=== PATIENT | male | born 1945 | race Caucasian/White ===

== ENCOUNTER 2016-05-15 08:30 | Emergency (ER) | payer MEDICARE ==
[2016-05-15 09:33] VITALS: BP 98/54
--- NOTE | 2016-05-15 11:02 | UC ---
Ro Alvarado Alok, scribed for Toyin Pretty DO on 05/15/16 at 0935 . Minor Trauma HPI - HPI Summary HPI Summary: 71 y/o male presents to the with right ankle pain and edema with erythema as well as a low BP. Pt has hx of parkinson's and reportedly fell at least 4 times in the past week due to loss of balance while at rest and while walking which is unusual for him. Pt states feeling lightheaded before falling, but denies impact of the head or loss of consciousness. Pt confusion is the same as baseline. Erythema and swelling of the right ankle has been increasing for the past two days. Pt has been able to ambulate with the assistance of a walker, although he does not use one regularly. Ambulating aggravates his pain. Pt also notes a HILL last night at 0400 which felt like a typical HILL. Pt denies fever , chills, CP, SOB, cough, sore throat, ear ache, eye drainage, abd pain, N/V/D, rash, or urinary symptoms. Recent changes in pt medications include synthroid which has been reduced from 25 mg a day to half that since it has been bothering him. Pt also takes Zoloft and Gabapentin. Pt no longer take clonazapam. - History of Current Complaint Chief Complaint: UCLowerExtremity Stated Complaint: FELL,LEG INJURY Time Seen by Provider: 05/15/16 08:57 Hx Obtained From: Patient, Family/Hook Up Onset/Duration: Gradual Onset, Lasting Days, Still Present Onset Of Pain: Post Accident Severity Initially: Moderate Severity Currently: Moderate Pain Intensity: 2 Pain Scale Used: 0-10 Numeric Mechanism Of Injury: Fall From Height Of: - from seated, Fall From A Standing Position Aggravating Factor(s): Ambulation Alleviating Factor(s): Nothing Associated Signs And Symptoms: Positive: Swelling, Other: - erythema. 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, DVS Endocrine History Of: Denies: Diabetes, Thyroid Disease Cardiovascular History Of: Denies: Cardiac Disorders, Hypertension Respiratory History Of: Denies: COPD, Asthma GI/ History Of: Reports: Gastroesophageal Reflux Denies: Ulcer - Surgical History Surgical History: Yes Surgery Procedure, Year, and Place: TURP - Family History Known Family History: Positive: Cardiac Disease, Hypertension, Other - Blot clot , CVA, [place] - Social History Occupation: Retired Lives: With Family - Alcohol Use: None Alcohol Amount: 1/2 glass of wine at dinner Substance Use Type: None Smoking Status (MU): Never Smoked Tobacco - Immunization History Most Recent Tetanus Shot: within 5 years Review of Systems Constitutional: Negative Skin: Other - Erythema, edema, right ankle Eyes: Negative ENT: Negative Respiratory: Negative Cardiovascular: Negative Gastrointestinal: Negative Genitourinary: Negative Motor: Negative Neurovascular: Negative Musculoskeletal: Edema, Other: - Right Ankle pain Neurological: Headache Psychological: Negative All Other Systems Reviewed And Are Negative: Yes Physical Exam Triage Information Reviewed: Yes Appearance: Well-Appearing, No Pain Distress, Well-Nourished Vital Signs: Initial Vital Signs Temp 97.3 F 05/15/16 08:49 Pulse 68 05/15/16 08:49 Resp 16 05/15/16 08:49 BP 94/55 05/15/16 08:49 Pulse Ox 97 05/15/16 08:49 Vital Signs Reviewed: Yes Eyes: Positive: Conjunctiva Clear. Negative: Discharge ENT: Positive: Hearing grossly normal. Negative: Muffled/hoarse voice Neck exam: Normal Neck: Positive: Supple Respiratory: Positive: Lungs clear, Normal breath sounds, No respiratory distress, No accessory muscle use Cardiovascular: Positive: RRR, No Murmur Musculoskeletal: Positive: Other: - Right calf tenderness. Pos vieyra's. Erythematous right calf with edema. Tender lat/med maleolus, base of 5th metatarsal, pos calcaneal squeeze Neurological: Positive: Alert, Muscle Tone Normal Psychological Exam: Normal Psychological: Positive: Age Appropriate Behavior Skin Exam: Normal - large, tender, erythematous, indurated circumferential lesion on lower rt leg ant >post. ~16cm Skin: Positive: Other Minor Trauma Course/Dx - Differential Dx/Diagnosis Differential Diagnosis/HQI/PQRI: Contusion(s), Fracture, Sprain, Other - cellulitis, dvt, sepsis, frequent falls Provider Diagnoses: frequent falls/unsteady gait, hypotension, lower extremity edema(dvt vs. cellulitis) Discharge - Discharge Plan Condition: Stable Disposition: AGAINST MEDICAL ADVICE Referrals: Jose Johnson MD [Primary Care Provider] - The documentation as recorded by the Ro kendrick Alok accurately reflects the service I personally performed and the decisions made by , Toyin Pretty DO.
== END 2016-05-15 09:45 | disposition left against medical advice (07) ==
LOC: UCEAST 08:30
DX: M25.571 Pain in right ankle and joints of right foot (principal); R60.0 Localized edema; R26.81 Unsteadiness on feet; G20 Parkinson's disease; I10 Essential (primary) hypertension; Z91.048 Other nonmedicinal substance allergy status
CPT/HCPCS: 99212; G0463

== ENCOUNTER 2016-05-15 10:13 | Emergency (ER) | payer MEDICARE ==
[2016-05-15 11:17] VITALS: BP 118/63
--- NOTE | 2016-05-15 12:31 | RAD ---
INDICATION: Pain and swelling. COMPARISON: None TECHNIQUE: Duplex interrogation of the Lowerextremity was performed. FINDINGS: Deep veins: The common femoral, great saphenous, profunda femoris, proximal, mid, and distal deep femoral, popliteal, posterior tibial, and peroneal veins are patent. There is normal compressibility, augmentation, and phasic flow. Superficial veins: There are no findings of superficial thrombophlebitis. Popliteal fossa:There is no evidence of a popliteal cyst. Soft tissues: There is calf edema. IMPRESSION: No evidence of deep venous thrombosis
[2016-05-15] MEDS ORDERED: Cephalexin CAP* 500 MG PO ONE (12:55)
--- NOTE | 2016-05-16 22:35 | ED ---
Ministerio Alvarado Adam, scribed for Abdulaziz Cordova MD on 05/15/16 at 1246 . Lower Extremity - HPI Summary HPI Summary: Pt is a 71 year old male presenting with redness and pain in his right lower leg. He states that the redness developed 4 days ago and the pain has been worsening since then. Pt went to convenient care before being sent to the ED to rule out DVT. Pt denies any pain in his upper leg. He denies any Hx of circulation problems. PMHx of Parkinson's. - History of Current Complaint Chief Complaint: EDExtremityLower Stated Complaint: POSSIBLE INFERCTION IN RT LEG Time Seen by Provider: 05/15/16 12:29 Hx Obtained From: Patient Mechanism Of Injury: Unknown Onset of Pain: Days Onset/Duration: Still Present Severity Initially: Moderate Severity Currently: Moderate Timing: Constant Location: Is Discrete @ - Right lower leg Associated Signs And Symptoms: Positive: Redness Aggravating Factor(s): Other - Palpation Alleviating Factor(s): Nothing Able to Bear Weight: Yes - Allergies/Home Medications Allergies/Adverse Reactions: Allergies Allergy/AdvReac Type Severity Reaction Status Date / Time Adhesive Tape Allergy Rash Verified 05/15/16 08:58 PMH/Surg Hx/FS Hx/Imm Hx Endocrine/Hematology History: Denies: Hx Diabetes, Hx Thyroid Disease Cardiovascular History: Denies: Hx Hypertension Respiratory History: Denies: Hx Asthma, Hx Chronic Obstructive Pulmonary Disease (COPD) GI History: Denies: Hx Ulcer Musculoskeletal History: Denies: Hx Rheumatoid Arthritis, Hx Osteoporosis - Cancer History Cancer Type, Location and Year: Melanoma - Surgical History Surgery Procedure, Year, and Place: [facility] Infectious Disease History: Reports: Hx Shingles Denies: Hx Clostridium Difficile, Hx Hepatitis, Hx Human Immunodeficiency Virus (HIV), Hx Tuberculosis, Hx Known/Suspected VRE, Hx Known/Suspected VRSA, History Other Infectious Disease, Traveled Outside the [place] in Last 30 Days - Family History Known Family History: Positive: Cardiac Disease, Hypertension - Social History Occupation: Retired Lives: With Family - Alcohol Use: Weekly Alcohol Amount: 1/2 glass of wine at dinner Hx Substance Use: No Substance Use Type: Reports: None Hx Tobacco Use: No Smoking Status (MU): Never Smoked Tobacco Review of Systems Negative: Fever Positive: Myalgia - Right lower leg Positive: Other - Erythema of right lower leg All Other Systems Reviewed And Are Negative: Yes Physical Exam Triage Information Reviewed: Yes Vital Signs On Initial Exam: Initial Vitals Temp Pulse Resp BP Pulse Ox 97.9 F 59 16 118/67 100 05/15/16 10:17 05/15/16 10:17 05/15/16 10:17 05/15/16 10:17 05/15/16 10:17 Vital Signs Reviewed: Yes Appearance: Positive: Well-Appearing, No Pain Distress Skin: Positive: Warm, Skin Color Reflects Adequate Perfusion, Dry, Other - Erythema and tenderness in right lower leg Head/Face: Positive: Normal Head/Face Inspection Eyes: Positive: Normal ENT: Positive: Normal ENT inspection Neck: Positive: Supple, Nontender Respiratory/Lung Sounds: Positive: Clear to Auscultation, Breath Sounds Present Cardiovascular: Positive: RRR Abdomen Description: Positive: Nontender, Soft Bowel Sounds: Positive: Present Musculoskeletal: Positive: Normal Neurological: Positive: Normal Psychiatric: Positive: Affect/Mood Appropriate Diagnostics - Vital Signs Vital Signs Temp Pulse Resp BP Pulse Ox 05/15/16 11:16 97 F 62 16 118/63 100 05/15/16 10:17 97.9 F 59 16 118/67 100 - Laboratory Lab Statement: Any lab studies that have been ordered have been reviewed, and results considered in the medical decision making process. - Additional Comments Diagnostic Additional Comments: Venous Doppler Study: No evidence of deep vein thrombosis. Lower Extremity Course/Dx - Diagnoses Provider Diagnoses: Cellulitis Discharge - Discharge Plan Condition: Stable Disposition: HOME Prescriptions: Cephalexin CAP* [Keflex CAP*] 500 mg PO QID #40 cap Patient Education Materials: Cellulitis (ED) Referrals: Jose Johnson MD [Primary Care Provider] - Additional Instructions: Follow up with your Primary Care Physician. The documentation as recorded by the Ministerio kendrick Adam accurately reflects the service I personally performed and the decisions made by me, Abdulaziz Cordova MD.
== END 2016-05-15 13:28 | disposition home or self-care (01) ==
LOC: ED 10:13
DX: L03.90 Cellulitis, unspecified (principal); M79.604 Pain in right leg
CPT/HCPCS: 99282; A9270-GY

== ENCOUNTER 2016-05-29 08:06 | Emergency (ER) | payer MEDICARE ==
[2016-05-29 08:21] VITALS: BP 112/65
--- NOTE | 2016-05-29 09:25 | UC ---
Ro Alvarado Alok, scribed for Letha Bravo MD on 05/29/16 at 0914 . Upper Extremity HPI - HPI Summary HPI Summary: 71 y/o male with Parkinson's disease presents to the accompanied by his following a fall this morning at 0530 where he rolled out of bed. The patient reportedly landed on his left side and notes left shoulder pain, but was able to get up on his own. The patient states he hit his head as well but "not very hard" and denies LOC. No blood HEENT. The pt has been taking Tylenol and using ice for his left sided shoulder pain with moderate alleviation. The pt has been using an arm sling while at home. Pt is RHD. Pt states pain in anterior aspect of shoulder. No other injuries - no cp, sob, abd pain. No lower ext pain. No pain in neck or back The pt states he again fell in the parking [place] while getting out of the car causing a skin abrasion his right elbow. He was able to get up with the assistance of the nursing staff and was brought in to the with a wheel chair. No other injuries The patient states that he falls fairly often. Pt uses walker intermittently - has discussed [place] [facility] [place] [facility]. Pt denies CP, SOB, or abd pain. The pt is unsure of his last tetanus shot. Pt medication reviewed this visit. - History of Current Complaint Chief Complaint: UCUpperExtremity Stated Complaint: SHOULDER INJURY Time Seen by Provider: 05/29/16 08:21 Hx Obtained From: Patient, Family/Digital Account Manager ?: No Onset/Duration: Sudden Onset, Lasting Hours, Still Present Severity Initially: Moderate Severity Currently: Moderate Pain Intensity: 5 Pain Scale Used: 0-10 Numeric Location Of Pain: Is Discrete @ - Left shoulder Aggravating Factor(s): Movement Alleviating Factor(s): Ice, OTC Meds - tylenol Associated Signs And Symptoms: Positive: Negative - Allergies/Home Medications Allergies/Adverse Reactions: Allergies Allergy/AdvReac Type Severity Reaction Status Date / Time Adhesive Tape Allergy Rash Verified 05/29/16 08:22 PMH/Surg Hx/FS Hx/Imm Hx Previously Healthy: No Endocrine History Of: Denies: Diabetes, Thyroid Disease Cardiovascular History Of: Denies: Cardiac Disorders, Hypertension Respiratory History Of: Denies: COPD, Asthma GI/ History Of: Reports: Gastroesophageal Reflux Denies: Ulcer - Surgical History Surgical History: Yes Surgery Procedure, Year, and Place: TUR - Family History Known Family History: Positive: Cardiac Disease, Hypertension - Social History Lives: With Family Alcohol Use: Occasionally Alcohol Amount: 1/2 glass of wine at dinner Substance Use Type: Prescribed Smoking Status (MU): Never Smoked Tobacco - Immunization History Most Recent Tetanus Shot: within 5 years Hx Tetanus, Diphtheria Vaccination: Yes - Called PCP - 2013 Review of Systems Constitutional: Negative Skin: Other - Right elbow abrasion Eyes: Negative ENT: Negative Respiratory: Negative Cardiovascular: Negative Gastrointestinal: Negative Genitourinary: Negative Motor: Other - left shoudler pain Neurovascular: Negative Musculoskeletal: Other: - Left shoulder pain. Neurological: Negative Psychological: Negative All Other Systems Reviewed And Are Negative: Yes Physical Exam Triage Information Reviewed: Yes Appearance: Well-Appearing, No Pain Distress, Well-Nourished Vital Signs: Initial Vital Signs Temp 97.0 F 05/29/16 08:15 Pulse 74 05/29/16 08:15 Resp 18 05/29/16 08:15 BP 112/65 05/29/16 08:15 Pulse Ox 97 05/29/16 08:15 Vital Signs Reviewed: Yes Eye Exam: Normal ENT: Positive: Hearing grossly normal Neck exam: Normal Neck: Positive: Supple, Nontender, No Lymphadenopathy Respiratory Exam: Normal Respiratory: Positive: Chest non-tender, Lungs clear, Normal breath sounds Cardiovascular Exam: Normal Cardiovascular: Positive: RRR, No Murmur Abdominal Exam: Normal Abdomen Description: Positive: Nontender, No Organomegaly, Soft Bowel Sounds: Positive: Present Musculoskeletal Exam: Normal Musculoskeletal: Positive: Other: - Pt with tenderness anterior right shoulder with direct palpation Pt resists extension of shoulder second to pain + flex/ ext b/l elbows with referred pain to shoulder + flex/ext wrists + pronate/ supinate Neurological Exam: Normal, Other - + thumb up, a ok, finger spread, finger cross of right + gross sensation throughout ext Neurological: Positive: Alert, Muscle Tone Normal Skin: Positive: Other - pt with 2cm abrasion, non suturable just inferior to elbow Diagnostics - Radiology Clavical XRAY Xray Interpretation: Positive (See Comments) - IMPRESSION: AC JOINT SEPARATION. Radiology Interpretation Completed By: Radiologist Shoulder XRAY Xray Interpretation: Positive (See Comments) - IMPRESSION: LEFT AC JOINT SEPARATION. Radiology Interpretation Completed By: Radiologist Re-Evaluation - Re-Evaluation First Eval Re-Evaluation Time: 09:48 Comment: REviewed with pt and xray - AC separation, no fracture. d/w pt and regarding sling use. ice. motrin/apap. wound care to right elbow. Pt has cane and walker at home. d/w pt regarding balance and repeated needs stand by assist. 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 referral placed Upper Extremity Course/Dx - Course Course Of Treatment: PT with left shoulder pain s/p fall out of bed at 5am. diff includes fracture, dislocation, contusion, sprain. Pt with non-suturable abraisons right elbow. PCP confirmed Tdap 2013. wound care. incident form complete - Differential Dx/Diagnosis Provider Diagnoses: left AC separation Discharge - Discharge Plan Condition: Stable Disposition: HOME Referrals: Jose Johnson MD [Primary Care Provider] - Art Perla MD [Medical Doctor] - Additional Instructions: - Wear sling for comfort and support. Try to relax your arm and allow the sling to hold your shoulder weight - Okay to take tylenol every 6 hours for pain - apply ice (wrapped in a towel) 20 minutes at a time, 2-3 times a day - apply a thin layer of antibiotic ointment to your right elbow with a bandage 2 times a day - Call the orthopedic doctor to schedule a follow-up appointment. Call the orthopedic doctor or your doctor with questions or concerns - USe your cane and advertising assistant manager when walking for balance The documentation as recorded by the Ro kendrick Alok accurately reflects the service I personally performed and the decisions made by me, Letha Bravo MD.
[2016-05-29] MEDS ORDERED: Albuterol/Ipratropium NEB.SOL* Albuterol 2.5 MG/Ipratropium 0.5 MG 3 ML INH ONE ×2 (09:39→09:40)
[2016-05-29] MEDS ORDERED: predniSONE TAB* 20 MG PO ONE (09:39)
--- NOTE | 2016-05-29 09:39 | RAD ---
INDICATION: Left shoulder pain. Fall. COMPARISON: None TECHNIQUE: Routine frontal and Y views were obtained. FINDINGS: There is AC joint separation with cephalad migration of the distal clavicle at the AC joint consistent with a radiographic grade 3 separation. There is no acute fracture. There is no evidence of dislocation at the glenohumeral joint.. IMPRESSION: LEFT AC JOINT SEPARATION.
--- NOTE | 2016-05-29 09:44 | RAD ---
INDICATION: AC joint separation. Shoulder injury. COMPARISON: Left shoulder same date TECHNIQUE: AP views were obtained. FINDINGS: There is cephalad migration distal clavicle consistent with a AC joint separation. The findings suggest a type III separation. There is no underlying clavicular fracture. IMPRESSION: AC JOINT SEPARATION.
== END 2016-05-29 10:02 | disposition home or self-care (01) ==
LOC: UCEAST 08:06
DX: G20 Parkinson's disease (principal); S43.102A Unspecified dislocation of left acromioclavicular joint, initial encounter; K21.9 Gastro-esophageal reflux disease without esophagitis; S50.311A Abrasion of right elbow, initial encounter; W06.XXXA Fall from bed, initial encounter; Z91.048 Other nonmedicinal substance allergy status
CPT/HCPCS: 99212; A9270-GY; G0463; J7512

== ENCOUNTER 2016-07-14 08:17 | Emergency (ER) | payer MEDICARE ==
--- NOTE | 2016-07-14 09:36 | UC ---
Laceration HPI - HPI Summary HPI Summary: PT WITH H/O PARKINSONS AND UNSTEADY GAIT WHO CURRENTLY HAS A RIGHT ANKLE FX WAS WALKING TO THE BATHROOM AT 4:45AM THIS MORNING WHEN HE FELL AND STRUCK HIS HEAD ON THE NIGHTSTAND. THINKS HE PROBABLY TRIPPED. CAN NOT BE CERTAIN ABOUT ANY LOC. DENIES ANY HILL, DIZZINESS, NAUSEA OR VISUAL DISTURBANCE. - History Of Current Complaint Chief Complaint: UCLaceration Stated Complaint: FELL-HIT HEAD-LAC Time Seen by Provider: 07/14/16 08:21 Hx Obtained From: Patient, Family/Hospice Nurse Practitioner - Laceration Location: Head Mechanism Of Injury: Blunt Trauma Onset/Duration: Sudden Onset, Lasting Hours, Still Present Severity: Moderate Pain Intensity: 0 Pain Scale Used: 0-10 Numeric Aggravating Factors: Nothing - Allergies/Home Medications Allergies/Adverse Reactions: Allergies Allergy/AdvReac Type Severity Reaction Status Date / Time Adhesive Tape Allergy Severe Rash Verified 07/14/16 08:22 PMH/Surg Hx/FS Hx/Imm Hx Other Psychological History: PARKINSONS - Surgical History Surgical History: Yes Surgery Procedure, Year, and Place: TURP, melanoma, deep brain stimulation - Family History Known Family History: Positive: Cardiac Disease, Hypertension - Social History Alcohol Use: Occasionally Alcohol Amount: 1/2 glass of wine at dinner Substance Use Type: None Smoking Status (MU): Never Smoked Tobacco - Immunization History Most Recent Tetanus Shot: within 5 years Hx Tetanus, Diphtheria Vaccination: Yes - Called PCP - 2013 Review of Systems Constitutional: Negative Skin: Other - LACERATION Respiratory: Negative Cardiovascular: Negative Gastrointestinal: Negative Genitourinary: Negative Neurological: Negative All Other Systems Reviewed And Are Negative: Yes Physical Exam Triage Information Reviewed: Yes Appearance: Well-Appearing, No Pain Distress, Well-Nourished Vital Signs: Initial Vital Signs Temp 96.9 F 07/14/16 08:26 Pulse 62 07/14/16 08:26 Resp 16 07/14/16 08:26 BP 151/84 07/14/16 08:26 Pulse Ox 100 07/14/16 08:26 Vital Signs Reviewed: Yes Eyes: Positive: Conjunctiva Clear ENT: Positive: Hearing grossly normal, Pharynx normal, TMs normal Neck: Positive: Supple, Nontender, No Lymphadenopathy Respiratory: Positive: No respiratory distress, No accessory muscle use Cardiovascular: Positive: Pulses Normal Abdomen Description: Positive: Soft Musculoskeletal: Positive: No Edema Neurological: Positive: Alert, Other: Psychological: Positive: Normal Response To Family, Age Appropriate Behavior Skin: Positive: Other - 4 CM LINEAR LACERATION RIGHT SCALP Laceration Repair - Laceration Repair 1 Description: Linear Laceration Size After Repair: Length (cm) - 4CM, Width (mm) - 0MM, Depth (mm) - 4MM Modified For Repair: No Type Injection: Local Anesthesia Used: 2.0% Lido Irrigation With Pressure Irrigation Device: Yes Closure Material: Theodore - 4 Diagnostics - Radiology CT HEAD W/O Xray Interpretation: No Acute Changes Radiology Interpretation Completed By: Radiologist Laceration Course/Dx - Differential Dx - Laceration/Wound Provider Diagnoses: 1. LACERATION SCALP - STAPLE REPAIR. 2. HEAD INJURY Discharge - Discharge Plan Condition: Stable Disposition: HOME Patient Education Materials: Laceration (ED), Head Injury (ED) Referrals: Jose Johnson MD [Primary Care Provider] - If Needed Additional Instructions: CT SCAN TODAY NEGATIVE FOR BLEED OR SKULL FRACTURE. KEEP DRESSINGS IN PLACE AND DRY FOR THE FIRST 24 HRS. THEN YOU MAY REMOVE THE DRESSING AND GENTLY CLEANSE WITH SOAP AND WATER. PAT DRY AND RE-BANDAGE. APPLY THIN LAYER ANTIBIOTIC OINTMENT (POLYSPORIN OR BACITRACIN) UNDER BANDAGE FOR FIRST 3 DAYS ONLY. CHANGE BANDAGE DAILY AND NEEDED IF IT BECOMES SOILED OR WET. SEEK FOLLOW-UP IF YOU DEVELOP SPREADING REDNESS OF THE SKIN, PURULENT DRAINAGE, FEVER, INCREASED PAIN OR ANY OTHER CONCERNING SYMPTOMS. RETURN FOR STAPLE REMOVAL IN 10 DAYS
[2016-07-14] MEDS ORDERED: Lidocaine 2% PF * 5 ML VIAL INJ ONE (10:12)
[2016-07-14] MEDS ORDERED: Lidocaine 2% PF * 5 ML VIAL ONE (10:14)
--- NOTE | 2016-07-14 10:18 | RAD ---
INDICATION: Trauma to the right frontal and parietal area. Relevant surgical history includes placement of a "deep brain stimulator" COMPARISON: None. TECHNIQUE: Contiguous axial sections of the brain were obtained from the skull base to the vertex without contrast. FINDINGS: Postsurgical changes include subcutaneous devices overlying the bilateral frontal bones overlying small bilateral frontal bone craniotomy is. Through the craniotomies there are wires traversing the frontal lobes terminating at the bilateral basal ganglia. The ventricles, cisterns and sulci are within normal limits. The edmondson-white matter differentiation is adequately maintained and there is no sulcal effacement. No significant focal abnormality or mass effect is present. There is no evidence for intracranial hemorrhage. No significant focal osseous abnormality is present. The visualized portion of the paranasal sinuses and mastoid air cells appear clear. IMPRESSION: Postoperative findings described above without CT evidence of traumatic calvarial fracture or intracranial hemorrhage.
[2016-07-14 11:08] VITALS: BP 172/96
== END 2016-07-14 10:44 | disposition home or self-care (01) ==
LOC: UCEAST 08:17
DX: S01.01XA Laceration without foreign body of scalp, initial encounter (principal); S09.90XA Unspecified injury of head, initial encounter; W22.09XA Striking against other stationary object, initial encounter; Y93.89 Activity, other specified; Y92.003 Bedroom of unspecified non-institutional (private) residence as the place of occurrence of the external cause; G20 Parkinson's disease; Z91.048 Other nonmedicinal substance allergy status
CPT/HCPCS: 12002; 70450; 93005; 99212; G0463

== ENCOUNTER 2016-07-17 06:35 | Day surgery (SDC) | payer MEDICARE ==
[~2016-07-17 06:35] MED LIST: Acetaminophen TAB* 325 MG PO PRN; Buffered Lidocaine 0.9% SYRIN* 5 ML/SYR SYRINGE INTRADERM ONE
[2016-07-17] MEDS ORDERED: fentaNYL* 50 MCG/ML 2 ML VIAL (100 MCG VIAL) ONE (07:22)
[2016-07-17] MEDS ORDERED: Midazolam* 1 MG/ML 2 ML VIAL (2 MG) ONE (07:22)
[2016-07-17 08:34] VITALS: BP 122/84
--- NOTE | 2016-07-17 12:26 | OP ---
DATE OF OPERATION: 07/17/16 - [facility] DATE OF : 45 SURGEON: Fei Hernandez MD ANESTHESIOLOGIST: Ed Saab MD ANESTHESIA: Monitored anesthesia care. PRE-OP DIAGNOSIS: Cataract of the right eye. POST-OP DIAGNOSIS: Cataract of the right eye. OPERATIVE PROCEDURE: Cataract extraction of the right eye. IMPLANTS: SN60WF 19.0 diopter lens to the right eye. COMPLICATIONS: None. DESCRIPTION OF PROCEDURE: The patient was given phenylephrine 2.5% and cyclopentolate 1% eye drops to the operative eye in the preoperative area. The patient was brought to the operating room, where a time-out was taken to identify the correct patient, site, and side of surgery. The patient's right eye was prepped and draped in the usual sterile fashion with 5% Betadine. A second time-out was taken to verify the correct patient, site and side of surgery, and correct lens selection. A lid speculum was placed to the right eye. A 1-mm paracentesis blade was used to make a clear corneal incision in the superotemporal position. Preservative-free 1% lidocaine was injected into the anterior chamber. DisCoVisc was then injected into the anterior chamber. A 2.75 mm keratome blade was used to make a triplanar incision at the inferotemporal position. A cystotome initiated a capsulorrhexis, which was completed with Utrata forceps in a continuous and curvilinear manner. Hydrodissection of the lens was performed with BSS on a cannula. The lens could be spun in the capsular bag. The phacoemulsification handpiece was used with a [id number] technique to remove the nucleus in its entirety with 10.77 CDE. The I/A handpiece then removed the residual cortical lens material. DisCoVisc was injected to inflate the capsular bag. The planned SN60WF 19.0 diopter lens was injected into the capsular bag. The residual DisCoVisc was removed from the eye with the I/A handpiece. The corneal incisions were hydrated and no leaks occurred at physiologic pressure around 20 mmHg per palpation. The lid speculum was removed and drapes removed. Maxitrol ointment was placed on the surface of the operative eye. An adhesive patch and shield was placed to the surface of the operative eye. The patient was taken to the postoperative area in stable condition. [id number]/[facility] #: [id number] MTDRyley
[2016-07-17] MEDS ORDERED: Flurbiprofen 0.03% OPTH.SOL* 2.5 ML BTL ONE (16:26)
[2016-07-17] MEDS ORDERED: acetaZOLAMIDE TAB* 250 MG ONE (16:26)
[2016-07-17] MEDS ORDERED: Povidone Iodine 5% OPTH* 30 ML BTL ONE (16:26)
[2016-07-17] MEDS ORDERED: Tropicamide 1% OPTH.SOL* BTL ONE (16:26)
[2016-07-17] MEDS ORDERED: Neomycin/Polymy/Dex OPHTH.OIN* 3.5 GM ONE (16:26)
[2016-07-17] MEDS ORDERED: Tetracaine 0.5% OPTH.SOL 4 ML* 1 DROP BTL ONE (16:26)
[2016-07-17] MEDS ORDERED: Lidocaine 1% MPF* 2 ML VIAL ONE (16:26)
[2016-07-17] MEDS ORDERED: Buffered Lidocaine 0.9% SYRIN* 5 ML/SYR SYRINGE ONE (16:26)
[2016-07-17] MEDS ORDERED: Cyclopentolate 1% OPTH.SOL* 2 ML BTL ONE (16:26)
[2016-07-17] MEDS ORDERED: Phenylephrine 2.5% OPTH.SOL* 2 ML BTL ONE (16:26)
== END 2016-07-17 08:29 | disposition home or self-care (01) ==
LOC: OREAST 06:35
PROVIDERS: ATTEND Student in an Organized Health Care Education/Training Program
DX: H25.11 Age-related nuclear cataract, right eye (principal); H35.3131 Nonexudative age-related macular degeneration, bilateral, early dry stage; I10 Essential (primary) hypertension; E03.9 Hypothyroidism, unspecified; G20 Parkinson's disease
CPT/HCPCS: A9270-GY; J2250; J3010; V2632

== ENCOUNTER 2016-07-24 10:51 | Day surgery (SDC) | payer MEDICARE ==
[2016-07-24] MEDS ORDERED: fentaNYL* 50 MCG/ML 2 ML VIAL (100 MCG VIAL) ONE (12:13)
[2016-07-24] MEDS ORDERED: Midazolam* 1 MG/ML 2 ML VIAL (2 MG) ONE (12:13)
[2016-07-24 13:18] VITALS: BP 128/74
[2016-07-24] MEDS ORDERED: Povidone Iodine 5% OPTH* 30 ML BTL ONE (14:56)
[2016-07-24] MEDS ORDERED: acetaZOLAMIDE TAB* 250 MG ONE (14:56)
[2016-07-24] MEDS ORDERED: Cyclopentolate 1% OPTH.SOL* 2 ML BTL ONE (14:56)
[2016-07-24] MEDS ORDERED: Neomycin/Polymy/Dex OPHTH.OIN* 3.5 GM ONE (14:56)
[2016-07-24] MEDS ORDERED: Phenylephrine 2.5% OPTH.SOL* 2 ML BTL ONE (14:56)
[2016-07-24] MEDS ORDERED: Buffered Lidocaine 0.9% SYRIN* 5 ML/SYR SYRINGE ONE (14:56)
[2016-07-24] MEDS ORDERED: Flurbiprofen 0.03% OPTH.SOL* 2.5 ML BTL ONE (14:56)
[2016-07-24] MEDS ORDERED: Tetracaine 0.5% OPTH.SOL 4 ML* 1 DROP BTL ONE (14:56)
[2016-07-24] MEDS ORDERED: Tropicamide 1% OPTH.SOL* BTL ONE (14:56)
[2016-07-24] MEDS ORDERED: Lidocaine 1% MPF* 2 ML VIAL ONE (14:56)
--- NOTE | 2016-07-25 04:12 | OP ---
DATE OF OPERATION: 07/24/16 - [facility] DATE OF : 45 SURGEON: Fei Hernandez MD ANESTHESIOLOGIST: Gage Borja MD ANESTHESIA: Monitored anesthesia care. PRE-OP DIAGNOSIS: Cataract of the left eye. POST-OP DIAGNOSIS: Cataract of the left eye. OPERATIVE PROCEDURE: Cataract extraction of the left eye. IMPLANTS: SN60WF 17.0 diopter lens to the left eye. COMPLICATIONS: None. DESCRIPTION OF PROCEDURE: The patient was given phenylephrine 2.5% and cyclopentolate 1% eye drops to the operative eye in the preoperative area. The patient was brought to the operating room, where a time-out was taken to identify the correct patient, site, and side of surgery. The patient's left eye was prepped and draped in the usual sterile fashion with 5% Betadine. A second time-out was taken to verify the correct patient, site, and side of surgery, and correct lens selection. A lid speculum was placed to the left eye. A 1-mm paracentesis blade was used to make a clear corneal incision in the inferotemporal position. Preservative-free 1% lidocaine was injected into the anterior chamber. DisCoVisc was then injected into the anterior chamber. A 2.75-mm keratome blade was used to make a triplanar incision at the superotemporal position. A cystotome initiated a capsulorrhexis, which was completed with Utrata forceps in a continuous and curvilinear manner. Hydrodissection of the lens was performed with BSS on a cannula. The lens could be spun in the capsular bag. The phacoemulsification handpiece was used with a [id number]-[id number] technique to remove the nucleus in its entirety with 13.83 CDE. The I/A handpiece then removed the residual cortical lens material. DisCoVisc was injected to inflate the capsular bag. The planned SN60WF 17.0 diopter lens was injected into the capsular bag. The residual DisCoVisc was removed from the eye with the I/A handpiece. The corneal incisions were hydrated and no leaks occurred at physiologic pressure around 20 mmHg per palpation. The lid speculum was removed and drapes removed. Maxitrol ointment was placed on the surface of the operative eye. An adhesive patch and shield was placed on the operative eye. The patient was taken to the postoperative area in stable condition. [id number]/[facility] #: [id number] MTDRyley
== END 2016-07-24 13:30 | disposition home or self-care (01) ==
LOC: OREAST 10:51
PROVIDERS: ATTEND Student in an Organized Health Care Education/Training Program
DX: H25.12 Age-related nuclear cataract, left eye (principal)
CPT/HCPCS: A9270-GY; J2250; J3010; V2632

== ENCOUNTER 2016-08-11 14:55 | Emergency (ER) | payer MEDICARE ==
[2016-08-11 17:35] VITALS: BP 146/86
--- NOTE | 2016-08-11 18:30 | UC ---
Laceration HPI - HPI Summary HPI Summary: laceration to right forearm after falling an a piece of ceramic at 1330 today - History Of Current Complaint Chief Complaint: JESSkin Stated Complaint: ARM LACERATION Time Seen by Provider: 08/11/16 18:29 Hx Obtained From: Patient Laceration Location: Arm - right forarm Mechanism Of Injury: Sharp Trauma Onset/Duration: Sudden Onset, Lasting Hours, Still Present Severity: Moderate Pain Intensity: 3 Pain Scale Used: 0-10 Numeric Aggravating Factors: Nothing - Allergies/Home Medications Allergies/Adverse Reactions: Allergies Allergy/AdvReac Type Severity Reaction Status Date / Time Adhesive Tape Allergy Severe Rash Verified 07/24/16 11:43 PMH/Surg Hx/FS Hx/Imm Hx Previously Healthy: No - Parkinsons - Surgical History Surgical History: Yes Surgery Procedure, Year, and Place: TURP, melanoma, deep brain stimulation - Family History Known Family History: Positive: Cardiac Disease, Hypertension - Social History Occupation: Retired Lives: With Family Alcohol Use: Occasionally Alcohol Amount: 1/2 glass of wine at dinner Substance Use Type: None Smoking Status (MU): Never Smoked Tobacco - Immunization History Most Recent Tetanus Shot: within 5 years Hx Tetanus, Diphtheria Vaccination: Yes - Called PCP - 2013 Review of Systems Constitutional: Negative Skin: Other - 7cm linerar laceration anterior right forearm--minimal amount of oozing blood Eyes: Negative ENT: Negative Respiratory: Negative Cardiovascular: Negative Gastrointestinal: Negative Genitourinary: Negative Motor: Negative Neurovascular: Negative Musculoskeletal: Negative Neurological: Negative Psychological: Negative All Other Systems Reviewed And Are Negative: Yes Physical Exam Triage Information Reviewed: Yes Appearance: Well-Appearing, No Pain Distress, Well-Nourished Vital Signs: Initial Vital Signs Temp 98.0 F 08/11/16 15:41 Pulse 82 08/11/16 15:41 Resp 18 08/11/16 15:41 BP 132/72 08/11/16 15:41 Pulse Ox 99 08/11/16 15:41 Vital Signs Reviewed: Yes Eye Exam: Normal Eyes: Positive: Conjunctiva Clear ENT Exam: Normal ENT: Positive: Normal ENT inspection, Hearing grossly normal. Negative: Nasal congestion, Nasal drainage, Trismus, Muffled/hoarse voice Dental Exam: Normal Neck exam: Normal Neck: Positive: Supple, Nontender Respiratory Exam: Normal Respiratory: Positive: No respiratory distress, No accessory muscle use Cardiovascular Exam: Normal Cardiovascular: Positive: RRR, Pulses Normal, Brisk Capillary Refill Musculoskeletal Exam: Normal Musculoskeletal: Positive: Strength Intact, ROM Intact, No Edema Neurological Exam: Normal Neurological: Positive: Alert, Muscle Tone Normal Psychological Exam: Normal Skin Exam: Normal Skin: Positive: Other - 7 cm linear laceration anterior right forearm Laceration Repair - Laceration Repair 1 Description: Linear Laceration Size After Repair: Length (cm) - 7, Width (mm) - 3, Depth (mm) - 3 Modified For Repair: No Anesthesia Used: 2.0% Lido - 4cc Cleansing Completed Via Routine Prep: Yes Irrigation With Pressure Irrigation Device: Yes Closure Material: Sutures - 13 sutures number 5.0 nylon Re-Evaluation - Re-Evaluation First Eval Change: Improved - tolerated suture well n/m/c/ intact and equal before and after suture Laceration Course/Dx - Course/Dx Course Of Treatment: suture, mild soap and water wash bid, return in 10 days for suture removal, tylenol, ibuprofen for pain - Differential Dx - Laceration/Wound Differental Diagnoses: Bite Injury, Healing Wound, Hematoma, Laceration, Tendon Laceration Provider Diagnoses: 7cm laceration repair right forerm Discharge - Discharge Plan Condition: Stable Disposition: HOME Patient Education Materials: Care For Your Stitches (ED), Laceration (ED) Referrals: Jose Johnson MD [Primary Care Provider] - 08/21/16 Additional Instructions: You may return here or follow with for your suture removal. I would encourage you to use our call ahead service to help avoid waiting in the facility
[2016-08-11] MEDS ORDERED: Lidocaine 2% PF * 5 ML VIAL INJ ONE (18:31)
== END 2016-08-11 19:23 | disposition home or self-care (01) ==
LOC: UCEAST 14:55
DX: S51.811A Laceration without foreign body of right forearm, initial encounter (principal); W19.XXXA Unspecified fall, initial encounter; Y93.9 Activity, unspecified; Y92.9 Unspecified place or not applicable; Y99.9 Unspecified external cause status
CPT/HCPCS: 12002; 99212; G0463

== ENCOUNTER 2016-08-22 08:17 | Observation (INO) | payer MEDICARE ==
[2016-08-22] MEDS ORDERED: Aspirin Low Dose CHEW TAB* 81 MG PO ONE (08:28)
--- NOTE | 2016-08-22 09:00 | RAD ---
Indication: Chest pain Comparison: February 27, 2006 Technique: Upright AP 0850 hours Report: Monitoring device partially obscures the peripheral LEFT upper lung zone. No focal pulmonary lesion, compelling alveolar consolidation, pleural effusion, pneumothorax. The heart, pulmonary vasculature, and mediastinal contours are unremarkable. IMPRESSION: No evidence for acute intrathoracic disease.
[2016-08-22 09:02] LABS: Hematocrit 41 % (42-52); Hemoglobin 13.6 g/dl (14.0-18.0); Mean Corpuscular HGB Conc 33 g/dl (31-36); Mean Corpuscular Hemoglobin 31 pg (27-31); Mean Corpuscular Volume 94 fL (80-94); Mean Platelet Volume 8 um3 (7.4-10.4); Red Cell Distribution Width 14 % (10.5-15); White Blood Count 7.3 10^3/ul (3.5-10.8)
[2016-08-22 09:18] LABS: Albumin 4.4 g/dL (3.2-5.2); BUN/Creatinine Ratio 15.5 (8-20); EGFR African American 63.2 (>60); EGFR Non-African American 49.1 (>60); Globulin 2.6 g/dL (2-4); Magnesium 2.3 mg/dL (1.9-2.7); Potassium 3.9 mmol/L (3.5-5.0); Total Bilirubin 1.2 mg/dL (0.2-1.0)
[2016-08-22 09:21] LABS: Troponin I 0.01 ng/mL (<0.04)
[2016-08-22 09:48] LABS: TSH (Thyroid Stimulating Horm) 2.03 mcIU/mL (0.34-5.60)
--- NOTE | 2016-08-22 10:51 | RAD ---
INDICATION: Altered mental status. COMPARISON: Comparison is made with a prior CT of the brain from July 14, 2016. TECHNIQUE: Contiguous axial sections of the brain were obtained from the skull base to the vertex without contrast. FINDINGS: The ventricles, cisterns and sulci are enlarged consistent with diffuse atrophy. There are stimulator leads present on both sides. The leads terminate in the region of the basal ganglia and appear unchanged from the prior study. No significant focal abnormality or mass effect is seen. There is no evidence for hemorrhage. Postsurgical marcio holes are noted bilaterally within the frontal bones. No other focal osseous abnormalities are seen. The paranasal sinuses and mastoid air cells appear clear. IMPRESSION: 1. NO EVIDENCE FOR GROSS ACUTE INFARCT, MASS EFFECT OR HEMORRHAGE. 2. POSTSURGICAL CHANGES.
[2016-08-22 11:19] LABS: Urine Bilirubin Negative (Negative); Urine Glucose Negative (Negative); Urine Nitrite Negative (Negative)
[2016-08-22 12:35] LABS: Troponin I 0.01 ng/mL (<0.04)
[2016-08-22 12:56] LABS: C Reactive Protein < 1.00 mg/L (< 5.00)
[2016-08-22] MEDS ORDERED: NS 0.9% 1000 ML* 1,000 ML IV SCH (13:15)
[2016-08-22] MEDS: Carbidopa/Levodop 25/100 MG TAB(*) PO SCH ×2 (14:41→18:09)
[2016-08-22] MEDS: CMC:Midodrine (NF) 5 MG TAB PO SCH ×2 (14:42→22:42)
[2016-08-22] MEDS: Heparin VIAL(*) 5000 UNITS/ML VIAL (FIVE THOUSAND) SUBCUT SCH ×2 (14:43→20:50)
--- NOTE | 2016-08-22 16:04 | HP ---
CC: Dr. Jose Johnson* HISTORY AND PHYSICAL: DATE OF ADMISSION: 08/22/16 PRIMARY CARE PHYSICIAN: Dr. Jose Johnson. ATTENDING PHYSICIAN: Dr. Jillian Elias* (dictated by Wilfredo Dominguez NP). CHIEF COMPLAINT: Per the patient balance issues and muscle pain. Per , chest pain and shortness of breath. HISTORY OF PRESENT ILLNESS: Mr. Bueno is a 71-year-old male with past medical history significant for Parkinson's disease and orthostatic hypotension, who presents to the emergency room, per his after having chest pain at 4 a.m. that the patient describes as a tightness with associated shortness of breath. According to the patient's , he was more weak yesterday and had some diaphoresis and spend the day in the bed. The patient states that he spent most of the day sleeping. The patient denies any recent fevers, although he reports chills while in the emergency room. The patient denies nausea, vomiting , or urinary symptoms. He reports that his appetite has been okay and he feels he has been eating and drinking okay. He also reports having lightheadedness during the night when he had his chest discomfort. According to the patient's , he was recently started on Florinef and she noticed after being started on that, that he has had increased weakness. She reports that he was started on the Florinef due to falling from low blood pressures. He last fell approximately 10 days ago, at which time he got a laceration to his left forearm. The patient's states that his sutures were due to be removed today. Due to concern with the patient's chest pain and increased weakness, they presented to the emergency room for further evaluation of the symptoms. While in the emergency room, the patient had labs, significant for slightly elevated creatinine of 1.42. The patient's baseline appears to be 1.1 to 1.3 in the past. The patient had 2 troponins, both 0.01. He had a TSH of 2.03. The patient had a CBC within normal limits. The patient had urinalysis that was negative. He had chest x-ray showing no acute intrathoracic disease. He had a brain CT showing no evidence of gross acute infarct, mass effect, or hemorrhage, and postsurgical changes. The patient also had an EKG showing a sinus rhythm with a rate of 62. No acute signs of ischemia and this is similar to previous EKG from 07/14/16. Based off the patient's presentation and complaints of chest pain, the hospitalists were asked to evaluate the patient for admission. PAST MEDICAL HISTORY: 1. Macular degeneration. 2. Parkinson's disease. 3. Melanoma. 4. Orthostatic hypotension. PAST SURGICAL HISTORY: 1. Status post bilateral cataract extractions. 2. Status post transurethral prostate resection, 2007. 3. Status post placement of a deep brain stimulator, 2014. 4. Status post wide excision of a melanoma to the right anterior chest. HOME MEDICATIONS: Include: 1. Savision vitamin for eyes 1 tablet oral daily. 2. Fiber 1 teaspoon oral twice daily. 3. Vitamin D3 5000 units oral daily as needed for muscle spasms. 4. Calcium citrate 200 mg oral daily as needed for muscle spasm. 5. Selegiline 5 mg oral daily. 6. Potassium 99 mg oral daily as needed for muscle spasms. 7. Zoloft 50 mg oral daily at bedtime. 8. CoQ10 1200 mg oral daily. 9. Multivitamin 1 tablet oral daily. 10. Sinemet 25/100 2.5 tablets 5 times daily, the patient starts taking at 6 a.m. and takes every 4 hours for a total of 5 doses during his waking hours. 11. Florinef 0.2 mg oral every morning. 12. Clonazepam 0.5 to 1 mg oral daily at bedtime as needed for anxiety. 13. Magnesium 1 tablet oral daily as needed for muscle spasms. ALLERGIES: ADHESIVE TAPE. FAMILY HISTORY: The patient's father passed at age 70 from a myocardial infarction. The patient's mother had history of cerebrovascular accident. The patient denies any family history of diabetes mellitus or cancer. SOCIAL HISTORY: The patient denies tobacco or recreational drug use. The patient occasionally drinks wine. He is retired and lives with his . His , Chloe Bueno, will be his surrogate decision maker in the event he is unable to make decisions for himself. REVIEW OF SYSTEMS: I performed a 14-point review of systems. All the pertinent positives and negatives are mentioned in the history of present illness. The remaining review of systems is negative. PHYSICAL EXAMINATION GENERAL APPEARANCE: The patient is alert, pleasant, and appears to be in no acute distress. VITAL SIGNS: Temperature 97.4, heart rate 62, respiratory rate 16, O2 sat 99% on room air, blood pressure 155/91. HEENT: Normocephalic, atraumatic. Pupils are equal, round, and reactive to light. Extraocular movements are intact. RESPIRATORY: There is no accessory muscle use and the lungs are clear to auscultation bilateral. CARDIOVASCULAR: Regular rate and rhythm. S1 and S2 present. There are no murmurs, rubs, or gallops heard. ABDOMEN: Soft, nontender, and nondistended. Bowel sounds present x4. EXTREMITIES: There is no lower extremity edema. DP and PT pulses are 2+ and symmetric. MUSCULOSKELETAL: There is no clubbing or cyanosis noted. NEUROLOGIC: The patient is alert and oriented x4, although he stated the month was September instead of August. Cranial nerves II through XII are grossly intact. The patient's hand manager merchandising are equal. His dorsi and plantar flex are equal bilateral. PSYCHOLOGICAL: The patient is calm and cooperative. SKIN: There are no rashes or abnormalities seen. DIAGNOSTIC STUDIES/LAB DATA: Sodium 135, potassium 3.9, chloride 101, CO2 26, BUN 22, creatinine 1.42, and glucose 100. Troponin 0.01 x2. White blood cell count 7.3, hemoglobin 13.6, hematocrit 41, and platelet count 205. Urinalysis is negative. EKG shows sinus rhythm with a rate of 62. There are no acute signs of ischemia noted. This EKG is similar to previous EKG from 07/14/16. Chest x-ray from today. Radiologist impression: No evidence for acute intrathoracic disease. Brain CT from today. Radiologist impression: No evidence for gross acute infarct, mass effect, or hemorrhage, and postsurgical changes. IMPRESSION: Mr. Bueno is a 71-year-old male with past medical history of significant for Parkinson's disease and orthostatic hypotension, who presents to the emergency room with complaints of chest pain and shortness of breath overnight in addition to balance issues and generalized weakness. He will be admitted in observation for chest pain and generalized weakness. ASSESSMENT and PLAN: 1. Chest pain. So far the patient's troponins are negative at 0.01 x2. The patient's EKG shows no signs of acute ischemia. The patient will be monitored on telemetry. We will check one more troponin. We will do a nuclear chemical stress test in the morning. We will also check fasting lipids. The patient's LAY score is 1. 2. Generalized weakness. We will give the patient some gentle IV hydration. We will have Physical Therapy evaluate him. We will also switch his Florinef to midodrine and see if this helps with his weakness. 3. Orthostatic hypotension. The patient has been taking Florinef. We will stitch this to midodrine and see if this changes how the patient is feeling. 4. Parkinson's Disease. The patient will be continued on his home medications of Sinemet and selegiline. 5. Depression. The patient will be continued on his home Zoloft. 6. Fluids, electrolytes, and nutrition. The patient will be on heart-healthy diet. 7. Code status. Full code. 8. DVT prophylaxis. The patient is at high risk and will be placed on subcu heparin. 9. Disposition. Observation for chest pain, rule out acute coronary syndrome, and generalized weakness. TIME SPENT: Time for this admission was 45 minutes and greater than half of that was spent with the patient's discussing medications, past medical history, and the events leading up to their arrival today and performing physical examination. The case has been reviewed with the attending, Dr. Elias, who agrees with the plan of care. Reviewed by WILFREDO DOMINGUEZ, RENE-Mary 08/22/16 1459 ADDENDUM TO HISTORY AND PHYSICAL: Mr. Bueno is a 71-year-old male with a history of Parkinson's, who noted worsening of generalized weakness and then episode of chest pain yesterday. The patient is going to be placed on overnight observation and a stress test in the morning. For further details of the patient's presentation and plan, please see history and physical dictated by Wilfredo Dominguez NP, on , with which I agree. Jillian Elias MD [id number]/[facility] #: [id number]/[facility] #: [id number] [place]
--- NOTE | 2016-08-22 18:26 | HP ---
HISTORY AND PHYSICAL: ADDENDUM: Mr. Bueno is a 71-year-old male with a history of Parkinson's, who noted worsening of gene ralized weakness and then episode of chest pain yesterday. The patient is going to be placed on ove rnight observation and a stress test in the morning. For further details of the patient's presentat ion and plan, please see history and physical dictated by Fadumo Meng NP, on 08/22/16, with which I agree. [id number]/[facility] #: [id number]
--- NOTE | 2016-08-22 18:57 | PN ---
Hospitalist Progress Note Called by [facility] staff and notified that Pt would like to be a DNR/DNI. This was discussed with the Pt and his and a MOLST was competed.
[2016-08-22] MEDS ORDERED: Sertraline* 50 MG TAB PO SCH (21:00)
[2016-08-22] MEDS ORDERED: Carbidopa/Levodop 25/100 MG TAB(*) PO SCH (22:00)
[2016-08-23 04:43] LABS: BUN/Creatinine Ratio 16.8 (8-20); Calcium 9.1 mg/dL (8.6-10.3); EGFR African American 77.5 (>60); EGFR Non-African American 60.3 (>60); HDL Cholesterol 47.9 mg/dL; Potassium 3.8 mmol/L (3.5-5.0)
[2016-08-23] MEDS: Carbidopa/Levodop 25/100 MG TAB(*) PO SCH ×3 (05:39→15:01)
[2016-08-23] MEDS: Heparin VIAL(*) 5000 UNITS/ML VIAL (FIVE THOUSAND) SUBCUT SCH ×2 (05:41→14:57)
[2016-08-23] MEDS ORDERED: Regadenoson* 0.4 MG/5 ML SYRINGE ONE (08:03)
[2016-08-23] MEDS ORDERED: Selegiline TAB* 5 MG PO SCH (09:00)
[2016-08-23] MEDS ORDERED: Multivitamins/Minerals TAB PO SCH (09:00)
[2016-08-23] MEDS: CMC:Midodrine (NF) 5 MG TAB PO SCH ×2 (09:40→15:01)
--- NOTE | 2016-08-23 09:43 | RAD ---
Edited for charges. INDICATION: Chest pain, shortness of breath. Abnormal EKG. COMPARISON: No relevant prior exams available on the [facility] PACS for comparison. TECHNIQUE: 10.730 mCi of Tc-99m Myoview were administered IV. SPECT images of the heart were obtained. Later on the same day. Under the direction of Dr. Borjas, the patient was given an IV injection of a pharmacologic stress agent. Subsequently, the patient was given an IV injection of 25.710 mCi Tc-99m Myoview. SPECT images of the heart were obtained. No cardiac gating performed due to arrhythmia. No CT utilized for attenuation correction due to limitation in range of motion of the arms. FINDINGS: Based on review of the non corrected images the distribution of radiopharmaceutical within the myocardium on the stress and rest images is within normal limits. No compelling fixed or reversible regions of hypoperfusion evident. IMPRESSION: Limited non gated nuclear cardiac stress test without CT for attenuation correction without compelling evidence for presence of stress-induced ischemia or infarct. MTDD
[2016-08-23 11:21] VITALS: BP 142/83
--- NOTE | 2016-08-23 13:13 | PN ---
Subjective Date of Service: 08/23/16 Interval History: Mr. Bueno states that he is feeling well this afternoon. He had a one time couple of second sharp pain to his upper abdomen when ambulating but has otherwise been well. He denies chest pain, SOB, or nausea. His last BM was yesterday. He reports tolerating lunch well. Objective Active Medications: Carbidopa/Levodopa (Sinemet 25/100 Tab(*)) 2.5 tab PO 0600,1000,1400,1800 DIOGO Carbidopa/Levodopa (Sinemet 25/100 Tab(*)) 2.5 tab PO DAILY@2200 DIOGO Heparin Sodium (Porcine) (Heparin Vial(*)) 5,000 units SUBCUT Q8HR DIOGO Midodrine (Midodrine (Nf)) 5 mg PO TID DIOGO Multivitamins/Minerals (Theragran/Minerals Tab*) 1 tab PO DAILY DIOGO Selegiline HCl (Eldepryl Tab*) 5 mg PO DAILY DIOGO Sertraline HCl (Zoloft*) 50 mg PO BEDTIME DIOGO Vital Signs 08/22/16 08/22/16 08/22/16 13:10 15:45 19:25 Temperature 98.6 F 98.0 F 97.5 F Pulse Rate 66 59 59 Respiratory 18 18 20 Rate Blood Pressure 152/79 150/88 197/89 (mmHg) O2 Sat by Pulse 98 97 99 Oximetry 08/22/16 08/22/16 08/22/16 19:57 21:09 21:11 Temperature 98.2 F 98.2 F Pulse Rate 67 65 73 Respiratory 20 20 Rate Blood Pressure 160/90 153/84 161/91 (mmHg) O2 Sat by Pulse 99 99 Oximetry 08/22/16 08/22/16 08/23/16 21:13 23:59 00:39 Temperature 98.2 F 98.6 F Pulse Rate 78 58 Respiratory 20 20 Rate Blood Pressure 148/88 168/89 138/88 (mmHg) O2 Sat by Pulse 100 99 Oximetry 08/23/16 08/23/16 08/23/16 03:36 09:28 11:04 Temperature 97.6 F 98.6 F 98.4 F Pulse Rate 55 59 61 Respiratory 20 16 16 Rate Blood Pressure 144/77 146/81 142/83 (mmHg) O2 Sat by Pulse 100 100 100 Oximetry 08/23/16 08/23/16 08/23/16 11:24 11:25 11:26 Temperature Pulse Rate Respiratory 14 11 6 Rate Blood Pressure (mmHg) O2 Sat by Pulse Oximetry 08/23/16 08/23/16 08/23/16 11:27 11:28 11:29 Temperature Pulse Rate Respiratory 11 4 2 Rate Blood Pressure (mmHg) O2 Sat by Pulse Oximetry 08/23/16 08/23/16 08/23/16 11:30 11:31 11:32 Temperature Pulse Rate Respiratory 0 14 9 Rate Blood Pressure (mmHg) O2 Sat by Pulse Oximetry 08/23/16 08/23/16 08/23/16 11:33 11:34 11:35 Temperature Pulse Rate Respiratory 17 21 15 Rate Blood Pressure (mmHg) O2 Sat by Pulse Oximetry 08/23/16 08/23/16 08/23/16 11:36 11:37 11:38 Temperature Pulse Rate Respiratory 12 8 13 Rate Blood Pressure (mmHg) O2 Sat by Pulse Oximetry 08/23/16 08/23/16 08/23/16 11:39 11:40 11:41 Temperature Pulse Rate Respiratory 8 9 11 Rate Blood Pressure (mmHg) O2 Sat by Pulse Oximetry 08/23/16 08/23/16 08/23/16 11:42 11:43 11:44 Temperature Pulse Rate Respiratory 7 16 17 Rate Blood Pressure (mmHg) O2 Sat by Pulse Oximetry 08/23/16 08/23/16 08/23/16 11:45 11:46 11:47 Temperature Pulse Rate Respiratory 15 4 18 Rate Blood Pressure (mmHg) O2 Sat by Pulse Oximetry 08/23/16 08/23/16 08/23/16 11:48 11:49 11:50 Temperature Pulse Rate Respiratory 20 18 8 Rate Blood Pressure (mmHg) O2 Sat by Pulse Oximetry 08/23/16 08/23/16 08/23/16 11:51 11:52 11:53 Temperature Pulse Rate Respiratory 11 14 14 Rate Blood Pressure (mmHg) O2 Sat by Pulse Oximetry 08/23/16 08/23/16 08/23/16 11:54 11:55 11:56 Temperature Pulse Rate Respiratory 12 19 13 Rate Blood Pressure (mmHg) O2 Sat by Pulse Oximetry 08/23/16 08/23/16 08/23/16 11:57 11:58 11:59 Temperature Pulse Rate Respiratory 3 2 11 Rate Blood Pressure (mmHg) O2 Sat by Pulse Oximetry 08/23/16 08/23/16 08/23/16 12:00 12:01 12:02 Temperature Pulse Rate Respiratory 11 18 18 Rate Blood Pressure (mmHg) O2 Sat by Pulse Oximetry 08/23/16 08/23/16 08/23/16 12:03 12:04 12:05 Temperature Pulse Rate Respiratory 17 28 15 Rate Blood Pressure (mmHg) O2 Sat by Pulse Oximetry 08/23/16 08/23/16 08/23/16 12:06 12:07 12:08 Temperature Pulse Rate Respiratory 18 17 14 Rate Blood Pressure (mmHg) O2 Sat by Pulse Oximetry 08/23/16 08/23/16 08/23/16 12:09 12:10 12:11 Temperature Pulse Rate Respiratory 16 12 14 Rate Blood Pressure (mmHg) O2 Sat by Pulse Oximetry 08/23/16 08/23/16 12:12 12:13 Temperature Pulse Rate Respiratory 14 9 Rate Blood Pressure (mmHg) O2 Sat by Pulse Oximetry Oxygen Devices in Use Now: None Appearance: Male lying in bed in NAD Eyes: No Scleral Icterus Ears/Nose/Mouth/Throat: Mucous Membranes Moist Neck: Trachea Midline Respiratory: Symmetrical Chest Expansion and Respiratory Effort, Clear to Auscultation Cardiovascular: NL Sounds; No Murmurs; No JVD, No Edema Abdominal: NL Sounds; No Tenderness; No Distention Lymphatic: No Cervical Adenopathy Extremities: No Edema Skin: No Rash or Ulcers Neurological: Alert and Oriented x 3, NL Muscle Strength and Tone Nutrition: Taking PO's Result Diagrams: 08/22/16 08:52 08/23/16 04:08 Assess/Plan/Problems-Billing Assessment: Mr. Bueno is a 71 yo male with a PMH of Parkinson's disease who was admitted on with concern for chest pain. - Patient Problems (1) Chest pain Comment: - Trops negative, EKG without evidence of ischemia. - Stress test without evidence of reversible stress induced ischemia. - Patient's described symptoms were vague, ? if related to orthostatic hypotension. (2) Parkinsons disease Comment: - PT assessed patient to be at baseline with mobility. - Continue sinemet and selegiline. (3) Orthostatic hypotension Comment: - Resolved with switch from florinef to midodrine. (4) DVT prophylaxis Comment: - Heparin SQ. (5) DNR (do not resuscitate) Status and Disposition: OBV. Discharge to home.
--- NOTE | 2016-08-23 15:08 | PN ---
Hospitalist Progress Note 13 sutures removed from the right inner forearm. Laceration well approximated with minimal erythema.
--- NOTE | 2016-08-23 15:40 | ED ---
Lili Alvarado Auryana, scribed for Robby Najera MD on 08/22/16 at 0849 . Altered Mental Status - HPI Summary HPI Summary: 71 year old male presents to the ED with increased weakness and confusion starting yesterday. Per patient also reports SOB, and dizziness. reports that he had chest pain and abdominal pain near the umbilical this morning at 04:00 AM but patient denies any now. ASA ELECTROCARDIOGRAPHIC TECHNICIAN. denies any nausea , vomiting, diarrhea, or any constipation. PMHx is significant for Parkinson's ( medication and DBS treatment), pacemaker, and melanoma. - History Of Current Complaint Chief Complaint: EDChestPainROMI Stated Complaint: CHEST PAIN, Time Seen by Provider: 08/22/16 08:28 Hx Obtained From: Patient, Family/Refrigeration Person - Onset/Duration: Still Present Timing: Constant, Lasting Hours - this morning - CP and abdominal pain now resolved, Lasting Days - 1 day - increased weakness, confusion, dizziness, and SOB Severity Initially: Mild Severity Currently: Mild Character: Confusion Associated Signs And Symptoms: Positive: Dizziness, Weakness. Negative: Nausea - Allergies/Home Medications Allergies/Adverse Reactions: Allergies Allergy/AdvReac Type Severity Reaction Status Date / Time Adhesive Tape Allergy Severe Rash Verified 07/24/16 11:43 Home Medications: Home Medications Calcium Citrate TAB* [Citracal TAB*] 200 mg PO DAILY 08/22/16 [History Confirmed 08/22/16] Carbidopa/Levodop 25/100 MG(*) [Sinemet 25/100 TAB(*)] 2.5 tab PO .FIVE TIMES A DAY 08/22/16 [History Confirmed 08/22/16] Cholecalciferol CAP/TAB(NF) [Vitamin D3 CAP/TAB (NF)] 5,000 unit PO DAILY [History Confirmed 08/22/16] Coenzyme Q10 (Ubidecarenone) [Co Q10 Maximum Strength] 1,200 mg PO DAILY [History Confirmed 08/22/16] Fiber [Fiber Formula] 1 cap PO BID 08/22/16 [History Confirmed 08/22/16] Multivitamins/Minerals TAB* [Theragran/minerals TAB*] 1 tab PO DAILY 08/22/16 [ History Confirmed 08/22/16] Potassium 99 mg PO DAILY 08/22/16 [History Confirmed 08/22/16] Selegiline TAB* [Eldepryl TAB*] 5 mg PO DAILY 08/22/16 [History Confirmed ] clonazePAM TAB(*) [Klonopin TAB(*)] 0.5 - 1 mg PO BEDTIME PRN 08/22/16 [History Confirmed 08/22/16] PMH/Surg Hx/FS Hx/Imm Hx Endocrine/Hematology History: Denies: Hx Diabetes, Hx Thyroid Disease Cardiovascular History: Denies: Hx Hypertension Respiratory History: Denies: Hx Asthma, Hx Chronic Obstructive Pulmonary Disease (COPD) GI History: Denies: Hx Ulcer Musculoskeletal History: Reports: Other Musculoskeletal History - sprained ankle right- wears a boot Denies: Hx Rheumatoid Arthritis, Hx Osteoporosis Sensory History: Reports: Hx Cataracts - bilat, Hx Contacts or Glasses - glasses Denies: Hx Hearing Aid Opthamlomology History: Reports: Hx Cataracts - bilat, Hx Contacts or Glasses - glasses Psychiatric History: Reports: Hx Depression - Cancer History Cancer Type, Location and Year: melanoma Hx Chemotherapy: No - Surgical History Surgery Procedure, Year, and Place: TURP, melanoma, deep brain stimulation Hx Anesthesia Reactions: No Infectious Disease History: Reports: Hx Shingles Denies: Hx Clostridium Difficile, Hx Hepatitis, Hx Human Immunodeficiency Virus (HIV), Hx Tuberculosis, Hx Known/Suspected VRE, Hx Known/Suspected VRSA, History Other Infectious Disease, Traveled Outside the [place] in Last 30 Days - Family History Known Family History: Positive: Cardiac Disease, Hypertension - Social History Occupation: Retired Lives: With Family Alcohol Use: None Alcohol Amount: 1/2 glass of wine at dinner Hx Substance Use: No Substance Use Type: Reports: None Hx Tobacco Use: No Smoking Status (MU): Never Smoked Tobacco Review of Systems Constitutional: Other - dizziness Negative: Fever Eyes: Negative ENT: Negative Positive: Chest Pain - resolved Positive: Shortness Of Breath Positive: Abdominal Pain - resolved. Negative: Vomiting, Diarrhea, Nausea Genitourinary: Negative Musculoskeletal: Negative Skin: Negative Neurological: Other - confusion Positive: Weakness Psychological: Normal All Other Systems Reviewed And Are Negative: Yes Physical Exam - Summary Physical Exam Summary: VITAL SIGNS: Reviewed. GENERAL: ~Patient is a elderly nourished male who is lying comfortable in the stretcher. Patient is not in any acute respiratory distress. HEAD AND FACE: No signs of trauma. ~No ecchymosis, hematomas or skull depressions. No sinus tenderness. EYES: PERRLA, EOMI x 2, No injected conjunctiva, no nystagmus. No photophobia. EARS: Hearing grossly intact. Ear canals and tympanic membranes are within normal limits. MOUTH: Oropharynx within normal limits. NECK: Supple, trachea is midline, no adenopathy, no JVD, no carotid bruit, no c- spine tenderness, neck with full ROM. No meningeal signs, no Kernig's or brudzinskis signs. CHEST: Symmetric, no tenderness at palpation. Stimulator, Left side of chest. LUNGS: Clear to auscultation bilaterally. No wheezing or crackles. CVS: Regular rate and rhythm, S1 and S2 present, no murmurs or gallops appreciated. ABDOMEN: Soft, non-tender. No signs of distention. No rebound no guarding, and no masses palpated. Bowel sounds are normal. EXTREMITIES: FROM in all major joints, no edema, no cyanosis or clubbing. NEURO: Alert but not oriented.He is confused. No acute neurological deficits. Speech is normal and follows commands. SKIN: Dry and warm. Triage Information Reviewed: Yes Vital Signs On Initial Exam: Initial Vitals Temp Pulse Resp BP Pulse Ox 97.4 F 62 20 136/78 97 08/22/16 08:21 08/22/16 08:21 08/22/16 08:21 08/22/16 08:21 08/22/16 08:21 Vital Signs Reviewed: Yes - [place] Coma Scale Coma Scale Total: 15 Diagnostics - Vital Signs Vital Signs Temp Pulse Resp BP Pulse Ox 08/22/16 08:36 97.7 F 63 19 137/84 98 08/22/16 08:35 98 08/22/16 08:21 97.4 F 62 20 136/78 97 - Laboratory Lab Results: Lab Results 08/22/16 08/22/16 08/22/16 Range/Units 08:52 08:52 08:52 WBC 7.3 (3.5-10.8) 10^3/ul RBC 4.40 (4.0-5.4) 10^6/ul Hgb 13.6 L (14.0-18.0) g/dl Hct 41 L (42-52) % MCV 94 (80-94) fL MCH 31 (27-31) pg MCHC 33 (31-36) g/dl RDW 14 (10.5-15) % Plt Count 205 (150-450) 10^3/ul MPV 8 (7.4-10.4) um3 Neut % (Auto) 55.5 (38-83) % Lymph % (Auto) 25.9 (25-47) % [place] % (Auto) 8.6 (1-9) % Eos % (Auto) 9.5 H (0-6) % Baso % (Auto) 0.5 (0-2) % Absolute Neuts (auto) 4.0 (1.5-7.7) 10^3/ul Absolute Lymphs (auto) 1.9 (1.0-4.8) 10^3/ul Absolute Monos (auto) 0.6 (0-0.8) 10^3/ul Absolute Eos (auto) 0.7 H (0-0.6) 10^3/ul Absolute Basos (auto) 0 (0-0.2) 10^3/ul Absolute Nucleated RBC 0 10^3/ul Nucleated RBC % 0 Sodium 135 (133-145) mmol/L Potassium 3.9 (3.5-5.0) mmol/L Chloride 101 (101-111) mmol/L Carbon Dioxide 26 (22-32) mmol/L Anion Gap 8 (2-11) mmol/L BUN 22 (6-24) mg/dL Creatinine 1.42 H (0.67-1.17) mg/dL Est GFR ( Amer) 63.2 (>60) Est GFR (Non-Af Amer) 49.1 (>60) BUN/Creatinine Ratio 15.5 (8-20) Glucose 100 (70-100) mg/dL Lactic Acid 0.8 (0.5-2.0) mmol/L Calcium 10.0 (8.6-10.3) mg/dL Magnesium 2.3 (1.9-2.7) mg/dL Total Bilirubin 1.20 H (0.2-1.0) mg/dL AST 27 (13-39) U/L ALT 4 L (7-52) U/L Alkaline Phosphatase 57 (34-104) U/L Total Creatine Kinase 145 (10-223) U/L CK-MB (CK-2) 5.1 (0.6-6.3) ng/mL Troponin I 0.01 (<0.04) ng/mL C-Reactive Protein (< 5.00) mg/L B-Natriuretic Peptide ( - 100) pg/mL Total Protein 7.0 (6.4-8.9) g/dL Albumin 4.4 (3.2-5.2) g/dL Globulin 2.6 (2-4) g/dL Albumin/Globulin Ratio 1.7 (1-3) TSH 2.03 (0.34-5.60) mcIU/mL Urine Color Urine Appearance Urine pH (5-9) Ur Specific [place] (1.010-1.030) Urine Protein (Negative) Urine Ketones (Negative) Urine Blood (Negative) Urine Nitrate (Negative) Urine Bilirubin (Negative) Urine Urobilinogen (Negative) Ur Leukocyte Esterase (Negative) Urine Glucose (Negative) 08/22/16 08/22/16 08/22/16 Range/Units 08:52 10:45 12:04 WBC (3.5-10.8) 10^3/ul RBC (4.0-5.4) 10^6/ul Hgb (14.0-18.0) g/dl Hct (42-52) % MCV (80-94) fL MCH (27-31) pg MCHC (31-36) g/dl RDW (10.5-15) % Plt Count (150-450) 10^3/ul MPV (7.4-10.4) um3 Neut % (Auto) (38-83) % Lymph % (Auto) (25-47) % [place] % (Auto) (1-9) % Eos % (Auto) (0-6) % Baso % (Auto) (0-2) % Absolute Neuts (auto) (1.5-7.7) 10^3/ul Absolute Lymphs (auto) (1.0-4.8) 10^3/ul Absolute Monos (auto) (0-0.8) 10^3/ul Absolute Eos (auto) (0-0.6) 10^3/ul Absolute Basos (auto) (0-0.2) 10^3/ul Absolute Nucleated RBC 10^3/ul Nucleated RBC % Sodium (133-145) mmol/L Potassium (3.5-5.0) mmol/L Chloride (101-111) mmol/L Carbon Dioxide (22-32) mmol/L Anion Gap (2-11) mmol/L BUN (6-24) mg/dL Creatinine (0.67-1.17) mg/dL Est GFR ( Amer) (>60) Est GFR (Non-Af Amer) (>60) BUN/Creatinine Ratio (8-20) Glucose (70-100) mg/dL Lactic Acid (0.5-2.0) mmol/L Calcium (8.6-10.3) mg/dL Magnesium (1.9-2.7) mg/dL Total Bilirubin (0.2-1.0) mg/dL AST (13-39) U/L ALT (7-52) U/L Alkaline Phosphatase (34-104) U/L Total Creatine Kinase (10-223) U/L CK-MB (CK-2) (0.6-6.3) ng/mL Troponin I 0.01 (<0.04) ng/mL C-Reactive Protein < 1.00 (< 5.00) mg/L B-Natriuretic Peptide 37 ( - 100) pg/mL Total Protein (6.4-8.9) g/dL Albumin (3.2-5.2) g/dL Globulin (2-4) g/dL Albumin/Globulin Ratio (1-3) TSH (0.34-5.60) mcIU/mL Urine Color Yellow Urine Appearance Clear Urine pH 6.0 (5-9) Ur Specific [place] 1.013 (1.010-1.030) Urine Protein Negative (Negative) Urine Ketones Trace H (Negative) Urine Blood Negative (Negative) Urine Nitrate Negative (Negative) Urine Bilirubin Negative (Negative) Urine Urobilinogen Negative (Negative) Ur Leukocyte Esterase Negative (Negative) Urine Glucose Negative (Negative) Result Diagrams: 08/22/16 08:52 08/23/16 04:08 Lab Statement: Any lab studies that have been ordered have been reviewed, and results considered in the medical decision making process. - Radiology CXR Xray Interpretation: No Acute Changes Radiology Interpretation Completed By: Radiologist - CT BRAIN CT Interpretation: Positive (See Comments) - IMPRESSION: 1. NO EVIDENCE FOR GROSS ACUTE INFARCT, MASS EFFECT OR HEMORRHAGE. 2. POSTSURGICAL CHANGES. CT Interpretation Completed By: Radiologist - EKG 08:32 EKG Interpretation: sinus rhythm @ 62 bpm, no ST elevation EKG Comparison: No Significant Change - 07/14/16 Re-Evaluation - Re-Evaluation First Eval Re-Evaluation Time: 12:23 - patient denies any pain but is unable to move from bed position Altered Mental Statu Course/Dx - Course Assessment/Plan: 71 year old male presents to the ED with increased weakness and confusion starting yesterday. Per patient also reports SOB, and dizziness. reports that he had chest pain and abdominal pain near the umbilical this morning at 04:00 AM but patient denies any now. ASA ELECTROCARDIOGRAPHIC TECHNICIAN. denies any nausea, vomiting, diarrhea, or any constipation. PMHx is significant for Parkinson's (medication and DBS treatment), pacemaker, and melanoma. Test results without any significant abnormality. UA shows no U.T.I. Head CT NAD. CXR- NAD. In ED course, patient remains stable. Patient was hydrated; however the patient was unable to ambulate. We tried to ambulate the patient with help but the patient was not successful. I discussed case with Dr. Elias who accepted the patient for admission. - Diagnoses Discharge Diagnoses: Weakness, Unable to ambulate - Provider Notifications Discussed Care Of Patient With: Jillian Elias Time Discussed With Above Provider: 12:25 - agrees to admit Discharge - Discharge Plan Condition: Stable Disposition: ADMITTED TO [facility] documentation as recorded by the Lili kendrick Auryana accurately reflects the service I personally performed and the decisions made by me, Robby Najera MD.
--- NOTE | 2016-08-24 11:44 | DS ---
CC: Dr. Johnson * DISCHARGE SUMMARY: DATE OF ADMISSION: 08/22/16 DATE OF DISCHARGE: 08/23/16 PRIMARY CARE PHYSICIAN: Dr. Johnson. ATTENDING PHYSICIAN: Dr. Kathy De Leon * (dictation provided by Bianca Martin NP ). PRIMARY DIAGNOSES: 1. Chest pain, atypical. 2. Orthostatic hypotension. SECONDARY DIAGNOSES: 1. Macular degeneration. 2. Parkinson's disease. 3. History of melanoma. PAST SURGICAL HISTORY: 1. Status post bilateral cataract extractions. 2. Status post transurethral prostate resection in 2007. 3. Status post placement of brain stimulator in 2014. 4. Status post wide excision of a melanoma to the right anterior chest. MEDICATIONS AT THE TIME OF DISCHARGE: 1. Midodrine 5 mg p.o. t.i.d. Discontinue Florinef. 2. SAVision vitamin for eyes one tab oral daily. 3. Fiber one teaspoon oral twice daily. 4. Vitamin D3 5000 units oral daily as needed for muscle spasms. 5. Calcium citrate 200 mg oral daily as needed for muscle spasms. 6. Selegiline 5 mg oral daily. 7. Potassium 99 mg oral daily as needed for muscle spasms. 8. Zoloft 50 mg oral daily at bedtime. 9. Coenzyme Q10 1200 mg oral daily. 10. Multivitamin one tablet oral daily. 11. Sinemet 25/100, 2.5 tablets 5 times a day. 12. Clonazepam 0.5 to 1 mg oral daily at bedtime as needed for anxiety. 13. Magnesium one tab oral daily as needed for muscle spasms. HOSPITAL COURSE: Mr. Bueno is a 71-year-old male with a past medical history of Parkinson's disease and orthostatic hypotension, who presented to the hospital on 08/22/16 with concern for balance issues, muscle pain, chest pain, shortness of breath. Please see the dictated H and P from Fadumo Meng for complete details. In brief, the patient's symptoms appeared to be vague and multiple. His noted that he was more weak yesterday and had some diaphoresis. He spent more time in the bed than usual. He did also complain of some chest discomfort and therefore presented to the emergency room. Mr. Bueno was admitted to the hospital. His initial troponin was 0.01 and remained 0.01 over the remaining two additional checks. He had an EKG, which showed sinus rhythm and no evidence of ischemia. He went on for a stress test today, which is a chemical nuclear medicine stress test, which is read as follows: "Limited non- Gated nuclear cardiac stress test without CT for attenuation correction without compelling evidence for presence of stress- induced ischemia or infarct. Mr. Bueno had recently been started on Florinef at home. He was noted to be orthostatic in the emergency department. He was switched over to midodrine and his orthostatic vital signs were repeated this morning. It showed no evidence of any further orthostasis. He was seen in consultation by Physical Therapy, who notes that he was at baseline with mobility. Mr. Bueno was medically stable for discharge to home. I question whether his compliment of symptoms were related to orthostatic hypotension at this time with negative stress testing and troponins with no evidence that there was any cardiac event. DISPOSITION: Home. DIET: Regular. ACTIVITY: As tolerated. FOLLOWUP PLANS: Please follow up with Dr. Johnson in the next 1 to 2 weeks regarding this acute observation stay in the hospital. TIME SPENT: Approximately 60 minutes was spent on discharge of this patient; more than half that time spent with the patient at the bedside, reviewing the events leading up to this hospitalization, performing the physical examination, and reviewing my plan of care. BIANCA MARTIN NP [id number]/[facility] #: [id number] [place]
== END 2016-08-23 15:10 | disposition home or self-care (01) ==
LOC: ED 08:17 → MEDTELE 12:29
PROVIDERS: ADMIT Internal Medicine; ATTEND Internal Medicine
DX: R07.9 Chest pain, unspecified (principal); I95.1 Orthostatic hypotension; R41.82 Altered mental status, unspecified; R53.1 Weakness; R06.02 Shortness of breath; R42 Dizziness and giddiness; R10.9 Unspecified abdominal pain; R61 Generalized hyperhidrosis; G20 Parkinson's disease; Z95.0 Presence of cardiac pacemaker; Z85.820 Personal history of malignant melanoma of skin
CPT/HCPCS: 36415; 70450; 71010; 78452; 80048; 80053; 80061; 81003; 82550; 82553; 83605; 83735; 83880; 84443; 84484; 85025; 86140; 93005; 93017; 96372; 99284; A9270-GY; A9502; G0378; G8978-GP-CI; G8979-GP-CI; G8980-GP-CI; J1644; J2785

== ENCOUNTER 2016-09-27 09:20 | Inpatient (IN) | payer MEDICARE ==
[2016-09-27] MEDS ORDERED: Ondansetron INJ* 2 MG/ML VIAL IV PRN (11:19)
[2016-09-27] MEDS: Carbidopa/Levodop 25/100 MG TAB(*) PO SCH ×4 (11:29→21:21)
[2016-09-27] MEDS ORDERED: NS 0.9% 1000 ML* 1,000 ML IV SCH (11:30)
--- NOTE | 2016-09-27 12:07 | RAD ---
INDICATION: Lethargy in a patient with Parkinson's disease. Relevant surgical history includes a neurostimulator. COMPARISON: Most recent CT of the brain is dated August 22, 2016 TECHNIQUE: Contiguous axial sections of the brain were obtained from the skull base to the vertex without contrast. FINDINGS: Stable postsurgical findings include bifrontal craniotomies with neural stimulators terminating in the bilateral basal ganglia. The ventricles, cisterns and sulci are within normal limits. The edmondson-white matter differentiation is adequately maintained and there is no sulcal effacement. No significant focal abnormality or mass effect is present. There is no evidence for intracranial hemorrhage. No significant focal osseous abnormality is present. The visualized portion of the paranasal sinuses and mastoid air cells appear clear. IMPRESSION: Stable postoperative findings without acute intracranial abnormality.
--- NOTE | 2016-09-27 13:24 | RAD ---
Indication: Lethargy. Assess for pneumonia. Comparison: August 22, 2016 and February 27, 2006 Technique: Sitting AP and lateral chest views. Report: Posterior to the heart on the lateral view there is suggestion of a potential region of airspace consolidation or focal lesion which is not well visualized on the AP view. The costophrenic angles are incompletely included in the [id number]. The visualized pleural spaces are clear. Negative for cardiomegaly. Unremarkable central pulmonary vasculature. Mildly tortuous thoracic aorta. IMPRESSION: While relative low suspicion and possibly representing normal bronchovascular structures there is a density posterior to the heart on the lateral view which is new compared with the 2006 lateral chest radiograph. Consider chest CT for further assessment.
[2016-09-27] MEDS: Heparin VIAL(*) 5000 UNITS/ML VIAL (FIVE THOUSAND) SUBCUT SCH ×2 (14:07→21:21)
[2016-09-27 14:42] LABS: Hematocrit 36 % (42-52); Hemoglobin 12.3 g/dl (14.0-18.0); Mean Corpuscular HGB Conc 34 g/dl (31-36); Mean Corpuscular Hemoglobin 31 pg (27-31); Mean Corpuscular Volume 92 fL (80-94); Mean Platelet Volume 8 um3 (7.4-10.4); Red Blood Count 3.96 10^6/ul (4.0-5.4); Red Cell Distribution Width 14 % (10.5-15); White Blood Count 5.3 10^3/ul (3.5-10.8)
[2016-09-27 15:00] LABS: ALT 3 U/L (7-52); AST 24 U/L (13-39); Alkaline Phosphatase 46 U/L (34-104); Anion Gap 6 mmol/L (2-11); BUN/Creatinine Ratio 20.7 (8-20); Blood Urea Nitrogen 28 mg/dL (6-24); C Reactive Protein < 1.00 mg/L (< 5.00); CO2 Carbon Dioxide 27 mmol/L (22-32); Calcium 9.5 mg/dL (8.6-10.3); Chloride 103 mmol/L (101-111); EGFR Non-African American 52.1 (>60); Globulin 2.6 g/dL (2-4); Glucose 132 mg/dL (70-100); Potassium 3.7 mmol/L (3.5-5.0); Sodium 136 mmol/L (133-145); Total Protein 6.6 g/dL (6.4-8.9)
[2016-09-27 15:15] LABS: TSH (Thyroid Stimulating Horm) 0.71 mcIU/mL (0.34-5.60)
[2016-09-27 17:14] LABS: Urine Bilirubin Negative (Negative); Urine Glucose Negative (Negative); Urine Nitrite Negative (Negative)
--- NOTE | 2016-09-27 20:18 | HP ---
CC: Dr. Johnson; Dr. Esquivel; Dr. Remy. * HISTORY AND PHYSICAL: DATE OF ADMISSION: 09/27/16 PRIMARY CARE PROVIDER: Dr. Johnson. PRIMARY NEUROLOGIST: Dr. Esquivel. CONSULTING NEUROLOGIST: Dr. Remy. ATTENDING PHYSICIAN WHILE IN THE HOSPITAL: Kathy De Leon MD * (report dictated by Joel Tobin NP). CHIEF COMPLAINT: Altered mental status. HISTORY OF PRESENT ILLNESS: Mr. Bueno is a 71-year-old male patient who the noted over the last 2 to 3 days he has had progressive worsening change in his mental status. He has been more lethargic, more drowsy, confused at times, hallucinating at times. At around 2:30-3 o'clock in the morning, he has episodes where he is having jerking motion according to the . He does carry a significant history of advanced Parkinson's. He did have a deep brain stimulator placed which unfortunately was not successful in treating his condition. He also has a history of macular degeneration and melanoma and a history of longstanding orthostasis. He recently was here in August of this year for chest pain. Actually his Florinef was stopped for his orthostasis and he was started on midodrine and his really feels that since then he has had a worsening decline. The midodrine has been backed off to twice a day from t.i.d. but despite this, he still is not back at his baseline. She was concerned, she sought care with Dr. Esquivel who evaluated the patient in his office today and he felt that he would require inpatient services to further help work up the patient's altered mental status. There has been no reports of fever, no vomiting, or diarrhea. No chest pain, no cough. No shortness of breath. The patient has been very sleepy at times and at times hallucinating. Because of this, the hospitalist service was asked to evaluate for admission. PAST MEDICAL HISTORY: Significant for: 1. Macular degeneration. 2. Parkinson's. 3. Melanoma. 4. Orthostasis. PAST SURGICAL HISTORY: 1. Patient has had a history of cataract extractions. 2. TURP. 3. Deep brain stimulator placement. 4. Wide excision of the melanoma to his chest wall. HOME MEDICATIONS: I am trying to get a more accurate list, but the states they have not changed with the exception of the midodrine from when he was discharged in August which includes: 1. Klonopin 0.5 mg to 1 mg at bedtime as needed. 2. Zoloft 50 mg p.o. daily at bedtime. 3. Selegiline 5 mg p.o. daily. 4. Vitamin for eye 1 tablet p.o. daily. 5. Potassium 99 mg p.o. daily. 6. Multivitamin 1 tablet daily. 7. Midodrine 5 mg p.o. b.i.d. 8. Fiber 1 capsule daily. 9. Coenzyme Q10 1200 mg p.o. daily. 10. Vitamin D3 5000 units p.o. daily. 11. Carbidopa/levodopa 2.5 tabs 5 times a day. He takes that 6 in the morning , 10 in the morning, 2 in the afternoon, 6 in the evening and 10 at night. 12. He also is on calcium citrate 200 mg p.o. daily. ALLERGIES TO MEDICATIONS: Include TAPE. FAMILY HISTORY: His mother had a history of CVA. Father had an DC. SOCIAL HISTORY: He does not smoke. He rarely drinks alcohol. Surrogate decision maker is his . REVIEW OF SYSTEMS: There is no documented fever. He denied any significant weight change. There was no double vision. There is no ear discharge. Denied having any rhinorrhea. No sore throat. No thyroid enlargement. There was no chest pain. There is no orthopnea. There was no nocturnal dyspnea. There was no abdominal pain. There was no nausea. There was no vomiting. No dysuria, no frequency. There was no seizure. No loss of consciousness. No pruritus and no skin ulcerations. Review of 14 systems completed, all others negative. PHYSICAL EXAMINATION GENERAL: At this time, Mr. Bueno is a 71-year-old male patient. He is sitting in the hospital bed. He does not appear to be in any acute distress. VITAL SIGNS: Blood pressure 120/74, pulse 60, respirations 18, O2 sat 100%, temperature 97.7. HEENT: Head is atraumatic, normocephalic. Eyes: EOMs are intact. Sclerae anicteric. NECK: Supple. Throat: Oral mucosa appears to be dry. No oropharyngeal erythema. LUNGS: Clear to auscultation. No wheezes, rales or rhonchi. HEART: Sounds S1 and S2. Regular rate and rhythm. No murmurs, rubs or gallops. ABDOMEN: Soft, flat. Nontender. Bowel sounds present. EXTREMITIES: Pulses were 2+ throughout. He is weak in the lower extremities, probably he has about 4/5 strength bilaterally in the lower extremities. Upper extremities 4/5 as well. He had no peripheral edema. NEUROLOGIC: He is drowsy, but he awakens. He is appropriate. He knows his name, he knows where he is. He knows that it is September. He knows he is in the hospital. His speech is clear. His tongue is midline. There is no facial drooping. He is moving all 4 extremities. He had no gross obvious focal neuro deficits. His skin is intact. LABORATORY DATA/DIAGNOSTIC STUDIES: Labs are pending for today, but yesterday he had a WBC of 5.9, RBC of 4.26, hemoglobin of 13.1, hematocrit of 39, platelet count 224,000. His sodium is 137, potassium 4.3, chloride of 102, bicarb of 30, BUN 28, creatinine 1.46 which is slightly off from his baseline of 1.2. His glucose was 99, calcium 10, AST 28, ALT 6. He had a urine obtained yesterday too which had trace ketones and positive urine ascorbic acid. He had a chest x-ray obtained today when I reviewed it, I did not appreciate any acute infiltrates or effusions. He had a normal cardiac silhouette and there is a battery for the deep brain stimulator as well. No obvious signs of infiltrates noted. Old medical records were reviewed. ASSESSMENT AND PLAN: Mr. Bueno is a 71-year-old male patient coming into the hospital today with complaints of altered mental status, lethargy, drowsy and confusion at times. He will be admitted under observation status for: 1. Altered mental status. His etiology of this is unclear. It could be progression of his Parkinson's. Certainly, the midodrine could be playing into this, although that is rare, there has been case reports of it causing confusion but since the change of the medication and him not responding and becoming altered since that med had started. I am going to stop it. Per Neurology's recommendation, we will stop his selegiline as well and we will get CBC, CMP, repeat the urine, get a CT of the brain, check ammonia and we will continue to follow. Interestingly, Dr. Remy had picked up on this patient at 2: 30-3 in the morning, has been having some myoclonic type jerking and has been up since then, wakes him up out of sleep and is questioning if perhaps he needs a dose of Sinemet at that time to help him sleep throughout the night and if this will help his mentation in the morning because he seems to be back to his baseline now, so we will give him an extra dose of Sinemet. Dr. Remy will be following and we will continue to monitor him closely and monitor him for any signs of infection. 2. Parkinson's. Neurology is following. We will continue the Sinemet and continue his recommendations as prescribed. 3. History of orthostasis. We are going to stop the midodrine for now. We will repeat his orthostatics tomorrow. If he is profoundly orthostatic, we may need to consider adding on another agent to help with this. The reason he was taken off the Florinef was that it caused him to become hypertensive which we do not want as well, so we will monitor this tomorrow. 4. Melanoma. Follow with primary. 5. DVT prophylaxis. He is high risk, he will be placed on heparin subcu. 6. Code status. He is a DNR. 7. Fluids, electrolytes, nutrition. He can have a regular diet. TIME SPENT: Time spent on the admission was 60 minutes, greater than half the time was spent face to face with the patient obtaining my history and physical, the other half of the time was spent on going over the plan of care with the patient and implementing the place of care. I did discuss the plan of care with my attending Dr. De Leon, she is in agreement. JOEL TOBIN, PATY [id number]/[facility] #: [id number] [place]
[2016-09-27] MEDS: Sertraline* 50 MG TAB PO SCH (21:21)
--- NOTE | 2016-09-27 21:33 | CONS ---
CONSULTATION REPORT: DATE OF CONSULT: 09/27/16 CURRENT LOCATION: 420, Bed 2. REASON FOR CONSULTATION: Somnolence, history of Parkinson's disease, and myoclonus. HISTORY OF PRESENT ILLNESS: Mr. Bueno is a 71-year-old gentleman who has a history of Parkinson's disease diagnosed over 10 years ago. He was initially seen by Dr. Jose Juan Esquivel back in 2002 and has been followed since. In February 2014, he had a DBS placed and after that had some decline in function and he feels that his walking worsened after he had his DBS placed. I did speak with Dr. Esquivel, his treating physician, who feels that his gait definitely worsened after the DBS, but did stabilize over time. He has been treated with increasing medications including Sinemet, selegiline and most recently Florinef and then midodrine. Currently he takes Sinemet 25/100 mg 2.5 pills 5 times a day at 6 a.m., 10 a.m., 2 p.m., 6 p.m. and 10 p.m. He also takes selegiline 5 mg once a day. He was recently started on Florinef for orthostatic hypotension , but subsequently developed hypertensive episodes and was switched to midodrine recently. Since that time, his blood pressures have been better, but he has become much more somnolent. His states that he has had sleeping difficulty for years, but over the last few weeks he has become progressively more somnolent and sleeping more in the day. He has been falling some, most recently fell and required sutures on his arm, also has fractured his ankle recently. He has also recently had cataract surgery and tolerated that well. I spoke with his several days ago over the phone. She stated that he was having difficulty sleeping and then at night at around 3 a.m., he was becoming more agitated, having myoclonic-like jerks. At that time, I recommended that we try to decrease the Sinemet to 2 pills 5 times a day as he was having some altered mental status and somnolence during the day. She tried 1 dose, but it had no real benefit. She was seen by Dr. Esquivel this morning in clinic and he noted the above problems and felt that because of his condition, he should not be going home. He was admitted to the hospital for further workup. He did have some lab work done this morning. Lab work included a CBC that was significant for a mildly decreased hemoglobin and hematocrit 13.1 and 39. Complete metabolic profile with a creatinine of 1.46, total bilirubin of 1.40, BUN of 28. Urine showed trace ketones. TSH was normal. His denies any recent fevers, chills, nausea, vomiting, diarrhea, or constipation. He has had no recent travel out of the country. He has had no recent insect or tick bites that she is aware of. He has had no focal weakness, numbness, or tingling that she is aware of above his baseline. She states that he typically does not sleep well after 2 to 3 in the morning. PAST MEDICAL HISTORY: As noted above. PAST SURGICAL HISTORY: Cataract surgery and DBS surgery in February 2014. MEDICATIONS: At home include; 1. Zoloft 50 mg daily. 2. Selegiline 5 mg once a day. 3. Sinemet 25/100 mg 2.5 pills 5 times a day at 6 in the morning, 10 in the morning, 2 in the afternoon, 6 in the evening and 10 in the evening. 4. He is also on CoQ10. 5. Calcium citrate. 6. Vitamin D3. 7. Magnesium. 8. Takes Unisom at night for sleep. 9. Most recently fludrocortisone 0.1 mg 2 by mouth each day. ALLERGIES: To TAPE, he gets a rash. FAMILY HISTORY: Significant for hypertension in his mom, heart disease with his father, stroke with his mom. SOCIAL HISTORY: Denies any smoking and occasionally he drinks wine. He is a retired business director of primary care. REVIEW OF SYSTEMS: Review of systems in 14-organ systems as noted above, otherwise negative. PHYSICAL EXAM: Vital Signs: Temp of 97.7, pulse is 60, respiratory rate of 18 , pulse ox 100%, blood pressure 120/74. General: He is a well-nourished, well - developed gentleman lying in his hospital bed. He is awake. His is at the bedside. He is well dressed, well groomed. HEENT: Normocephalic, atraumatic. Sclerae are anicteric. He has had recent cataract surgery bilaterally. Mucous membranes are moist. Oropharynx is clear. Neck: Somewhat stiff. No pain. No meningismus. No thyromegaly noted. Chest: Clear to auscultation bilaterally. Cardiovascular: Regular rate and rhythm without murmurs. Abdomen: Nontender, nondistended. Soft. Extremities: There is no clubbing, cyanosis, or edema. 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 Neurologic Examination: He is awake. He is alert. He is oriented to person, place, and time. His speech is fluent, although hypophonic and slow. He also has decreased facial expression and decreased blink. His pupils are equal, round and reactive. His visual simpson are full. Extraocular muscles are intact. His facial sensation is intact. His face is symmetric. His hearing is intact bilaterally. His palate raises symmetrically. His tongue is midline. Shoulder shrug and sternocleidomastoids are both 5/5. Sensation is intact to light touch and pinprick throughout. DTR's are trace in the upper extremities, 1+ in the upper extremities at the biceps, brachioradialis, and triceps; 2+ at the patella bilaterally, absent at the ankles, equivocal Babinski. Motor Exam: He has increased tone in the arms and the legs, left greater than right. He has cogwheeling with distraction on the left, subtle cogwheeling with distraction on the right. He has no resting tremor noted. His xbgzok-fh-bydo is very slow , but no evidence of dysmetria or dysdiadochokinesia. He cannot perform heel-to -benavides. Gait: He is able to stand up and transfer to his chair, but he is very unsteady at this time. He had several myoclonic-like jerks of his upper extremities while I was examining him. DIAGNOSTIC STUDIES/LAB DATA: Lab work as noted above. CT of the head is pending. ASSESSMENT/PLAN: Mr. Bueno is a 71-year-old gentleman with advanced Parkinson's disease, follows Dr. Jose Juan Esquivel as an outpatient, has had a DBS placed in February 2014 with some decline and little response afterwards. I spoke with Dr. Esquivel. His gait did stabilize after the DBS, but over the last few months he is continuing to decline. His notes that he is much more somnolent during the day and is not sleeping well at night after about 3 p.m. She states that he takes his last dose of Sinemet at 10 p.m. and feels that it is wearing off around the time when he develops the jerking at night and the restlessness at 2 to 3 in the morning. She feels that his hypersomnolence may be related to the fact that he is not sleeping well and he has not been sleeping well for the last few months. In addition, he was recently started on midodrine and his symptoms seem to have worsened at that time. There is no strong evidence for an underlying infectious process. He has been afebrile. His white count is normal. There is no strong evidence for an underlying metabolic process. His bilirubin is slightly elevated. His creatinine is slightly elevated, which may be playing a role. At this point, the etiology of his somnolence is unclear. The plan is as follows: 1. We will obtain a CT scan of the head to rule out any possible subacute or chronic subdural that may have developed after his falls to look for any evidence of ischemia or other causes of his symptoms. 2. We will check additional lab work including ammonia, ESR, CRP, B12, folate. TSH yesterday was normal. 3. We are going to stop his midodrine for now, also his selegiline and monitor for improvement off these medications. We will monitor closely for orthostatic hypotension and I am considering droxidopa should he develop significant hypertension. I would like to simplify his regimen at this point to see if any of the medications may be causing his symptoms. 4. My plan is to give him an extra dose of Sinemet 25/100 mg 2.5 pills at 3 in the morning to see if he rests better afterwards. I suspect that he is wearing off in the middle of the night and this may be causing some of his symptoms. 5. He does take Unisom reportedly at home, which is unlikely contributing to his symptoms. 6. Myoclonus is nonspecific. I do not suspect any seizure activity at this time. Can consider an EEG in the future, but I suspect that this is related to underlying brain dysfunction and not indicative of a seizure activity. I will continue to follow him closely and make further recommendations as necessary. Thank you for the opportunity to participate in his care. [id number]/[facility] #: [id number] [place]
[2016-09-28] MEDS ORDERED: Carbidopa/Levodop 25/100 MG TAB(*) PO ONE (03:00)
[2016-09-28 05:47] LABS: Hematocrit 37 % (42-52); Hemoglobin 12.3 g/dl (14.0-18.0); Mean Corpuscular HGB Conc 34 g/dl (31-36); Mean Corpuscular Hemoglobin 31 pg (27-31); Mean Corpuscular Volume 92 fL (80-94); Mean Platelet Volume 8 um3 (7.4-10.4); Red Cell Distribution Width 14 % (10.5-15); White Blood Count 5.3 10^3/ul (3.5-10.8)
[2016-09-28] MEDS: Carbidopa/Levodop 25/100 MG TAB(*) PO SCH ×5 (05:56→21:57)
[2016-09-28] MEDS: Heparin VIAL(*) 5000 UNITS/ML VIAL (FIVE THOUSAND) SUBCUT SCH ×3 (05:58→21:58)
[2016-09-28] MEDS: Acetaminophen TAB* 325 MG PO PRN (06:06)
[2016-09-28 06:08] LABS: BUN/Creatinine Ratio 18.5 (8-20); Calcium 9.7 mg/dL (8.6-10.3); EGFR Non-African American 54.4 (>60); Potassium 4.1 mmol/L (3.5-5.0)
[2016-09-28 09:40] LABS: Folate 16.66 ng/mL (>3.99)
[2016-09-28] MEDS ORDERED: Iodixanol* (CONTRAST) 320 MG/ML 100 ML SDV IV ONE (09:54)
--- NOTE | 2016-09-28 09:54 | PN ---
Subjective Date of Service: 09/28/16 Interval History: HOSPITALIST PROGRESS NOTE Patient seen and examined at bedside. He feels better today. Had difficulty going to sleep, but after he slept did not wake multiple times like before. Family History: Unchanged from Admission Social History: Unchanged from Admission Past Medical History: Unchanged from Admission Objective Active Medications: Acetaminophen (Tylenol Tab*) 650 mg PO Q4H PRN PRN Reason: FEVER/PAIN Last Admin: 09/28/16 06:06 Dose: 650 mg Calcium Citrate (Citracal Tab*) 200 mg PO DAILY FOR[facility] Carbidopa/Levodopa (Sinemet 25/100 Tab(*)) 2.5 tab PO FIVE TIMES DAILY [facility] Last Admin: 09/28/16 05:56 Dose: 2.5 tab Clonazepam (Klonopin Tab(*)) 0.5 mg PO BEDTIME PRN PRN Reason: ANXIETY Heparin Sodium (Porcine) (Heparin Vial(*)) 5,000 units SUBCUT Q8HR FOR[facility], [facility]1983 Last Admin: 09/28/16 05:58 Dose: 5,000 units Multivitamins/Minerals (Theragran/Minerals Tab*) 1 tab PO DAILY [facility]1983 Ondansetron HCl (Zofran Inj*) 4 mg IV Q6H PRN PRN Reason: NAUSEA Selegiline HCl (Eldepryl Tab*) 5 mg PO DAILY [facility] Sertraline HCl (Zoloft*) 50 mg PO BEDTIME [facility] Last Admin: 09/27/16 21:21 Dose: 50 mg Vital Signs 09/28/16 09/28/16 09/28/16 02:54 08:11 08:12 Temperature 97.4 F 97.5 F Pulse Rate 56 62 Respiratory 16 20 Rate Blood Pressure 151/89 144/90 (mmHg) O2 Sat by Pulse 100 100 100 Oximetry Oxygen Devices in Use Now: None Appearance: Pleasant elderly male sitting up in bed in NAD, eating breakfast. Eyes: No Scleral Icterus Ears/Nose/Mouth/Throat: Mucous Membranes Moist Neck: Trachea Midline Respiratory: Symmetrical Chest Expansion and Respiratory Effort, Clear to Auscultation Cardiovascular: RRR - Normal S1 and S2 Neurological: Alert and Oriented x 3, NL Muscle Strength and Tone Lines/Tubes/Other Access: Clean, Dry and Intact Peripheral IV Nutrition: Taking PO's Result Diagrams: 09/28/16 04:55 09/28/16 04:56 Assess/Plan/Problems-Billing Assessment: Mr. Bueno is a 71yo M with PMH of macular degeneration, Parkinson's disease, melanoma, orthostatic hypotension, referred from Neurology office due to lethargy. - Patient Problems (1) Parkinsons disease Comment: - Suspect his somnolence is because his Sinemet is wearing off around 3AM and he's unable to sleep after that. - Neuro input appreciated - CT brain with no acute abnormalities, no evidence of acute infection, labs are normal, including TSH, ESR, CRP, B12, and folate. - Will continue Sinemet 5 times a day, plus one extra dose at 3AM. - Resume Selegiline. (2) Orthostatic hypotension Comment: - Reportedly normal earlier today, but repeat was positive. - No midodrine or Florinef, may consider Droxidopa depending on Neuro opinion. (3) Abnormal chest xray Comment: - CxR suggested a retrocardiac density, better evaluated with CT. - CT revealed it to be vertebral spurs. (4) DVT prophylaxis Comment: - SQ heparin. (5) DNR (do not resuscitate) Status and Disposition: Change to inpatient as medication titration will require >48h.
[2016-09-28] MEDS: Calcium Citrate TAB* 200 MG PO SCH (09:59)
[2016-09-28] MEDS: Multivitamins/Minerals TAB PO SCH (10:00)
[2016-09-28] MEDS ORDERED: Selegiline TAB* 5 MG PO SCH (11:00)
[2016-09-28 11:08] LABS: Erythrocyte Sed Rate 8 mm/Hr (0-40)
--- NOTE | 2016-09-28 12:09 | RAD ---
INDICATION: Possible lung mass. COMPARISON: Comparison is made with prior chest x-ray studies from February 27, 2006 and September 27, 2016. TECHNIQUE: A CT scan of the chest was performed with intravenous contrast following intravenous injection of 80 ml of Visipaque 320 nonionic contrast. Contiguous axial sections were obtained from the lung apices through the lung bases. Images were reconstructed in the coronal and sagittal planes. FINDINGS: There is mild dependent bilateral lower lobe subsegmental atelectasis. The lungs are otherwise clear. No pleural effusion is seen. No significant enlarged mediastinal or hilar lymph nodes are seen. The heart is within normal limits in size. There are coronary artery calcifications present. No pericardial effusion is present. The thoracic aorta is normal in caliber. Images of the upper abdomen demonstrate a moderately distended stomach with food debris. There are prominent anterior endplate vertebral body spurs present in the lower dorsal spine which likely account for the previously noted x-ray abnormality. IMPRESSION: THERE ARE PROMINENT ANTERIOR ENDPLATE VERTEBRAL BODY SPURS PRESENT IN THE LOWER DORSAL SPINE WHICH APPEAR TO ACCOUNT FOR THE PREVIOUSLY NOTED X-RAY ABNORMALITY.
[2016-09-28] MEDS: clonazePAM TAB(*) 0.5 MG PO PRN (16:29)
[2016-09-28] MEDS: Sertraline* 50 MG TAB PO SCH (21:57)
--- NOTE | 2016-09-28 23:15 | PN ---
PROGRESS NOTE: DATE OF SERVICE: 09/28/16 LOCATION: He is currently in 420, bed 2. SUBJECTIVE: Ms. Bueno overnight had some confusion at about 1:30 a.m. He woke up and called his but went back to bed. He did receive his dose of Sinemet at 3 a.m. This morning, he is awake. He is sitting up in his bed. He is eating breakfast. He looks much more alert. His states that he does sometimes get confused at night. At times, he tries to get dressed and that this is not necessarily an abnormal occurrence for him. He states to me that he feels that he gets more tired when his medications wears off, although that is unclear at this point; otherwise, there have been no new issues overnight. OBJECTIVE: Vital Signs: Afebrile, pulse rate of 56 to 62 to 71, respiratory rate 16 to 20, pulse ox 100%, blood pressure ranged from 120 to 151/69 to 90. In general, he is a well-nourished, well-developed gentleman. He is sitting up in bed. He is well dressed, well groomed. HEENT: Normocephalic, atraumatic. Sclerae are anicteric. Mucous membranes are moist. Oropharynx is clear. Neck is supple. Chest: Clear to auscultation bilaterally. Cardiovascular: Regular rate and rhythm. Abdomen is nontender. Extremities: No clubbing, cyanosis, or edema. Neurologic: He is awake, alert. He is oriented to person. Speech is fluent, although there is some hypophonia and is slow. He has decreased facial expression. He is spontaneously moving all extremities. Antigravity good. Resistance 5/5. There is mild cog wheeling in the left greater than the right upper extremity. No tremors are present. Finger-to- nose and rapid alternating movements are slow but intact. Gait was not tested. DTRs are trace, upper and lower extremities symmetric. DIAGNOSTIC STUDIES/LAB DATA: His CBC this morning is stable. Hemoglobin of 12.3, hematocrit of 37. His chem profile is normal except for a creatinine of 1.30, which is slightly decreased. He had a brain CT yesterday, which showed stable postoperative findings. Chest x-ray: There is density posterior to the heart on the lateral view, which is new compared to the 2007 lateral chest radiograph. Consider chest CT for further assessment, relatively low suspicion and possibly representing normal bronchial vascular structure. ASSESSMENT AND PLAN: Mr. Bueno is a 71-year-old gentleman with a long history of Parkinson's disease advancing, status post DBS, who over the last several months has become more somnolent, less interactive, and this seems to have progressed rapidly in the last few days. He was admitted to the hospital for evaluation and workup. At this point, he appears much more awake and alert. He did have some confusion last night, which is not atypical and maybe some sundowning. A suspicion for any underlying medical or infectious processes could be related to his medication. It is unclear to me whether the dose of Sinemet at 3 a.m. has helped but he is more awake today. My plan is to continue that. I am going to add back the selegiline. I am also going to have his stay and keep a chart of his activity and somnolence during the day related to his medications. We will check orthostatics today. He is now off midodrine. Hypotension could also cause him to feel very tired and week, although in bed, lying down, his blood pressures are normal to slightly high. Again, at this point, I do not have a good etiology of why he is so somnolent other than that it may be part of the Parkinson's disease progression, that it may be medication related, and it may be the fact that he is not getting enough sleep at night. Consider a sleep study as well. I will continue to follow him and make further recommendations. [id number]/[facility] #: [id number] [facility]
[2016-09-29] MEDS: Carbidopa/Levodop 25/100 MG TAB(*) PO SCH ×6 (02:51→22:38)
[2016-09-29] MEDS: Acetaminophen TAB* 325 MG PO PRN (02:52)
[2016-09-29] MEDS: Heparin VIAL(*) 5000 UNITS/ML VIAL (FIVE THOUSAND) SUBCUT SCH ×3 (06:00→22:31)
[2016-09-29] MEDS ORDERED: NS 0.9% 1000 ML* 1,000 ML IV SCH (08:00)
[2016-09-29] MEDS: Calcium Citrate TAB* 200 MG PO SCH (09:36)
[2016-09-29] MEDS: Multivitamins/Minerals TAB PO SCH (09:36)
[2016-09-29] MEDS ORDERED: Selegiline TAB* 5 MG PO SCH (11:00)
--- NOTE | 2016-09-29 14:42 | PN ---
PROGRESS NOTE: DATE OF SERVICE: 09/29/16 LOCATION: He is currently in room 404, bed 1. OBJECTIVE: He remains agitated at times. He states that he was up at 5 this morning. When I arriv ed, the nurse was at the bedside and he was wanting to speak to his . I heard him on the phone with his and he was angry with her. Initially when I entered the room, he was frustrated. He s tates that he is tired of not knowing what is going on. He is somewhat confused. He did receive hi s medication at 3 a.m. last night and this morning looks better. When I initially saw him, he was v sharif somnolent and very tight, and currently he is more awake, he is sitting in a chair at the bedsid e. He is frustrated, but his movements are more animated. His facial expressions were more animate d and he is awake. Per the nurse's note, he woke up several times through the night, was confused e ach time. He was having some hallucinations, apparently seeing people in the hallway. Per the nurse 's note, he was reorienting easily in general. He was standing with max two assist. OBJECTIVE: Vital Signs: Afebrile and current temp 98.0, pulse rate is being in the 60s to 70s; at one point yesterday, when he was agitated, it was 138. Respiratory rate of 15 to 20. Pulse ox is 1 00%. Current blood pressure 167/61, 164/84, 170/90. Yesterday at 11:27, he had a low blood pressur e of 107/27. In general, he is a well-nourished, well-developed gentleman, he is in no acute distre ss, although he is agitated. He is sitting on the side of the bed. He is well dressed, well groome d. HEENT: He is normocephalic, atraumatic. Sclerae are anicteric. Mucous membranes are moist. O ropharynx is clear. Neck is slightly stiff. Chest: Clear to auscultation bilaterally. Cardiovasc ular is regular rate and rhythm. Abdomen is nontender. Extremities: No edema. Neurologic Exam: He is awake, he is alert, he is oriented to person, confused. He is slightly agitated, although he calms down after I talk to him. Speech is fluent. There is no dysarthria, mild hypophonia. His fa cial expression is diminished. Decreased blink. Cranial Nerves: Visual simpson are full. Extraocu lar muscles are intact. Face is symmetric. Tongue is midline. Pupils are equally round and reactiv e to light. Motor Exam: He is spontaneous and moving all extremities. He has good resistance thro ughout, 5/5. Tone is increased, although much improved since my initial exam. He has no cogwheelin g currently. There is no tremor noted. Finger- to-nose is intact without tremor. Sensation is int act to light touch throughout. Gait is unsteady, requires 2 assist. LABORATORY DATA: No new lab work overnight. He had a CT scan of the chest done yesterday because o f a slightly abnormal chest x-ray. There are prominent anterior endplate vertebral body spurs prese nt in the lower dorsal spine, which appear to account for the previously noted x-ray abnormality. PLAN: Mr. Bueno is a 71-year-old with advanced Parkinson's disease, on selegiline and Sinemet. He h as been followed by Dr. Esquivel for years, has a deep brain stimulator as well, and follows in [facility] for that. He presented to the hospital several days ago with worsening somnolence, appeared t o be more stiff, more confused, more hallucinations at home. Workup to date has been negative for a ny underlying metabolic or infectious cause and I suspect that much of his symptoms are related to t he progression of his Parkinson's disease as well as his medications. We initially tried to stop hi s selegiline, but he became more agitated and we restarted it yesterday. I suspect that he is havin g significant owning at night. He tends to worsen throughout the night in the rod hanger. We started him on Sinemet 25/100 two and a half pills at 3 a.m. as well, and both he and his feel that that seems to have helped in the morning. She also notes that he is waxing and waning and had significant on and off. When the medication is wearing off, he tends to get more somnolent. Today, my plan is to continue him on his medications. This will be the first full day that he is ba ck on selegiline. I had a long talk with him regarding our plan and what we are trying to do. I th ink that overall, he will do better at home and I told him that he may be able to go home tomorrow. I also explained that Dr. Esquivel will be coming on service this evening and will speak with him to rosi. I am concerned that any other major increases in his medication might cause worsening hallu cinations or agitation, and I think this is something that needs to be done slowly over the next sun or so. I will check on him today and we will continue to follow him. [id number]/[facility] #: [id number]
[2016-09-29] MEDS ORDERED: QUEtiapine TAB* 25 MG PO PRN (15:24)
--- NOTE | 2016-09-29 15:25 | PN ---
Subjective Date of Service: 09/29/16 Interval History: HOSPITALIST PROGRESS NOTE Patient seen and examined at bedside. He's in good spirits this AM. Was agitated last night, but able to be redirected. Thinks he's sleeping better. Family History: Unchanged from Admission Social History: Unchanged from Admission Past Medical History: Unchanged from Admission Objective Active Medications: Acetaminophen (Tylenol Tab*) 650 mg PO Q4H PRN PRN Reason: FEVER/PAIN Last Admin: 09/29/16 02:52 Dose: 650 mg Calcium Citrate (Citracal Tab*) 200 mg PO DAILY [facility] Last Admin: 09/29/16 09:36 Dose: 200 mg Carbidopa/Levodopa (Sinemet 25/100 Tab(*)) 2.5 tab PO FIVE TIMES DAILY [facility] Last Admin: 09/29/16 14:35 Dose: 2.5 tab Carbidopa/Levodopa (Sinemet 25/100 Tab(*)) 2.5 tab PO 0300 [facility] Last Admin: 09/29/16 02:51 Dose: 2.5 tab Clonazepam (Klonopin Tab(*)) 0.5 mg PO BEDTIME PRN PRN Reason: ANXIETY Heparin Sodium (Porcine) (Heparin Vial(*)) 5,000 units SUBCUT Q8HR [facility] Last Admin: 09/29/16 14:32 Dose: 5,000 units Sodium Chloride (Ns 0.9% 1000 Ml*) 1,000 mls @ 100 mls/hr IV PER RATE [facility] Stop: 09/29/16 17:59 Last Admin: 09/29/16 09:48 Dose: 100 mls/hr Lorazepam (Ativan Inj*) 0.5 mg IV PUSH Q4H PRN PRN Reason: AGITATION Multivitamins/Minerals (Theragran/Minerals Tab*) 1 tab PO DAILY [facility] Last Admin: 09/29/16 09:36 Dose: 1 tab Ondansetron HCl (Zofran Inj*) 4 mg IV Q6H PRN PRN Reason: NAUSEA Sertraline HCl (Zoloft*) 50 mg PO DAILY [facility] Vital Signs 09/29/16 09/29/16 09/29/16 03:45 08:05 13:16 Temperature 97.7 F 98.3 F Pulse Rate 64 60 63 Respiratory 15 16 20 Rate Blood Pressure 167/61 137/79 151/85 (mmHg) O2 Sat by Pulse 100 100 100 Oximetry Oxygen Devices in Use Now: None Appearance: Pleasant elderly male lying in bed in NAD. Eyes: No Scleral Icterus Ears/Nose/Mouth/Throat: Mucous Membranes Moist Neck: Trachea Midline Respiratory: Symmetrical Chest Expansion and Respiratory Effort, Clear to Auscultation Cardiovascular: RRR - Normal S1 and S2 Neurological: - - AAOx2 (self and place), GROSSMAN Lines/Tubes/Other Access: Clean, Dry and Intact Peripheral IV Nutrition: Taking PO's Result Diagrams: 09/28/16 04:55 09/28/16 04:56 Assess/Plan/Problems-Billing Assessment: Mr. Bueno is a 71yo M with PMH of macular degeneration, Parkinson's disease, melanoma, orthostatic hypotension, referred from Neurology office due to lethargy. - Patient Problems (1) Parkinsons disease Comment: - Suspect his somnolence is because his Sinemet is wearing off around 3AM and he's unable to sleep after that. - Neuro input appreciated - CT brain with no acute abnormalities, no evidence of acute infection, labs are normal, including TSH, ESR, CRP, B12, and folate. - Will continue Sinemet 5 times a day, plus one extra dose at 3AM. - Family d/w Dr. Remy - decided to hold Selegiline. - Dr. Esquivel recommended changing his Sertraline to AM. (2) Orthostatic hypotension Comment: - Reportedly normal earlier today, but repeat was positive. - No midodrine or Florinef, may consider Droxidopa depending on Neuro opinion. (3) Abnormal chest xray Comment: - CxR suggested a retrocardiac density, better evaluated with CT. - CT revealed it to be vertebral spurs. (4) Comment: - Add low dose Seroquel PRN agitation. (5) DVT prophylaxis Comment: - SQ heparin. (6) DNR (do not resuscitate) Status and Disposition: Change to inpatient as medication titration will require >48h. Anticipate d/c in AM.
--- NOTE | 2016-09-29 17:38 | CONSULT ---
Identification - Patient Identification Reason for Psychiatric Consultation: Suicidal Ideation -: Patient is a 71 year old, M admitted on 09/28/16. - MHU Identification Employment Status: Disabled Hx Psychiatric Hospitalization: No History - Objective HPI: Psychiatry is asked by Dr. Esquivel to see this 71 y.o. , white, disabled man with a history of Parkinson's disease, currently admitted on 4N due to altered mental status, due to a suicidal statement that he made to his yesterday in the setting of probable delirium from multiple medical changes and advancing neuromuscular disease. The patient is calm and cooperative with the assessment and reports that he is no longer feeling suicidal, indicating that he felt extremely confused and distressed by his situation yesterday. His Chloe is present at bedside and provides collateral history. He admits to feeling increasingly depressed recently related to his decreasing physical and cognitive functioning. He has started having periodic auditory and visual hallucinations and is less social and less active than he used to be. There are also financial stressors involving his lack of an income and marital discord which both partners are fairly open about. "We haven't had sex in over 2 years" he states. His describes various stressors on her related to steadily increasing caregiver burdens. The patient indicates that he had a brief episode of suicidal ideation without plan or attempt roughly 20 years ago when he was new to this area, and saw a psychologist around that time, however, he has had no mental health follow up since, other than receiving a prescription for sertraline from his neurologist, a Dr. Laird, in [place], [place] two years ago. Both the patient and his endorse his safety to be discharged and they don't feel admission to the [facility] would be beneficial. They are open to referral to outpatient counseling, here in the [place] area. Lab Results: Laboratory Tests 09/27/16 09/27/16 09/27/16 14:20 14:20 14:20 WBC 5.3 RBC 3.96 L Hgb 12.3 L Hct 36 L MCV 92 MCH 31 MCHC 34 RDW 14 Plt Count 202 MPV 8 Neut % (Auto) 51.5 Lymph % (Auto) 35.6 [place] % (Auto) 6.7 Eos % (Auto) 5.5 Baso % (Auto) 0.7 Absolute Neuts (auto) 2.7 Absolute Lymphs (auto) 1.9 Absolute Monos (auto) 0.4 Absolute Eos (auto) 0.3 Absolute Basos (auto) 0 Absolute Nucleated RBC 0 Nucleated RBC % 0 ESR INR (Anticoag Therapy) APTT Sodium 136 Potassium 3.7 Chloride 103 Carbon Dioxide 27 Anion Gap 6 BUN 28 H Creatinine 1.35 H Est GFR ( Amer) 67.0 Est GFR (Non-Af Amer) 52.1 BUN/Creatinine Ratio 20.7 H Glucose 132 H Calcium 9.5 Total Bilirubin 0.90 AST 24 ALT 3 L Alkaline Phosphatase 46 Ammonia 33 C-Reactive Protein < 1.00 Total Protein 6.6 Albumin 4.0 Globulin 2.6 Albumin/Globulin Ratio 1.5 Vitamin B12 Folate TSH 0.71 Urine Color Urine Appearance Urine pH Ur Specific [place] Urine Protein Urine Ketones Urine Blood Urine Nitrate Urine Bilirubin Urine Urobilinogen Ur Leukocyte Esterase Urine Glucose 09/27/16 09/27/16 09/28/16 14:20 16:10 04:55 WBC 5.3 RBC 4.00 Hgb 12.3 L Hct 37 L MCV 92 MCH 31 MCHC 34 RDW 14 Plt Count 198 MPV 8 Neut % (Auto) 40.3 Lymph % (Auto) 43.8 [place] % (Auto) 7.3 Eos % (Auto) 7.8 H Baso % (Auto) 0.8 Absolute Neuts (auto) 2.1 Absolute Lymphs (auto) 2.3 Absolute Monos (auto) 0.4 Absolute Eos (auto) 0.4 Absolute Basos (auto) 0 Absolute Nucleated RBC 0 Nucleated RBC % 0.1 ESR 8 INR (Anticoag Therapy) 0.97 APTT 29.5 Sodium Potassium Chloride Carbon Dioxide Anion Gap BUN Creatinine Est GFR ( Amer) Est GFR (Non-Af Amer) BUN/Creatinine Ratio Glucose Calcium Total Bilirubin AST ALT Alkaline Phosphatase Ammonia C-Reactive Protein Total Protein Albumin Globulin Albumin/Globulin Ratio Vitamin B12 Folate TSH Urine Color Straw Urine Appearance Clear Urine pH 7.0 Ur Specific [place] 1.005 L Urine Protein Negative Urine Ketones Negative Urine Blood Negative Urine Nitrate Negative Urine Bilirubin Negative Urine Urobilinogen Negative Ur Leukocyte Esterase Negative Urine Glucose Negative 09/28/16 04:56 WBC RBC Hgb Hct MCV MCH MCHC RDW Plt Count MPV Neut % (Auto) Lymph % (Auto) [place] % (Auto) Eos % (Auto) Baso % (Auto) Absolute Neuts (auto) Absolute Lymphs (auto) Absolute Monos (auto) Absolute Eos (auto) Absolute Basos (auto) Absolute Nucleated RBC Nucleated RBC % ESR INR (Anticoag Therapy) APTT Sodium 139 Potassium 4.1 Chloride 106 Carbon Dioxide 28 Anion Gap 5 BUN 24 Creatinine 1.30 H Est GFR ( Amer) 70.0 Est GFR (Non-Af Amer) 54.4 BUN/Creatinine Ratio 18.5 Glucose 93 Calcium 9.7 Total Bilirubin AST ALT Alkaline Phosphatase Ammonia C-Reactive Protein Total Protein Albumin Globulin Albumin/Globulin Ratio Vitamin B12 1145 H Folate 16.66 TSH Urine Color Urine Appearance Urine pH Ur Specific Melbourne Urine Protein Urine Ketones Urine Blood Urine Nitrate Urine Bilirubin Urine Urobilinogen Ur Leukocyte Esterase Urine Glucose Exam Appearance: Well Developed/Nourished Hygiene: Normal Grooming: Fairly Well Kept Psychomotor Activities: Abnormal-Increased Exhibits Abnormal Movement: Yes Attitude and Relatedness: Cooperative Eye Contact: Fair - Speech Quality: Unpressured Latencies: Normal Quantity: Appropriate Patient's Decription of Mood: "Sad" Observed Affect: Constricted Affect Consistent with: Dysphoria Patient's Thought Process: Coherent Thought Content: No Passive Wish, No Suicidal Planning, No Homicidal Ideation, No Paranoid Ideation Experiencing Hallucinations: Yes Type of Hallucinations: Visual: Yes, Auditory: Yes, Command: No Level of Consciousness: Alert Orientation: Yes Intact, Yes Orientated to Time, Yes Orientated to Place, Yes Orientated to Person Impulse Control: Intact Insight and Judgement: Good Impression - Impression Clinical Impression: 71 y.o. , white, disabled man with a history of Parkinson's disease, currently admitted on 4N due to altered mental status, who made a suicidal statement to his yesterday in the setting of probable delirium from multiple medical changes and advancing neuromuscular disease. They feel safe for discharge home from a psychiatric perspective, however, they are seeking referral to outpatient mental health follow up in the community. 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 He would benefit from mental health follow up in the community, however. I recommend primary team consult Social Work service to schedule intake at [facility]. If the clinic is closed the patient can be provided with their contact information to schedule the evaluation themselves on the next business day. Psychiatry is signing off. Continued Medication Management: Continue Outpt Medication Medications: Current Medications Acetaminophen (Tylenol Tab*) 650 mg PO Q4H PRN PRN Reason: FEVER/PAIN Last Admin: 09/29/16 02:52 Dose: 650 mg Calcium Citrate (Citracal Tab*) 200 mg PO DAILY [facility] Last Admin: 09/29/16 09:36 Dose: 200 mg Carbidopa/Levodopa (Sinemet 25/100 Tab(*)) 2.5 tab PO FIVE TIMES DAILY [facility] Last Admin: 09/29/16 14:35 Dose: 2.5 tab Carbidopa/Levodopa (Sinemet 25/100 Tab(*)) 2.5 tab PO 0300 [facility] Last Admin: 09/29/16 02:51 Dose: 2.5 tab Clonazepam (Klonopin Tab(*)) 0.5 mg PO BEDTIME PRN PRN Reason: ANXIETY Heparin Sodium (Porcine) (Heparin Vial(*)) 5,000 units SUBCUT Q8HR [facility] Last Admin: 09/29/16 14:32 Dose: 5,000 units Lorazepam (Ativan Inj*) 0.5 mg IV PUSH Q4H PRN PRN Reason: AGITATION Multivitamins/Minerals (Theragran/Minerals Tab*) 1 tab PO DAILY [facility] Last Admin: 09/29/16 09:36 Dose: 1 tab Quetiapine Fumarate (Seroquel Tab*) 12.5 mg PO TID PRN PRN Reason: Severe agitation Sertraline HCl (Zoloft*) 50 mg PO DAILY [facility] - Discharge Plan Discharge Plan: Outpatient Follow Up [facility]: [facility]
[2016-09-29] MEDS: LORazepam INJ* 2 MG/ML 1 ML VIAL IV PUSH PRN (20:28)
[2016-09-29] MEDS ORDERED: Ziprasidone IM INJ* 20 MG/ML VIAL IM ONE (21:01)
[2016-09-30] MEDS: LORazepam INJ* 2 MG/ML 1 ML VIAL IV PUSH PRN ×2 (00:50→07:27)
[2016-09-30] MEDS: Carbidopa/Levodop 25/100 MG TAB(*) PO SCH ×5 (04:18→18:10)
[2016-09-30] MEDS ORDERED: hydrALAZINE IV* 20 MG/ML VIAL IV PRN (04:54)
[2016-09-30] MEDS: Heparin VIAL(*) 5000 UNITS/ML VIAL (FIVE THOUSAND) SUBCUT SCH ×3 (06:09→22:05)
[2016-09-30] MEDS: Multivitamins/Minerals TAB PO SCH (08:49)
[2016-09-30] MEDS: Acetaminophen TAB* 325 MG PO PRN (08:49)
[2016-09-30] MEDS: Calcium Citrate TAB* 200 MG PO SCH (08:50)
[2016-09-30] MEDS: Sertraline* 50 MG TAB PO SCH (08:51)
--- NOTE | 2016-09-30 13:49 | PN ---
Subjective Date of Service: 09/30/16 Interval History: HOSPITALIST PROGRESS NOTE Patient seen and examined at bedside. He's more lethargic today, grabbing for things there are not that there, moving his mouth. Family History: Unchanged from Admission Social History: Unchanged from Admission Past Medical History: Unchanged from Admission Objective Active Medications: Acetaminophen (Tylenol Tab*) 650 mg PO Q4H PRN PRN Reason: FEVER/PAIN Last Admin: 09/30/16 08:49 Dose: 650 mg Calcium Citrate (Citracal Tab*) 200 mg PO DAILY [facility] Last Admin: 09/30/16 08:50 Dose: 200 mg Carbidopa/Levodopa (Sinemet 25/100 Tab(*)) 2.5 tab PO FIVE TIMES DAILY [facility] Last Admin: 09/30/16 10:45 Dose: 2.5 tab Carbidopa/Levodopa (Sinemet 25/100 Tab(*)) 2.5 tab PO 0300 [facility] Last Admin: 09/30/16 04:18 Dose: Not Given Clonazepam (Klonopin Tab(*)) 0.5 mg PO BEDTIME PRN PRN Reason: ANXIETY Heparin Sodium (Porcine) (Heparin Vial(*)) 5,000 units SUBCUT Q8HR [facility] Last Admin: 09/30/16 06:09 Dose: Not Given Hydralazine HCl (Apresoline Iv*) 10 mg IV Q4H PRN PRN Reason: Systolic >170 Last Admin: 09/30/16 05:14 Dose: 10 mg Multivitamins/Minerals (Theragran/Minerals Tab*) 1 tab PO DAILY [facility] Last Admin: 09/30/16 08:49 Dose: 1 tab Quetiapine Fumarate (Seroquel Tab*) 12.5 mg PO TID PRN PRN Reason: Severe agitation Sertraline HCl (Zoloft*) 50 mg PO DAILY [facility] Last Admin: 09/30/16 08:51 Dose: 50 mg Vital Signs 09/30/16 09/30/16 09/30/16 08:00 08:27 13:29 Temperature 97.1 F Pulse Rate 77 Respiratory 20 18 16 Rate Blood Pressure 92/52 (mmHg) O2 Sat by Pulse 93 99 Oximetry Oxygen Devices in Use Now: None Appearance: Elderly male lying in bed in NAD. Eyes: No Scleral Icterus Ears/Nose/Mouth/Throat: Mucous Membranes Moist Neck: Trachea Midline Respiratory: Symmetrical Chest Expansion and Respiratory Effort, Clear to Auscultation Cardiovascular: RRR - Normal S1 and S2 Neurological: - - Lethargic Lines/Tubes/Other Access: Clean, Dry and Intact Peripheral IV Nutrition: Taking PO's Result Diagrams: 09/28/16 04:55 09/28/16 04:56 Assess/Plan/Problems-Billing Assessment: Mr. Bueno is a 71yo M with PMH of macular degeneration, Parkinson's disease, melanoma, orthostatic hypotension, referred from Neurology office due to lethargy. - Patient Problems (1) Parkinsons disease Comment: - Suspect his somnolence is because his Sinemet is wearing off around 3AM and he's unable to sleep after that. - Neuro input appreciated - CT brain with no acute abnormalities, no evidence of acute infection, labs are normal, including TSH, ESR, CRP, B12, and folate. - Will continue Sinemet 5 times a day, plus one extra dose at 3AM. - Family d/w Dr. Remy - decided to hold Selegiline. - Dr. Esquivel recommended changing his Sertraline to AM. (2) Orthostatic hypotension Comment: - Reportedly normal earlier today, but repeat was positive. - No midodrine or Florinef, may consider Droxidopa depending on Neuro opinion. (3) Abnormal chest xray Comment: - CxR suggested a retrocardiac density, better evaluated with CT. - CT revealed it to be vertebral spurs. (4) Comment: - Was very agitated last night and received Ativan x 2, now sedated. - Continue low dose Seroquel PRN agitation. (5) DVT prophylaxis Comment: - SQ heparin. (6) DNR (do not resuscitate) Status and Disposition: Change to inpatient as medication titration will require >48h.
--- NOTE | 2016-09-30 16:01 | PN ---
CC: Dr. Johnson NEUROLOGY FOLLOWUP NOTE: HOSPITALIST: Kathy Joseph MD DATE OF FOLLOWUP: 09/30/16 LOCATION: Inpatient Room 404. CHIEF COMPLAINT: Parkinson's disease, delirium. INTERVAL HISTORY: Since yesterday, Torres had another bad night. He was agitated and delirious requiring lorazepam. He was in pretty good shape around 7 p.m. when Chloe left, by her report. After that he became agitated and refused oral meds and ended up getting lorazepam intravenously 0.5 mg at 10:30 last night, again at about 1 in the morning, and then a third dose at about 7: 30 this morning. He has been sleeping until just a little while ago when I evaluated him at around 1330 to 1345 today. MEDICATIONS: Medications were reviewed and he is on carbidopa/levodopa 25/100 mg 2.5 tablets 5 times per day and an additional dose at 3 in the morning, which was just started. He has hydralazine 10 mg IV q. 4 hours as needed and did get a dose apparently at 5 this morning. His blood pressure was 190/90 at 4 :40 this morning. He has clonazepam 0.5 mg ordered as needed at bedtime for anxiety, but has not received any, I believe, because he refused it when offered. He has an order for quetiapine 12.5 mg p.o. t.i.d. p.r.n. for agitation, but again has not received any. He is on heparin subcutaneous 5000 units q. 8 hours. PHYSICAL EXAMINATION: Vital Signs: His most recent blood pressure is down to 92/52, pulse is running in the 70s and regular, temperature 97.1 axillary. Oxygen saturation is 99% on room air and respiratory rate 16 to 18. General: He is somnolent, awake, and carries on conversation briefly. He believes it is Sunday rather than Sunday, but he is oriented to place. He is not actively delirious, but he becomes drowsy and then starts performing what appears to be dream-enactment behavior, reaching out and smiling and making other faces. When he is awake, there is no rigidity in arms or legs nor tremor. He is able to open and close hands pretty readily, bilaterally. Speech is soft, but quite intelligible. LABORATORY DATA: There is no new laboratory test review. IMPRESSION: Delirium, sundowning, and Parkinson's disease with dementia. He has drug-induced hallucinations as well. He has orthostatic hypotension as well as periods of hypertension. This is very difficult and precarious balancing act in terms of trying to maintain adequate blood pressure without severe hypertension, controlling agitation without overmedicating, and trying to keep him mobile and functional enough to get him home. I agree with adding a dose of carbidopa/levodopa at 3 in the morning and I also recommend adding a controlled release dose at 10 p.m. to replace his regular release dose. I would like add Seroquel in the evening before he starts to sundown at 12.5 mg. I discussed with Dr. Joseph and agree to give it at about 6 as that is before the nursing shift and likely will be more reliable. I have discussed this all with Chloe and also the difficulty she faces at home caring for him. We all agree that he will be best served to get him home as quick as possible in familiar environment, but clearly he needs to alert enough and aware enough of his surroundings to be safely discharge. [id number]/[facility] #: [id number] MTDD
[2016-09-30] MEDS ORDERED: QUEtiapine TAB* 25 MG PO SCH (18:00)
[2016-09-30] MEDS ORDERED: Carbidopa/Levodop CR 50/200(*) TAB.CR PO SCH (22:00)
[2016-09-30] MEDS: clonazePAM TAB(*) 0.5 MG PO PRN (23:14)
[2016-10-01] MEDS: Carbidopa/Levodop 25/100 MG TAB(*) PO SCH ×4 (03:50→13:43)
[2016-10-01] MEDS: Heparin VIAL(*) 5000 UNITS/ML VIAL (FIVE THOUSAND) SUBCUT SCH (05:57)
[2016-10-01] MEDS: Calcium Citrate TAB* 200 MG PO SCH (07:56)
[2016-10-01] MEDS: Multivitamins/Minerals TAB PO SCH (07:56)
[2016-10-01] MEDS: Sertraline* 50 MG TAB PO SCH (07:56)
[2016-10-01 09:09] LABS: Hematocrit 39 % (42-52); Hemoglobin 13.3 g/dl (14.0-18.0); Mean Corpuscular HGB Conc 34 g/dl (31-36); Mean Corpuscular Hemoglobin 31 pg (27-31); Mean Corpuscular Volume 93 fL (80-94); Mean Platelet Volume 8 um3 (7.4-10.4); Red Blood Count 4.24 10^6/ul (4.0-5.4); Red Cell Distribution Width 14 % (10.5-15); White Blood Count 6.7 10^3/ul (3.5-10.8)
[2016-10-01 09:32] LABS: BUN/Creatinine Ratio 18.8 (8-20); Calcium 9.9 mg/dL (8.6-10.3); EGFR Non-African American 61.5 (>60)
[2016-10-01 11:49] VITALS: BP 109/59
--- NOTE | 2016-10-01 23:54 | CONS ---
NEUROLOGY FOLLOWUP NOTE: DATE OF FOLLOWUP: 10/01/16 HOSPITALIST: Dr. De Leon. PRIMARY CARE PROVIDER: Dr. Johnson. LOCATION: He is an inpatient in room 404. CHIEF COMPLAINT: Parkinson's disease. INTERVAL HISTORY: Since last night, Torres has done well. We started Seroquel 12.5 mg last evening and added Sinemet CR 50/200 at around 10:00 p.m. He slept pretty well last night, sleeping 3 hours at a time and there was no significant agitation or delirium and he did not require any benzodiazepines or neuroleptics. He is quite alert and cognizant this morning. He was able to walk around the nurses' station twice with a safety belt. He did get a lightheaded and his blood pressure is dropping a bit when he stands. He has not had any faints or falls. He and Chloe are ready for him to go home. MEDICATIONS: Reviewed and he is takin. Carbidopa/levodopa 25/100, 2.5 tablets 4 times per day at 6, 10, 2, and 6. 2. Sinemet CR 50/200 one at 2200 hours. 3. Quetiapine 12.5 mg p.o. at 1800 hours. 4. Sertraline 50 mg p.o. q.a.m. 5. Heparin subcutaneous 5000 units q.8 hours. PHYSICAL EXAM: Most recent vital signs within the hour, blood pressure seated 109/59, standing 94/58. Heart rate 60 and regular. He is very alert. He is able to provide a good history including of last night. He is able to express good understanding of his medications and the problems he has had. There is no tremor. There are no disk herniations. He has moderate hypomimia and bradykinesia. I did not attempt to walk him. LABORATORY DATA: From this morning notable for normal chemistry profile other than a nonfasting glucose of 108. Normal CBC other than a hemoglobin at 13.3, which is stable. IMPRESSION: Torres's sleep disorder, delirium, and hallucinations seem much better. I think, we are ready to get him home. We will continue the addition of Sinemet CR 50/200 at around 10 or 11 in the evening depending upon how his day goes, and not use regularly Sinemet at 10 in the evening or at 3 a.m. We will continue Seroquel 12.5 mg one dose in the evening about 6 or 7, depending upon when he goes to bed. Emphasized to him that we want to start before he starts acting confused or has hallucinations. I will start droxidopa 100 mg twice per day with the last dose at about noon with plans to increase in a week to 200 mg twice per day. He did not tolerate midodrine well at all and he had supine hypertension on Florinef, so I think we need to move to droxidopa. We discussed that this agent also can cause supine hypertension and we will need to be watching out for it. We also talked about the etiology of orthostatic hypotension, hallucinations, and Parkinson's disease. He had seen Dr. Sae Hernandez in psychiatric consultation on 09/29/16. He was felt not be suicidal, but would be benefit from outpatient mental health followup including therapy. It was recommended that he be referred to the outpatient program at [facility]. I will make that referral from my office this coming week. I discussed all this with Doreen and also with Dr. De Leon as far as the discharge plans go. [id number]/[facility] #: [id number] MTDD
--- NOTE | 2016-10-02 06:28 | DS ---
CC: Dr. Johnson; Dr. Esquivel * DISCHARGE SUMMARY: DATE OF ADMISSION: 09/27/16 DATE OF DISCHARGE: 10/01/16 PRIMARY CARE PROVIDER: Dr. Johnson. NEUROLOGIST: Dr. Esquivel. DISCHARGE DIAGNOSES: 1. Parkinson's disease. 2. Delirium. SECONDARY DIAGNOSES: 1. Macular degeneration. 2. Chest wall melanoma, status post wide excision. 3. Orthostatic hypotension secondary to autonomic dysfunction. 4. Status post transurethral resection of prostate. 5. Status post deep brain stimulator placement. MEDICATION LIST: 1. Citracal 200 mg p.o. daily. 2. Max Fiber 1 capsule p.o. b.i.d. 3. Co-Q10 1200 mg p.o. daily. 4. SAVision vitamin for eye 1 tablet p.o. daily. 5. Clonazepam 0.5 to 1 mg p.o. at bedtime as needed for anxiety. 6. Multivitamin 1 tablet p.o. daily. 7. Potassium 1 tablet p.o. daily. 8. Sertraline was changed to 50 mg p.o. daily. 9. Sinemet 25/100 was changed to 2.5 tablets p.o. 6 a.m., 10 a.m., 2 p.m., and 6 p.m. 10. Sinemet CR 50/200 one tablet p.o. at 2200. 11. Seroquel 12.5 mg p.o. 1800. HOSPITAL COURSE: Mr. Bueno is a 71-year-old male with a past medical history as stated above, who was sent from Dr. Esquivel's office due to progressive worsening changes in his mental status. He was found to be more lethargic, drowsy, confused, and hallucinating at times. For more details about his presentation, I refer you to his history and physical. He was sent to investigate if there are other causes for his lethargy, and if not, to adjust his Parkinson's medication. The patient had a CT of the brain that showed stable postoperative findings without acute intracranial abnormality. Chest x-ray that showed density posterior to the heart in the lateral view that could represent just normal bronchovascular structure. A CT of the chest was recommended for further assessment and it showed that those lesions were actually only vertebral body spurs in the lower dorsal spine. The patient had negative urinalysis and no other specific signs of infection. He was seen in consultation by Neurology (Dr. Remy), and his recommendation was to discontinue midodrine and selegiline and to add Sinemet 25/100, 2.5 pills in the morning to see if the patient is able to rest better afterwards. The patient did develop delirium while in the hospital and Seroquel was added with good symptomatic control. The patient was seen in consultation by Psychiatry (Dr. Hernandez) and his impression was the patient is not suicidal and does not warrant inpatient psychiatric care. He would benefit from mental health followup in the community , however. He recommended followup at [facility] in [facility]. Neurology continued to follow the patient and Dr. Esquivel's final recommendation was for the above-mentioned Sinemet dosages with addition of Seroquel at bedtime. The patient is medically stable to be discharged home today to follow up with Dr. Johnson and Dr. Esquivel as outpatient. PHYSICAL EXAMINATION: Vital Signs: Temperature 97.4, heart rate is 59, respiratory rate is 16, oxygen saturation is 100% on room air, blood pressure is 109/59. General: Patient is an elderly male, sitting up in bed, in no acute distress. CVS: Normal S1, S2. Regular rate and rhythm. Chest: Breath sounds present bilaterally. No added sounds. Neuro: He is alert, awake, and oriented x3. Able to move all 4 extremities. No edema. The patient has only 3 fingers on his left hand. DIET: Regular diet. ACTIVITIES: As tolerated. DISPOSITION: To home. STATUS WHILE IN THE HOSPITAL: Inpatient. Please keep in mind, this is a summarized version of this patient's hospital stay. If you need more information, please feel free to call me at [phone] or please obtain the full medical records. TIME SEEN: Approximately 45 minutes was spent to complete the discharge. [id number]/[facility] #: [id number] MTDD
== END 2016-10-01 14:30 | disposition home or self-care (01) | DRG 57 ==
LOC: INTOOBSV 09:58 → MED 09:58 → OBSVTOIN 09-28 13:45 → MED 09-28 15:50
PROVIDERS: ADMIT Psychiatry & Neurology Neurology; ATTEND Internal Medicine
DX: G20 Parkinson's disease (principal); F02.81 Dementia in other diseases classified elsewhere, unspecified severity, with behavioral disturbance; C43.9 Malignant melanoma of skin, unspecified; R45.851 Suicidal ideations; R44.2 Other hallucinations; F41.9 Anxiety disorder, unspecified; I95.1 Orthostatic hypotension; R41.0 Disorientation, unspecified; H35.30 Unspecified macular degeneration; Z79.899 Other long term (current) drug therapy; Z91.048 Other nonmedicinal substance allergy status; Z82.49 Family history of ischemic heart disease and other diseases of the circulatory system; Z82.3 Family history of stroke; Z66 Do not resuscitate
CPT/HCPCS: 36415; 70450; 71020; 71260; 80048; 80053; 81003; 82140; 82607; 82746; 84443; 85025; 85610; 85652; 85730; 86140; 94760; A9270-GY; G0378; G8978-GP-CL; G8979-GP-CI; J0360; J1644; J2060; J3486; Q9967

== ENCOUNTER 2016-10-07 19:02 | Emergency (ER) | payer MEDICARE ==
[2016-10-07 19:18] VITALS: BP 153/84
[2016-10-07] MEDS: Lidocaine 1% MPF* 2 ML VIAL INJ ONE (19:21)
--- NOTE | 2016-10-07 19:56 | UC ---
Michele Alvarado Alfonso, scribed for Jadon Long MD on 10/07/16 at 1940 . Laceration HPI - HPI Summary HPI Summary: This patient is a 71 year old M presenting to [facility] accompanied by with a chief complaint of a left forehead laceration which occurred at 1845 today. Patient states I tripped, fell, and hit my head going to the dining room. The patient rates the pain 2/10 in severity. Symptoms aggravated by nothing. Symptoms alleviated by nothing. Patient denies LOC, vision changes, and vomiting. He denies taking blood thinning medication. PMHx of Parkinsons. Medications reviewed. Allergies reviewed. - History Of Current Complaint Stated Complaint: HEAD INJURY Time Seen by Provider: 10/07/16 19:06 Hx Obtained From: Patient Laceration Location: Face - Forehead Mechanism Of Injury: Blunt Trauma Onset/Duration: Sudden Onset, Lasting Minutes - 1845, Still Present Severity: Mild Pain Intensity: 2 Pain Scale Used: 0-10 Numeric Aggravating Factors: Nothing - Allergies/Home Medications Allergies/Adverse Reactions: Allergies Allergy/AdvReac Type Severity Reaction Status Date / Time Adhesive Tape Allergy Severe Rash Verified 10/07/16 19:18 NO MRI (DBS) Allergy Unknown Uncoded 09/28/16 08:54 Reaction Details Home Medications: Home Medications Sertraline* [Zoloft*] 50 mg PO DAILY 10/07/16 [History Confirmed 10/07/16] PMH/Surg Hx/FS Hx/Imm Hx Neurological History: Other - Parkinsons Other Neurological History: . - Surgical History Surgical History: Yes Surgery Procedure, Year, and Place: TURP, melanoma, deep brain stimulation, BILAT CATARACT SURGERY 07/2016 - Family History Known Family History: Positive: Cardiac Disease, Hypertension - Social History Alcohol Use: None Alcohol Amount: 1/2 glass of wine at dinner Substance Use Type: None Smoking Status (MU): Never Smoked Tobacco - Immunization History Most Recent Influenza Vaccination: unknown Most Recent Tetanus Shot: <5 YEARS ( OF 10/07/16) Most Recent Pneumonia Vaccination: unknown Hx Tetanus, Diphtheria Vaccination: Yes - Called PCP - 2012 Review of Systems Skin: Other - left forehead laceration Eyes: Other - Negative vision changes Gastrointestinal: Other - Negative vomiting Neurological: Other - Negative LOC. All Other Systems Reviewed And Are Negative: Yes Physical Exam Triage Information Reviewed: Yes Appearance: Well-Appearing, No Pain Distress Vital Signs: Initial Vital Signs Temp 97.7 F 10/07/16 19:13 Pulse 65 10/07/16 19:13 Resp 16 10/07/16 19:13 BP 153/84 10/07/16 19:13 Pulse Ox 100 10/07/16 19:13 Vital Signs Reviewed: Yes Eyes: Positive: Other: - EOMI CARSON ENT: Positive: Normal ENT inspection Neck: Positive: Supple, Nontender Respiratory: Positive: Lungs clear, Normal breath sounds Cardiovascular: Positive: RRR Abdomen Description: Positive: Nontender, Soft Bowel Sounds: Positive: Present Musculoskeletal: Positive: Strength Intact, ROM Intact Neurological: Positive: Alert Psychological: Positive: Age Appropriate Behavior Skin: Positive: Other - warm, color reflects adequate perfusion, dry. 3 cm laceration at left forehead. Clean. Cleaned with hibiclens. No debridement. Laceration Repair - Laceration Repair 1 Description: Linear - at left forehead Laceration Size After Repair: Length (cm) - 3 Type Injection: Local Anesthesia Used: 1.0% Lido Cleansing Completed Via Routine Prep: Yes Closure Material: Sutures - 8 Closure Method: Single Layer Suture Of: Skin Suture Type: Nylon - Monosof 5-0 Laceration Course/Dx - Course/Dx Course Of Treatment: UTD WITH TETANUS. NO LOC. NOT ON BLOOD THINNERS. NO NEUROLOGIC DEFICIT. DISCUSSED GOING TO ED FOR HEAD CT IF ANY AMS/NEURO DEFICIT OR CONCERNS. - Differential Dx - Laceration/Wound Provider Diagnoses: HEAD INJURY WITH FOREHEAD LACERATION Discharge - Discharge Plan Condition: Stable Disposition: HOME Patient Education Materials: Facial Laceration (ED), Head Injury (ED) Referrals: Jose Johnson MD [Primary Care Provider] - 1 Week Additional Instructions: FOLLOW UP WITH YOUR PRIMARY CARE PROVIDER WITHIN THE WEEK FOR HIGH BLOOD PRESSURE NOTED TODAY AT 153/84. FOLLOW UP WITH YOUR DOCTOR. SUTURES OUT IN 7 DAYS. GO TO THE EMERGENCY DEPARTMENT FOR ANY WORSENING OF YOUR CONDITION; HEADACHE, WEAKNESS, NUMBNESS, CHANGES IN VISION OR SPEECH, YOU FEEL ILL, SIGNS OF INFECTION OR QUESTIONS OR CONCERNS. The documentation as recorded by the Michele kendrick Alfonso accurately reflects the service I personally performed and the decisions made by me, Jadon Long MD.
== END 2016-10-07 20:08 | disposition home or self-care (01) ==
LOC: UCEAST 19:02
DX: S01.81XA Laceration without foreign body of other part of head, initial encounter (principal); W01.10XA Fall on same level from slipping, tripping and stumbling with subsequent striking against unspecified object, initial encounter
CPT/HCPCS: 12002; 12013; 99212; G0463

== ENCOUNTER 2016-10-15 15:41 | Emergency (ER) | payer MEDICARE ==
[2016-10-15 17:32] VITALS: BP 132/81
--- NOTE | 2016-10-15 18:24 | UC ---
Skin Complaint HPI - HPI Summary HPI Summary: 10/06/16 SUTURES PLACED IN LEFT FOREHEAD BY DR JUARES. NO DRAINAGE, REDNESS OR COMPLICATIONS WITH HEALING WOUND EXCEPT FOR REACTION TO ADHESIVE TAPE INITIALLY. NO PROBLEMS SINCE ADHESIVE TAPE WAS REMOVED ON 10/06/16. - History of Current Complaint Chief Complaint: UCSkin Time Seen by Provider: 10/15/16 17:31 Stated Complaint: STITCHES REMOVED Hx Obtained From: Patient Onset/Duration: Sudden Onset, Resolved Skin Exposure Onset/Duration: Days Ago Onset Severity: Moderate Current Severity: None Pain Intensity: 0 Pain Scale Used: 0-10 Numeric Location: Discrete Aggravating: Nothing Alleviating: Nothing Associated Signs & Symptoms: Negative: Fever, Chills, Rash, Drainage, Tenderness Related History: Trauma - Allergy/Home Medications Allergies/Adverse Reactions: Allergies Allergy/AdvReac Type Severity Reaction Status Date / Time Adhesive Tape Allergy Severe Rash Verified 10/07/16 19:18 NO MRI (DBS) Allergy Unknown Uncoded 09/28/16 08:54 Reaction Details Home Medications: Home Medications Carbidopa/Levodop CR 50/200(*) [Sinemet CR 50/200(*)] 2 tab.cr PO 2200 10/15/16 [History Confirmed 10/15/16] Review of Systems Constitutional: Negative Skin: Other - 8 SUTURES IN LEFT FOREHEAD Eyes: Negative ENT: Negative Respiratory: Negative Cardiovascular: Negative Gastrointestinal: Negative Genitourinary: Negative Motor: Negative Neurovascular: Negative Musculoskeletal: Negative Neurological: Negative Psychological: Negative All Other Systems Reviewed And Are Negative: Yes PMH/Surg Hx/FS Hx/Imm Hx Previously Healthy: Yes - Surgical History Surgical History: Yes Surgery Procedure, Year, and Place: TURP, melanoma, deep brain stimulation, BILAT CATARACT SURGERY 07/2016 - Family History Known Family History: Positive: Cardiac Disease, Hypertension - Social History Occupation: Disabled Lives: With Family Alcohol Use: None Alcohol Amount: 1/2 glass of wine at dinner Substance Use Type: None Smoking Status (MU): Never Smoked Tobacco - Immunization History Most Recent Influenza Vaccination: unknown Most Recent Tetanus Shot: <5 YEARS ( OF 10/07/16) Most Recent Pneumonia Vaccination: unknown Hx Tetanus, Diphtheria Vaccination: Yes - Called PCP - 2012 Physical Exam Triage Information Reviewed: Yes Appearance: Well-Appearing, No Pain Distress, Well-Nourished Vital Signs: Initial Vital Signs Temp 97.9 F 10/15/16 17:30 Pulse 75 10/15/16 17:30 Resp 18 10/15/16 17:30 BP 132/81 10/15/16 17:30 Pulse Ox 99 10/15/16 17:30 Vital Signs Reviewed: Yes Eye Exam: Normal ENT Exam: Normal ENT: Positive: Normal ENT inspection, Hearing grossly normal, TMs normal Dental Exam: Normal Neck exam: Normal Neck: Positive: Supple, Nontender Respiratory Exam: Normal Respiratory: Positive: Chest non-tender, Lungs clear, Normal breath sounds, No respiratory distress, No accessory muscle use Cardiovascular Exam: Normal Cardiovascular: Positive: RRR, No Murmur, Pulses Normal Abdominal Exam: Normal Musculoskeletal Exam: Normal Musculoskeletal: Positive: Strength Intact, ROM Intact Neurological Exam: Normal Psychological Exam: Normal Skin: Positive: Other - 8 X 4-0 NYLON SUTURES IN LEFT SCALP; - Additional Comments 8 X 4-0 NYLON SUTURES IN LEFT SCALP; SUCCESSFULLY REMOVED WITH FORCEPS AND SCISSORS. PATIENT TOLERATED PROCEDURE WELL. Course/Dx - Differential Diagnoses - Skin Complaint Differential Diagnoses: Abscess, Cellulitis - Diagnoses Provider Diagnoses: SUTURE REMOVAL OF 8 X 4-0 NYLON SUTURES FROM LEFT SCALP Discharge - Discharge Plan Condition: Stable Disposition: HOME Patient Education Materials: Stitches Removal (ED) Referrals: Jose Johnson MD [Primary Care Provider] -
== END 2016-10-15 18:00 | disposition home or self-care (01) ==
LOC: UCEAST 15:41
DX: Z48.02 Encounter for removal of sutures (principal)

== ENCOUNTER 2016-10-27 08:43 | Emergency (ER) | payer MEDICARE ==
[2016-10-27 08:52] VITALS: BP 134/76
[2016-10-27] MEDS ORDERED: Lidocain 1% EPI 1:100,000 * 30 ML MDV INJ ONE ×2 (09:11→09:30)
[2016-10-27] MEDS ORDERED: Lidocaine 1% MPF wEPI 200,000* 30 ML SDV ONE (09:13)
--- NOTE | 2016-10-27 09:13 | UC ---
Norm Alvarado Rebecca, scribed for Letha Bravo MD on 10/27/16 at 0904 . Head Injury HPI - HPI Summary HPI Summary: Pt is a 71 y/o M who presents to [facility] accompanied by his with a laceration s/p fall. At approximately 0830 this morning the pt rolled over the side of his bed, hitting the L side of his forehead on a composite maria luz. Pt was able to get up without assistance after the fall. Negative LOC though he does not remember the fall. Pt has Parkinson's disease and closely involved in patient's care. Pt did not experience blood loss from the eyes, ears, nose or mouth. was present moments after the fall and he was awake and alert. He already had breakfast this morning prior to fall and tolerated it well. Pt c/o laceration on the L forehead with associated moderate HILL ranked 4/ 10 at the location of the laceration, described as an ache. Has not taken anything for the pain. Pt denies neck or back pain. No anticoagulation. Pain at site of laceration. No other injuries or pain. Sx aggravated and alleviated by nothing. Denies any other symptoms including visual changes, nausea, CP, SOB, tingling/numbness, neck pain and back pain. Prior similar instances of fall in the past. Is not on any blood thinners. Last Tetanus vaccine within the last 5 years. NKDA. - History Of Current Complaint Chief Complaint: UCHeadInjury Stated Complaint: HEAD INJURY WITH A LACERATION Time Seen by Provider: 10/27/16 08:53 Hx Obtained From: Patient Onset/Duration: Sudden Onset, Still Present Severity Currently: Moderate Pain Intensity: 4 Pain Scale Used: 0-10 Numeric Character: Other - Ache Aggravating Factor(s): Nothing Alleviating Factor(s): Nothing Associated Signs And Symptoms: Positive: Other - Laceration (L frontal). Negative: LOC (Time In Secs./Mins/Hrs), Neck Pain, Nausea Related History: Similar Episode/Dx as - Similar prior instances of falls - Allergies/Home Medications Allergies/Adverse Reactions: Allergies Allergy/AdvReac Type Severity Reaction Status Date / Time Adhesive Tape Allergy Severe Rash Verified 10/27/16 08:52 No EKG/CT Scan (DBS) Allergy Unknown Uncoded 10/27/16 08:52 Reaction Details NO MRI (DBS) Allergy Unknown Uncoded 10/27/16 08:52 Reaction Details PMH/Surg Hx/FS Hx/Imm Hx - Additional Past Medical History Additional PMH: PMHx: Parkinson's with a deep brain stimulator Negative PMHx: COPD, asthma, HIV Previously Healthy: No Neurological History: Other - Parkinsons Other Neurological History: Parkinson's - Surgical History Surgical History: Yes Surgery Procedure, Year, and Place: TURP, melanoma, deep brain stimulation, BILAT CATARACT SURGERY 07/2016 - Family History Known Family History: Positive: Cardiac Disease, Hypertension - Social History Occupation: Retired Lives: With Family Alcohol Use: None Alcohol Amount: 1/2 glass of wine at dinner Substance Use Type: None Smoking Status (MU): Never Smoked Tobacco - Immunization History Most Recent Influenza Vaccination: Not UTD Most Recent Tetanus Shot: <5 YEARS ( OF 10/27/16) Most Recent Pneumonia Vaccination: unknown Hx Tetanus, Diphtheria Vaccination: Yes - Called PCP - 2012 Review of Systems Constitutional: Negative Skin: Other - Laceration (left frontal) Eyes: Negative ENT: Negative Respiratory: Negative Cardiovascular: Negative Gastrointestinal: Negative Genitourinary: Negative Motor: Negative Neurovascular: Negative Musculoskeletal: Negative Neurological: Headache - At the site of the laceration Psychological: Negative All Other Systems Reviewed And Are Negative: Yes - Comments Additional Review of Systems Comments: NEGATIVE: LOC, visual changes, nausea, CP, SOB, tingling/numbness, neck pain and back pain Physical Exam Triage Information Reviewed: Yes Appearance: Well-Appearing, No Pain Distress, Well-Nourished Vital Signs: Initial Vital Signs Temp 97.9 F 10/27/16 08:46 Pulse 66 10/27/16 08:46 Resp 16 10/27/16 08:46 BP 134/76 10/27/16 08:46 Pulse Ox 100 10/27/16 08:46 Vital Signs Reviewed: Yes Eye Exam: Normal Eyes: Positive: Conjunctiva Clear, Other: - no pain with palpation of orbits - no crepitus ENT Exam: Normal ENT: Positive: Normal ENT inspection, Hearing grossly normal, Pharynx normal, TMs normal Dental Exam: Normal Neck exam: Normal Neck: Positive: Supple, Nontender, No Lymphadenopathy Respiratory Exam: Normal Respiratory: Positive: Chest non-tender, Lungs clear, Normal breath sounds, No respiratory distress, No accessory muscle use Cardiovascular Exam: Normal Cardiovascular: Positive: RRR, No Murmur, Pulses Normal Abdominal Exam: Normal Abdomen Description: Positive: Nontender, No Organomegaly, Soft Bowel Sounds: Positive: Present Musculoskeletal Exam: Normal Musculoskeletal: Positive: Other: - no pain c/t/l/s + ROM without pain Neurological Exam: Normal Neurological: Positive: Alert, Other: - PT with tremor - baseline per pt Psychological Exam: Normal Skin: Positive: Other - Pt with 1cm laceration horizontal over left eye brow. PT with surrouding abrasion 2.5 circumferential no active bleeding Procedures - Procedure Summary Procedure Summary: Time out complete wound infiltrated with lidocaine with epi 1.5cm Under standard sterile conditions - wound irrigated placed 2 sutures with good approximation Pt tolerated well Pt with cicumferential abrasion - non suturable wound covered with abs oint and bandage s/s infection reviewed - Laceration/Wound Repair 1 Location: face Anesthesia: 1.0%, Lido - 1.5 mL Length, Depth and Shape: 1 cm length Irrigated w/ Saline (ccs): 100 Laceration/Wound Explored: clean Closure: Single Layer - 2 Suture Type: Prolene - 6.0 Number of Sutures: 2 - Good approximation and tolerated well Head Injury Course/Dx - Course Course Of Treatment: Patient medications reviewed this visit. Pt with laceration to left eyebrow s/p rolling out of bed. No other injuries. wound closed with sutures. Pt tolerated well. reviewed s/s infection and wound care with . No other apparent injuries. reviewed return precautions with pt. Pt comfortable and in agreement with plan - Differential Dx/Diagnosis Provider Diagnoses: facial laceration. facial abrasion Discharge - Discharge Plan Condition: Stable Disposition: HOME Patient Education Materials: Facial Laceration (ED), Abrasion (ED) Referrals: Jose Johnson MD [Primary Care Provider] - Additional Instructions: - your stitches should come out in 4-5 days - you can return here, go to your Doctor or any urgent care center - okay to alternate ibuprofin (advil, motrin) and tylenol every 3hours as needed for pain -Keep your wound clean and dry - no soaking for 24 hours. Then, okay for wound to get wet - pat dry, don't rub -apply a thin layer of antibiotic ointment (neosporin, polysporin) 2-3 times a day - when you have a cut, you will have a scar. To minimize scar formation - keep your wound clean - monitor for signs of infection - reddness, red streaking, odor, green drainage -Once sutures out - keep your wound out of direct sun (wear a hat or sun screen ) - it may take up to 8 months for your scar to reach its final state - Contact your doctor or return here with questions or concerns The documentation as recorded by the Norm kendrick Rebecca accurately reflects the service I personally performed and the decisions made by me, Letha Bravo MD.
== END 2016-10-27 09:40 | disposition home or self-care (01) ==
LOC: UCEAST 08:43
DX: S01.112A Laceration without foreign body of left eyelid and periocular area, initial encounter (principal); W06.XXXA Fall from bed, initial encounter; Y93.89 Activity, other specified; Y92.003 Bedroom of unspecified non-institutional (private) residence as the place of occurrence of the external cause; G20 Parkinson's disease; Z98.42 Cataract extraction status, left eye; Z98.41 Cataract extraction status, right eye; Z85.820 Personal history of malignant melanoma of skin
CPT/HCPCS: 12011; 99212; G0463; J2001

== ENCOUNTER 2016-11-02 15:42 | Emergency (ER) | payer MEDICARE ==
[2016-11-02 15:49] VITALS: BP 144/88
--- NOTE | 2016-11-02 15:55 | UC ---
HPI Wound/Suture Re-check - HPI Summary HPI Summary: 71 YEAR OLD MALE PRESENTS FOR REMOVAL OF SUTURES FROM THE LEFT FOREHEAD. - History Of Current Complaint Chief Complaint: UCGeneralIllness Stated Complaint: SUTURE REMOVAL Time Seen by Provider: 11/02/16 15:50 Hx Obtained From: Patient Onset/Duration: Sudden Onset Severity: Mild Pain Scale Used: 0-10 Numeric - 0 - Allergies/Home Medications Allergies/Adverse Reactions: Allergies Allergy/AdvReac Type Severity Reaction Status Date / Time Adhesive Tape Allergy Severe Rash Verified 11/02/16 15:46 No EKG/CT Scan (DBS) Allergy Unknown Uncoded 11/02/16 15:46 Reaction Details NO MRI (DBS) Allergy Unknown Uncoded 11/02/16 15:46 Reaction Details PMH/Surg Hx/FS Hx/Imm Hx - Surgical History Surgical History: Yes Surgery Procedure, Year, and Place: TURP, melanoma, deep brain stimulation, BILAT CATARACT SURGERY 07/2016 - Family History Known Family History: Positive: Cardiac Disease, Hypertension - Social History Alcohol Use: None Alcohol Amount: 1/2 glass of wine at dinner Substance Use Type: None Smoking Status (MU): Never Smoked Tobacco - Immunization History Most Recent Influenza Vaccination: Not UTD Most Recent Tetanus Shot: <5 YEARS ( OF 10/27/16) Most Recent Pneumonia Vaccination: unknown Hx Tetanus, Diphtheria Vaccination: Yes - Called PCP - 2012 Review of Systems Constitutional: Negative Skin: Other - SUTURE REMOVAL LEFT FOREHEAD Eyes: Negative ENT: Negative Respiratory: Negative Cardiovascular: Negative Gastrointestinal: Negative Genitourinary: Negative Motor: Negative Neurovascular: Negative Musculoskeletal: Negative Neurological: Negative Psychological: Negative All Other Systems Reviewed And Are Negative: Yes Physical Exam Triage Information Reviewed: Yes Vital Signs: Initial Vital Signs Temp 36.1 C 11/02/16 15:47 Pulse 64 11/02/16 15:47 Resp 16 11/02/16 15:47 BP 144/88 11/02/16 15:47 Pulse Ox 100 11/02/16 15:47 Course/Dx - Differential Dx - Laceration/Wound Provider Diagnoses: SUTURE REMOVAL OF LACERATION < 2.5 CM ON LEFT FOREHEAD. Discharge - Discharge Plan Condition: Stable Disposition: HOME Patient Education Materials: Stitches Removal (ED) Referrals: Jose Johnson MD [Primary Care Provider] -
== END 2016-11-02 16:14 | disposition home or self-care (01) ==
LOC: UCEAST 15:42
DX: Z48.02 Encounter for removal of sutures (principal)
CPT/HCPCS: 99211; G0463

== ENCOUNTER 2017-04-15 08:13 | Emergency (ER) | payer MEDICARE ==
[2017-04-15 08:36] VITALS: BP 141/74
--- NOTE | 2017-04-15 08:38 | UC ---
Abdominal Pain Male HPI - HPI Summary HPI Summary: This 72-year-old man comes in to the urgent care today with his he complains of several days of constipation had a fleets enema on 4 days ago now has continued oozing brown stool No blood in his been noted no vomiting - History of Current Complaint Chief Complaint: UCAbdominalPain Stated Complaint: ABDOMINAL COMPLAINT Time Seen by Provider: 04/15/17 08:22 Hx Obtained From: Patient Onset/Duration: Gradual Onset, Lasting Days - 4, Still Present Timing: Constant Severity Initially: Moderate Severity Currently: Moderate Location: Other - rectal lower abddomen pain Radiates: Yes Character: Cramping Aggravating Factor(s): Nothing Alleviating Factor(s): Nothing Associated Signs And Symptoms: Positive: Constipation, Diarrhea - Allergies/Home Medications Allergies/Adverse Reactions: Allergies Allergy/AdvReac Type Severity Reaction Status Date / Time Adhesive Tape Allergy Severe Rash Verified 04/15/17 08:32 No EKG/CT Scan (DBS) Allergy Unknown Uncoded 11/02/16 15:46 Reaction Details NO MRI (DBS) Allergy Unknown Uncoded 11/02/16 15:46 Reaction Details PMH/Surg Hx/FS Hx/Imm Hx Previously Healthy: No - [place] not tired Neurological History: Other Other Neurological History: Parkinsons Psychological History: Anxiety - Surgical History Surgical History: Yes Surgery Procedure, Year, and Place: TURP, melanoma, deep brain stimulation, BILAT CATARACT SURGERY 07/2016 - Family History Known Family History: Positive: Cardiac Disease, Hypertension - Social History Occupation: Retired Lives: With Family Alcohol Use: None Alcohol Amount: 1/2 glass of wine at dinner Substance Use Type: None Smoking Status (MU): Never Smoked Tobacco - Immunization History Most Recent Influenza Vaccination: Not UTD Most Recent Tetanus Shot: <5 YEARS ( OF 10/27/16) Most Recent Pneumonia Vaccination: unknown Hx Tetanus, Diphtheria Vaccination: Yes - Called PCP - 2012 Review of Systems Constitutional: Negative - Polyps digital exam comes back and out" patient has not been 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 otherwise positive as Skin: Negative Eyes: Negative ENT: Negative Respiratory: Negative Cardiovascular: Negative Gastrointestinal: Abdominal Pain, Diarrhea Genitourinary: Negative Motor: Negative Neurovascular: Negative Musculoskeletal: Negative Neurological: Negative Psychological: Negative Is Patient Immunocompromised?: No All Other Systems Reviewed And Are Negative: Yes Physical Exam Triage Information Reviewed: Yes Appearance: Well-Appearing, Well-Nourished, Pain Distress Vital Signs Reviewed: Yes Eye Exam: Normal Eyes: Positive: Conjunctiva Clear ENT Exam: Normal ENT: Positive: Normal ENT inspection, Hearing grossly normal, Pharynx normal. Negative: Trismus, Muffled voice, Hoarse voice, Dental tenderness Dental Exam: Normal Neck exam: Normal Neck: Positive: Supple, Nontender, No Lymphadenopathy Respiratory Exam: Normal Respiratory: Positive: Chest non-tender, Lungs clear, Normal breath sounds, No respiratory distress, No accessory muscle use Cardiovascular Exam: Normal Cardiovascular: Positive: RRR, No Murmur, Pulses Normal, Brisk Capillary Refill Abdominal Exam: Normal Abdomen Description: Positive: Nontender, No Organomegaly, Soft. Negative: CVA Tenderness (R), CVA Tenderness (L) Bowel Sounds: Positive: Present Musculoskeletal Exam: Normal Musculoskeletal: Positive: Strength Intact, ROM Intact, No Edema Neurological Exam: Normal Neurological: Positive: Alert, Muscle Tone Normal Psychological Exam: Normal - Normal the patient's baseline Skin Exam: Normal Diagnostics - Laboratory Diagnostic Studies Completed/Ordered: Guaiac positive stool - Radiology No standard instances Xray Interpretation: Positive (See Comments) - Large amount of stool nonspecific gas bowel pattern Radiology Interpretation Completed By: ED Physician, Radiologist Abd Pain Male Course/Dx - Course Course Of Treatment: Transfer patient to be emergency department will drive - Differential Dx/Clinical Impression Provider Diagnoses: Constipation, lower GI bleed, abdominal pain, elevated blood pressure without diagnosis of hypertension Discharge - Discharge Plan Condition: Stable Disposition: HOME Patient Education Materials: Gastrointestinal Bleeding (ED), Rectal Bleeding ( ED) Referrals: Jose Johnson MD [Primary Care Provider] - Additional Instructions: You are being discharged to go directly to the emergency department for further evaluation
--- NOTE | 2017-04-15 09:18 | RAD ---
HISTORY: Constipation COMPARISONS: None VIEWS: Frontal supine and upright views of the abdomen. FINDINGS: BOWEL: There is a nonspecific bowel gas pattern, with nondilated small bowel gas noted. There is a large amount of stool within the colon. CALCULI: There are no abnormal calculi. BONES AND SOFT TISSUES: Mild degenerative changes are noted. OTHER FINDINGS: The lung bases are clear. There is no subphrenic gas. IMPRESSION: NONSPECIFIC BOWEL GAS PATTERN. LARGE AMOUNT OF STOOL THROUGHOUT THE COLON.
[2017-04-15] MEDS ORDERED: Sodium Phosphate ADULT ENEMA* 118 ml bottle ONE (09:25)
[2017-04-15] MEDS: Sodium Phosphate ADULT ENEMA* 118 ml bottle PR ONE ×2 (09:30→10:12)
== END 2017-04-15 10:10 | disposition home or self-care (01) ==
LOC: UCEAST 08:13
DX: K59.00 Constipation, unspecified (principal); K92.2 Gastrointestinal hemorrhage, unspecified; R10.30 Lower abdominal pain, unspecified; R03.0 Elevated blood-pressure reading, without diagnosis of hypertension; G20 Parkinson's disease; F41.9 Anxiety disorder, unspecified
CPT/HCPCS: 74019; 82272; 99212; 99213; A9270-GY; G0463

== ENCOUNTER 2017-04-15 10:16 | Emergency (ER) | payer MEDICARE ==
[2017-04-15] MEDS ORDERED: NS 0.9% 1000 ML* 1,000 ML IV ONE (11:18)
[2017-04-15 11:33] LABS: Urine Appearance Clear; Urine Blood Negative (Negative); Urine Color Yellow; Urine Ketones Trace (Negative); Urine Protein Negative (Negative); Urine Specific Gravity 1.009 (1.010-1.030); Urine Urobilinogen Negative (Negative)
[2017-04-15 11:56] LABS: ABS Basophils 0 10^3/ul (0-0.2); ABS Eosinophils 0 10^3/ul (0-0.6); ABS Lymphocytes 1.6 10^3/ul (1.0-4.8); ABS Monocytes 0.8 10^3/ul (0-0.8); ABS Neutrophils 5.5 10^3/ul (1.5-7.7); ABS Nucleated RBC 0 10^3/ul; Eosinophil % 0.4 % (0-6); Hematocrit 37 % (42-52); Hemoglobin 12.4 g/dl (14.0-18.0); Lymphocyte % 20.1 % (25-47); Mean Corpuscular HGB Conc 34 g/dl (31-36); Mean Corpuscular Hemoglobin 31 pg (27-31); Mean Corpuscular Volume 90 fL (80-94); Mean Platelet Volume 8 um3 (7.4-10.4); Nucleated Red Blood Cells % 0.1; Platelet Count 192 10^3/ul (150-450); Red Blood Count 4.06 10^6/ul (4.0-5.4); Red Cell Distribution Width 14 % (10.5-15); White Blood Count 7.9 10^3/ul (3.5-10.8)
[2017-04-15 12:22] LABS: EGFR Non-African American 60.1 (>60)
[2017-04-15] MEDS ORDERED: Magnesium CITRATE* 300 ML BTL PO ONE (14:17)
[2017-04-15] MEDS ORDERED: Polyethylene Glycol 3350* 17 GM PACKET PO PRN (14:17)
[2017-04-15] MEDS ORDERED: Polyethylene Glycol 3350* 17 GM PACKET ONE (14:28)
[2017-04-15 14:52] VITALS: BP 142/78
--- NOTE | 2017-04-15 16:49 | ED ---
Pat Alvarado Gabriel, scribed for Robby Najera MD on 04/15/17 at 1111 . Abdominal Pain/Male - HPI Summary HPI Summary: This patient is a 72 year old M presenting to [facility] accompanied by his with a chief complaint of constipation on 04-12-17. The next day he strained to have a BM and then he developed some rectal pain which has persisted until today. He is also experience spasmatic ABD pain ever 5-15 minutes. The patient rates the pain 2/10 in severity. Pt was seen at [facility] today, got an Xray which showed a blockage. They also found blood in his stool. Pt was sent from [facility]. - History of Current Complaint Chief Complaint: EDGIBleed Stated Complaint: ABD PAIN-SENT FROM Time Seen by Provider: 04/15/17 10:33 Hx Obtained From: Patient Onset/Duration: Still Present Timing: Intermittent Severity Initially: Mild Severity Currently: Mild Pain Intensity: 2 Pain Scale Used: 0-10 Numeric Location: Diffuse Associated Signs And Symptoms: Positive: Constipation, Blood in Stool, Other - rectal pain - Allergies/Home Medications Allergies/Adverse Reactions: Allergies Allergy/AdvReac Type Severity Reaction Status Date / Time Adhesive Tape Allergy Severe Rash Verified 04/15/17 08:32 No EKG/CT Scan (DBS) Allergy Unknown Uncoded 11/02/16 15:46 Reaction Details NO MRI (DBS) Allergy Unknown Uncoded 11/02/16 15:46 Reaction Details PMH/Surg Hx/FS Hx/Imm Hx Endocrine/Hematology History: Denies: Hx Diabetes, Hx Thyroid Disease Cardiovascular History: Reports: Hx Angina Denies: Hx Coronary Artery Disease, Hx Hypercholesterolemia, Hx Hypertension , Hx Myocardial Infarction, Hx Valvular Heart Disease Respiratory History: Denies: Hx Asthma, Hx Chronic Obstructive Pulmonary Disease (COPD) GI History: Reports: Hx Gastroesophageal Reflux Disease Denies: Hx Ulcer Musculoskeletal History: Reports: Other Musculoskeletal History - sprained ankle right- wears a boot Denies: Hx Rheumatoid Arthritis, Hx Osteoporosis Sensory History: Reports: Hx Cataracts, Hx Contacts or Glasses Denies: Hx Eye Injury, Hx Hearing Aid Opthamlomology History: Reports: Hx Cataracts, Hx Contacts or Glasses Denies: Hx Eye Injury Neurological History: Reports: Other Neuro Impairments/Disorders - parkinsons / DBS in place cannot have a MRI Psychiatric History: Reports: Hx Depression - Cancer History Cancer Type, Location and Year: melanoma Hx Chemotherapy: No - Surgical History Surgery Procedure, Year, and Place: TURP, melanoma, deep brain stimulation, BILAT CATARACT SURGERY 07/2016 Hx Anesthesia Reactions: No Infectious Disease History: No Infectious Disease History: Denies: Hx Clostridium Difficile, Hx Hepatitis, Hx Human Immunodeficiency Virus (HIV), Hx Shingles, Hx Tuberculosis, Hx Known/Suspected VRE, Hx Known/ Suspected VRSA, History Other Infectious Disease, Traveled Outside the [place] in Last 30 Days - Family History Known Family History: Positive: Cardiac Disease, Hypertension - Social History Alcohol Use: None Alcohol Amount: 1/2 glass of wine at dinner Hx Substance Use: No Substance Use Type: Reports: None Hx Tobacco Use: No Smoking Status (MU): Never Smoked Tobacco Review of Systems Negative: Fever Gastrointestinal: Other - rectal pain Positive: Abdominal Pain, Other - constipation All Other Systems Reviewed And Are Negative: Yes Physical Exam - Summary Physical Exam Summary: VITAL SIGNS: Reviewed. GENERAL: Patient is a well-developed and nourished male who is lying comfortable in the stretcher. Patient is not in any acute respiratory distress. HEAD AND FACE: Normocephalic and atraumatic. EYES: PERRLA, EOMI x 2, No injected conjunctiva. EARS: Hearing grossly intact. Ear canals and tympanic membranes are WNL. MOUTH: Oropharynx within normal limits. NECK: Supple, trachea is midline, no adenopathy, no JVD. CHEST: Symmetric, no tenderness at palpation LUNGS: Clear to auscultation bilaterally. No wheezing or crackles. CVS: RRR, S1 and S2 present, no murmurs or gallops appreciated. ABDOMEN: Soft, mildly TTP in lower ABD. No signs of distention. Positive bowel sounds. No rebound no guarding, and no masses palpated. No abdominal bruit or pulsations Rectal: external hemorrhoid, lots of stool, normal sphincter tone, no gross blood or melena EXTREMITIES: FROM in all major joints, no edema, no cyanosis or clubbing. NEURO: Alert and oriented x 3. No acute neurological deficits. Speech is normal. SKIN: Dry and warm Triage Information Reviewed: Yes Vital Signs On Initial Exam: Initial Vitals Temp Pulse Resp BP Pulse Ox 97.4 F 61 14 136/84 99 04/15/17 10:28 04/15/17 10:28 04/15/17 10:28 04/15/17 10:28 04/15/17 10:28 Vital Signs Reviewed: Yes Diagnostics - Vital Signs Vital Signs Temp Pulse Resp BP Pulse Ox 04/15/17 10:28 97.4 F 61 14 136/84 99 - Laboratory Lab Results: Lab Results 04/15/17 04/15/17 04/15/17 Range/Units 11:18 11:45 11:45 WBC 7.9 (3.5-10.8) 10^3/ul RBC 4.06 (4.0-5.4) 10^6/ul Hgb 12.4 L (14.0-18.0) g/dl Hct 37 L (42-52) % MCV 90 (80-94) fL MCH 31 (27-31) pg MCHC 34 (31-36) g/dl RDW 14 (10.5-15) % Plt Count 192 (150-450) 10^3/ul MPV 8 (7.4-10.4) um3 Neut % (Auto) 69.1 (38-83) % Lymph % (Auto) 20.1 L (25-47) % [place] % (Auto) 10.1 H (0-7) % Eos % (Auto) 0.4 (0-6) % Baso % (Auto) 0.3 (0-2) % Absolute Neuts (auto) 5.5 (1.5-7.7) 10^3/ul Absolute Lymphs (auto) 1.6 (1.0-4.8) 10^3/ul Absolute Monos (auto) 0.8 (0-0.8) 10^3/ul Absolute Eos (auto) 0 (0-0.6) 10^3/ul Absolute Basos (auto) 0 (0-0.2) 10^3/ul Absolute Nucleated RBC 0 10^3/ul Nucleated RBC % 0.1 Sodium 136 (133-145) mmol/L Potassium 3.9 (3.5-5.0) mmol/L Chloride 104 (101-111) mmol/L Carbon Dioxide 26 (22-32) mmol/L Anion Gap 6 (2-11) mmol/L BUN 23 (6-24) mg/dL Creatinine 1.19 H (0.67-1.17) mg/dL Est GFR ( Amer) 77.3 (>60) Est GFR (Non-Af Amer) 60.1 (>60) BUN/Creatinine Ratio 19.3 (8-20) Glucose 107 H (70-100) mg/dL Lactic Acid (0.5-2.0) mmol/L Calcium 9.6 (8.6-10.3) mg/dL Magnesium 2.1 (1.9-2.7) mg/dL Total Bilirubin 1.10 H (0.2-1.0) mg/dL AST 31 (13-39) U/L ALT 3 L (7-52) U/L Alkaline Phosphatase 47 (34-104) U/L Ammonia (16-53) mol/L Total Creatine Kinase 447 H (10-223) U/L C-Reactive Protein 43.86 H (< 5.00) mg/L B-Natriuretic Peptide ( - 100) pg/mL Total Protein 6.7 (6.4-8.9) g/dL Albumin 4.0 (3.2-5.2) g/dL Globulin 2.7 (2-4) g/dL Albumin/Globulin Ratio 1.5 (1-3) Lipase 234 H (11.0-82.0) U/L Urine Color Yellow Urine Appearance Clear Urine pH 6.0 (5-9) Ur Specific [place] 1.009 L (1.010-1.030) Urine Protein Negative (Negative) Urine Ketones Trace A (Negative) Urine Blood Negative (Negative) Urine Nitrate Negative (Negative) Urine Bilirubin Negative (Negative) Urine Urobilinogen Negative (Negative) Ur Leukocyte Esterase Negative (Negative) Urine Glucose Negative (Negative) 04/15/17 04/15/17 Range/Units 11:45 11:45 WBC (3.5-10.8) 10^3/ul RBC (4.0-5.4) 10^6/ul Hgb (14.0-18.0) g/dl Hct (42-52) % MCV (80-94) fL MCH (27-31) pg MCHC (31-36) g/dl RDW (10.5-15) % Plt Count (150-450) 10^3/ul MPV (7.4-10.4) um3 Neut % (Auto) (38-83) % Lymph % (Auto) (25-47) % [place] % (Auto) (0-7) % Eos % (Auto) (0-6) % Baso % (Auto) (0-2) % Absolute Neuts (auto) (1.5-7.7) 10^3/ul Absolute Lymphs (auto) (1.0-4.8) 10^3/ul Absolute Monos (auto) (0-0.8) 10^3/ul Absolute Eos (auto) (0-0.6) 10^3/ul Absolute Basos (auto) (0-0.2) 10^3/ul Absolute Nucleated RBC 10^3/ul Nucleated RBC % Sodium (133-145) mmol/L Potassium (3.5-5.0) mmol/L Chloride (101-111) mmol/L Carbon Dioxide (22-32) mmol/L Anion Gap (2-11) mmol/L BUN (6-24) mg/dL Creatinine (0.67-1.17) mg/dL Est GFR ( Amer) (>60) Est GFR (Non-Af Amer) (>60) BUN/Creatinine Ratio (8-20) Glucose (70-100) mg/dL Lactic Acid 0.6 (0.5-2.0) mmol/L Calcium (8.6-10.3) mg/dL Magnesium (1.9-2.7) mg/dL Total Bilirubin (0.2-1.0) mg/dL AST (13-39) U/L ALT (7-52) U/L Alkaline Phosphatase (34-104) U/L Ammonia 35 (16-53) mol/L Total Creatine Kinase (10-223) U/L C-Reactive Protein (< 5.00) mg/L B-Natriuretic Peptide 68 ( - 100) pg/mL Total Protein (6.4-8.9) g/dL Albumin (3.2-5.2) g/dL Globulin (2-4) g/dL Albumin/Globulin Ratio (1-3) Lipase (11.0-82.0) U/L Urine Color Urine Appearance Urine pH (5-9) Ur Specific [place] (1.010-1.030) Urine Protein (Negative) Urine Ketones (Negative) Urine Blood (Negative) Urine Nitrate (Negative) Urine Bilirubin (Negative) Urine Urobilinogen (Negative) Ur Leukocyte Esterase (Negative) Urine Glucose (Negative) Result Diagrams: 04/15/17 11:45 04/15/17 11:45 Lab Statement: Any lab studies that have been ordered have been reviewed, and results considered in the medical decision making process. - EKG 11:18 Cardiac Rate: NL EKG Rhythm: Sinus Rhythm - at 60 BPM EKG Interpretation: no ST elevations Abdominal Pain Fem Course/Dx - Course Assessment/Plan: An EKG reveals no ST elevations. Test results with no significant abnormalities. UA in negative for UTI. In the ED course the patient was given IV fluids, miralax, magnesium citrate and lactulose. Patient H/H its at his base line. positive for occult blood. I offer patient transfer to [facility] GI evaluation but patient and his declined. Ther reported they have a appoitment with Dr. Salgado tomorrow at 4 pm and they preffer to see him tomorrow. The patient will be diagnosed with constipation and rectal bleed I discussed all the findings and test results with the patient. Patient was instructed to return to the emergency room immediately if any of the symptoms return or worsens. Plan of care was discussed with the patient and understands and agrees. All questions were answered at patient satisfaction. There were no further complaints or concerns. The patient is hemodynamically stable and alert and orinetedx3. Patient will be discharged with prescription for miralax and follow up from Dr. Johnson. The patient is agreeable with this plan. - Diagnoses Provider Diagnoses: Constipation, GI bleed Discharge - Discharge Plan Condition: Stable Disposition: HOME Prescriptions: Polyethylene Glycol 3350* [Miralax*] 17 gm PO DAILY #12 packet Patient Education Materials: Constipation (ED), Rectal Bleeding (ED) Referrals: Jose Johnson MD [Primary Care Provider] - Additional Instructions: RETURN TO EMERGENCY DEPARTMENT FOR ANY NEW OR WORSENING SYMPTOMS The documentation as recorded by the Pat kendrick Gabriel accurately reflects the service I personally performed and the decisions made by , Robby Najera MD.
== END 2017-04-15 14:50 | disposition home or self-care (01) ==
LOC: ED 10:16
DX: K59.00 Constipation, unspecified (principal); K92.2 Gastrointestinal hemorrhage, unspecified; R10.9 Unspecified abdominal pain
CPT/HCPCS: 36415; 80053; 81003; 82140; 82272; 82550; 83605; 83690; 83735; 83880; 85025; 86140; 93005; 99284; A9270-GY

== ENCOUNTER 2017-09-05 08:48 | Emergency (ER) | payer MEDICARE ==
--- OUTSIDE RECORDS SUMMARY | 2017-09-05 08:58 | XMS REPORT ---
:1945 External Reference #:[id number] Author Organization [facility] Address [address] [place] [address] Phone [phone] Care Team Providers Name Role Phone Jose Johnson Care Team Information Business Development Professional Unavailable Jose Johnson Primary Care Physician Unavailable Payers Type Date Identification Numbers Payment Provider Subscriber Medicare Primary Effective: Policy Number: [employer] [place] Alethea Bueno 2007 [id number] PayID: [id number] [address] [place] [address] Medigap Part B Effective: Policy Number: [facility] Alethea Bueno 2006 [id number] Options PayID: [id number] [place] [address] Problems Date Description Provider Status Onset: 06/29/2005 Parkinson's disease Jose Johnson M.D. Active Onset: 06/29/2005 Hyperlipidemia Jose Johnson M.D. Active Onset: 06/29/2005 Malaise and fatigue Jose Jonhson M.D. Active Onset: 06/29/2005 Family history of ischemic heart Jose Johnson M.D. Active disease Onset: 06/29/2005 Benign prostatic hypertrophy without Jose Johnson M.D. Active outflow obstruction Onset: 10/04/2006 Insomnia Jose Johnson M.D. Active Onset: 10/04/2006 History of malignant melanoma of the Jose Johnson M.D. Active skin Onset: 09/17/2012 Adult health examination Jose Johnson M.D. Active Onset: 04/17/2013 Solitary sacroiliitis Jose Johnson M.D. Active Onset: 07/09/2014 Edema Jose Johnson M.D. Active Onset: 07/09/2014 Swelling of limb Jose Johnson M.D. 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 Active Onset: 12/20/2015 Pain in left arm Jose Johnson M.D. Active Onset: 03/30/2016 Dizziness and giddiness Jose Johnson M.D. Active Onset: 03/30/2016 Elevated blood-pressure reading without Jose Johnson M.D. Active diagnosis of hypertension Onset: 05/18/2016 Cellulitis of right lower limb Jose Johnson M.D. Active Onset: 06/22/2016 Restless legs Jose Johnson M.D. Active Onset: 07/20/2016 Hypermature cataract Jose Johnson M.D. Active Onset: 07/20/2016 Orthostatic hypotension Jose Johnson M.D. Active Onset: 07/20/2016 Open wound of scalp without Jose Johnson M.D. Active complication Onset: 08/31/2016 Chest pain Jose Johnson M.D. Active Onset: 11/30/2016 Psychophysiologic insomnia Jose Johnson M.D. Active Onset: 05/03/2017 Slow transit constipation Jose Johnson M.D. Active Family History Date Family Member(s) Problem(s) Comments Father due to NC () Mother due to Stroke () Social History Type Date Description Comments Marital Status Patient is Living Situation Lives with spouse Diet Diet is healthy and well balanced Occupation Retired Cigarette Use Nonsmoker ETOH Use Rare Smoking Patient has never smoked Exercise Type/Frequency Current Exercises regularly Allergies, Adverse Reactions, Alerts Date Description Reaction Status Severity Comments 12/20/2010 NKDA active 07/23/2014 Adhesives active Medications Medication Date Status Form Strength Qnty SIG Indications Ordering Provider Vitamin B1 08/30 Active Tablets 1 by mouth every day Vitamin B6 08/30 Active Tablets 1 po qd Vitamin B5 08/30 Active Tablets 1 po every ER day Vitamin B12 08/30 Active Tablets 1 by mouth every day Multivitamin 03/24 Active 100un 1 qd Jose Pereira /2004 its Bren [employer] Q-10 Maximum Active Capsules 600mg 2 caps qd Unknown Zoloft Active Tablets 50mg 1 by mouth Unknown every day Potassium Active Tablets 99mg 1 po qd Unknown Calcium Citrate Active Tablets 200mg 1 po qd Unknown Vitamin D3 Active Capsules 5000Unit 1 po qd Unknown Fiber Active Tablets 1 po bid Unknown Mannitol Active Powder 1 tsp qd Unknown Magnesium Active Tablets 1 by mouth Unknown prn Levothyroxine Active Tablets 25mcg 1/2 by Unknown Sodium mouth every day for thyroid Sinemet CR Active Tablets 25-250mg 1 po at Unknown / ER 10pm Sinemet Active Tablets 25-100mg 2 PO @6Am, Unknown /0000 2 PO@12PM, 2.5 PO@3PM, And 2 PO@7PM Prednisone 12/16 Hx Tablets 20mg 10tab 1 by mouth M77.02 Anjali /2017 s twice a day Ric, - for 5 days 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 s three times Midjah, - a day M.D. 11/29 Fludrocortisone 06/22 Hx Tablets 0.1mg 2 PO qd For [facility] Clonazepam 06/15 Hx Tablets 0.5mg 60tab 1-2 at Jose T. /2016 s bedtime as Elizabeth, - needed M.D. 05/02 Sulfamethoxazole 05/18 Hx Tablets 800-160mg 20tab 1 by mouth L03.115 Jose T. /Trimethoprim s twice a day Elizabeth, - M.D. 06/22 Keflex 05/15 Hx Capsules 500mg 1 by mouth four times - a day 06/22 Amantadine HCL 06/28 Hx Tablets 100mg 1 PO Q Am Anjali /2016 and 1 PO AT [facility], - [place] ASSOCIATE FINANCIAL ANALYST 08/18 Clonazepam 01/22 Hx Tablets 0.5mg 60tab 1-2 at Jose T. /2014 Dispers s bedtime as Midura, - needed M.D. 01/22 Clonazepam 01/22 Hx Tablets 0.5mg 60tab 1-2 at Jose T. /2014 s bedtime as Midura, - needed M.D. 06/07 Bumetanide 07/23 Hx Tablets 1mg 30tab 1 by mouth 782.3 Jose T. /2014 s every day Midura, - as needed M.D. 09/03 for fluid /2014 retention Triamterene/Hydr 07/09 Hx Tablets 37.5-25mg 30tab 1 by mouth Jose T. ochlorothiazide /2014 s every day Midura, - as needed M.D. 07/23 for leg swelling Medrol Dosepak 04/21 Hx Tablets 4mg 1tabs as directed Luis . Carlos, - M.D. 07/17 Celebrex 04/21 Hx Capsules 200mg 30cap 1 po qd-bid Luis F. s prn Carlos, - M.D. 12/19 Oxycodone HCL 04/21 Hx Tablets 5mg 30tab 1-2 po q 4 Luis F. s hrs prn Carlos, - pain M.D. 07/17 Physical Therapy 04/21 Hx treatment Luis F. and Carlos, - evaluation M.D. 07/17 low back pain Flexeril 12/24 Hx Tablets 5mg 60tab 1-2 hs Jose T. s muscle Midura, - spasm M.D. 04/20 Trazodone HCL 09/17 Hx Tablets 100mg 60tab 1-2 qhs for [facility] Physical Therapy 03/10 Hx treatment Evan A. /2010 and Bren Vick - evaluation 04/20 low back pain Flexeril 03/10 Hx Tablets 5mg 60tab 1-2 hs Jose T. /2010 s muscle Radha Johnson M.D. 09/17 Clonazepam 09/16 Hx Tablets 0.5mg 60tab 1-2 by Karen /2009 s mouth every Brown, CLINICAL RESEARCH SPEC - night at 06/ bedtime needed Zocor 10/10 Hx Tablets 20mg 90tab 1 po qhs Jose T. /2006 s Radha Johnson M.D. 11/20 Requip 10/04 Hx Tablets 1mg 1.5 tab po tid [facility] Requip 10/04 Hx Tablets 3mg 1 po q hs [facility] [place] -3- Fatty 10/04 Hx 1000mg [facility] Flax Seed Oil 10/04 Hx [facility] Zocor 10/04 Hx Tablets 40mg 45tab 1/2 po qhs Jose Pereira Radha La M.D. 10/10 Restoril 10/04 Hx Capsules 15mg 60cap 1-2 hs prn Jose TLu /2006 s For Sleep Radha Johnson M.D. 09/16 Levodopa & 03/22 Hx Tablets 25mg;100 1 by mouth Carbidopa mg four times [facility] Vitamin E 06/29 Hx Capsules 1,000Unit s [facility] Amantadine 06/29 Hx Tablets 100mg bid [facility] Requip 10/20 Hx Tablets 0.5mg 1 po tid [facility] Coenzyme Q10 10/20 Hx 1200 MG qd [facility] Nadh 10/20 Hx 10 MG PO Q Am [facility] Pravachol 08/12 Hx Tablets 40mg 45tab 1/2 po hs Jose TLu Radha La M.D. 10/04 Requip 03/24 Hx 2mg 1 po tid [facility] Pravachol 03/24 Hx 20mg 90uni 1 po qhs Jose TLu /2004 Radha Bauer M.D. 08/12 Vit B Complex 03/24 Hx 0unit 1 qd Jose T. s Radha Johnson M.D. 10/20 Vitamin C 03/24 Hx 1000 MG Jose Pereira /2004 Radha Johnson M.D. 08/18 Restoril 03/24 Hx 30mg 30uni 1 PO QHS Jose Pereira ts prRadha Rushing M.D. 10/20 Gabapentin Hx Capsules 300mg 1 by mouth Unknown / every night - at bedtime 06/22 Carbidopa-Levodo 00 Hx Tablets 25-250mg 1 po qid Unknown pa /0000 - 08/18 Carbidopa-Levodo 00 Hx Tablets 25-100mg 2 tabs q3h Unknown pa /0000 Dispers from wake - up until 10/24 Melatonin 00 Hx Capsules 10mg 1 po hs Unknown /0000 - 10/24 Selegiline HCL Hx Capsules 5mg 1 po qd Unknown / - 11/29 Colace Hx Capsules 100mg take one Unknown / capsule by - mouth twice 10/24 /2015 Savision 00 Hx Tablets 2 po qd Unknown /0000 - 10/24 Calcium Citrate Hx Tablets 200mg 1 qd Unknown /0000 - 10/24 Magnesium Hx Capsules 400mg 1 by mouth Unknown /0000 every day - 10/24 Potassium 00/ Hx Tablets 99mg 1 po qd Unknown /0000 - 10/24 Zinc 00/00 Hx Tablets 50mg 1 qd Unknown /0000 - 10/24 Clonazepam 00/00 Hx Tablets 0.5mg 1/2 by Unknown /0000 mouth qhs - 03/30 Sinemet 00/00 Hx Tablets 25-250mg 4 times a Unknown /0000 day - 08/07 Melatonin /00 Hx Capsules 10mg 1 po qhs Unknown /0000 - 03/30 Colace 00/00 Hx Capsules 100mg 1 by mouth Unknown /0000 twice daily - 03/30 Seroquel 00/00 Hx Tablets take at Unknown /0000 bedtime - 12/19 Seroquel 0000 Hx Tablets 25mg take 1/2 Unknown /0000 tablet by - mouth at 03/30 Unisom 00 Hx Tablets 25mg 1/2 - 1 po Unknown /0000 at bedtime - 08/30 Calcium,Magnesiu 00 Hx 1 po prn Unknown m, /0000 muscle Potassium,Zinc & - spasms D3 03/30 Zinc 0000 Hx Tablets 1 po prn Unknown /0000 - 11/29 Immunizations CPT Code Status Date Vaccine Lot # [id number] Given 09/17/2012 Tdap Tetanus, W Pertussis [id number] Vital Signs Date Vital Result Comment 08/07/2017 BP Systolic 130 mmHg BP Diastolic 98 mmHg Heart Rate 60 /min Body Temperature 98.2 F Respiratory Rate 16 /min Height 72 inches 6'0" Weight 187.00 lb BMI (Body Mass Index) 25.4 kg/m2 05/03/2017 BP Systolic 106 mmHg BP Diastolic 60 mmHg Heart Rate 66 /min Body Temperature 97.3 F Respiratory Rate 16 /min Height 72 inches 6'0" Weight 193.50 lb BMI (Body Mass Index) 26.2 kg/m2 12/16/2016 BP Systolic 120 mmHg BP Diastolic 70 mmHg Heart Rate 78 /min Body Temperature 97.9 F Respiratory Rate 16 /min Height 72 inches 6'0" 11/30/2016 BP Systolic 100 mmHg BP Diastolic 60 mmHg Heart Rate 72 /min Body Temperature 97.7 F Respiratory Rate 16 /min Height 72 inches 6'0" Weight 193.50 lb BMI (Body Mass Index) 26.2 kg/m2 08/31/2016 BP Systolic 126 mmHg BP Diastolic 80 mmHg Heart Rate 66 /min Body Temperature 98.1 F Respiratory Rate 16 /min Height 72 inches 6'0" Weight 187.50 lb BMI (Body Mass Index) 25.4 kg/m2 07/20/2016 BP Systolic 84 mmHg BP Diastolic 48 mmHg Heart Rate 66 /min Body Temperature 97.9 F Respiratory Rate 16 /min Height 72 inches 6'0" Weight 191.25 lb BMI (Body Mass Index) 25.9 kg/m2 06/22/2016 BP Systolic 126 mmHg BP Diastolic 60 mmHg Heart Rate 72 /min Body Temperature 98.4 F Respiratory Rate 16 /min Height 72 inches 6'0" Weight 201.50 lb BMI (Body Mass Index) 27.3 kg/m2 05/18/2016 BP Systolic 124 mmHg BP Diastolic 70 mmHg Heart Rate 60 /min Body Temperature 97.3 F Respiratory Rate 16 /min Height 72 inches 6'0" Weight 199.12 lb BMI (Body Mass Index) 27.0 kg/m2 03/30/2016 BP Systolic 124 mmHg BP Diastolic 70 mmHg Heart Rate 66 /min Body Temperature 97.7 F Respiratory Rate 16 /min Height 72 inches 6'0" Weight 198.38 lb BMI (Body Mass Index) 26.9 kg/m2 12/20/2015 BP Systolic 124 mmHg BP Diastolic 82 mmHg Heart Rate 72 /min Body Temperature 97.4 F Respiratory Rate 16 /min Height 72 inches 6'0" Weight 198.12 lb BMI (Body Mass Index) 26.9 kg/m2 10/26/2015 BP Systolic 120 mmHg BP Diastolic 72 mmHg Heart Rate 84 /min Body Temperature 97.9 F Height 72 inches 6'0" Weight 190.12 lb BMI (Body Mass Index) 25.8 kg/m2 07/26/2015 BP Systolic 112 mmHg BP Diastolic 64 mmHg Heart Rate 74 /min Body Temperature 97.7 F Respiratory Rate 16 /min Height 72 inches 6'0" Weight 186.00 lb BMI (Body Mass Index) 25.2 kg/m2 06/29/2015 BP Systolic 150 mmHg BP Diastolic 80 mmHg Heart Rate 96 /min Body Temperature 97.7 F Respiratory Rate 18 /min Height 72 inches 6'0" Weight 188.00 lb BMI (Body Mass Index) 25.5 kg/m2 09/03/2014 BP Systolic 118 mmHg BP Diastolic 74 mmHg Heart Rate 68 /min Body Temperature 97.5 F Respiratory Rate 16 /min Height 72 inches 6'0" Weight 192.50 lb BMI (Body Mass Index) 26.1 kg/m2 08/04/2014 BP Systolic 120 mmHg BP Diastolic 76 mmHg Heart Rate 64 /min Body Temperature 96.5 F Respiratory Rate 12 /min Height 72 inches 6'0" Weight 195.00 lb BMI (Body Mass Index) 26.4 kg/m2 07/23/2014 BP Systolic 126 mmHg BP Diastolic 80 mmHg Heart Rate 60 /min Body Temperature 96.9 F Respiratory Rate 16 /min Height 72 inches 6'0" Weight 197.12 lb BMI (Body Mass Index) 26.7 kg/m2 07/09/2014 BP Systolic 132 mmHg BP Diastolic 66 mmHg Heart Rate 60 /min Body Temperature 96.8 F Respiratory Rate 16 /min Height 72 inches 6'0" Weight 197.25 lb BMI (Body Mass Index) 26.7 kg/m2 06/24/2014 BP Systolic 108 mmHg BP Diastolic 70 mmHg Heart Rate 60 /min Body Temperature 96.2 F Respiratory Rate 16 /min Height 72 inches Weight 200.50 lb BMI (Body Mass Index) 27.2 kg/m2 05/04/2014 BP Systolic 102 mmHg BP Diastolic 80 mmHg Heart Rate 74 /min Body Temperature 97.5 F Respiratory Rate 16 /min Height 71 inches 5'11" Weight 194.00 lb BMI (Body Mass Index) 27.1 kg/m2 12/19/2013 BP Systolic 110 mmHg BP Diastolic 70 mmHg Heart Rate 78 /min Body Temperature 97.6 F Respiratory Rate 16 /min Height 71 inches 5'11" Weight 194.00 lb BMI (Body Mass Index) 27.1 kg/m2 07/17/2013 BP Systolic 128 mmHg BP Diastolic 82 mmHg Heart Rate 64 /min Body Temperature 96.9 F Respiratory Rate 16 /min Height 70 inches 5'10" Weight 192.00 lb BMI (Body Mass Index) 27.5 kg/m2 04/21/2013 BP Systolic 118 mmHg BP Diastolic 84 mmHg Heart Rate 72 /min Body Temperature 95.4 F Height 70 inches 5'10" Weight 197.25 lb BMI (Body Mass Index) 28.3 kg/m2 04/17/2013 BP Systolic 140 mmHg BP Diastolic 86 mmHg Heart Rate 72 /min Body Temperature 96.0 F Respiratory Rate 15 /min Height 70 inches 5'10" Weight 197.00 lb BMI (Body Mass Index) 28.3 kg/m2 09/17/2012 BP Systolic 140 mmHg BP Diastolic 80 mmHg Heart Rate 76 /min Body Temperature 97.7 F Respiratory Rate 16 /min Height 70 inches 5'10" Weight 199.00 lb BMI (Body Mass Index) 28.6 kg/m2 08/17/2011 BP Systolic 118 mmHg BP Diastolic 64 mmHg Heart Rate 62 /min Body Temperature 97.5 F Respiratory Rate 20 /min Weight 200.00 lb 05/29/2011 BP Systolic 100 mmHg BP Diastolic 60 mmHg Heart Rate 80 /min Body Temperature 97.5 F Height 70 inches 5'10" Weight 204.00 lb BMI (Body Mass Index) 29.3 kg/m2 03/10/2010 BP Systolic 118 mmHg BP Diastolic 60 mmHg Heart Rate 66 /min Body Temperature 96.7 F Height 70 inches 5'10" Weight 200.00 lb BMI (Body Mass Index) 28.7 kg/m2 09/16/2009 BP Systolic 120 mmHg BP Diastolic 72 mmHg Heart Rate 60 /min Body Temperature 97.1 F Height 70 inches 5'10" Weight 199.00 lb BMI (Body Mass Index) 28.6 kg/m2 11/20/2008 BP Systolic 116 mmHg BP Diastolic 76 mmHg Heart Rate 56 /min Body Temperature 97.0 F Height 70 inches 5'10" Weight 203.00 lb BMI (Body Mass Index) 29.1 kg/m2 10/17/2007 BP Systolic 114 mmHg BP Diastolic 70 mmHg Heart Rate 76 /min Height 70 inches 5'10" Weight 208.00 lb BMI (Body Mass Index) 29.8 kg/m2 10/04/2006 BP Systolic 116 mmHg BP Diastolic 64 mmHg Heart Rate 72 /min Height 70 inches 5'10" Weight 196.00 lb BMI (Body Mass Index) 28.1 kg/m2 03/22/2006 BP Systolic 132 mmHg BP Diastolic 80 mmHg Heart Rate 88 /min Body Temperature 97.8 F Height 70 inches 5'10" 06/29/2005 BP Systolic 120 mmHg BP Diastolic 58 mmHg Heart Rate 56 /min Height 70 inches 5'10" Weight 201.00 lb BMI (Body Mass Index) 28.8 kg/m2 10/20/2004 BP Systolic 124 mmHg BP Diastolic 70 mmHg Heart Rate 60 /min Height 70 inches 5'10" Weight 205.00 lb BMI (Body Mass Index) 29.4 kg/m2 03/24/2004 BP Systolic 120 mmHg BP Diastolic 80 mmHg Heart Rate 68 /min Body Temperature 98.2 F Height 70 inches 5'10" Weight 198.00 lb BMI (Body Mass Index) 28.4 kg/m2 11/05/1996 BP Systolic 130 mmHg Small Cuff BP Diastolic 80 mmHg Small Cuff Weight 148.00 lb Results Test Date Test Result H/L Range Note Laboratory test finding 05/03/2017 Lipase 84 U/L High 13-78 1 C-Reactive Protein, Quant 1.0 mg/L 0.0-4.9 1 Laboratory test finding 05/03/2017 Free T4 0.94 ng/dL 0.75-1.54 TSH 2.08 mIU/L 0.50-6.00 Free T3 2.57 pg/mL 2.00-4.90 CBC Electronic Fma 05/03/2017 WBC 5.4 x10^3/UL 4.0-10.0 RBC 4.18 x10^6/UL 3.93-6.00 HGB 12.8 g/dL 12.0-17.0 HCT 38 % 35-50 MCV 90.4 fL 80.0-95.0 MCH 30.6 pg 25.6-32.2 MCHC 33.9 g/dL 32.2-36.0 RDW-CV 13.1 % 11.6-14.4 PLT 222 x10^3/UL 163-400 MPV 9.8 fL 9.4-12.4 Leslie# 3.16 x10^3/UL 1.56-6.13 Lymph# 1.64 x10^3/UL 1.18-3.74 Burke# 0.50 x10^3/UL 0.24-0.82 Eos # 0.1 x10^3/UL 0.0-0.5 Baso # 0.03 x10^3/UL 0.01-0.08 Leslie% 58.6 % 34.0-70.0 Lymph % 30.4 % 20.0-52.0 Burke% 9.3 % 5.0-12.0 Eos% 1.1 % 0.7-7.0 Baso% 0.6 % 0.1-1.2 Laboratory test finding 05/03/2017 Vitamin B-12 1151 pg/mL High 230-1050 2 Ferritin 124 ng/mL 22-415 CBC Auto Diff 04/15/2017 White Blood Count 7.9 10^3/uL 3.5-10.8 Red Blood Count 4.06 10^6/uL 4.0-5.4 Hemoglobin 12.4 g/dL Low 14.0-18.0 Hematocrit 37 % Low 42-52 Mean Corpuscular Volume 90 fL 80-94 Mean Corpuscular Hemoglobin 31 pg 27-31 Mean Corpuscular HGB Conc 34 g/dL 31-36 Red Cell Distribution Width 14 % 10.5-15 Platelet Count 192 10^3/uL 150-450 Mean Platelet Volume 8 um3 7.4-10.4 Abs Neutrophils 5.5 10^3/uL 1.5-7.7 Abs Lymphocytes 1.6 10^3/uL 1.0-4.8 Abs Monocytes 0.8 10^3/uL 0-0.8 Abs Eosinophils 0 10^3/uL 0-0.6 Abs Basophils 0 10^3/uL 0-0.2 Abs Nucleated RBC 0 10^3/uL Granulocyte % 69.1 % 38-83 Lymphocyte % 20.1 % Low 25-47 Monocyte % 10.1 % High 0-7 Eosinophil % 0.4 % 0-6 Basophil % 0.3 % 0-2 Nucleated Red Blood Cells % 0.1 Comp Metabolic Panel 04/15/2017 Sodium 136 mmol/L 133-145 Potassium 3.9 mmol/L 3.5-5.0 Chloride 104 mmol/L 101-111 Co2 Carbon Dioxide 26 mmol/L 22-32 Anion Gap 6 mmol/L 2-11 Glucose 107 mg/dL High 70-100 Blood Urea Nitrogen 23 mg/dL 6-24 Creatinine 1.19 mg/dL High 0.67-1.17 BUN/Creatinine Ratio 19.3 8-20 Calcium 9.6 mg/dL 8.6-10.3 Total Protein 6.7 g/dL 6.4-8.9 Albumin 4.0 g/dL 3.2-5.2 Globulin 2.7 g/dL 2-4 Albumin/Globulin Ratio 1.5 1-3 Total Bilirubin 1.10 mg/dL High 0.2-1.0 Alkaline Phosphatase 47 U/L 34-104 Alt 3 U/L Low 7-52 Ast 31 U/L 13-39 Egfr Non- 60.1 >60 Egfr 77.3 >60 3 Laboratory test finding 04/15/2017 Magnesium 2.1 mg/dL 1.9-2.7 Lipase 234 U/L High 11.0-82.0 Creatine Kinase(CK) 447 U/L High 10-223 C Reactive Protein 43.86 mg/L High < 5.00 4 Lactic Acid 0.6 mmol/L 0.5-2.0 5 B-Type Natriuretic Peptide BNP 68 pg/mL 6 Ammonia 35 ?mol/L 16-53 Urinalysis Profile 04/15/2017 Urine Color Yellow Urine Appearance Clear Urine Specific [place] 1.009 Low 1.010-1.030 Urine pH 6.0 5-9 Urine Urobilinogen Negative Negative Urine Ketones Trace Negative Urine Protein Negative Negative Urine Leukocytes Negative Negative Urine Blood Negative Negative Urine Nitrite Negative Negative Urine Bilirubin Negative Negative Urine Glucose Negative Negative Laboratory test finding 04/15/2017 Stool Occult Blood SEE RESULT BELOW 7 Laboratory test finding 02/09/2017 TSH 1.63 mIU/L 0.50-6.00 Comprehensive Metabolic 02/09/2017 Sodium 137 mEq/L 134-149 Prof Potassium 4.0 mEq/L 3.6-5.5 Chloride 104 mEq/L 94-112 Carbon Dioxide 29 mEq/L 21-32 Glucose 106 mg/dL High 70-105 8 BUN 22 mg/dL 6-26 Creatinine 1.0 mg/dL 0.6-1.4 BUN/Creat Ratio 22.0 CALC 8.0-36.0 Calcium 9.9 mg/dL 8.6-10.2 Total Protein 6.6 g/dL 6.4-8.3 Albumin 4.6 g/dL 3.8-5.5 Globulin 2.0 g/dL 2.0-4.8 A/G Ratio 2.3 CALC 0.6-2.3 Alk. Phosphatase 46 U/L 22-95 Alt (SGPT) 7 U/L 7-35 Ast (Sgot) 28 U/L 5-34 Total Bilirubin 1.1 mg/dL 0.2-1.3 GFR Non- >60 ml/min/1.73m^ >=60 GFR >60 ml/min/1.73m^ >=60 CBC Auto Diff 09/26/2016 White Blood Count 5.9 10^3/uL 3.5-10.8 Red Blood Count 4.26 10^6/uL 4.0-5.4 Hemoglobin 13.1 g/dL Low 14.0-18.0 Hematocrit 39 % Low 42-52 Mean Corpuscular Volume 92 fL 80-94 Mean Corpuscular Hemoglobin 31 pg 27-31 Mean Corpuscular HGB Conc 34 g/dL 31-36 Red Cell Distribution Width 14 % 10.5-15 Platelet Count 224 10^3/uL 150-450 Mean Platelet Volume 8 um3 7.4-10.4 Abs Neutrophils 3.5 10^3/uL 1.5-7.7 Abs Lymphocytes 1.5 10^3/uL 1.0-4.8 Abs Monocytes 0.5 10^3/uL 0-0.8 Abs Eosinophils 0.3 10^3/uL 0-0.6 Abs Basophils 0 10^3/uL 0-0.2 Abs Nucleated RBC 0 10^3/uL Granulocyte % 58.9 % 38-83 Lymphocyte % 26.3 % 25-47 Monocyte % 8.3 % 1-9 Eosinophil % 6.0 % 0-6 Basophil % 0.5 % 0-2 Nucleated Red Blood Cells % 0.1 Comp Metabolic Panel 09/26/2016 Sodium 137 mmol/L 133-145 Potassium 4.3 mmol/L 3.5-5.0 Chloride 102 mmol/L 101-111 Co2 Carbon Dioxide 30 mmol/L 22-32 Anion Gap 5 mmol/L 2-11 Glucose 99 mg/dL 70-100 Blood Urea Nitrogen 28 mg/dL High 6-24 Creatinine 1.46 mg/dL High 0.67-1.17 BUN/Creatinine Ratio 19.2 8-20 Calcium 10.0 mg/dL 8.6-10.3 Total Protein 6.9 g/dL 6.4-8.9 Albumin 4.5 g/dL 3.2-5.2 Globulin 2.4 g/dL 2-4 Albumin/Globulin Ratio 1.9 1-3 Total Bilirubin 1.40 mg/dL High 0.2-1.0 Alkaline Phosphatase 54 U/L 34-104 Alt 6 U/L Low 7-52 Ast 28 U/L 13-39 Egfr Non- 47.6 >60 Egfr 61.2 >60 9 Laboratory test finding 09/26/2016 TSH (Thyroid Stim Horm) 0.77 mcIU/mL 0.34-5.60 Urinalysis Profile 09/26/2016 Urine Color Yellow Urine Appearance Cloudy Urine Specific [place] 1.016 1.010-1.030 Urine pH 6.0 5-9 Urine Urobilinogen Negative Negative Urine Ketones Trace Negative Urine Protein Negative Negative Urine Leukocytes Negative Negative Urine Blood Negative Negative * * Negative 10 Urine Nitrite Negative Negative Urine Bilirubin Negative Negative Urine Glucose Negative Negative Laboratory test finding 08/22/2016 TSH (Thyroid Stim Horm) 2.03 mcIU/mL 0.34-5.60 CKMB 08/22/2016 CKMB ng/mL 5.1 ng/mL 0.6-6.3 Laboratory test finding 08/22/2016 Magnesium 2.3 mg/dL 1.9-2.7 Creatine Kinase(CK) 145 U/L 10-223 Troponin I 0.01 ng/mL <0.04 Comp Metabolic Panel 08/22/2016 Sodium 135 mmol/L 133-145 Potassium 3.9 mmol/L 3.5-5.0 Chloride 101 mmol/L 101-111 Co2 Carbon Dioxide 26 mmol/L 22-32 Anion Gap 8 mmol/L 2-11 Glucose 100 mg/dL 70-100 Blood Urea Nitrogen 22 mg/dL 6-24 Creatinine 1.42 mg/dL High 0.67-1.17 BUN/Creatinine Ratio 15.5 8-20 Calcium 10.0 mg/dL 8.6-10.3 Total Protein 7.0 g/dL 6.4-8.9 Albumin 4.4 g/dL 3.2-5.2 Globulin 2.6 g/dL 2-4 Albumin/Globulin Ratio 1.7 1-3 Total Bilirubin 1.20 mg/dL High 0.2-1.0 Alkaline Phosphatase 57 U/L 34-104 Alt 4 U/L Low 7-52 Ast 27 U/L 13-39 Egfr Non- 49.1 >60 Egfr 63.2 >60 11 Laboratory test finding 08/22/2016 B-Type Natriuretic 37 pg/mL 12 Peptide BNP CBC Auto Diff 08/22/2016 White Blood Count 7.3 10^3/uL 3.5-10.8 Red Blood Count 4.40 10^6/uL 4.0-5.4 Hemoglobin 13.6 g/dL Low 14.0-18.0 Hematocrit 41 % Low 42-52 Mean Corpuscular Volume 94 fL 80-94 Mean Corpuscular Hemoglobin 31 pg 27-31 Mean Corpuscular HGB Conc 33 g/dL 31-36 Red Cell Distribution Width 14 % 10.5-15 Platelet Count 205 10^3/uL 150-450 Mean Platelet Volume 8 um3 7.4-10.4 Abs Neutrophils 4.0 10^3/uL 1.5-7.7 Abs Lymphocytes 1.9 10^3/uL 1.0-4.8 Abs Monocytes 0.6 10^3/uL 0-0.8 Abs Eosinophils 0.7 10^3/uL High 0-0.6 Abs Basophils 0 10^3/uL 0-0.2 Abs Nucleated RBC 0 10^3/uL Granulocyte % 55.5 % 38-83 Lymphocyte % 25.9 % 25-47 Monocyte % 8.6 % 1-9 Eosinophil % 9.5 % High 0-6 Basophil % 0.5 % 0-2 Nucleated Red Blood Cells % 0 Laboratory test finding 08/22/2016 Lactic Acid 0.8 mmol/L 0.5-2.0 13 Urinalysis Profile 08/22/2016 Urine Color Yellow Urine Appearance Clear Urine Specific [place] 1.013 1.010-1.030 Urine pH 6.0 5-9 Urine Urobilinogen Negative Negative Urine Ketones Trace Negative Urine Protein Negative Negative Urine Leukocytes Negative Negative Urine Blood Negative Negative Urine Nitrite Negative Negative Urine Bilirubin Negative Negative Urine Glucose Negative Negative Laboratory test finding 08/22/2016 Troponin I 0.01 ng/mL <0.04 C Reactive Protein < 1.00 mg/L < 5.00 14 Comprehensive Metabolic Prof 06/22/2016 Sodium 142 mEq/L 134-149 Potassium 4.6 mEq/L 3.6-5.5 Chloride 101 mEq/L 94-112 Carbon Dioxide 26 mEq/L 21-32 Glucose 96 mg/dL 70-105 BUN 24 mg/dL 6-26 Creatinine 1.0 mg/dL 0.6-1.4 BUN/Creat Ratio 24.0 CALC 8.0-36.0 Calcium 9.8 mg/dL 8.6-10.2 Total Protein 7.0 g/dL 6.4-8.3 Albumin 4.5 g/dL 3.8-5.5 Globulin 2.5 g/dL 2.0-4.8 A/G Ratio 1.8 CALC 0.6-2.3 Alk. Phosphatase 77 U/L 22-95 Alt (SGPT) 12 U/L 7-35 Ast (Sgot) 36 U/L High 5-34 15 Total Bilirubin 0.8 mg/dL 0.2-1.3 GFR Non- >60 ml/min/1.73m^ >=60 GFR >60 ml/min/1.73m^ >=60 Laboratory test finding 06/22/2016 Free T4 0.72 ng/dL Low 0.75-1.54 16 TSH 1.85 mIU/L 0.50-6.00 Laboratory test finding 03/30/2016 Free T4 0.71 ng/dL Low 0.75-1.54 17 TSH 2.54 mIU/L 0.50-6.00 Comprehensive Metabolic Prof 03/30/2016 Sodium 140 mEq/L 134-149 Potassium 4.5 mEq/L 3.6-5.5 Chloride 103 mEq/L 94-112 Carbon Dioxide 27 mEq/L 21-32 Glucose 90 mg/dL 70-105 BUN 25 mg/dL 6-26 Creatinine 1.0 mg/dL 0.6-1.4 BUN/Creat Ratio 25.0 CALC 8.0-36.0 Calcium 9.4 mg/dL 8.6-10.2 Total Protein 6.7 g/dL 6.4-8.3 Albumin 4.4 g/dL 3.8-5.5 Globulin 2.3 g/dL 2.0-4.8 A/G Ratio 1.9 CALC 0.6-2.3 Alk. Phosphatase 60 U/L 22-95 Alt (SGPT) 13 U/L 7-35 Ast (Sgot) 32 U/L 5-34 Total Bilirubin 0.8 mg/dL 0.2-1.3 GFR Non- >60 ml/min/1.73m^ >=60 GFR >60 ml/min/1.73m^ >=60 Complete Blood Count 03/30/2016 WBC 7.6 x10^3/UL 3.6-9.6 RBC 4.30 x10^6/UL 3.90-5.70 HGB 13.2 g/dL 12.1-17.2 HCT 39 % 36-50 MCV 92.0 fL 82.2-97.4 MCH 30.7 pg 27.6-33.3 MCHC 33.5 g/dL 33.0-35.5 RDW 13.6 % 11.6-13.7 PLT 200 x10^3/UL 150-400 MPV 6.7 fL Low 7.4-10.4 Gran # 5.5 x10^3/UL 1.5-7.2 Lymph# 1.7 x10^3/UL 0.7-4.9 Burke# 0.4 x10^3/UL 0.1-0.9 Gran % 71.1 % 42.2-75.2 Lymph % 23.0 % 20.5-51.1 Burke% 5.9 % 1.7-9.3 Ua - Micro (Fma) 03/30/2016 Appearance yellow Color clear Glucose, Urine (Fma/CMC/CTX) neg Bilirubin neg Ketones trace SP Grav 1.020 Blood neg PH 6.5 Protein neg Urobil 1.0 Nitrite neg Leukocytes (Fma/CMC/[facility]rex) neg Hyaline - /Lpf Granular - /Lpf WBC (Fma,[facility]rex) 0-2 RBC 0-1 Mucus (Fma/CBC/Centrex) - /Lpf Epith - /Lpf Bacteria - /Hpf Amorphous (Fma/CMC/[facility]rex) - /Lpf Crystals, Fluid (Fma/CMC/CTX) - Z#Comments - Laboratory test finding 04/30/2015 PSA Screening 0.629 ng/mL 0-4.0 Basic Metabolic Profile 07/23/2014 Sodium 137 mEq/L 134-149 Potassium 4.5 mEq/L 3.6-5.5 Chloride 97 mEq/L 94-112 Carbon Dioxide 29 mEq/L 21-32 Glucose 107 mg/dL High 70-105 18 BUN 21 mg/dL 6-26 Creatinine 1.1 mg/dL 0.6-1.4 BUN/Creat Ratio 19.1 CALC 8.0-36.0 Calcium 9.6 mg/dL 8.6-10.2 Laboratory test finding 07/23/2014 TSH 2.09 mIU/L 0.50-6.00 Laboratory test finding 07/23/2014 Brain Natural Peptide 34.8 pg/mL <100 CBC Electronic (Fma) 07/23/2014 WBC 5.9 3.6-9.6 RBC 4.27 3.90-5.70 Hemoglobin (Fma/CMC/CTX) 13.7 g/dL 12.1 - 17.2 Hematocrit (Fma/CMC/CTX) 39.4 % 36.1 - 50.3 Platelets 212 10^3/ul 150-400 Lymph% 30.0 % 17.0-48.0 Mixed% 4.9 Neutrophils % 65.1 Mean Corpuscular Vol 92 82.2-97.4 Mean Corpuscular Hemoglobin 32.0 27.6-33.3 Mean Corpuscular Hemo Concen 34.7 32.0-36.0 RDW 12.7 11.6-13.7 Mean Platelet Volume 6.6 5.5-11.0 Ua - Non Micro (Fma) 05/04/2014 Appearance CLEAR Color YELLOW Glucose, Urine (a/[facility]/CTX) - Bilirubin - Ketones TRACE SP Grav 1.025 Blood - PH 7.5 Protein - Urobil 0.2 Nitrite - Leukocytes ([facility]rex) - Complete Blood Count 05/04/2014 WBC 5.3 x10^3/UL 3.6-9.6 RBC 4.49 x10^6/UL 3.90-5.70 HGB 14.3 g/dL 12.1-17.2 HCT 42 % 36-50 MCV 94.0 fL 82.2-97.4 MCH 32.0 pg 27.6-33.3 MCHC 33.9 g/dL 33.0-35.5 RDW 11.2 % Low 11.6-13.7 PLT 218 x10^3/UL 150-400 MPV 6.7 fL Low 7.4-10.4 Gran # 3.6 x10^3/UL 1.5-7.2 Lymph# 1.5 x10^3/UL 0.7-4.9 Burke# 0.2 x10^3/UL 0.1-0.9 Gran % 65.6 % 42.2-75.2 Lymph % 29.8 % 20.5-51.1 Burke% 4.6 % 1.7-9.3 Comprehensive Metabolic Prof 05/04/2014 Sodium 138 mEq/L 134-149 Potassium 4.6 mEq/L 3.6-5.5 Chloride 98 mEq/L 94-112 Carbon Dioxide 27 mEq/L 21-32 Glucose 92 mg/dL 70-105 BUN 22 mg/dL 6-26 Creatinine 1.1 mg/dL 0.6-1.4 BUN/Creat Ratio 20.0 CALC 8.0-36.0 Calcium 9.8 mg/dL 8.6-10.2 Total Protein 6.7 g/dL 6.4-8.3 Albumin 4.3 g/dL 3.8-5.5 Globulin 2.4 g/dL 2.0-4.8 A/G Ratio 1.8 CALC 0.6-2.3 Alk. Phosphatase 53 U/L 22-95 Alt (SGPT) 11 U/L 7-35 Ast (Sgot) 34 U/L 5-34 Total Bilirubin 1.3 mg/dL 0.2-1.3 Laboratory test finding 05/04/2014 TSH 2.46 mIU/L 0.50-6.00 Comprehensive Metabolic Prof 12/19/2013 Sodium 137 mEq/L 134-149 Potassium 4.4 mEq/L 3.6-5.5 Chloride 100 mEq/L 94-112 Carbon Dioxide 28 mEq/L 21-32 Glucose 104 mg/dL 70-105 BUN 20 mg/dL 6-26 Creatinine 1.1 mg/dL 0.6-1.4 BUN/Creat Ratio 18.2 CALC 8.0-36.0 Calcium 9.5 mg/dL 8.6-10.2 Total Protein 6.4 g/dL 6.4-8.3 Albumin 4.4 g/dL 3.8-5.5 Globulin 2.0 g/dL 2.0-4.8 A/G Ratio 2.2 CALC 0.6-2.3 Alk. Phosphatase 46 U/L 22-95 Alt (SGPT) 28 U/L 7-35 Ast (Sgot) 36 U/L High 5-34 19 Total Bilirubin 0.9 mg/dL 0.2-1.3 CBC Electronic (a) 12/19/2013 WBC 5.6 3.6-9.6 RBC 4.74 3.90-5.70 Hemoglobin (Fma/CMC/CTX) 14.1 g/dL 12.1 - 17.2 Hematocrit (Fma/CMC/CTX) 45.6 % 36.1 - 50.3 Platelets 224 10^3/ul 150-400 Lymph% 34.2 % 17.0-48.0 Mixed% 4.8 Neutrophils % 61.0 Mean Corpuscular Vol 96 82.2-97.4 Mean Corpuscular Hemoglobin 29.7 27.6-33.3 Mean Corpuscular Hemo Concen 30.9 Low 32.0-36.0 RDW 13.1 11.6-13.7 Mean Platelet Volume 6.2 5.5-11.0 Laboratory test finding 11/26/2013 PSA Screening 0.630 ng/mL 0-4.0 Laboratory test finding 09/08/2013 Vitamin B12 1078 pg/mL High 180-914 20 Folate > 20.00 ng/mL >3.99 Laboratory test finding 07/17/2013 Free T4 0.98 ng/dL 0.75-1.54 TSH 2.15 mIU/L 0.50-6.00 CBC Auto Diff 04/04/2013 White Blood Count 6.8 10^3/uL 4.8-10.8 Red Blood Count 4.73 10^6/uL 4.0-5.4 Hemoglobin 14.9 g/dL 14.0-18.0 Hematocrit 44 % 42-52 Mean Corpuscular Volume 93 fL 80-94 Mean Corpuscular Hemoglobin 32 pg High 27-31 Mean Corpuscular HGB Conc 34 g/dL 31-36 Red Cell Distribution Width 13 % 10.5-15 Platelet Count 205 10^3/uL 150-450 Mean Platelet Volume 8 um3 7.4-10.4 Abs Neutrophils 4.2 10^3/uL 1.5-7.7 Abs Lymphocytes 1.6 10^3/uL 1.0-4.8 Abs Monocytes 0.4 10^3/uL 0-0.8 Abs Eosinophils 0.5 10^3/uL 0-0.6 Abs Basophils 0 10^3/uL 0-0.2 Abs Nucleated RBC 0 10^3/uL Granulocyte % 61.7 % 38-83 Lymphocyte % 23.5 % Low 25-47 Monocyte % 6.6 % 1-9 Eosinophil % 8.0 % High 0-6 Basophil % 0.2 % 0-2 Nucleated Red Blood Cells % 0 Comp Metabolic Panel 04/04/2013 Sodium 137 mmol/L 133-145 Potassium 4.7 mmol/L 3.7-5.6 Chloride 101 mmol/L 101-111 Co2 Carbon Dioxide 30 mmol/L 22-32 Anion Gap 6 mmol/L 2-11 Glucose 89 mg/dL 70-100 Blood Urea Nitrogen 19 mg/dL 6-24 Creatinine 1.17 mg/dL 0.67-1.17 BUN/Creatinine Ratio 16.2 8-20 Calcium 9.8 mg/dL 8.6-10.3 Total Protein 6.7 g/dL 6.4-8.9 Albumin 4.6 g/dL 3.2-5.2 Globulin 2.1 g/dL 2-4 Albumin/Globulin Ratio 2.2 1-3 Total Bilirubin 1.50 mg/dL High 0.2-1.0 Alkaline Phosphatase 47 U/L 34-104 Alt 9 U/L 7-52 Ast 32 U/L 13-39 Egfr Non- 62.0 >60 Egfr 79.7 >60 21 Laboratory test finding 04/04/2013 TSH (Thyroid 1.85 IU/mL 0.34-5.60 Stimulating Horm) Comprehensive Metabolic 10/04/2012 Albumin 4.4 g/dL 3.8-5.5 Prof Alk. Phos. 56 U/L 22-95 Alt (SGPT) 15 U/L 10-40 Ast (Sgot) 47 U/L High 5-34 22 BUN 18 mg/dL 6-26 Calcium 9.4 mg/dL 8.6-10.2 Chloride 104 mEq/L 94-112 Creatinine 1.4 mg/dL 0.6-1.4 Carbon Dioxide 26 mEq/L 21-32 Glucose 103 mg/dL 70-105 Sodium 138 mEq/L 134-149 Total Bilirubin 0.9 mg/dL 0.2-1.3 Total Protein 6.7 g/dL 6.3-8.1 Potassium 4.1 mEq/L 3.6-5.5 Globulin 2.3 g/dL 2.0-4.8 A/G Ratio 1.9 Calc 0.6-2.3 BUN/Creat Ratio 12.9 Calc 8.0-36.0 Laboratory test finding 10/04/2012 PSA 0.70 ng/mL 0.00-4.00 Lipid Profile 10/04/2012 Cholesterol 184 mg/dL 120-200 HDL 53 mg/dL 30-70 Triglycerides 67 mg/dL 30-200 HDL Risk Factor 3.5 CALC 0.0-4.4 LDL (Calculated) 118 CALC 0-129 VLDL (Calculated) 13 mg/dL 0-50 Ua - Non Micro (Fma) 09/17/2012 Appearance CLEAR Color YELLOW Glucose, Urine (Fma/CMC/CTX) NEG Bilirubin NEG Ketones TRACE SP Grav 1.020 Blood NEG PH 6.5 Protein NEG Urobil 0.2 Nitrite NEG Leukocytes (Fma/CMC/[facility]rex) NEG Lipid Profile 09/13/2011 Cholesterol 205 mg/dL High 120-200 HDL 51 mg/dL 30-70 Triglycerides 71 mg/dL 30-200 HDL Risk Factor 4.0 CALC 0.0-4.0 LDL (Calculated) 140 CALC High 0-129 VLDL (Calculated) 14 mg/dL 0-50 Comprehensive Metabolic Prof 09/13/2011 Albumin 4.6 g/dL 3.8-5.5 Alk. Phos. 56 U/L 22-95 Alt (SGPT) 11 U/L 10-40 Ast (Sgot) 42 U/L High 5-34 23 BUN 23 mg/dL 6-26 Calcium 9.1 mg/dL 8.6-10.2 Chloride 101 mEq/L 94-112 Creatinine 1.4 mg/dL 0.6-1.4 Carbon Dioxide 23 mEq/L 21-32 Glucose 110 mg/dL High 70-105 24 Sodium 137 mEq/L 134-149 Total Bilirubin 1.0 mg/dL 0.2-1.3 Total Protein 6.7 g/dL 6.3-8.1 Potassium 4.3 mEq/L 3.6-5.5 Globulin 2.1 g/dL 2.0-4.8 A/G Ratio 2.2 Calc 0.6-2.2 BUN/Creat Ratio 16.7 Calc 8.0-36.0 Laboratory test finding 09/13/2011 PSA 0.80 ng/mL 0.00-4.00 Ua - Non Micro (Fma) 08/17/2011 Appearance clear Color yellow Glucose neg Bilirubin neg Ketones neg SP Grav 1.020 Blood neg PH 6.0 Protein neg Urobil 0.2 Nitrite neg Leukocytes (Fma/[facility]) neg Comprehensive Metabolic Prof 05/29/2011 Albumin 4.2 g/dL 3.8-5.5 Alk. Phos. 53 U/L 22-95 Alt (SGPT) 10 U/L 10-40 Ast (Sgot) 44 U/L High 5-34 25 BUN 21 mg/dL 6-26 Calcium 9.2 mg/dL 8.6-10.2 Chloride 97 mEq/L 94-112 Creatinine 1.0 mg/dL 0.6-1.4 Carbon Dioxide 29 mEq/L 21-32 Glucose 96 mg/dL 70-105 Sodium 135 mEq/L 134-149 Total Bilirubin 0.9 mg/dL 0.2-1.3 Total Protein 6.3 g/dL 6.3-8.1 Potassium 4.0 mEq/L 3.6-5.5 Globulin 2.1 g/dL 2.0-4.8 A/G Ratio 2.0 Calc 0.6-2.2 BUN/Creat Ratio 20.0 Calc 8.0-36.0 Laboratory test finding 05/29/2011 TSH 1.92 mIU/L 0.50-6.00 CBC Electronic (a) 05/29/2011 WBC 7.9 3.6-9.6 RBC 4.34 3.90-5.70 Hemoglobin (Fma/CMC/CTX) 13.7 g/dL 12.1 - 17.2 Hematocrit (Fma/CMC/CTX) 40.6 % 36.1 - 50.3 Platelets 191 10^3/ul 150-400 Lymph% 23.2 20.5-51.1 Mixed% 6.9 Neutrophils % 69.9 Mean Corpuscular Vol 93.5 82.2-97.4 Mean Corpuscular Hemoglobin 31.6 27.6-33.3 Mean Corpuscular Hemo Concen 33.7 32.0-36.0 RDW 13.3 11.6-13.7 Mean Platelet Volume 9.6 6.5-11.0 Ssa/SSB 09/14/2010 Ssa NEGATIVE Negative SSB NEGATIVE Negative Laboratory test finding 09/14/2010 Vitamin B12 546 pg/mL 180-914 Folic Acid 16.8 NG/ML High 2-16 TSH 1.58 MIU/ML 0.34-5.60 C Reactive Protein 0.7 mg/dL High Less Than 0.5 Comprehensive Metabolic Prof 09/16/2009 Albumin 4.4 g/dL 3.8-5.5 Alk. Phos. 47 U/L 22-95 Alt (SGPT) 14 U/L 10-40 Ast (Sgot) 33 U/L 5-34 BUN 19 mg/dL 6-26 Calcium 9.5 mg/dL 8.6-10.2 Chloride 99 mEq/L 94-112 Creatinine 1.2 mg/dL 0.6-1.4 Carbon Dioxide 27 mEq/L 21-32 Glucose 103 mg/dL 70-105 Sodium 137 mEq/L 134-149 Total Bilirubin 1.1 mg/dL 0.2-1.3 Total Protein 6.5 g/dL 6.3-8.1 Potassium 4.1 mEq/L 3.6-5.5 Globulin 2.1 g/dL 2.0-4.8 A/G Ratio 2.1 Calc 0.6-2.2 BUN/Creat Ratio 15.7 Calc 8.0-36.0 Lipid Profile 09/16/2009 Cholesterol 188 mg/dL 120-200 HDL 48 mg/dL 30-70 Triglycerides 115 mg/dL 30-200 HDL Risk Factor 3.9 CALC Low 4.2-7.0 LDL (Calculated) 117 CALC 0-129 VLDL (Calculated) 23 mg/dL 0-50 Comprehensive Metabolic Prof 11/20/2008 Albumin 4.5 g/dL 3.8-5.5 26 Alk. Phos. 53 U/L 22-95 26 Alt (SGPT) 15 U/L 10-40 26 Ast (Sgot) 39 U/L High 5-34 26, 27 BUN 23 mg/dL 6-26 26 Calcium 9.3 mg/dL 8.6-10.2 26 Chloride 100 mEq/L 94-112 26 Creatinine 1.3 mg/dL 0.6-1.4 26 Carbon Dioxide 28 mEq/L 21-32 26 Glucose 91 mg/dL 70-105 26 Sodium 138 mEq/L 134-149 26 Total Bilirubin 1.5 mg/dL High 0.2-1.3 26, 28 Total Protein 6.9 g/dL 6.3-8.1 26 Potassium 4.6 mEq/L 3.6-5.5 26 Globulin 2.4 g/dL 2.0-4.8 26 A/G Ratio 1.9 Calc 0.6-2.2 26 BUN/Creat Ratio 17.8 Calc 8.0-36.0 26 Lipid Profile 11/20/2008 Cholesterol 209 mg/dL High 120-200 26 HDL 52 mg/dL 30-70 26 Triglycerides 84 mg/dL 30-200 26 HDL Risk Factor 4.0 CALC Low 4.2-7.0 26 LDL (Calculated) 141 CALC High 0-129 26 VLDL (Calculated) 17 mg/dL 0-50 26 Laboratory test finding 11/20/2008 PSA 0.50 ng/mL 0.00-4.00 26 Lipid Profile 10/17/2007 Cholesterol 134 mg/dL 120-200 HDL 53 mg/dL 30-70 Triglycerides 108 mg/dL 30-200 HDL Risk Factor 2.5 CALC Low 4.2-7.0 LDL (Calculated) 59 CALC 0-129 VLDL (Calculated) 22 mg/dL 0-50 Laboratory test finding 10/17/2007 PSA 0.60 ng/mL 0.00-4.00 Comprehensive Metabolic Prof 10/17/2007 Albumin 4.4 g/dL 3.8-5.5 Alk. Phos. 37 U/L 22-95 Alt (SGPT) 27 U/L 10-40 Ast (Sgot) 39 U/L High 5-34 29 BUN 17 mg/dL 6-26 Calcium 9.6 mg/dL 8.6-10.2 Chloride 98 mEq/L 94-112 Creatinine 1.3 mg/dL 0.6-1.4 Carbon Dioxide 25 mEq/L 21-32 Glucose 82 mg/dL 70-105 Sodium 139 mEq/L 134-149 Total Bilirubin 1.3 mg/dL 0.2-1.3 Total Protein 7.1 g/dL 6.3-8.1 Potassium 4.0 mEq/L 3.6-5.5 Globulin 2.6 g/dL 2.0-4.8 A/G Ratio 1.7 Calc 0.6-2.2 BUN/Creat Ratio 12.9 Calc 8.0-36.0 Laboratory test finding 10/04/2006 LDH 184 U/L 20-190 30 Comprehensive Metabolic Prof 10/04/2006 Albumin 4.2 g/dL 3.8-5.5 Alk. Phos. 42 U/L 22-95 Alt (SGPT) 24 U/L 10-40 Ast (Sgot) 37 U/L High 5-34 31 BUN 25 mg/dL 6-26 Calcium 9.5 mg/dL 8.6-10.2 Chloride 99 mEq/L 94-112 Creatinine 1.4 mg/dL 0.6-1.4 Carbon Dioxide 29 mEq/L 21-32 Glucose 118 mg/dL High 70-105 Sodium 141 mEq/L 134-149 Total Bilirubin 1.2 mg/dL 0.2-1.3 Total Protein 6.8 g/dL 6.3-8.1 Potassium 5.2 mEq/L 3.6-5.5 Globulin 2.6 g/dL 2.0-4.8 A/G Ratio 1.6 Calc 0.6-2.2 BUN/Creat Ratio 17.9 Calc 8.0-36.0 Lipid Profile 10/04/2006 Cholesterol 148 mg/dL 120-200 HDL 46 mg/dL 30-70 Triglycerides 64 mg/dL 30-200 HDL Risk Factor 3.2 CALC Low 4.2-7.0 LDL (Calculated) 89 CALC 0-129 VLDL (Calculated) 13 mg/dL 0-50 Complete Blood Count 10/04/2006 WBC 4.9 x10\\S\\3/uL 3.6-9.6 Gran# 3.4 x10\\S\\3/uL 1.5-7.2 Gran% 70.2 % 42.2-75.2 HCT 41 % 36-50 HGB 14.3 g/dL 12.1-17.2 Lymph# 1.3 x10\\S\\3/uL 0.7-4.9 Lymph% 26.4 % 20.5-51.1 MCH 31.9 pg 27.6-33.3 MCV 92.1 fL 82.2-97.4 MCHC 34.6 g/dL 33.0-35.5 Mo# 0.2 x10\\S\\3/uL 0.1-0.9 Mo% 3.4 % 1.7-9.3 MPV 7.4 fL 7.4-10.4 PLT 209 x10\\S\\3/uL 150-400 RBC 4.49 x10\\S\\6/uL 3.90-5.70 RDW 12.8 % 11.6-13.7 Laboratory test finding 10/04/2006 PSA 0.60 ng/mL 0.00-4.00 Laboratory test finding 11/18/2005 [facility] Labs PSA See Image Report Comp+ Fma 06/29/2005 Glucose, Serum 89 mg/dL 70-105 (Fma/CMC/CTX) BUN (a/CMC/Centrex) 18 mg/dL 6-26 Creatinine (a/CMC/CTX) 1.3 mg/dL 0.6-1.4 BUN/Creatinin Ratio 13.9 8.0-36 Sodium 138 134-149 Potassium 4.6 3.6-5.5 Chloride 105 mEq/L 94-112 Co2 32 21-32 Calcium (a/CMC/Centrex) 9.5 mg/dL 8.6-10.2 Total Protein 6.8 g/dL 6.3-8.1 Albumin (a/CMCC/Centrex) 4.3 3.8-5.5 Globulin 2.5 2.0-4.8 A/G Ratio (a/CMC/Centrex) 1.7 0.6-2.2 Alkaline Phosphatase (F/C/CTX) 53 U/L 30-110 Alt (SGPT) ([facility]) 35 10-40 Ast (Sgot) ([facility]) 36 U/mL High 5-34 32 Bilirubin, Total 1.2 mg/dL 0.2-1.3 Bilirubin, Direct 0.3 mg/dL 0-0.6 Bilirubin, Indirect 0.89 ml/dl 0.10-1.0 Lipid Profile([facility]) Male 06/29/2005 Cholesterol 142 mg/dL 120-200 ([facility]) Triglyceride 61 mg/dL 30-200 HDL Cholesterol (a) Male 44 mg/dL 30-70 LDL, Calculated ([facility]) 85 CALC 0-129 LDL Direct (/[facility]) - mg/dL 0-130 VLDL 12 0-50 HDL Risk Factor ([facility]) 3.2 CALC Low 4.2-7.0 Laboratory test finding 06/29/2005 Magnesium 1.7 1.2-2.1 TSH ([facility]) 3.91 uIU/ml 0.5-6.0 Free T4 ([facility]) 1.33 ng/dL 0.75-1.54 PSA ([facility]) 0.56 0.0-4.0 Sed Rate ([facility]) 6 MM CBC Electronic ([facility]) 06/29/2005 WBC 5.9 3.6-9.6 Lymphocytes 22.9 % 20.5 - 51.1 Monocytes 5.8 % 1.7-9.3 Granulocytes 71.3 % 42.2 - 75.2 Lymphocytes 1.4 10^3/uL 0.7 - 4.9 Monocytes 0.3 10^3/uL 0.1 - 0.9 Granulocytes 4.2 10^3/uL 1.5 - 7.2 RBC 4.73 3.90-5.70 Hemoglobin (a/[facility]/CTX) 14.7 g/dL 12.1 - 17.2 Hematocrit ([facility]/CTX) 43.6 % 36.1 - 50.3 Mean Corpuscular Vol 92.1 82.2-97.4 Mean Corpuscular Hemaglobin 31.1 27.6-33.3 Mean Corpuscular Hemo Concen 33.8 33.0-36.0 RDW 13.8 High 11.6-13.7 Platelets 207. 10^3/ul 150-400 Mean Platelet Volume 7.0 Low 7.4-10.4 Laboratory test 03/24/2005 [facility] [place] See Image finding Report Comp Metabolic 10/20/2004 Glucose, Serum 106 mg/dL High 70-105 (Fma) Male (a/CMC/CTX) BUN (a/[facility]) 20 mg/dL 6-26 Creatinine (a/[facility]/CTX) 1.4 mg/dL 0.6-1.4 BUN/Creatinin Ratio 15.1 8.0-36 Sodium 142 134-149 Potassium 4.5 3.6-5.5 Chloride 104 mEq/L 94-112 Co2 28 21-32 Calcium ([facility]) 9.6 mg/dL 8.6-10.2 Total Protein 6.8 g/dL 6.3-8.1 Albumin ([facility]) 4.2 3.8-5.5 Globulin 2.6 2.0-4.8 A/G Ratio (a/[facility]) 1.6 0.6-2.2 Alk Phos (a) Male 43 U/L 22-95 Alt (SGPT) ([facility]) 42 High 10-40 Ast (Sgot) ([facility]) 35 U/mL High 5-34 Total Bilirubin 1.1 0.2-1.3 Laboratory test finding 10/20/2004 Bilirubin, Direct 0.4 mg/dL 0-0.6 Bilirubin, Indirect 0.72 ml/dl 0.10-1.0 Lipid Profile(a) Male 10/20/2004 Cholesterol 144 mg/dL 120-200 Triglyceride 66 mg/dL 30-200 HDL Cholesterol (a) Male 50 mg/dL 30-70 LDL, Calculated ([facility]) 80 CALC 0-129 LDL Direct (/[facility]) - mg/dL 0-130 VLDL 13 0-50 HDL Risk Factor ([facility]) 2.9 CALC Low 4.2-7.0 Liver Function ([facility]) 03/25/2004 Total Protein 7.4 g/dL 6.3-8.1 Albumin (Fma/[facility]CC/Centrex) 4.6 3.8-5.5 A/G Ratio (Fma/CMC/[facility]rex) 1.7 0.6-2.2 Globulin 2.8 2.0-4.8 Alkaline Phosphatase (F/C/CTX) 46 U/L 22-95 Alt (SGPT) 27 10-40 Ast (Sgot) (Fma/CMC/Centrex) 27 U/mL 5-34 Bilirubin, Total 1.7 mg/dL High 0.2-1.3 33 Bilirubin, Direct 0.5 mg/dL 0-0.6 Bilirubin, Indirect 0.27 ml/dl 0.10-1.0 Lipid Profile(Fma) Male 03/25/2004 Cholesterol 135 mg/dL 120-200 Triglyceride 64 mg/dL 30-200 HDL Cholesterol (Fma) Male 58 mg/dL 30-70 LDL, Calculated (Fma/CMC) 64 CALC 0-129 LDL, Direct - mg/dL 0-130 VLDL 13 0-50 HDL Risk Factor (a) 2.3 CALC Low 4.2-7.0 1 1 sst 2 consistent w/ previous results 3 Because ethnic data is not always readily available, this report includes an eGFR for both -Americans and non- Americans. The National Kidney Disease Education Program (NKDEP) does not endorse the use of the MDRD equation for patients that are not between the ages of 18 and 70, are , have extremes of body size, muscle mass, or nutritional status, or are non- or non-. According to the National Kidney Foundation, irrespective of diagnosis, the stage of the disease is based on the level of kidney function: Stage Description GFR(mL/min/1.73 m(2)) 1 Kidney damage with normal or decreased GFR 90 2 Kidney damage with mild decrease in GFR 60-89 3 Moderate decrease in GFR 30-59 4 Severe decrease in GFR 15-29 5 Kidney failure <15 (or dialysis) 4 Acute inflammation: >10.00 5 VTS Severe Sepsis and Septic Shock Management Bundle Measure requires all lactic acids initially measuring >2.0 mmol/L be repeated. 6 >100 to <200 pg/mL: likely compensated congestive heart failure (CHF) 200 to 400 pg/mL: likely moderate CHF >400 pg/mL: likely moderate to severe CHF 7 SEE RESULT BELOW Name: ALETHEA BUENO : [address]: Robby Najera MD Acct: [id number] Unit: [id number] AGE: 72 Location: ED Re04/15/17 SEX: M Status: REG ER SPEC: [id number] REGAN: 04/15/17-[address] [facility] [address]: Robby Najera MD REQ: [id number] RECD: 04/15/17 STATUS: GLORIA DUONG DR: Jose Johnson MD _ SOURCE: STOOL SPDESC: ORDERED: Occult Bl, Diag Procedure Result Reported Site Stool Occult Blood (1) Final 04/15/17- 1127 ML Stool Occult Blood Positive * ML - Main Lab . END OF REPORT DEPARTMENT OF PATHOLOGY, [address] [place] [address] Link Irby M.D. Director [facility] # [id number] 8 NON-FASTING 9 Because ethnic data is not always readily available, this report includes an eGFR for both -Americans and non- Americans. The National Kidney Disease Education Program (NKDEP) does not endorse the use of the MDRD equation for patients that are not between the ages of 18 and 70, are , have extremes of body size, muscle mass, or nutritional status, or are non- or non-. According to the National Kidney Foundation, irrespective of diagnosis, the stage of the disease is based on the level of kidney function: Stage Description GFR(mL/min/1.73 m(2)) 1 Kidney damage with normal or decreased GFR 90 2 Kidney damage with mild decrease in GFR 60-89 3 Moderate decrease in GFR 30-59 4 Severe decrease in GFR 15-29 5 Kidney failure <15 (or dialysis) 10 *Ascorbic acid is present which may interfere with detection of blood. 11 Because ethnic data is not always readily available, this report includes an eGFR for both -Americans and non- Americans. The National Kidney Disease Education Program (NKDEP) does not endorse the use of the MDRD equation for patients that are not between the ages of 18 and 70, are , have extremes of body size, muscle mass, or nutritional status, or are non- or non-. According to the National Kidney Foundation, irrespective of diagnosis, the stage of the disease is based on the level of kidney function: Stage Description GFR(mL/min/1.73 m(2)) 1 Kidney damage with normal or decreased GFR 90 2 Kidney damage with mild decrease in GFR 60-89 3 Moderate decrease in GFR 30-59 4 Severe decrease in GFR 15-29 5 Kidney failure <15 (or dialysis) 12 >100 to <200 pg/mL: likely compensated congestive heart failure (CHF) 200 to 400 pg/mL: likely moderate CHF >400 pg/mL: likely moderate to severe CHF 13 [facility] Severe Sepsis and Septic Shock Management Bundle Measure requires all lactic acids initially measuring >2.0 mmol/L be repeated. 14 Acute inflammation: >10.00 15 consistent w/ previous results 16 RESULTS VERIFIED BY REPEAT ANALYSIS 17 RESULTS VERIFIED BY REPEAT ANALYSIS 18 RESULTS VERIFIED BY REPEAT ANALYSIS 19 RESULTS VERIFIED BY REPEAT ANALYSIS 20 Normal Range 180 to 914 Indeterminate Range 145 to 180 Deficient Range <145 21 Because ethnic data is not always readily available, this report includes an eGFR for both -Americans and non- Americans. The National Kidney Disease Education Program (NKDEP) does not endorse the use of the MDRD equation for patients that are not between the ages of 18 and 70, are , have extremes of body size, muscle mass, or nutritional status, or are non- or non-. According to the National Kidney Foundation, irrespective of diagnosis, the stage of the disease is based on the level of kidney function: Stage Description GFR(mL/min/1.73 m(2)) 1 Kidney damage with normal or decreased GFR 90 2 Kidney damage with mild decrease in GFR 60-89 3 Moderate decrease in GFR 30-59 4 Severe decrease in GFR 15-29 5 Kidney failure <15 (or dialysis) 22 RESULT ROSELINE'D 23 RESULT ROSELINE'D 24 RESULT ROSELINE'D 25 RESULT ROSELINE'D 26 FASTING 27 result roseline'd 28 result roseline'd 29 RESULT ROSELINE'D 30 1 31 RESULT VERIFIED BY REPEAT ANALYSIS 32 RESULT VERIFIED BY REPEAT ANALYSIS 33 RESULT VERIFIED BY REPEAT ANALYSIS Procedures Date CPT Code Description Status 12/19/2013 67462 Electrocardiogram Complete Completed 08/30/2005 Colonoscopy Completed Encounters Type Date Location Provider CPT E/M Dx Office Visit 05/03/2017 1:00p [facility] Office Jose Johnson M.D. 12525 G20 F51.04 R53.83 K59.01 Office Visit 12/16/2016 12:00p [facility] Office NATA SinghP 37636 M77.02 M77.01 Office Visit 11/30/2016 11:40a [facility] Office Jose Johnson M.D. 38535 G20 F51.04 Office Visit 08/31/2016 2:10p [facility] Office Jose Johnson M.D. 45508 G20 R42 R07.89 Office Visit 07/20/2016 8:40a [facility] Office Jose Johnson M.D. 49228 H25.22 I95.1 G20 S01.01xA Z48.02 Office Visit 05/18/2016 3:20p [facility] Office Jose Johnson M.D. 25562 L03.115 G20 Office Visit 03/30/2016 10:10a [facility] Office Jose Johnson M.D. 82023 R42 G20 R03.0 R53.83 M54.5 Office Visit 12/20/2015 8:40a Main Office Jose Johnson M.D. 35235 M25.532 M79.602 Office Visit 10/26/2015 11:00a [facility] Office Yanely Richardson, 76999 S01.01xA Afnp-C Z48.02 G20 W01.198A Office Visit 07/26/2015 1:45p [facility] Office Yanely Richardson, 72917 S61.412A Afnp-C Z48.02 Office Visit 06/29/2015 4:00p [facility] [facility] RENE Singh [id number] R55 Office Visit 09/03/2014 2:40p [facility] Jose Johnson M.D. 49663 782.3 332.0 Office Visit 08/04/2014 2:20p Main Office Rosie Gregg M.D. 36191 729.81 Office Visit 07/23/2014 3:10p [facility] Jose Johnson M.D. 77755 782.3 729.81 332.0 887.4 Office Visit 07/09/2014 11:20a [facility] Jose Johnson M.D. 56351 782.3 729.81 332.0 Office Visit 06/24/2014 9:00a [facility] Jesi Brice-Mary 10188 782.3 Office Visit 05/04/2014 11:30a [facility] Rosie Gregg M.D. 88535 780.79 788.41 796.2 Office Visit 07/17/2013 11:00a [facility] Jose Johnson M.D. 59641 780.79 332.0 Office Visit 04/21/2013 10:10a [facility] Luis Gonzalez M.D. 29495 724.2 Office Visit 04/17/2013 11:10a [facility] Office Jose Johnson M.D. 35778 720.2 Office Visit 05/29/2011 2:10p Main Office Lamin Ware M.D. 33599 780.79 Office Visit 03/10/2010 1:40p [facility] Jose Johnson M.D. 32084 724.2 332.0 455.8 Office Visit 09/16/2009 10:10a [facility] Jose Johnson M.D. 01450 272.4 332.0 780.79 786.59 Office Visit 11/20/2008 10:10a [facility] Office Jose Johnson M.D. 24784 272.4 332.0 600.00 Office Visit 10/17/2007 1:20p [facility] Jose Johnson M.D. 09059 272.4 332.0 600.00 V76.44 Office Visit 10/04/2006 10:00a [facility] Jose Johnson M.D. 13815 272.4 332.0 780.79 600.00 780.52 V10.82 V76.44 Office Visit 10/04/2006 8:50a [facility] Jose Johnson M.D. 47819 272.4 332.0 780.79 600.00 780.52 V10.82 V76.44 Office Visit 03/22/2006 9:00a [facility] Jose Johnson M.D. 04639 V58.41 V58.32 Office Visit 06/29/2005 9:10a [facility] Jose Johnson M.D. 43973 332.0 272.4 780.79 V17.3 600.00 780.52 V76.44 Office Visit 06/29/2005 9:30a [facility] Jose Johnson M.D. 66522 332.0 272.4 780.79 V17.3 600.00 780.52 V76.44 Office Visit 10/20/2004 8:10a [facility] Jose Johnson M.D. 91996 332.0 272.4 Office Visit 03/24/2004 2:20p [facility] Jose Johnson M.D. 11721 332.0 780.52 272.4 Plan of Care Future Appointment(s):08/09/2017 2:00 pm - Jose Johnson M.D. at [facility] Ybxlio2108/07/2017 - Jesi Bain-[id number] Other constipationAllComments: ~B_~U_Medication Management~b_~u_ Patient Understands medications he's taking? Yes No Are there Barriers to Adherence? Yes No Has the patient been asked about herbal supplements and therapies, and OTC meds? Yes No ~B_~U_Care Plan~b_~u_1. Patient has been queried about patient's goals/ preferences and functional/lifestyle goals at relevant visits. If relevant, describe: na2. Treatment goals as explained to the patient: abovereturn of bowel regularity 3. Are there barriers to meeting treatment goals? Yes No If Yes, please describe:pt sometimes does not want toeat healthy or do any regular activity which is important to bowel regularity 4. Self-Management goals as described to the patient: Yes No continue dietary efforts and attempts at regular physicalactivity ok to try dulcolax or senna has routine f/ u with pcp this week
--- NOTE | 2017-09-05 09:39 | UC ---
Back Pain HPI - HPI Summary HPI Summary: The patient is a 72-year-old male with a history of severe Parkinson's disease. He fell 2 days ago. Been complaining of back pain since then. He denies any chest pain or shortness of breath. He denies any neck pain. - History of Current Complaint Chief Complaint: UCBackPain Stated Complaint: FELL SHARP BACK PAIN Time Seen by Provider: 09/05/17 09:27 Hx Obtained From: Patient Onset/Duration: Sudden Onset Timing: Constant Severity Initially: Severe Severity Currently: Severe Pain Intensity: 4 Pain Scale Used: 0-10 Numeric Back Pain: Is Diffuse Character: Unable to Describe Aggravating Factor(s): Movement Alleviating Factor(s): Rest - Allergies/Home Medications Allergies/Adverse Reactions: Allergies Allergy/AdvReac Type Severity Reaction Status Date / Time Adhesive Tape Allergy Severe Rash Verified 04/15/17 08:32 No EKG/CT Scan (DBS) Allergy Unknown Uncoded 11/02/16 15:46 Reaction Details NO MRI (DBS) Allergy Unknown Uncoded 11/02/16 15:46 Reaction Details Home Medications: Home Medications Carbidopa/Levodop 25/100 MG(*) [Sinemet 25/100 TAB(*)] 2 tab PO SEE INSTRUCTIONS 09/05/17 [History Confirmed 09/05/17] PMH/Surg Hx/FS Hx/Imm Hx Previously Healthy: Yes Neurological History: Other Other Neurological History: parkinson's disease - Surgical History Surgical History: Yes Surgery Procedure, Year, and Place: TURP, melanoma, deep brain stimulation, BILAT CATARACT SURGERY 07/2016 - Family History Known Family History: Positive: Cardiac Disease, Hypertension - Social History Alcohol Use: None Alcohol Amount: 1/2 glass of wine at dinner Substance Use Type: None Smoking Status (MU): Never Smoked Tobacco - Immunization History Most Recent Influenza Vaccination: Not UTD Most Recent Tetanus Shot: <5 YEARS ( OF 10/27/16) Most Recent Pneumonia Vaccination: unknown Hx Tetanus, Diphtheria Vaccination: Yes - Called PCP - 2012 Review of Systems Constitutional: Fatigue - chronic Skin: Negative Eyes: Negative ENT: Negative Respiratory: Negative Cardiovascular: Negative Gastrointestinal: Negative Genitourinary: Negative Motor: Negative Neurovascular: Negative Musculoskeletal: Myalgia Neurological: Negative Psychological: Negative Is Patient Immunocompromised?: No All Other Systems Reviewed And Are Negative: Yes Physical Exam Triage Information Reviewed: Yes Appearance: Ill-Appearing Vital Signs: Initial Vital Signs Temp 97.4 F 09/05/17 08:57 Pulse 61 09/05/17 08:57 Resp 18 09/05/17 08:57 BP 96/57 09/05/17 08:57 Pulse Ox 98 09/05/17 08:57 Vital Signs Reviewed: Yes Eyes: Positive: Conjunctiva Clear ENT: Positive: Normal ENT inspection, Other - parkinson's facies Neck: Positive: Supple Respiratory: Positive: Chest non-tender, Lungs clear, Normal breath sounds, No respiratory distress, No accessory muscle use Cardiovascular: Positive: RRR Abdomen Description: Positive: Nontender, No Organomegaly Musculoskeletal: Positive: ROM Intact, No Edema Neurological: Positive: Other: - cogwheeling Psychological Exam: Normal Skin Exam: Normal Diagnostics - Radiology No standard instances Xray Interpretation: No Acute Changes - left ribs and pelvis Radiology Interpretation Completed By: Radiologist Back Pain Course/Dx - Differential Dx/Diagnosis Provider Diagnoses: contusions/msucle strains Discharge - Sign-Out/Discharge Documenting (check all that apply): Patient Departure - Discharge Plan Condition: Stable Disposition: HOME Patient Education Materials: Muscle Strain (ED) Referrals: Jose Johnson MD [Primary Care Provider] - 5 Days Additional Instructions: recheck for new or worsening symptoms continue tylenol - Billing Disposition and Condition Condition: STABLE Disposition: Home Images Front/Back of Body, Lg ([place]): 1 - tender 2 - tender
--- NOTE | 2017-09-05 10:40 | RAD ---
HISTORY: fall, subacute trauma, left posterior rib pain COMPARISONS: None relevant VIEWS: 9, Frontal view of the chest with frontal and oblique views of the left hemithorax FINDINGS: There is no displaced rib fracture or pneumothorax. The visualized lungs are clear. A generator for a deep brain stimulator is noted overlying the left chest. Degenerative changes are noted of the spine. IMPRESSION: NO DISPLACED RIB FRACTURE OR PNEUMOTHORAX.
--- NOTE | 2017-09-05 10:41 | RAD ---
HISTORY: fall subacute trauma, back pain COMPARISONS: None VIEWS: 1, Single frontal view of the pelvis FINDINGS: BONE DENSITY: Normal. BONES: There is no displaced fracture. The sacral arches are intact. JOINTS: There is moderate osteoarthritis of the hips. ALIGNMENT: There is no dislocation. SOFT TISSUES: Unremarkable. OTHER FINDINGS: Degenerative changes are noted of the spine.. IMPRESSION: OSTEOARTHRITIS. NO ACUTE OSSEOUS INJURY. IF SYMPTOMS PERSIST, RECOMMEND REPEAT IMAGING.
[2017-09-05 11:18] VITALS: BP 119/70
== END 2017-09-05 11:25 | disposition home or self-care (01) ==
LOC: UCEAST 08:48
DX: S20.229A Contusion of unspecified back wall of thorax, initial encounter (principal); S29.012A Strain of muscle and tendon of back wall of thorax, initial encounter; W19.XXXA Unspecified fall, initial encounter; Y93.9 Activity, unspecified; Y92.9 Unspecified place or not applicable; R53.83 Other fatigue; G20 Parkinson's disease; Z91.048 Other nonmedicinal substance allergy status; Z85.820 Personal history of malignant melanoma of skin; Z82.49 Family history of ischemic heart disease and other diseases of the circulatory system
CPT/HCPCS: 72170; 81003; 99211; G0463

== ENCOUNTER 2018-02-20 18:07 | Observation (INO) | payer MEDICARE ==
--- OUTSIDE RECORDS SUMMARY | 2018-02-20 18:25 | XMS REPORT | Continuity of Care Document ---
:1945 External Reference #:[id number] Author Name Eddie Amira Care Team Providers Name Role Phone Jose Johnson MD Primary Care Physician Unavailable Payers Type Date Identification Numbers Payment Provider Subscriber Effective: 2007 Policy Number: [id number] Medicare Torres Bueno PayID: [id number] [address] [place] [address] Policy Number: [id number] [facility] Torres Bueno PayID: [id number] [address] [place] [address] Advance Directives Description No Information Available Problems Date Description Provider Status Onset: 01/07/2014 Parkinson's disease Jose Juan Esquivel M.D. Active Onset: 02/12/2018 Mild cognitive disorder Itz Remy M.D. Active Onset: 02/12/2018 Orthostatic hypotension Itz Remy M.D. Active Family History Description No Information Available Social History Type Date Description Comments Sex Unknown ETOH Use Denies alcohol use Tobacco Use Start: Unknown Patient has never smoked Smoking Status Reviewed: 02/12/18 Patient has never smoked Allergies, Adverse Reactions, Alerts Date Description Reaction Status Severity Comments 10/07/2015 Tape Active 05/28/2012 NKDA Inactive Medications Medication Date Status Form Strength Qnty SIG Indications Ordering Provider Fludrocortisone 02/12 Active Tablets 0.1mg 180ta 2 by mouth I95.1 Itz Acetate /2018 bs every day Bren Remy Elbow 01/03 Active Misc 2unit wear on Ana Maria Support/Pressure /2016 s left and Bren Silva Pads/Left-Right/ right Small-Medium elbow dx: Bilateral olecranon bursitis Carbidopa-Levodo 11/13 Active Tablets 25-100mg 900ta take 1 1/2 Jose Juan brandt bs tabs at [place], 6am, 2 M.D. tabs at 9:30am, 2 1/2 tabs at3:30pm2p m, 2 tabs at 7pm. .... Sertraline HCL 10/16 Active Tablets 50mg 30tab half tab Amanda Mcguire, s by mouth every day-unsure of dose Carbidopa-Levodo 10/01 Active Tablets 50-200mg 90tab Take 1 Jose Juan brandt ER s Tablet By Alvin, Mouth AT M.D. 10PM Potassium 09/08 Active Tablets 99mg otc once a day as Bren Mensah needed Co Q-10 Maximum Active Capsules 600mg 90cap 2 caps po Unknown Strength /0000 s qd Calcium Citrate Active Tablets 200mg one by Unknown /0000 mouth every day as needed Vitamin D3 Active Tablets 5000Unit 1 by mouth Unknown /0000 as needed Magnesium Active Daily Unknown /0000 Flaxseed Oil Active Capsules 1000mg 2x by Unknown /0000 mouth every day Multi For Him Active Capsules 1 by mouth Unknown /0000 every day Savision Active Capsules 1 bid Unknown /0000 Fibercon Active Tablets 625mg 2 tabs Unknown /0000 twice a day or as directed Vitamin E-400 Active Capsules 1000Unit 1 by mouth Unknown /0000 Melatonin Active Capsules 10mg 1 tablet Unknown /0000 at bed time Levothyroxine Active Tablets 25mcg Take 1/2 Unknown Sodium /0000 Tablet By Mouth Every Day For Thyroid Fludrocortisone 10/17 Hx Tablets 0.1mg 30tab 1 by mouth I95.1 Jose Juan Jolly s every Alvin, - morning M.D. 02/12 Carbidopa-Levodo 01/16 Hx Tablets 50-200mg 10tab take one Jose Juan brandt ER s tablet by Alvin, - mouth at M.D. 02/06 is to cover until supply arrives from [facility] Northera 10/01 Hx Capsules 100mg 60cap 1 po bid Lu s for 1 week Alvin, - then 2 bid M.D. 11/01 in Am and /2016 at noon Ddavp 09/08 Hx Tablets 0.2mg 30tab 1 po qhs s Alvin, - M.D. 11/01 Fludrocortisone 06/02 Hx Tablets 0.1mg 60tab 2 by mouth G20 Mohini Jolly s every day Latrice, - M.D. 09/26 Quetiapine 10/28 Hx Tablets 25mg 45tab 1/2 by Jose Juan Seo s mouth Alvin, - every M.D. 01/22 night at bedtime Clonazepam 10/12 Hx Tablets 0.5mg 30tab 1 po qhs Jose Juan Seo s Alvin, - M.D. 01/22 Sertraline HCL 10/06 Hx Tablets 100mg 30tab 1 by mouth Jose Juan Seo s nik Esquivel, - night at M.D. 10/16 bedtime Selegiline HCL 08/12 Hx Tablets 5mg 180ta 1 tab by Jose Juan Seo bs mouth Alvin, - every M.D. 11/01 morning tab at 11 in the morning and 1 tab at 3pm Carbidopa-Levodo 06/29 Hx Tablets 25-100mg 360ta 2 by mouth Mohini brandt bs every 3 Latrice, - hours from M.D. 10/06 wake till sleep Carbidopa-Levodo 07/22 Hx Tablets 25-250mg 450ta 1 by mouth Jose Juan brandt bs every 4 Alvin, - hours M.D. 06/29 Horizant 05/26 Hx Tablets 600mg 30tab 1 by mouth Jose Juan Seo ER s everyday Alvin, - around M.D. 03/19 dinner time Gabapentin 09/05 Hx Capsules 300mg 30cap 1 by mouth Amy s nik Fine NP - night at 09/21 bedtime Trazodone HCL 05/28 Hx Tablets 50mg 90tab 1 tab PO Amy /2012 s QHS Babatunde ASSISTANT MECHANIC - 03/18 Carbidopa/Levodo 11/27 Hx Tablets 25-250mg 450ta 1 po q 5 Jose Juan Seo bs hours Radha Esquivel M.D. 07/22 Clonazepam 11/27 Hx Tablets 1mg 90tab 1 tab at Jose Juan Seo s bedtime Alvin - code c M.DLu 05/24 Amantadine HCL 11/27 Hx Tablets 100mg 180ta 1 by mouth Jose Juan Seo bs every Alvin, - morning M.D. 08/11 and 1 at noon Ropinirole HCL 11/27 Hx Tablets 3mg 180ta 1.5 mg po Jose Juan Seo /2011 bs 4x and Alvin, - 3mg po q M.DLu 06/29 Trazodone Hx Tablet ! tab po Unknown /0000 qhs - 11/26 Ciclodan Hx Solution 8% topical Unknown /0000 daily - 04/04 Medrol Dosepak Hx Tablets 4mg 1tabs as Unknown /0000 directed - 09/04 Celebrex Hx Capsules 200mg 30cap 1 by mouth Unknown /0000 s every day - 09/04 Oxycodone HCL Hx Tablets 5mg 30tab 1-2 by Unknown /0000 s mouth four - times a 09/04 day as needed Zoloft Hx Tablets 50mg 1 by mouth Unknown /0000 every day - 10/27 Melatonin Hx Capsules 10mg 1 by mouth Unknown /0000 every - night at 01/22 Trazodone HCL 00 Hx Tablets 50mg 1 tablet Unknown /0000 at bedtime - as needed 08/18 Gabapentin 00 Hx Capsules 300mg 180ca 1 tab hs Jose Juan S. /0000 ps Radha Esquivel M.D. 08/08 Triamterene/Hydr 0000 Hx Capsules 37.5-25mg 1 by mouth Unknown ochlorothiazide /0000 every day - prn for 10/05 Colace 0000 Hx Capsules 100mg 2 by mouth Unknown /0000 every day - 05/09 Savision 0000 Hx Capsules 1 tabs bid Unknown /0000 - 10/05 Carbidopa-Levodo 00/00 Hx Tablets 25-250mg 2 by mouth Unknown pa /0000 bid as - needed 09/15 Carbidopa-Levodo 00/00 Hx Tablets 25-250mg 1 by Unknown pa /0000 mouth at 6 - am or 7 am 10/28 1 @ 2-3 pm Carbidopa-Levodo 00/00 Hx Tablets 25-200mg three Unknown pa /0000 times a - day 10/05 Carbidopa-Levodo 0000 Hx Tablets 25-100mg 330ta 2 02/06 tabs Jose Juan Seo pa /0000 bs 6am and Alvin, - 2pm than 2 M.D. 02/06 tabs at /2017 10am, 6pm and 3am... Zinc Hx Daily Unknown /0000 - 05/10 Unisom Hx Tablets 25mg 1 as Unknown /0000 needed for - sleep 02/06 Sulfamethoxazole Hx Tablets 800-160mg 1 by mouth Unknown /Trimethoprim DS /0000 twice - daily 09/26 Midodrine HCL Hx Tablets 5mg 1 tab po Unknown /0000 bid - 10/01 Clonazepam Hx Tablets 0.5mg 1-2 by Unknown /0000 mouth as - needed for 02/06 500 MG 00 Hx Tablets 1 by mouth Unknown /0000 every day - 02/06 Ginkgo REBA Hx Tablets 120-20mg once a day Unknown /0000 - 06/05 Immunizations Description No Information Available Vital Signs Date Vital Result Comment 02/12/2018 11:33am Height 69 inches 5'9" Weight 192.00 lb Heart Rate 60 /min BP Systolic Sitting 102 mmHg BP Diastolic Sitting 76 mmHg Respiratory Rate 16 /min BMI (Body Mass Index) 28.4 kg/m2 01/15/2018 11:25am Height 69 inches 5'9" Weight 198.38 lb Heart Rate 70 /min BP Systolic 128 mmHg BP Diastolic 90 mmHg BMI (Body Mass Index) 29.3 kg/m2 06/06/2017 3:32pm Height 69 inches 5'9" Weight 195.00 lb Heart Rate 68 /min BP Systolic Sitting 102 mmHg BP Diastolic Sitting 76 mmHg Respiratory Rate 15 /min BMI (Body Mass Index) 28.8 kg/m2 02/07/2017 2:48pm Height 69 inches 5'9" Weight 195.00 lb Heart Rate 60 /min BP Systolic 116 mmHg BP Diastolic 82 mmHg Respiratory Rate 12 /min BMI (Body Mass Index) 28.8 kg/m2 01/31/2017 1:23pm Height 69 inches 5'9" Weight 195.00 lb BP Systolic 124 mmHg BP Diastolic 81 mmHg Respiratory Rate 14 /min Pain Level 3 BMI (Body Mass Index) 28.8 kg/m2 01/03/2017 1:25pm Height 69 inches 5'9" Weight 196.00 lb Heart Rate 76 /min BP Systolic Sitting 110 mmHg BP Diastolic Sitting 60 mmHg BMI (Body Mass Index) 28.9 kg/m2 11/02/2016 10:57am Height 73 inches 6'1" Weight 185.38 lb Heart Rate 58 /min BP Systolic 110 mmHg BP Diastolic 64 mmHg BMI (Body Mass Index) 24.5 kg/m2 09/27/2016 8:31am Height 73 inches 6'1" Weight 185.00 lb Heart Rate 72 /min BP Systolic Sitting 124 mmHg BP Diastolic Sitting 62 mmHg Respiratory Rate 16 /min BMI (Body Mass Index) 24.4 kg/m2 09/18/2016 1:33pm Height 73 inches 6'1" Weight 195.00 lb Heart Rate 61 /min BP Systolic Sitting 111 mmHg BP Diastolic Sitting 61 mmHg Respiratory Rate 14 /min Body Temperature 97.6 F Pain Level 3 BMI (Body Mass Index) 25.7 kg/m2 08/09/2016 4:03pm Height 73 inches 6'1" Weight 195.00 lb Heart Rate 70 /min BP Systolic Sitting 118 mmHg BP Diastolic Sitting 78 mmHg Respiratory Rate 14 /min BMI (Body Mass Index) 25.7 kg/m2 07/18/2016 2:18pm Height 73 inches 6'1" Weight 187.00 lb Respiratory Rate 16 /min Body Temperature 97.4 F Pain Level 1 BMI (Body Mass Index) 24.7 kg/m2 06/19/2016 1:08pm Height 73 inches 6'1" Weight 187.00 lb Heart Rate 75 /min Respiratory Rate 16 /min Body Temperature 96.2 F Pain Level 3 BMI (Body Mass Index) 24.7 kg/m2 06/05/2016 3:12pm Height 73 inches 6'1" Weight 187.00 lb Heart Rate 76 /min BP Systolic Sitting 128 mmHg BP Diastolic Sitting 78 mmHg Respiratory Rate 16 /min Body Temperature 97.2 F Pain Level 3 BMI (Body Mass Index) 24.7 kg/m2 06/02/2016 12:48pm Height 73 inches 6'1" Weight 185.00 lb Heart Rate 70 /min BP Systolic Sitting 130 mmHg BP Diastolic Sitting 68 mmHg Respiratory Rate 16 /min BMI (Body Mass Index) 24.4 kg/m2 04/26/2016 3:56pm Height 73 inches 6'1" Weight 190.00 lb Heart Rate 64 /min BP Systolic Sitting 130 mmHg BP Diastolic Sitting 82 mmHg Respiratory Rate 14 /min BMI (Body Mass Index) 25.1 kg/m2 01/24/2016 2:12pm Height 73 inches 6'1" Weight 187.00 lb Heart Rate 84 /min BP Systolic Sitting 136 mmHg BP Diastolic Sitting 78 mmHg BMI (Body Mass Index) 24.7 kg/m2 10/29/2015 10:42am Height 73 inches 6'1" Weight 185.00 lb Heart Rate 68 /min BP Systolic Sitting 120 mmHg BP Diastolic Sitting 68 mmHg Respiratory Rate 14 /min BMI (Body Mass Index) 24.4 kg/m2 10/07/2015 8:52am Height 73 inches 6'1" Weight 185.00 lb Heart Rate 74 /min BP Systolic Sitting 132 mmHg BP Diastolic Sitting 84 mmHg Respiratory Rate 16 /min O2 % BldC Oximetry 98 % BMI (Body Mass Index) 24.4 kg/m2 06/30/2015 1:55pm Height 73 inches 6'1" Weight 185.00 lb Heart Rate 68 /min BP Systolic Sitting 128 mmHg BP Diastolic Sitting 84 mmHg Respiratory Rate 14 /min BMI (Body Mass Index) 24.4 kg/m2 06/01/2015 3:05pm Height 73 inches 6'1" Weight 185.00 lb Heart Rate 64 /min BP Systolic Sitting 124 mmHg BP Diastolic Sitting 82 mmHg Respiratory Rate 14 /min BMI (Body Mass Index) 24.4 kg/m2 03/19/2015 10:39am Height 73 inches 6'1" Weight 185.00 lb Heart Rate 60 /min BP Systolic Sitting 104 mmHg BP Diastolic Sitting 76 mmHg Respiratory Rate 14 /min BMI (Body Mass Index) 24.4 kg/m2 09/22/2014 3:44pm Height 73 inches 6'1" Weight 192.00 lb Heart Rate 64 /min BP Systolic Sitting 120 mmHg BP Diastolic Sitting 62 mmHg Respiratory Rate 14 /min BMI (Body Mass Index) 25.3 kg/m2 05/26/2014 11:01am Height 73 inches 6'1" Weight 197.00 lb Heart Rate 68 /min BP Systolic Sitting 138 mmHg BP Diastolic Sitting 78 mmHg Respiratory Rate 16 /min BMI (Body Mass Index) 26.0 kg/m2 05/13/2014 10:50am Height 73 inches 6'1" Weight 196.00 lb Heart Rate 60 /min BP Systolic Sitting 132 mmHg BP Diastolic Sitting 78 mmHg Respiratory Rate 16 /min BMI (Body Mass Index) 25.9 kg/m2 01/07/2014 4:01pm Height 73 inches 6'1" Weight 192.00 lb Heart Rate 64 /min BP Systolic Sitting 138 mmHg BP Diastolic Sitting 82 mmHg Respiratory Rate 12 /min BMI (Body Mass Index) 25.3 kg/m2 09/05/2013 12:04pm Height 73 inches 6'1" Weight 183.00 lb Heart Rate 67 /min BP Systolic Sitting 120 mmHg BP Diastolic Sitting 78 mmHg Respiratory Rate 16 /min BMI (Body Mass Index) 24.1 kg/m2 04/23/2013 3:54pm Heart Rate 70 /min BP Systolic Sitting 130 mmHg BP Diastolic Sitting 70 mmHg Respiratory Rate 16 /min 04/04/2013 12:19pm Heart Rate 76 /min BP Systolic Sitting 112 mmHg BP Diastolic Sitting 70 mmHg Respiratory Rate 16 /min 11/26/2012 9:53am Heart Rate 78 /min BP Systolic Sitting 108 mmHg BP Diastolic Sitting 72 mmHg Respiratory Rate 16 /min 05/28/2012 9:41am Heart Rate 70 /min BP Systolic Sitting 120 mmHg BP Diastolic Sitting 86 mmHg Respiratory Rate 16 /min Results Test Date Facility Test Result H/L Range Note CBC Auto Diff 09/26/2016 [facility] White Blood 5.9 10^3/uL N 3.5-10.[address] [place] [address] [phone] Red Blood Count 4.26 10^6/uL N 4.0-5.4 Hemoglobin 13.1 g/dL Low 14.0-18.0 Hematocrit 39 % Low 42-52 Mean Corpuscular Volume 92 fL N 80-94 Mean Corpuscular Hemoglobin 31 pg N 27-31 Mean Corpuscular HGB Conc 34 g/dL N 31-36 Red Cell Distribution Width 14 % N 10.5-15 Platelet Count 224 10^3/uL N 150-450 Mean Platelet Volume 8 um3 N 7.4-10.4 Abs Neutrophils 3.5 10^3/uL N 1.5-7.7 Abs Lymphocytes 1.5 10^3/uL N 1.0-4.8 Abs Monocytes 0.5 10^3/uL N 0-0.8 Abs Eosinophils 0.3 10^3/uL N 0-0.6 Abs Basophils 0 10^3/uL N 0-0.2 Abs Nucleated RBC 0 10^3/uL N Granulocyte % 58.9 % N 38-83 Lymphocyte % 26.3 % N 25-47 Monocyte % 8.3 % N 1-9 Eosinophil % 6.0 % N 0-6 Basophil % 0.5 % N 0-2 Nucleated Red Blood Cells % 0.1 N Comp Metabolic Panel 09/26/2016 [facility] Sodium 137 mmol/L N 133-[address] [place] [address] [phone] Potassium 4.3 mmol/L N 3.5-5.0 Chloride 102 mmol/L N 101-111 Co2 Carbon Dioxide 30 mmol/L N 22-32 Anion Gap 5 mmol/L N 2-11 Glucose 99 mg/dL N 70-100 Blood Urea Nitrogen 28 mg/dL High 6-24 Creatinine 1.46 mg/dL High 0.67-1.17 BUN/Creatinine Ratio 19.2 N 8-20 Calcium 10.0 mg/dL N 8.6-10.3 Total Protein 6.9 g/dL N 6.4-8.9 Albumin 4.5 g/dL N 3.2-5.2 Globulin 2.4 g/dL N 2-4 Albumin/Globulin Ratio 1.9 N 1-3 Total Bilirubin 1.40 mg/dL High 0.2-1.0 Alkaline Phosphatase 54 U/L N 34-104 Alt 6 U/L Low 7-52 Ast 28 U/L N 13-39 Egfr Non- 47.6 N >60 Egfr 61.2 N >60 1 Urinalysis Profile 09/26/2016 [facility] Urine Color Yellow N [address] [place] [address] [phone] Urine Appearance Cloudy N Urine Specific [place] 1.016 N 1.010-1.030 Urine pH 6.0 N 5-9 Urine Urobilinogen Negative N Negative Urine Ketones Trace Abnormal Negative Urine Protein Negative N Negative Urine Leukocytes Negative N Negative Urine Blood Negative N Negative * * Abnormal Negative 2 Urine Nitrite Negative N Negative Urine Bilirubin Negative N Negative Urine Glucose Negative N Negative Laboratory test 09/26/2016 [facility] TSH (Thyroid 0.77 mcIU/mL N 0.34-5.[address] Stim [place]) [place] [address] [phone] Basic Metabolic 02/09/2014 [facility] Sodium 137 mmol/L N 133- 145 Panel [address] [place] [address] [phone] Potassium 4.4 mmol/L N 3.5-5.0 Chloride 101 mmol/L N 101-111 Co2 Carbon Dioxide 31 mmol/L N 22-32 Anion Gap 5 mmol/L N 2-11 Glucose 102 mg/dL High 70-100 Blood Urea Nitrogen 19 mg/dL N 6-24 Creatinine 1.31 mg/dL High 0.67-1.17 BUN/Creatinine Ratio 14.5 N 8-20 Calcium 9.8 mg/dL N 8.6-10.3 Egfr Non- 54.4 N >60 Egfr 70.0 N >60 3 Inr/Protime 02/09/2014 [facility] Inr 0.97 N 0.85-1.06 [address] [place] [address] [phone] Urinalysis Profile 02/09/2014 [facility] Urine Color Yellow N [address] [place] [address] [phone] Urine Appearance Cloudy N Urine Specific [place] 1.016 N 1.010-1.030 Urine pH 6.0 N 5-9 Urine Urobilinogen Negative N Negative Urine Ketones Trace Abnormal Negative Urine Protein Negative N Negative Urine Leukocytes Negative N Negative Urine Blood Negative N Negative * * Abnormal Negative 4 Urine Nitrite Negative N Negative Urine Bilirubin Negative N Negative Urine Glucose Negative N Negative CBC No Diff 02/09/2014 [facility] White Blood 4.7 10^3/uL Low 4.8-10.[address] [place] [address] [phone] Red Blood Count 4.58 10^6/uL N 4.0-5.4 Hemoglobin 14.5 g/dL N 14.0-18.0 Hematocrit 43 % N 42-52 Mean Corpuscular Volume 95 fL High 80-94 Mean Corpuscular Hemoglobin 32 pg High 27-31 Mean Corpuscular HGB Conc 33 g/dL N 31-36 Red Cell Distribution Width 13 % N 10.5-15 Platelet Count 179 10^3/uL N 150-450 Mean Platelet Volume 8 um3 N 7.4-10.4 Vitamin B12 And Folate Serum 09/08/2013 Vitamin B12 1078 pg/mL High 180- 914 5 Folate > 20.00 ng/mL N >3.99 Laboratory test 04/04/2013 [facility] TSH (Thyroid 1.85 IU/mL 0.34-5.[address] [place] [address] Horm) [phone] Comp Metabolic 04/04/2013 [facility] Sodium 137 mmol/L 133- [address] [place] [address] [phone] Potassium 4.7 mmol/L 3.7-5.6 Chloride 101 mmol/L [...] Egfr Non- 62.0 >60 Egfr 79.7 >60 6 CBC Auto Diff 04/04/2013 [facility] White Blood 6.8 10^3/uL 4.8-10.[address] [place] [address] [phone] Red Blood Count 4.73 10^6/uL 4.0-5.4 Hemoglobin [...] 0-2 Nucleated Red Blood Cells % 0 1 Because ethnic data is not always readily [...] 15-29 5 Kidney failure <15 (or dialysis) 2 *Ascorbic acid is present which may interfere with detection of blood. 3 Because ethnic data is not always [...] 5 Kidney failure <15 (or dialysis) 4 *Ascorbic acid is present which may interfere with detection of blood. 5 Normal Range 180 to 914 Indeterminate Range 145 to 180 Deficient Range <145 6 Because ethnic data is not always readily [...] 15-29 5 Kidney failure <15 (or dialysis) Procedures Date Code Description Status 02/12/2018 82418 Neurostimulator Pulse Generator Analysis W/O Completed Reprogramming 08/23/2016 19833 Treadmill Interp/Report Only Completed 08/23/2016 52714 Stress Test Supervsn W/Out I/R Completed 06/19/2016 58481 CLSD TX Distal Fib FX (Lateral Malleolus) w/o Completed manipulation 08/30/2005 10682942 Colonoscopy Completed Encounters Type Date Location Provider Dx Diagnosis Office Visit 06/06/2017 Gaurav Esquivel, G20 Parkinson' s 3:30p [facility] disease I95.1 Orthostatic hypotension G47.52 REM sleep behavior disorder R40.0 Somnolence G31.84 Mild cognitive impairment, so stated Office Visit 02/07/2017 2:45p [facility] Jose Juan Seo G2Rohini Parkinson's [facility] Esquivel M.D. disease I95.1 Orthostatic hypotension Office Visit 01/31/2017 1:15p [facility] Fay [place], M70.21 Olecranon [facility] bursitis, right C.M.A. elbow M70.22 Olecranon bursitis, left elbow Office Visit 01/03/2017 1:00p [facility] Fay [place] M70.21 [facility] bursitis, right C.M.A. elbow M70.22 Olecranon bursitis, left elbow Office Visit 11/02/2016 [facility] Jose Juan Seo G2Rohini Parkinson's 10:30a Frederic Esquivel M.D. disease I95.1 Orthostatic hypotension R44.2 Other hallucinations Office Visit 10/01/2016 [facility] Jose Juan Seo G20 Parkinson's 4:24p Frederic Esquivel M.D. disease I95.1 Orthostatic hypotension Office Visit 10/01/2016 11:53a [facility] Kathy R41.82 Altered mental Assoc,donta Joseph M.D. status, Hospitalists unspecified H35.30 Unspecified macular degeneration G20 Parkinson's disease Office Visit 09/30/2016 11:52a [facility] Kathy R41.82 Altered mental Assoc,donta Joseph M.D. status, Hospitalists unspecified H35.30 Unspecified macular degeneration G20 Parkinson's disease Office Visit 09/30/2016 [facility] Jose Juan Seo G2Rohini Parkinson's 4:25p Frederic Esquivel M.D. disease F05 Delirium due to known physiological condition I95.1 Orthostatic hypotension Office Visit 09/29/2016 Neurohospitalist Itz G2Rohini Parkinson's 4:24p Frederic Remy M.D. disease R41.82 Altered mental status, unspecified R44.2 Other hallucinations Office Visit 09/29/2016 11:52a [facility] Kathy R41.82 Altered mental Assoc,donta Joseph M.D. status, Hospitalists unspecified G20 Parkinson's disease H35.30 Unspecified macular degeneration Office Visit 09/28/2016 Neurohospitalist Itz G20 Parkinson's 4:23p Clinic Bren Remy disease R41.82 Altered mental status, unspecified R44.2 Other hallucinations Office Visit 09/28/2016 11:51a [facility] Kathy R41.82 Altered mental Assoc,donta Joseph M.D. 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 Nicolas R41.82 Altered mental 11:50a Assoc,donta Tobin, N.P. status, Hospitalists unspecified G20 Parkinson's disease H35.30 Unspecified macular degeneration Office Visit 09/27/2016 8:30a [facility] Jose Juan Seo G20 Parkinson's [facility] Esquivel M.D. disease I95.1 Orthostatic hypotension G93.40 Encephalopathy, unspecified Office 09/18/2016 Orthopedic Favio F S43.52xD Sprain of left Visit 1:00p Services [facility] Liliana acromioclavicular C.M.A. joint, subsequent encounter S82.61xD Disp fx of lateral malleolus of r fibula, 7thD S43.122D Dislocation of l acromioclav jt, 100%-200% displacmnt, subs Office Visit 08/23/2016 12:05p [facility] Bianca Martin, R07.9 Chest pain , Assoc,pc N.P. unspecified Hospitalists R53.1 Weakness I95.1 Orthostatic hypotension G20 Parkinson's disease Office Visit 08/22/2016 [facility] Fadumo Patel R07.9 Chest pain, 12:04p Assoc,pc Alberto, ASSISTANT MECHANIC unspecified Hospitalists R53.1 Weakness I95.1 Orthostatic hypotension G20 Parkinson's disease Office Visit 08/09/2016 4:15p [place] Luis Seo G20 Parkinson's [facility] Esquivel M.D. disease I95.1 Orthostatic hypotension R29.6 Repeated falls Office 07/18/2016 Orthopedic Favio F S43.52xD Sprain of left Visit 2:15p [facility] Liliana acromioclavicular C.M.A. joint, subsequent encounter S82.61xD Disp fx of lateral malleolus of r fibula, 7thD S43.122D Dislocation of l acromioclav jt, 100%-200% displacmnt, subs R29.6 Repeated falls Office Visit 06/19/2016 [facility]opedic Favio F S43.122D Dislocation of l 1:00p [facility] Liliana acromioclav jt, C.M.A. 100%-200% displacmnt, subs S43.52xD Sprain of left acromioclavicular joint, subsequent encounter S82.61xD Disp fx of lateral malleolus of r fibula, 7thD M25.571 Pain in right ankle and joints of right foot S43.122D Dislocation of l acromioclav jt, 100%-200% displacmnt, subs S82.61xD Disp fx of lateral malleolus of r fibula, 7thD Office 06/05/2016 Orthopedic Favio F S43.52xA Sprain of left Visit 1:00p [facility]iana acromioclavicular C.M.A. joint, initial encounter S43.122A Dislocation of l acromioclav jt, 100%-200% displacmnt, init Office Visit 06/02/2016 [facility]ist Jose Juan Miller Parkinson's 11:45a Frederic Esquivel M.D. disease I95.1 Orthostatic hypotension Z91.81 History of falling Office Visit 04/26/2016 [facility] Jose Juan Miller Parkinson's 3:45p [facility] Esquivel M.D. disease Office Visit 01/24/2016 [facility] Jose Juan Miller Parkinson's 1:45p Frederic Esquivel M.D. disease R44.1 Visual hallucinations Office Visit 10/29/2015 10:30a [facility] Jose Juan Miller Parkinson's [facility] Esquivel M.D. disease R40.0 Somnolence R44.1 Visual hallucinations Office Visit 10/07/2015 [facility]ist Jose Juan Miller Parkinson's 9:00a [facility] Bren Esquivel disease R40.0 Somnolence Office Visit 06/30/2015 1:30p [place] [facility] Jose Juan Seo G20 Parkinson's [facility] Esquivel M.D. disease G47.52 REM sleep behavior disorder Office Visit 06/01/2015 3:00p [place] Luis Seo G20 Parkinson's [facility] Esquivel M.D. disease Office Visit 03/19/2015 10:45a [place] Luis Seo G20 Parkinson's [facility] Esquivel M.D. disease Office Visit 09/22/2014 3:45p [place] Luis Seo 332.0 Paralysis Agitans [facility] Esquivel M.D. Office Visit 05/26/2014 11:00a [place] Luis Seo 332.0 Paralysis Agitans [facility] Esquivel M.D. 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 Office Visit 04/23/2013 4:00p [place] Luis Seo 332.0 [facility] Office Visit 04/04/2013 12:00p [place] [facility] Seo 332.0 [facility] 780.79 Malaise And Fatigue Other Office Visit 11/26/2012 9:45a [place] Luis Seo 332.0 [facility] 327.42 REM Sleep Behavior Disorder Office Visit 05/28/2012 9:45a [place] Luis Seo 332.0 [facility] Bren Esquivel 724.2 Lumbago Office Visit 11/28/2011 9:45a [place] [facility]o 332.0 [facility] Esquivel Plan of Treatment Future Appointment(s):04/11/2018 3:45 pm - Itz Remy M.D. at [place] [facility]01/15/2018 - Jose Juan Esquivel M.D.G20 Parkinson's diseaseFollow up:with Dr Remy for DBS and transfer of care, next availableRecommendations:decrease your 6 AM Sinemet to 1 1/2 tablets, leave the other doses the sameI95.1 Orthostatic [id number] Mild cognitive impairment, so [id number] Other fatigue
--- NOTE | 2018-02-20 18:56 | ED ---
Hypertension - HPI Summary HPI Summary: A 72 y/o male accompanied by his presents to the ED c/o HBP and dizziness. As per triage, "high BP/dizziness at home for one week, numbness to left arm started today. No injury/trauma to arm. history of Parkinson's with DBS in place ". According to the patient, he has been experiencing dizziness and HBP intermittently for the past week. He noted that he has no history of HBP and his dizziness has been making it difficult to focus. Additionally, he has blurred vision. He denies any lightheadedness and headache, and finds it difficult to characterize his dizziness, though it does not sound like pre- syncope or vertigo. Patient stated that the dizziness and blurred vision has been constant for the past week. He additionally denies any nausea, vomiting, CP , abdominal pain, numbness, or weakness. Patient can ambulate with a walker/ cane. Patient has a stimulator for his brain. - History of Current Complaint Chief Complaint: EDHypertension Stated Complaint: HIGH BP, LEFT ARM NUMBNESS Time Seen by Provider: 02/20/18 18:30 Hx Obtained From: Patient Onset/Duration: Started Weeks Ago, Still Present Timing: Constant Aggravating Factor(s): Nothing Alleviating Factor(s): Nothing Associated Signs & Symptoms: Dizziness - Allergies/Home Medications Allergies/Adverse Reactions: Allergies Allergy/AdvReac Type Severity Reaction Status Date / Time Adhesive Tape Allergy Severe Rash Verified 02/20/18 18:17 Home Medications: Home Medications Ascorbic Acid TAB* [Vitamin C TAB*] 1,000 mg PO DAILY 02/20/18 [History Confirmed 02/20/18] Cholecalciferol (Vitamin D3) [Vitamin D3] 2,000 unit PO DAILY 02/20/18 [History Confirmed 02/20/18] Magnesium Oxide [Magnesium] 400 mg PO DAILY 02/20/18 [History Confirmed 02/20/18 ] Melatonin 10 mg PO BEDTIME 02/20/18 [History Confirmed 02/20/18] Potassium 99 mg PO DAILY 02/20/18 [History Confirmed 02/20/18] Sertraline* [Zoloft*] 50 mg PO QAM 02/20/18 [History Confirmed 02/20/18] Vitamin E CAP* 400 unit PO DAILY 02/20/18 [History Confirmed 02/20/18] Carbidopa/Levodopa [Carbidopa-Levodopa 25-100 Tab] 1.5 tab PO DAILY@0600 [History Confirmed 02/21/18] Carbidopa/Levodopa [Carbidopa-Levodopa 25-100 Tab] 2 tab PO TID@0930,1230,1900 02/21/18 [History Confirmed 02/21/18] Carbidopa/Levodopa [Carbidopa-Levodopa 25-100 Tab] 2.5 tab PO DAILY@1500 [History Confirmed 02/21/18] PMH/Surg Hx/FS Hx/Imm Hx Endocrine/Hematology History: Denies: Hx Diabetes, Hx Thyroid Disease Cardiovascular History: Reports: Hx Angina Denies: Hx Congestive Heart Failure, Hx Coronary Artery Disease, Hx Hypercholesterolemia, Hx Hypertension, Hx Myocardial Infarction, Hx Pacemaker/ ICD, Hx Valvular Heart Disease, Other Cardiovascular Problems/Disorders Respiratory History: Denies: Hx Asthma, Hx Chronic Obstructive Pulmonary Disease (COPD) GI History: Reports: Hx Gastroesophageal Reflux Disease Denies: Hx Ulcer Musculoskeletal History: Reports: Other Musculoskeletal History - sprained ankle right- wears a boot Denies: Hx Rheumatoid Arthritis, Hx Osteoporosis Sensory History: Reports: Hx Cataracts, Hx Contacts or Glasses Denies: Hx Eye Injury, Hx Hearing Aid Opthamlomology History: Reports: Hx Cataracts, Hx Contacts or Glasses Denies: Hx Eye Injury Neurological History: Reports: Other Neuro Impairments/Disorders - parkinsons / DBS in place cannot have a MRI Psychiatric History: Reports: Hx Depression - Cancer History Cancer Type, Location and Year: melanoma Hx Chemotherapy: No - Surgical History Surgery Procedure, Year, and Place: TURP, melanoma, deep brain stimulation, BILAT CATARACT SURGERY 07/2016 Hx Anesthesia Reactions: No Infectious Disease History: No Infectious Disease History: Denies: Hx Clostridium Difficile, Hx Hepatitis, Hx Human Immunodeficiency Virus (HIV), Hx Shingles, Hx Tuberculosis, Hx Known/Suspected VRE, Hx Known/ Suspected VRSA, History Other Infectious Disease, Traveled Outside the [place] in Last 30 Days - Family History Known Family History: Positive: Cardiac Disease, Hypertension - Social History Alcohol Use: None Alcohol Amount: 1/2 glass of wine at dinner Hx Substance Use: No Substance Use Type: Reports: None Hx Tobacco Use: No Smoking Status (MU): Never Smoked Tobacco Review of Systems Negative: Fever Positive: Blurred Vision Positive: Other - POSITIVE: HBP. Negative: Chest Pain Negative: Abdominal Pain, Vomiting, Nausea Neurological: Other - POSITIVE: DIZZINESS; NEGATIVE: LIGHTHEADEDNESS Negative: Headache, Weakness, Numbness All Other Systems Reviewed And Are Negative: Yes Physical Exam - Summary Physical Exam Summary: Appearance: Well-appearing with parkinsonian facies and that affect Skin: Warm, dry, no obvious rash Eyes: sclera anicteric, no conjunctival pallor ENT: mucous membranes moist, pharynx appears normal Neck: Supple, nontender Respiratory: Clear to auscultation, no signs of respiratory distress Cardiovascular: Normal S1, S2. No murmurs. Normal distal pulses in tibial and radial bilaterally. Abdomen: Soft, nontender, normal active bowel sounds present Musculoskeletal: Normal, Strength/ROM Intact, Motor function in all 4 extremities is normal and symmetric. There is no rigidity or tremor noted. Neurological: A&Ox3, awake and alert, mentation is normal, speech is fluent and appropriate, Level of consciousness nml. The patient is alert and oriented. Gaze is conjugate and without nystagmus. Peripheral vision is intact to confrontation. There are no gross sensory abnormalities to light touch. There is no truncal or fine motor ataxia. Gait is normal. Patient is able to stand with assistance; wide says this is patient's baseline. Psychiatric: affect is normal, does not appear anxious or depressed GCS: 15 Triage Information Reviewed: Yes Vital Signs On Initial Exam: Initial Vitals Temp Pulse Resp BP Pulse Ox 97.3 F 57 16 171/94 100 02/20/18 18:11 02/20/18 18:11 02/20/18 18:11 02/20/18 18:11 02/20/18 18:11 Vital Signs Reviewed: Yes - Robertson Coma Scale Best Eye Response: 4 - Spontaneous Best Motor Response: 6 - Obeys Commands Best Verbal Response: 5 - Oriented Coma Scale Total: 15 Diagnostics - Vital Signs Vital Signs Temp Pulse Resp BP Pulse Ox 02/20/18 18:11 97.3 F 57 16 171/94 100 - Laboratory Result Diagrams: 02/21/18 06:23 02/21/18 06:28 Lab Statement: Any lab studies that have been ordered have been reviewed, and results considered in the medical decision making process. - CT BRAIN CT CT Interpretation Completed By: Radiologist Summary of CT Findings: No acute intracranial hemorrhage. No acute interval changes in comparison to the prior study. ED PHYSICIAN REVIEWED THIS RADIOLOGY REPORT. - EKG 1926 Cardiac Rate: Bradycardia - 50 BPM EKG Rhythm: Sinus Bradycardia - 50 BPM Summary of EKG Findings: sinus bradycardia of 50 BPM, P waves, QRS complex, and T waves are within normal limits, T waves and intervals are normal, no ischemic changes. This is a normal EKG. Hypertension Course/Dx - Course Course Of Treatment: A 72 y/o male accompanied by his presents to the ED c/ o HBP and dizziness. According to the patient, he has been experiencing dizziness and HBP intermittently for the past week. He noted that he has no history of HBP and his dizziness has been making it difficult to focus. Additionally, he has blurred vision. He denies any lightheadedness and headache , and finds it difficult to characterize his dizziness, though it does not sound like pre-syncope or vertigo. Patient stated that the dizziness and blurred vision has been constant for the past week. He additionally denies any nausea, vomiting, CP, abdominal pain, numbness, or weakness. Patient can ambulate with a walker/cane. Patient has a stimulator for his brain. Physical examination findings significant for well-appearing with parkinsonian facies and that affect, patient is able to stand with assistance; wide says this is patient's baseline. A Brain CT revealed no acute intracranial hemorrhage. No acute interval changes in comparison to the prior study. GCS: 15. An EKG revealed sinus bradycardia of 50 BPM, P waves, QRS complex, and T waves are within normal limits, T waves and intervals are normal, no ischemic changes. Hematology, Chemistry, and urinalysis screens were done. No significant laboratory abnormalities were found. In the ED course, the patient received no medications. Patient care was discussed with hospitalist, Dr. Graciela Stnaton, who accepts patient for admission. Patient will be admitted with a diagnosis of hypertensive urgency. Patient is agreeable with this plan. - Diagnoses Provider Diagnoses: Hypertensive urgency - Physician Notifications Discussed Care Of Patient With: Graciela Stanton Time Discussed With Above Provider: 20:36 Instructed by Provider To: Other - WILL EVAULATE PATIENT FOR ADMISSION. 2100 - ACCEPTS PATIENT FOR ADMISSION. Discharge - Sign-Out/Discharge Documenting (check all that apply): Patient Departure - ADMIT, Sign-Out Patient - DELMER Signing out patient TO: Graciela Stanton Receiving patient FROM: Abdulaziz Lee - Discharge Plan Condition: Stable Disposition: ADMITTED TO [facility] - Billing Disposition and Condition Condition: STABLE Disposition: Admitted to [facility] - Attestation Statements Document Initiated by Sylvia: Yes Documenting Scribe: Benjamin Juarez Provider For Whom Sylvia is Documenting (Include Credential): Abdulaziz Lee MD Scribe Attestation: Benjamin Alvarado, irlandaed for Abdulaziz Lee MD on 02/25/18 at 1027. Scribe Documentation Reviewed: Yes Provider Attestation: The documentation as recorded by the Benjamin kendrick accurately reflects the service I personally performed and the decisions made by me, Abdulaziz Lee MD Status of Scrjunito Document: Viewed
[2018-02-20 19:09] LABS: ABS Basophils 0 10^3/ul (0-0.2); ABS Eosinophils 0.4 10^3/ul (0-0.6); ABS Lymphocytes 1.7 10^3/ul (1.0-4.8); ABS Monocytes 0.5 10^3/ul (0-0.8); ABS Neutrophils 2.7 10^3/ul (1.5-7.7); ABS Nucleated RBC 0 10^3/ul; Eosinophil % 7.7 %; Hematocrit 40 % (42-52); Hemoglobin 13.4 g/dl (14.0-18.0); Lymphocyte % 31.7 %; Mean Corpuscular HGB Conc 34 g/dl (31-36); Mean Corpuscular Hemoglobin 31 pg (27-31); Mean Corpuscular Volume 91 fL (80-94); Mean Platelet Volume 7.7 fL (7.4-10.4); Nucleated Red Blood Cells % 0.1; Platelet Count 205 10^3/ul (150-450); Red Blood Count 4.39 10^6/ul (4.00-5.40); Red Cell Distribution Width 14 % (10.5-15); White Blood Count 5.4 10^3/ul (3.5-10.8)
[2018-02-20 19:23] LABS: Albumin 4.5 g/dL (3.2-5.2); BUN/Creatinine Ratio 16.5 (8-20); Calcium 9.6 mg/dL (8.6-10.3); EGFR Non-African American 62.5 (>60); Globulin 2.2 g/dL (2-4); Potassium 4.1 mmol/L (3.5-5.0); Total Bilirubin 1.2 mg/dL (0.2-1.0); Total Protein 6.7 g/dL (6.4-8.9)
[2018-02-20 19:55] LABS: Urine Appearance Clear; Urine Bilirubin Negative (Negative); Urine Blood Negative (Negative); Urine Color Straw; Urine Glucose Negative (Negative); Urine Ketones Negative (Negative); Urine Nitrite Negative (Negative); Urine Protein Negative (Negative); Urine Specific Gravity 1.005 (1.010-1.030); Urine Urobilinogen Negative (Negative)
[2018-02-20] MEDS ORDERED: Ondansetron INJ* 2 MG/ML VIAL IV PRN (21:36)
[2018-02-20] MEDS ORDERED: Acetaminophen TAB* 325 MG PO PRN (21:36)
[2018-02-20] MEDS ORDERED: Aspirin 81 mg CHEW TAB* 81 MG TAB.CHEW PO ONE (21:54)
[2018-02-20] MEDS ORDERED: Carbidopa/Levodop CR 50/200(*) TAB.CR PO SCH (22:00)
[2018-02-20] MEDS: Heparin VIAL(*) 5000 UNITS/ML VIAL (FIVE THOUSAND) SUBCUT SCH (23:19)
--- NOTE | 2018-02-21 01:29 | HP ---
CC: Dr. Jose Johnson; Dr. Itz Remy * ADMISSION HISTORY AND PHYSICAL: DATE OF ADMISSION: 02/20/18 PRIMARY CARE PROVIDER: Dr. Jose Johnson. OUTPATIENT LEAD DEVELOPER: Dr. Itz Remy. MY ATTENDING WHILE IN THE HOSPITAL: Dr. Graciela Stanton.* (DICTATED BY SAMMY HELM) CHIEF COMPLAINT: High blood pressure for 1 week and numbness in left arm. HISTORY OF PRESENT ILLNESS: Mr. Bueno is a 72-year-old male with a past medical history significant for severe Parkinson's disease with deep brain stimulator, severe orthostatic hypotension, who presents to the emergency department after he had been seen by his neurologist, Dr. Anmol Remy, on 02/13/18 with persistent symptoms of orthostatic hypotension and falls. The patient was on Florinef 0.1 mg p.o. daily at that point and it was increased to 0.2 mg p.o. daily at that time and immediately the patient began to see his blood pressure go up to the 150s/90s per his . His Florinef at this time was stopped, but his blood pressure stayed in that same range. Since then, the patient has been having continued issues with falls, which he describes as losing his balance. The patient denies syncope, but denies to this author dizziness, the patient just feels like he loses his balance. The patient denies chest pain, shortness of breath, fevers, or chills. The patient has no changes in his vision, headache. The patient had recent falls with pain and weakness in his right knee and left elbow. The patient states that today his numbness began suddenly at approximately 6 p.m. and incorporated the entirety of his distal left upper extremity and remained constant until began to dissipate as he came to the emergency department. The patient described the sensation as pins and needle sensation as if his arm had fallen asleep. The patient denies other pain in his elbow. The patient has been having swelling in his lower extremities on and off for 1 year. The patient denies other shortness of breath or dyspnea on exertion. Besides the Florinef above, the patient has not had any change in his medications and has been taking his Parkinson's medications as prescribed. Due to the concern for high blood pressure and new onset of focal neurologic deficits, we were asked to evaluate the patient for admission. PAST MEDICAL HISTORY: Parkinson's disease, status post deep brain stimulator, macular degeneration, orthostatic hypotension, melanoma with excision, BPH. PAST SURGICAL HISTORY: DBS placement, TURP, melanoma excision. MEDICATIONS ON ADMISSION: 1. Fiber formula 1 cap p.o. daily. 2. Calcium citrate 200 mg p.o. every other day. 3. Ubidecarenone 60 mg p.o. b.i.d. 4. Theragran mineral 1 tab p.o. daily. 5. Carbidopa/levodopa CR 500/200 one tab p.o. nightly. 6. Carbidopa/levodopa 25/100 fct-urw-e-half tabs at 0600, 2 tabs at 0930, 2 tabs at 1230, 2-1/2 tabs at 1530, and 2 tabs at 1700. 7. Sertraline 50 mg p.o. q.a.m. 8. Melatonin 10 mg p.o. at bedtime. 9. Magnesium oxide 400 mg p.o. daily. 10. Vitamin D3 2000 units p.o. daily. 11. Ascorbic acid 1000 mg p.o. daily. 12. Vitamin E 400 units p.o. daily. 13. Potassium 99 mg p.o. daily. ALLERGIES: ADHESIVE TAPE. FAMILY HISTORY: The patient's mother of a stroke. The patient's father of an [place]. The patient has a brother who is healthy. SOCIAL HISTORY: The patient has never smoked. The patient drinks occasional alcohol. The patient has never used illicit drugs. 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 The patient is and has 3 children. The patient's surrogate decision maker will be his , Chloe Bueno. REVIEW OF SYSTEMS: A 14-point review of systems was reviewed with the patient and is negative except as above in the HPI. PHYSICAL EXAMINATION GENERAL: The patient is a 72-year-old male with mask-like facies, who is sitting comfortably in bed, in no acute distress. VITAL SIGNS: Temperature 97.3, pulse rate 55, respiratory rate 17, oxygen saturation 100% on room air, blood pressure 182/98. HEENT: Head: Normocephalic, atraumatic. Sclerae anicteric. No conjunctival injection. Nasal mucosa moist. Oral mucosa moist. No pharyngeal erythema, discharge, or exudate. NECK: Supple, nontender. No lymphadenopathy. No carotid bruits auscultated. No JVD. RESPIRATORY: Clear to auscultation bilaterally. No wheezes, rales, or rhonchi. Good air exchange bilaterally. CARDIAC: Regular rate and rhythm. No clicks, murmurs, gallops, or rubs. Pulses are 2+ in the bilateral dorsalis pedis, posterior tibialis, and radial areas. ABDOMEN: Soft, nontender, nondistended. Bowel sounds present and normoactive in all 4 quadrants. No hepatosplenomegaly. No abdominal bruits auscultated. No hepatojugular reflux. GENITOURINARY: No suprapubic or CVA tenderness. NEUROLOGIC: Cranial nerves II through XII intact. The patient has weakness in his left shoulder shrug, but states that he recently dislocated that shoulder in a fall. The patient has intact sensation to light touch, pinprick and cold in the bilateral forearms, comparatively slightly diminished on the left side. The patient's symptoms are exacerbated by a left-sided Tinel's sign at the elbow. The patient has bradykinesia. Cerebellar testing performed without difficulty, minor tremor. No other focal deficits. Reflexes 1+ in the bilateral biceps, patellar and Achilles areas. SKIN: Clean, dry, and intact. No rash. DIAGNOSTIC STUDIES/LAB DATA: White blood cell count of 5.4, hemoglobin 13.4, platelet count 205. Sodium 136, potassium 4.1, chloride 104, carbon dioxide 29 , anion gap 3, BUN 19, creatinine 1.15, glucose 89, calcium 9.6. Bilirubin 1.2 , AST 25, ALT 4, alkaline phosphatase 51. Protein 6.7, albumin 4.5, globulin 2.2. Urine unremarkable. Studies: Electrocardiogram shows normal sinus rhythm, normal axis, and hypertrophy enlargement. No ST-segment abnormalities for early repolarization of V1, V2, V3. electrical interference deep brain stimulator. No significant changes from previous exam. Brain CT read as no acute intracranial hemorrhage, no acute interval changes in comparison to prior studies. ASSESSMENT AND PLAN: Impression: Mr. Bueno is a 72-year-old male with past medical history significant for severe Parkinson's disease, orthostatic hypotension, who has recently had his Florinef increased with resultant supine hypertension, which has not resolved with discontinuation of the patient's medication. The patient today had sudden onset of left forearm numbness and tingling, which is now improving. The patient has a positive Tinel's sign. The patient remains hypertensive and will be admitted to the hospital for close observation for hypertensive urgency and possibility of transient ischemic attack. 1. Left arm numbness, possible transient ischemic attack. The patient has left arm numbness, which is currently decreasing. The patient has a positive Tinel's sign on this arm and has recently had a fall, in which he injured this elbow. This is very possibly a peripheral nerve palsy; however, given that the patient described it as encompassing the entirety of his left forearm, this is not confined to the ulnar nerve territory. The patient has no changes on CT of his head. This case was discussed with Dr. Mignon Chappell of Neurology who recommended admitting the patient to the hospital for observation and risk stratification, but to hold off on a CT of the head and neck or cervical spine until the patient is able to be evaluated by his neurologist, Dr. Anmol Remy who will be present tomorrow. TPA will not be given due to the uncertainty of the patient's diagnosis and his low NIH stroke scale. The patient will not be treated for his blood pressure at this time. The patient will be monitored closely for worsening hypertension or hypotension, which may exacerbate possible transient ischemic attack symptoms. The patient will be given aspirin full dose and then 81 mg p.o. daily. Plavix will not be started at this time. The patient will have echocardiogram with bubble study. The patient is unable to have an MRI. Other imaging and workup pending neurological consultation. 2. Hypertension. The patient is usually very hypotensive. It is unclear why the patient is still hypertensive after the discontinuation of his Florinef. We will continue to have his Florinef held. The patient will not be given fluids and we will have his blood pressure watched closely. If the patient's blood pressure goes over 200/100, reevaluation should be given to treating his hypertension. Any treatment of the patient's hypertension should be taken with extreme caution due to his history of profound orthostatic hypotension. 3. Parkinson's disease. Continue the patient's home dosing of his Sinemet. The patient will have physical therapy and occupational therapy while in the hospital. 4. DVT prophylaxis: The patient will have heparin subcu. 5. Fluids, electrolytes, nutrition: The patient will have no fluids and heart - healthy diet without caffeine. The patient has moderate baseline dysphagia, but has no signs of aspiration pneumonia. 6. Code status: The patient would like to be a full code. The patient's surrogate decision maker will be his as above. 7. Disposition. The patient is admitted to observation. TIME SPENT: Approximately 60 minutes was spent on the admission of this patient , 30 of which was spent [id number] with the patient and his family obtaining history and physical and discussing treatment plan. Plan was discussed with my attending, Dr. Graciela Stanton, and she is in agreement. SAMMY HELM [id number]/CPS #: [id number] MTDD
[2018-02-21] MEDS: Heparin VIAL(*) 5000 UNITS/ML VIAL (FIVE THOUSAND) SUBCUT SCH ×3 (05:26→21:13)
[2018-02-21] MEDS ORDERED: Carbidopa/Levodop 25/100 MG TAB(*) PO SCH ×2 (06:00→15:00)
[2018-02-21 06:40] LABS: ABS Basophils 0 10^3/ul (0-0.2); ABS Eosinophils 0.4 10^3/ul (0-0.6); ABS Lymphocytes 1.9 10^3/ul (1.0-4.8); ABS Monocytes 0.4 10^3/ul (0-0.8); ABS Neutrophils 2.9 10^3/ul (1.5-7.7); ABS Nucleated RBC 0 10^3/ul; Eosinophil % 6.3 %; Hematocrit 41 % (42-52); Hemoglobin 13.9 g/dl (14.0-18.0); Lymphocyte % 33.7 %; Mean Corpuscular HGB Conc 34 g/dl (31-36); Mean Corpuscular Hemoglobin 31 pg (27-31); Mean Corpuscular Volume 90 fL (80-94); Mean Platelet Volume 7.5 fL (7.4-10.4); Nucleated Red Blood Cells % 0; Platelet Count 191 10^3/ul (150-450); Red Blood Count 4.52 10^6/ul (4.00-5.40); Red Cell Distribution Width 14 % (10.5-15); White Blood Count 5.6 10^3/ul (3.5-10.8)
[2018-02-21 06:57] LABS: BUN/Creatinine Ratio 16.4 (8-20); Calcium 9.7 mg/dL (8.6-10.3); EGFR Non-African American 61.9 (>60); HDL Cholesterol 52.8 mg/dL; Potassium 3.9 mmol/L (3.5-5.0)
[2018-02-21] MEDS ORDERED: Iohexol 350* (CONTRAST) 500 ML MDV IV SCH (07:51)
[2018-02-21] MEDS: Ascorbic Acid TAB* 500 MG PO SCH (09:08)
[2018-02-21] MEDS: Carbidopa/Levodop 25/100 MG TAB(*) PO SCH ×3 (09:08→18:50)
[2018-02-21] MEDS: Cholecalciferol TAB* 1000 UNITS PO SCH (09:08)
[2018-02-21] MEDS: Magnesium Oxide TAB* 400 MG PO SCH (09:08)
[2018-02-21] MEDS: Vitamin E CAP* 400 UNIT PO SCH (09:08)
[2018-02-21] MEDS: Sertraline* 50 MG TAB PO SCH (09:08)
[2018-02-21] MEDS: Multivitamins/Minerals TAB PO SCH (09:08)
[2018-02-21] MEDS: Aspirin EC TAB* 81 MG TAB.EC PO SCH (09:08)
[2018-02-21] MEDS: COENZYME Q10 600 MG PO SCH ×2 (09:10→21:13)
--- NOTE | 2018-02-21 10:18 | ECHO ---
Patient: ALETHEA KENNY [facility] Rec#: [id number] : 1945 Date: 02/21/2018 Age: 72y Height: 185 cm / 72.8 in Weight: 88.5 kg / 195.1 lbs Sex: M BSA: 2.1 Room#: 436 Admit Date#: 02/20/2018 Type: Inpatient Referring: Jadon Grissom Reading: Kyung Goldstein MD Button Tufter: Susie Pulido RN RDCS CC: Jose Johnson MD Transthoracic Echocardiogram Indication: TIA BP: 149/82 HR: 54 Rhythm: Bradycardia Findings History: Severe Parkinson's disease, orthostatic hypotension Technical Comments: The study quality is fair. The study is technically limited due to poor apical windows. Completed at 0905. Left Ventricle: The left ventricular chamber size is normal. Mild concentric left ventricular hypertrophy is observed. Global left ventricular wall motion and contractility are within normal limits. There is normal left ventricular systolic function. The estimated ejection fraction is 55-60%. There is no consistent Doppler evidence of clinically significant diastolic dysfunction. Left Atrium: The left atrial chamber size is normal. Right Ventricle: The right ventricular chamber size and systolic function are within normal limits. Right Atrium: The right atrial cavity size is normal. The bubble study is negative. A patent foramen ovale is not demonstrated with color Doppler and agitated contrast. Aortic Valve: The aortic valve is trileaflet. The aortic valve leaflets are mildly thickened. There is trace to mild aortic regurgitation. There is no evidence of aortic stenosis. Mitral Valve: Mild mitral annular calcification present. The mitral valve leaflets are mildly thickened. There is mild mitral regurgitation. There is no evidence of mitral stenosis. Tricuspid Valve: The tricuspid valve leaflets are normal. There is trace to mild tricuspid regurgitation. Unable to estimate the right ventricular systolic pressure. There is no tricuspid stenosis. Pulmonic Valve: The pulmonic valve structure is not well visualized. There is no evidence of pulmonic regurgitation. There is no pulmonic stenosis. Pericardium: There is no significant pericardial effusion. Aorta: There is no dilatation of the ascending aorta. There is no dilatation of the aortic arch. There is no dilation of the aortic root. Pulmonary Artery: The main pulmonary artery is not well visualized. Venous: The venous system is not well visualized. The inferior vena cava is not visualized. Contrast: Normal saline was used as contrast for the bubble study. Images 19 and 20. Summary: There was not any prior study for comparison. Conclusions The left ventricular chamber size is normal. Mild concentric left ventricular hypertrophy is observed. There is normal left ventricular systolic function. The estimated ejection fraction is 55-60%. There is no consistent Doppler evidence of clinically significant diastolic dysfunction. A patent foramen ovale is not demonstrated with color Doppler and agitated contrast. There is trace to mild aortic regurgitation. There is mild mitral regurgitation. There is trace to mild tricuspid regurgitation. Measurements Name Value Normal Range RVDdMajor (2D) 3.7 cm (2.2 - 4.4) RAd ISD 4CH 4.8 cm (3.4 - 4.9) RA (A4C)W 4.1 cm (2.9 - 4.6) IVSd (2D) 1.2 cm (0.6 - 1) LVPWd (2D) 1.2 cm (0.6 - 1) LVIDd (2D) 4.9 cm (3.6 - 5.4) LVIDs (2D) 3.6 cm - LV FS (2D) 27 % (25 - 45) Aortic Annulus 2.1 cm (1.4 - 2.6) Ao root diameter (2D) 3.1 cm (2.1 - 3.5) Ascending Ao 3.2 cm (2.1 - 3.4) Aortic arch 2.4 cm (1.8 - 3.4) LA dimension (AP) 2D 3.7 cm (2.3 - 3.8) LAd ISD 4CH 4.5 cm (2.9 - 5.3) LA ISD 4CH W 4.4 cm (2.5 - 4.5) Name Value Normal Range LA ESV BP (A/L) index 28.5 ml/m2 - Name Value Normal Range MV E-wave Vmax 0.55 m/sec - MV deceleration time 218 msec - MV A-wave Vmax 0.58 m/sec - MV E:A ratio 0.9 ratio - LV septal e' Vmax 0.05 m/sec - LV lateral e' Vmax 0.05 m/sec - LV E:e' septal ratio 11 ratio - LV E:e' lateral ratio 11 ratio - Name Value Normal Range AV Vmax 0.85 m/sec - AV VTI 21.2 cm - AV peak gradient 3 mmHg - AV mean gradient 2 mmHg - LVOT Vmax 0.67 m/sec - LVOT VTI 15.4 cm - LVOT peak gradient 2 mmHg - LVOT mean gradient 1 mmHg - JAMAL Vmax 0.52 m/sec - Name Value Normal Range PV Vmax 0.55 m/sec -
--- NOTE | 2018-02-21 13:25 | CONS ---
CC: Dr. Jose Johnson; Itz eRmy MD * CONSULTATION REPORT: DATE OF CONSULT: 02/21/18 LOCATION: He is currently in room 436. PRIMARY CARE PROVIDER: Dr. Jose Johnson. REASON FOR CONSULT: Acute onset left arm numbness, Parkinson's disease with deep brain stimulator. HISTORY OF PRESENT ILLNESS: Mr. Bueno is a 72-year-old gentleman that I follow in clinic. He has a history of a deep brain stimulator placed some time ago with battery change. It was initially placed in 2014. Overall, his Parkinson disease has been generally well controlled. He has never really had much of a tremor. His current Parkinson regimen includes: 1. Carbidopa/levodopa 25/100 regular release 1.5 at 6 a.m., 2 at 9:30, 2 at 12: 30, 2.5 at 3:30, and 2 at 7. 2. Carbidopa/levodopa 50/200 ER at bedtime. In the past, he has been on fludrocortisone initially 0.1 mg per day for symptomatic hypotension, that was increased recently to 0.2 mg once a day for continued hypotension and lightheadedness back on 02/12/18. Since that time, he has been having episodes of high blood pressure and we have been speaking with him in clinic over the last week and have initially reduced his Florinef back to 0.1 mg with persistent hypertension, subsequently stopped the Florinef about a week ago and he has had persistent hypertension as well. He has a history of falls, most recently he feel yesterday. He does not generally pass out, but feels weak. Yesterday, he was walking when he turned and tripped and fell. He denies any head trauma, any neck trauma, any neck pain. Overall, his Parkinson's is generally well controlled. His controls his constipation with prunes and dates. He has had no recent weight loss and his appetite has been good. Overall, he has had no significant issue swallowing. He takes mannitol to help relax the muscles in his throat, which has been successful for him. He has done that for about 2 years. He takes melatonin at night to help him sleep. Occasionally, he will have some freezing, but since the DBS was placed and his medications have been adjusted, his freezing is stable. He does occasionally have some hallucinations when he sleeps, vivid dreams. Yesterday, he was in his usual state of health and suddenly developed left arm numbness and tingling from the elbow down. He states that he has had this intermittently. The last time was 2 to 3 days prior. When I spoke with his this morning on the phone, she denied that and says that this is not a regular occurrence. He also notes having some occasional numbness and tingling in his right toes, although his was unaware of this. He tells me that he eats a banana and that typically helps. He states that the tingling lasted for 3 to 4 hours. He came to the ER for evaluation and the tingling slowly improved. His symptoms started at around 6 p.m. It was circumferential around his left arm from the elbow down and he noted that it felt like it was falling asleep with pins and needles. His states that he did fall a week or so ago and hit his left elbow, but they did not take him in for any evaluation at that time. His blood pressures at home have been [facility] He specifically denies any headaches, vision changes, no arm symptoms , no facial droop, no specific worsening of his Parkinson's disease. He denies any nausea, vomiting, diarrhea, recent illnesses, chest pain, shortness of breath above his baseline. No new problem swallowing. He otherwise feels like he is in his usual state of health. This morning, he was sitting up in his bed , about to get his echocardiogram. He is feeling well. He states he has a tiny bit of numbness over his left thumb, but otherwise the tingling in his left arm has resolved and has not recurred. We have not made any recent changes to his DBS and he notes no other significant new neurologic symptoms. PAST MEDICAL HISTORY: Includes Parkinson's disease with a deep brain stimulator. He has a history of melanoma in the past, BPH, orthostatic hypotension, macular degeneration, hypothyroidism, and also some memory issues. PAST SURGICAL HISTORY: Includes melanoma excision, TURP, and DBS placement. MEDICATIONS AT HOME: Include: 1. Sinemet regimen as noted above. 2. He takes sertraline 50 mg half a tablet every day, which helps with his . 3. Takes potassium once a day as needed. 4. CoQ10. 5. Calcium citrate. 6. Vitamin D3. 7. Magnesium. 8. Flax seed oil. 9. Multivitamin. 10. SAVision. 11. FiberCon. 12. Vitamin E. 13. Melatonin at bedtime. 14. Levothyroxine 25 mcg. 15. Fludrocortisone, he is now off of that. ALLERGIES: He has allergy to ADHESIVE TAPE. FAMILY HISTORY: Significant for mother with a stroke. Father with heart disease and [place]. SOCIAL HISTORY: He lives at home with his . He denies any smoking in the past or currently. He will have a drink now and then, but no heavy alcohol use. No illicit drug use. Retired teacher. Surrogate decision maker is his . REVIEW OF SYSTEMS: Review of systems in 14-organ systems as noted above in the HPI, otherwise negative. PHYSICAL EXAM: Vital Signs: His blood pressures have been running elevated overnight. When he arrived in the ER 171/94, blood pressures have generally been in the 160s to 180s over 90s, in one point his diastolic was 107, this morning he is 149/82; he has been afebrile, heart rate of 58 to 71, respiratory rate of 16, O2 sat of 98%. General: He is a well-nourished, well-developed gentleman. He is his sitting up in his hospital bed. He is pleasant, well dressed, well groomed. HEENT: He is normocephalic and atraumatic. Sclerae are anicteric. Mucous membranes are moist. Oropharynx is clear. Neck is generally supple. No thyromegaly. No carotid bruits. Chest is clear to auscultation bilaterally. Cardiovascular: Regular rate and rhythm without murmurs. Abdomen is nontender and nondistended. Extremities: There is no significant clubbing, cyanosis, or edema. 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 Skin is warm and dry. On neurologic exam, he is awake and alert, he is oriented this morning. His speech is fluent with some hypophonia. He has no dysarthria noted. He does have some decreased facial expression and decreased blink. Cranial Nerves: His pupils are equally round and reactive. Extraocular muscles intact. Visual simpson are full to confrontation. Face is symmetric. Sensation is intact. Tongue is midline. Palate is symmetric. He had a positive Tinel's at the left wrist. Negative at the elbows. Negative at the right wrist. Motor Exam: He spontaneous moves all extremities. He has well-preserved strength 5/5. His tone is normal. He is currently on medications, last dose was 6:30 this morning. He has no drift in his arms. No cogwheeling is present. [id number] is normal. Rapid alternating movements with pronation and supination in the upper extremities slower on the left than the right. There are no resting tremors or intention tremors bilaterally. Sensation: He states he has patch of numbness over his left abductor pollicis brevis, otherwise the sensation in his arms and legs is back to normal. No deficits. DTRs were down throughout. Equivocal Babinski. I did not ambulate him this morning, but generally he walks stooped with some shuffling, some difficulty getting up out of a chair with decreased arm swing bilaterally. DIAGNOSTIC STUDIES/LAB DATA: Imaging done: A CT of the head showed the deep brain stimulator leads unchanged. There was no evidence of acute infarct or intracranial hemorrhage. No change from prior study from 09/27/16. Electrocardiogram showed sinus bradycardia with poor data and some artifact. ASSESSMENT AND PLAN: Mr. Bueno is a 72-year-old gentleman with a known history of Parkinson's disease status post DBS placement in 2014, status post a recent battery change in November of 2017. He did well after the surgery. I saw him in clinic in February of 2018, at that time, he had been complaining of significant orthostatic hypotension and we were working on his Florinef. His Florinef had been increased from 0.1 to 0.2 mg, but subsequently he started to develop hypertension in the last few weeks and we have been talking to him on the phone and slowly reducing his Florinef. He went off of it several days ago , but has had persistent elevated blood pressures. His Parkinson's disease overall has been generally well controlled, although he has been falling some. No recent head trauma, no neck injury. He developed acute onset of left forearm tingling that was circumferential in nature. The patient did have a fall yesterday with no significant injury. He was brought to the ER where a CT of the head was done, showed no acute changes. The numbness and the tingling in his left arm resolved and he is this morning left with a small patch of left thumb tingling, but otherwise sensation is intact throughout. He notes that he occasionally has this problem, although he does have some cognitive challenges. His states that it is not the case. He also notes that he has occasional numbness and tingling in his right toes, this has been ongoing for some time that comes and goes and is better with potassium, his was unaware of this. There was some concern given his persistently elevated blood pressures, which are new for him that this could be a transient ischemic attack. He was admitted for further workup. He has been placed on aspirin. The plan is to get an echocardiogram. I will order a CT angiogram of the head and neck. I am going to check some additional lab work including B12, folate, TSH, free T4, and homocystine. Physical therapy and occupational therapy are to see him. We will monitor his blood pressure at this point. I agree with medicine's assessment that we need to be careful with aggressive treatment of his blood pressure given his extensive history of hypotension, but I will treat any blood pressure greater than 180 or 190/100. I am going to get orthostatics on the patient. Given the fact that he has a deep brain stimulator, I do think that aspirin is okay, but we will not use dual antiplatelet. I do not think at this point an MRI is absolutely necessary, although we could consider this. It is possible to get an MRI with a deep brain stimulator, but I am not clear that this was a transient ischemic attack given his reported history of similar symptoms in the past that are relatively frequent in nature. 2. Parkinson's disease. This is generally well controlled with his DBS and medication regimen. He has been placed on his home medication regimen. I have reviewed that and I want to keep it where it is. No changes to his DBS. We made no adjustments at this last visit. 3. Hypotension versus hypertension. The patient has suffered for sometime with hypotension to the point that he is symptomatic. At his last [facility] movement disorder visit, medication was suggested. Midodrine was suggested for symptomatic hypotension. He was subsequently put on Florinef 0.1 and did okay, but was continuing to have some hypotensive episodes when I saw him in clinic. Several weeks ago, we increased his Florinef to 0.2 mg, but he subsequently started to develop hypertension and his blood pressures have been consistently elevated since then. We have since come down and stopped the Florinef with no improvement of his blood pressure. At this point, we will obviously hold the Florinef, get the echocardiogram to make sure he does not have any evidence of congestive heart failure, which may be exacerbating hypertension. Other considerations would be renal artery stenosis, could consider pheochromocytoma, although this would be very unusual. Dietary changes , although there has been no recent increase in salt. It is common for Parkinson's patients to have labile blood pressures with episodes of hypertension and episodes of hypotension. This can often be extremely difficult to manage, so this is something we will continue to follow closely. If his blood pressures do not normalize, we will consider additional workup. 3. Cognitive status. This appears to be stable at this time. No workup for now. 4. History of DBS placement with recent battery change. He tolerated the recent battery change well. At the last visit, we interrogated his DBS, which was working well, no changes. 5. History of some depression and sundowning at night. He is on sertraline and this seems to control his symptoms well. No changes. 6. He reports taking mannitol for swallowing issues, which is unusual. He states that the mannitol has greatly helped his swallowing and that with that medication he has had no issues with chocking. Mannitol, I suppose could increase blood pressure as well and this is something we need to consider. For now, I am not going to make any changes as this has helped him. 7. We will get physical therapy and occupational therapy. I will also get speech therapy to do a swallowing evaluation. 8. Constipation. This is well controlled at home with prunes and dates. 9. Falls. We will get physical therapy to evaluate. I do think he would benefit from some outpatient physical therapy as well. 10. He is on DVT prophylaxis. 11. He is a full code. Surrogate decision maker is his . TIME SPENT: I spent approximately 60 minutes on this consultation, 30 of which was spent [id number] with the patient discussing his workup and treatment. I will continue to follow him closely and make further recommendations as necessary. Thank you for the opportunity to participate in the care of this very interesting patient. [id number]/[facility] #: [id number] [place]
[2018-02-21 14:32] LABS: Free T4 0.77 ng/dL (0.61-1.12)
[2018-02-21 14:42] LABS: Folate > 20.00 ng/mL (>3.99)
--- NOTE | 2018-02-21 19:10 | PN ---
Subjective Date of Service: 02/21/18 Interval History: patient reports that left arm symptoms have resolved, denies headache. reports dizziness with standing . denies chest pain or shortness of breath. denies abd pain n/v/d. Patient seen and evaluated by PT recommended PT therapy - patient would like to do outpatient PT- patient and report this is his baseline Family History: Unchanged from Admission Social History: Unchanged from Admission Past Medical History: Unchanged from Admission Objective Active Medications: Acetaminophen (Tylenol Tab*) 650 mg PO Q6H PRN PRN Reason: FEVER/PAIN Ascorbic Acid (Vitamin C Tab*) 1,000 mg PO DAILY [facility] Last Admin: 02/21/18 09:08 Dose: 1,000 mg Aspirin (Aspirin Ec Tab*) 81 mg PO DAILY [facility] Last Admin: 02/21/18 09:08 Dose: 81 mg Carbidopa/Levodopa (Sinemet Cr 50/200(*)) 1 tab.cr PO DAILY@2200 [facility] Carbidopa/Levodopa (Sinemet 25/100 Tab(*)) 1.5 tab PO DAILY@0600 [facility] Carbidopa/Levodopa (Sinemet 25/100 Tab(*)) 2 tab PO TID@0930,1230,1900 [facility] Last Admin: 02/21/18 18:50 Dose: 2 tab Carbidopa/Levodopa (Sinemet 25/100 Tab(*)) 2.5 tab PO DAILY@1500 [facility] Last Admin: 02/21/18 14:52 Dose: 2.5 tab Cholecalciferol (Vitamin D Tab*) 2,000 units PO DAILY [facility] Last Admin: 02/21/18 09:08 Dose: 2,000 units Coenzyme Q10 (Coenzyme Q10 (Nf)) 1 cap PO BID [facility] Last Admin: 02/21/18 09:10 Dose: Not Given Heparin Sodium (Porcine) (Heparin Vial(*)) 5,000 units SUBCUT Q8HR [facility] Last Admin: 02/21/18 14:52 Dose: 5,000 units Iohexol (Omnipaque 350 (Contrast)-) 80 ml IV ONCE [facility] Stop: 02/23/18 07:50 Last Admin: 02/21/18 09:26 Dose: 80 ml Magnesium Oxide (Magox 400 Tab*) 400 mg PO DAILY [facility] Last Admin: 02/21/18 09:08 Dose: 400 mg Multivitamins/Minerals (Theragran/Minerals Tab*) 1 tab PO DAILY [facility] Last Admin: 02/21/18 09:08 Dose: 1 tab Ondansetron HCl (Zofran Inj*) 4 mg IV Q6H PRN PRN Reason: NAUSEA Sertraline HCl (Zoloft*) 50 mg PO QAM [facility] Last Admin: 02/21/18 09:08 Dose: 50 mg Vitamin E (Vitamin E Cap*) 400 unit PO DAILY [facility] Last Admin: 02/21/18 09:08 Dose: 400 unit Vital Signs - 8 hr 02/21/18 02/21/18 02/21/18 12:07 13:22 15:12 Temperature 98.6 F 97.7 F Pulse Rate 55 60 Respiratory 21 16 Rate Blood Pressure 111/64 118/72 133/75 (mmHg) O2 Sat by Pulse 97 97 Oximetry Oxygen Devices in Use Now: None Appearance: alert and oriented x 3 , no acute distress Ears/Nose/Mouth/Throat: Clear Oropharnyx, Mucous Membranes Moist Neck: NL Appearance and Movements; NL JVP, Trachea Midline Respiratory: Symmetrical Chest Expansion and Respiratory Effort, Clear to Auscultation Cardiovascular: NL Sounds; No Murmurs; No JVD, No Edema Abdominal: NL Sounds; No Tenderness; No Distention Extremities: No Edema, No Clubbing, Cyanosis Skin: No Rash or Ulcers Neurological: Alert and Oriented x 3 Nutrition: Taking PO's Result Diagrams: 02/21/18 06:23 02/21/18 06:28 Assess/Plan/Problems-Billing Assessment: Mr. Bueno is a 72 y.o male with pmhx significant for Parkinson, hypertension and orthostatic hypotension, falls who presented to the emergency room with left arm numbess and tingling and hypertension. - Patient Problems (1) Left arm numbness Status: Acute Code(s): R20.0 - ANESTHESIA OF SKIN SNOMED Code(s): 800417551 Comment: Nelurology consulted - CTA of the head completed - NAD -Suspect could be related to TIA -Lipid Profile completed - LDL 103- recommended statin therapy but patient declined- wanting to try diet modifications prior to starting statin therapy - will start ASA 81 mg po daily - NO dual antiplatlet d/t deep brain stimulator- neurology recommendations (2) Hypertension Status: Acute Code(s): I10 - ESSENTIAL (PRIMARY) HYPERTENSION SNOMED Code(s) : 86997227 Comment: patient has a significant hx of orthostatic hypotension - was recently on florinef - wich was recently d/c'd d/t hypertension - will continue to monitor BP - will not start BP medications at this time d/t signficant labile BP SBP 109- 180.s (3) Parkinsons disease Status: Acute Code(s): G20 - PARKINSON'S DISEASE SNOMED Code(s): 51520652 Comment: stable - will continue home medications (4) Falls Status: Acute Comment: PT eval- recommends treatment - would like to do outpatient PT with own therapist (5) DVT prophylaxis Status: Acute Code(s): NQG0661 - SNOMED Code(s): 816274399 Comment: - SQ heparin. (6) DNR (do not resuscitate) Status: Acute Status and Disposition: discharge home when medically stable
[2018-02-21] MEDS ORDERED: Carbidopa/Levodop CR 50/200(*) TAB.CR PO SCH (22:00)
[2018-02-22] MEDS: Heparin VIAL(*) 5000 UNITS/ML VIAL (FIVE THOUSAND) SUBCUT SCH (05:09)
[2018-02-22] MEDS ORDERED: Carbidopa/Levodop 25/100 MG TAB(*) PO SCH (06:00)
[2018-02-22 08:04] VITALS: BP 126/76
[2018-02-22] MEDS: COENZYME Q10 600 MG PO SCH (09:14)
[2018-02-22] MEDS: Magnesium Oxide TAB* 400 MG PO SCH (09:20)
[2018-02-22] MEDS: Multivitamins/Minerals TAB PO SCH (09:21)
[2018-02-22] MEDS: Vitamin E CAP* 400 UNIT PO SCH (09:21)
[2018-02-22] MEDS: Carbidopa/Levodop 25/100 MG TAB(*) PO SCH (09:21)
[2018-02-22] MEDS: Aspirin EC TAB* 81 MG TAB.EC PO SCH (09:21)
[2018-02-22] MEDS: Ascorbic Acid TAB* 500 MG PO SCH (09:21)
[2018-02-22] MEDS: Cholecalciferol TAB* 1000 UNITS PO SCH (09:21)
[2018-02-22] MEDS: Sertraline* 50 MG TAB PO SCH (09:21)
--- NOTE | 2018-02-24 23:51 | DS ---
CC: Dr. Remy; Dr. Johnson. DISCHARGE SUMMARY: DATE OF ADMISSION: 02/20/18 DATE OF DISCHARGE: 02/22/18 PROVIDER: Izaiah Harrison NP ATTENDING PHYSICIAN: Dr. Lanier, (dictated by Izaiah Harrison NP). PRIMARY CARE PROVIDER: Dr. Johnson. PRIMARY DIAGNOSES: Possible transient ischemic attack. SECONDARY DIAGNOSES: 1. Parkinson's. 2. Orthostatic hypotension. 3. Hypertension. 4. Falls. 5. Hypothyroidism. STUDIES COMPLETED WHILE IN THE HOSPITAL: He had a CT of the brain on 02/20/18. Radiologist Impression: No acute intracranial hemorrhage. No acute interval changes in comparison to prior study. He had a CTA of the head on 02/21/18. Radiologist Impression: 1. Status post bilateral deep brain stimulator placement. 2. No interval carotid artery stenosis. No aneurysm, vascular malformation, occlusion, or stenosis was visualized. He had an electrocardiogram which showed sinus bradycardia at a rate of 53. DISCHARGE MEDICATIONS: 1. Aspirin 81 mg p.o. daily. 2. Crestor 10 mg p.o. daily. Continued home medications: 1. Carbidopa/levodopa 25/100, 2.5 tablets at 1500 and 2 tablets t.i.d. at 9:30 , 12:30, and 1900 and 1.5 tablets at 6 a.m. 2. Coenzyme Q10 of 600 mg p.o. b.i.d. 3. Sertraline 50 mg p.o. q.a.m. 4. Potassium 99 mg p.o. daily. 5. Multivitamin 1 tablet p.o. daily. 6. Melatonin 10 mg p.o. at bedtime. 7. Magnesium oxide 400 mg p.o. daily. 8. Fiber 1 cap p.o. daily. 9. Vitamin D3 2000 units p.o. daily. 10. Carbidopa/levodopa 1 tablet 50/200 at 2200. 11. Calcium citrate 200 mg every other day. 12. Ascorbic acid 1000 mg p.o. daily. 13. Vitamin E 400 units p.o. daily. 14. Acetaminophen 650 mg p.o. q.6 hours as needed for pain. HISTORY OF PRESENT ILLNESS AND HOSPITAL COURSE: Mr. Bueno is a 72-year-old gentleman with a past medical history significant for severe Parkinson's with deep brain stimulator, hypertension, hypothyroid, severe orthostatic hypotension , and fall who presented to the emergency room after being seen by his neurologist Anmol Remy on 02/13/18 with persistent symptoms of orthostatic hypotension and falls. The patient was on Florinef at that time at 0.1 mg p.o. daily and was increased to 0.2 mg p.o. daily at that time and immediately the patient began to see his blood pressure go up to the 150s/90s per his . His Florinef at that time was stopped, but the blood pressure has stayed in the same range since then. The patient has had continued issues with falls as he describes as losing his balance. The patient denies any syncope, but he does report some dizziness and feels like he loses his balance. He denies any chest pain, shortness of breath, fever, or chills. On admission, the patient had a recent fall with pain and weakness on his right side and left elbow. The patient states that today his numbness began suddenly at approximately 6 p.m. which incorporated the whole left distal, left upper extremity and remained constant until it began to dissipate as he presented to the emergency room. He describes his sensation as pins and needles in his arm like it has fallen asleep. He denies having other pain in his elbow. Due to the concern of high blood pressure and new onset focal neuro deficit of left arm numbness and tingling, we were asked to see and evaluate him for admission. During the hospitalization, the patient did not have any arrhythmias on the monitor. He was seen in consultation by Neurology, Dr. Anmol Remy, who ordered a CTA of the head and neck which was within normal limits. It was recommended by Neurology that the patient be placed on aspirin, but not dual platelet anticoagulation therapy due to having a deep brain stimulator. The patient did have some mild orthostatic hypotension. He did have some dizziness during his hospitalization. He was seen by PT and OT. Physical therapy recommended possible inpatient therapy to help with strength and balance training. The patient declined the service and opted for outpatient physical therapy. The patient was monitored overnight and his blood pressure was rechecked. His dizziness resolved. On 02/22/18, the patient reports that he is ready to be discharged. REVIEW OF SYSTEMS: The patient denies any dizziness; denies any fever or chills ; denies any nausea, vomiting, or diarrhea; denies any abdominal pain; denies any chest pain or shortness of breath. Review of 14 systems completed and all the rest were negative. PHYSICAL EXAMINATION: General: At this time, Mr. Bueno is sitting in his hospital bed. He is in no acute distress. He is alert and oriented x3. HEENT : Head is atraumatic and normocephalic. Eyes: EOMs are intact. Sclerae anicteric and not pale. Oral mucosa appear to be moist. Neck is supple. Lungs are clear to auscultation bilaterally. No wheezes, rales, or rhonchi. Cardiac: S1 and S2 regular rate and rhythm. No murmurs, rubs, or gallops. Abdomen is soft and nontender. Bowel sounds are present x4. Extremities: Pedal pulses are +2 bilaterally. He is able to move all 4 extremities with 5/5 strength. Neurologic: He is awake, alert, and oriented x3. Speech is clear. Thought process is intact. No gross focal deficits. Left arm numbness has resolved. Dizziness has resolved. Skin is intact. DISCHARGE PLAN: At this time, Mr. Bueno will be discharged back home. Activity as tolerated. He should follow up with outpatient physical therapy for balance and strength training. Diet: He should continue on a low cholesterol, heart- healthy diet. 1. Possible transient ischemic attack. The patient was seen by Neurology due to left arm numbness and tingling that has fully resolved. It is unclear if this is related to his episode of hypertension versus transient ischemic attack. He was seen by Neurology and recommended that the patient is to be started on aspirin 81 mg p.o. daily. He will not be started on dual platelet antiplatelet therapy due to having a deep brain stimulator. It was recommended that the patient be placed on statin therapy, but the patient declines statin therapy. He would like to try diet modifications prior to starting a statin therapy. The patient was advised that low- dose statin therapy would be prescribed for him. Crestor 10 mg p.o. daily was prescribed and sent to his pharmacy. The patient is aware of this. The patient should have his lipid profile rechecked in 4 to 8 weeks. He shoulder follow up with Dr. Remy in 8 weeks. 2. Parkinson's. The patient should continue on Sinemet as previously prescribed to treat his Parkinson's disease. 3. Hypertension. With orthostatic hypotension, the patient should continue to monitor his blood pressure as an outpatient. He should follow up with his primary care provider in regards to his hypertension. The patient did have labile blood pressure during his hospitalization ranging from 109/59 to 180s/ 90s. 4. The patient should follow up with his primary care provider in 4 to 7 days to review his hypertension, to monitor him as an outpatient for medication adjustments as needed. 5. The patient should have a repeat lipid profile in 8 weeks. He should follow up with Dr. Remy in 8 weeks. The patient should return to the emergency room for any chest pain, shortness of breath, weakness on one side, numbness or tingling in any extremities, slurred speech, visual changes, or any other concerning symptoms. This is a summarization of his hospitalization. For further details, please see the entire medical record. TIME SPENT: Time spent on this discharge was 60 minutes, greater than half that time was spent with the patient discussing discharge plans and instructions. I have discussed with my attending Dr. Lanier who is in agreement with my plan. Condition on discharge is stable. IZAIAH HARRISON NP [id number]/CPS #: [id number] [place]
== END 2018-02-22 12:21 | disposition home or self-care (01) ==
LOC: ED 18:07 → MEDTELE 21:36
PROVIDERS: ADMIT Hospitalist; ATTEND Hospitalist
DX: G20 Parkinson's disease (principal); I95.1 Orthostatic hypotension; I10 Essential (primary) hypertension; E03.9 Hypothyroidism, unspecified; Z91.81 History of falling; H53.8 Other visual disturbances; K59.00 Constipation, unspecified
CPT/HCPCS: 36415; 70450; 70496; 70498; 80048; 80053; 80061; 81003; 82607; 82746; 83036; 83090; 83735; 84439; 84443; 85025; 93005; 93306; 96372; 96374; 96375; 99284; A9270-GY; G0378; G8978-GP-CK; G8979-GP-CI; G8987-GO-CK; G8988-GO-CI; G8996-GN-CH; G8997-GN-CH; G8998-GN-CH; J1644; Q9967

== ENCOUNTER 2018-04-23 10:27 | Emergency (ER) | payer MEDICARE ==
--- OUTSIDE RECORDS SUMMARY | 2018-04-23 10:34 | XMS REPORT | Continuity of Care Document ---
:1945 External Reference #:[id number] Author Name Fei Hernandez M.D. Address [address] [place] [address] Care Team Providers Name Role Phone Jose Johnson M.D. Primary Care Physician Unavailable Payers Date Identification Numbers Payment Provider Subscriber Policy Number: [id number] Medicare - [facility] Torres Bueno PayID: [id number] [address] [place] [address] Policy Number: [id number] [facility] Torres Bueno PayID: [id number] [address] [place] [address] Advance Directives Description No Information Available Problems Date Description Provider Status Onset: 04/28/2014 Parkinson's disease Lamin Ken M.D. Active Onset: 08/07/2014 Exotropia Lamin Ken M.D. Active Onset: 08/07/2014 Nonexudative age-related macular Lamin Ken M.D. Active degeneration Onset: 08/07/2014 Secondary parkinsonism Lamin Ken M.D. Active Onset: 08/07/2014 Tear film insufficiency Lamin Ken M.D. Active Onset: 04/23/2015 Keratoconjunctivitis sicca, not Lamin Ken M.D. Active specified as Sjogren's Onset: 04/23/2015 Nuclear senile cataract Lamin Ken M.D. Active Onset: 07/21/2015 Internal hordeolum Haritha Qureshi O.D. 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 Active Onset: 08/23/2015 Chalazion Lucero Rahman O.D. Active Onset: 08/30/2015 Diplopia Lucero Rahman O.D. Active Onset: 01/18/2016 Cellulitis of periorbital region Fei Hernandez M.D. Active Onset: 02/29/2016 Cellulitis of periorbital region Fei Hernandez M.D. Active Onset: 03/28/2016 Bilateral age-related nonexudative Fei Hernandez M.D. Active macular degeneration Onset: 07/25/2016 Presence of intraocular lens Fei Hernandez M.D. Active Family History Date Family Member(s) Observation Comments Father No Current Problems Mother Glaucoma Mother Cataract Social History Type Date Description Comments Sex Unknown Marital Status Has been 1 time Occupation [employer] Work Status Retired ETOH Use Consumed 1 glass of wine per day in the past Tobacco Use Start: Unknown Patient has never smoked Recreational Drug Use Denies Drug Use Smoking Status Reviewed: 04/01/18 Patient has never smoked Allergies, Adverse Reactions, Alerts Date Description Reaction Status Severity Comments 04/28/2014 NKDA Active 07/04/2016 Adhesives Active Medications Medication Date Status Form Strength Qnty SIG Indications Ordering Provider Natures Tears 07/03/ Active Solution 0.1-0.3% 1 drop Fei 2017 both eyes Zablocki, four M.D. times a day Preservision 07/20/ Active Capsules Areds 2 90caps 1 cap by Haritha Mckeon 2 2016 mouth Titus, twice a O.D. day Multi Complete / Active Capsules 1 by Unknown 0000 mouth every day Co-Enzyme Q10 / Active Capsules 1200mg every day Unknown 0000 Chelated / Active Tablets 95mg 1 by Unknown Potassium 0000 mouth every day Carbidopa-Levod / Active Tablets ER 50-200mg Unknown opa ER 0000 Fiber Choice / Active Chewtabs 1.5gm Unknown 0000 Melatonin ER / Active Tablets ER 5mg Unknown 0000 Enalapril / Active Tablets 5mg Unknown Maleate 0000 Ciprofloxacin 07/04/ Hx Solution 0.3% 5ml instill Fei HCL 2016 - one drop Zablocki, 07/29/ in the M.D. 2017 right eye three times a day, start the day before surgery Ilevro 07/04/ Hx Suspension 0.3% 3ml 1 drop Fei 2016 - left eye Zablocki, 08/10/ once a M.D. 2017 day Prednisolone 07/04/ Hx Suspension 1% 10ml 1 drop Fei Acetate 2016 - left eye Zablocki, 08/10/ once a M.D. 2016 day Erythromycin 08/28/ Hx Ointment 5mg/GM 1Tubes apply Lucero Segovia 2016 - thin Josiah, 07/03/ strip to O.D. 2016 all four eyelid margins every night at bedtime Erythromycin 07/20/ Hx Ointment 5mg/GM 1Tubes apply H00.022 Haritha Mcmanus 2015 - thin Titus, 08/08/ strip to O.D. 2015 left lower eyelid 3 times a day Amantadine HCL 00/00/ Hx Tablets 100mg Unknown 2015 Clonazepam 00/00/ Hx Tablets 0.5mg 1 every Unknown 0000 - evening 2015 Carbidopa-Levod 00/00/ Hx Tablets 25-250mg Unknown opa 2017 Gabapentin 00/00/ Hx Capsules 300mg Unknown 2015 Ropinirole HCL 00/00/ Hx Tablets 3mg Unknown 2015 Trazodone HCL 00/00/ Hx Tablets 50mg Unknown 2015 Natures Tears /00/ Hx Solution 0.4% Lamin Ken, 07/03/ M.D. 2016 Gabapentin 00/00/ Hx Capsules 100mg 3 X A Day Unknown 2015 Selegiline HCL 00/00/ Hx Tablets 5mg 2 daily Unknown 2015 Melatonin 00/00/ Hx Capsules 10mg Unknown 2015 Sertraline HCL 00/00/ Hx Tablets 100mg Unknown 2015 Gabapentin 00/00/ Hx Capsules 300mg Unknown 2016 Sertraline HCL 00/00/ Hx Tablets 100mg Unknown 2017 Clonazepam 00/00/ Hx Tablets 0.5mg Unknown 2017 Quetiapine 00/00/ Hx Tablets 25mg Unknown Fumarate 0000 - 2017 Immunizations Description No Information Available Vital Signs Description No Information Available Results Description No Information Available Procedures Date Code Description Status 01/10/2018 77504 Scanning Computerized Opthalmic Diagnostic Posterior Seg Completed Retina 01/10/2018 61531 Est Patient Comprehensive Exam Completed 02/08/2017 06038 Est Patient Intermediate Exam Completed 10/02/2016 06866 Scanning Computerized Opthalmic Diagnostic Posterior Seg Completed Retina 10/02/2016 85604 Est Patient Comprehensive Exam Completed 07/24/2016 85382 Extracapsular Cataract Extraction W/Intraocular Lens Completed 07/17/2016 56975 Extracapsular Cataract Extraction W/Intraocular Lens Completed 07/04/2016 14983 Ophthalmic Biometry Completed 07/04/2016 04189 Ophthalmic Biometry Completed 03/28/2016 35483 Scanning Computerized Opthalmic Diagnostic Posterior Seg Completed Retina 03/28/2016 66296 Est Patient Comprehensive Exam Completed 01/18/2016 15668 Est Patient Intermediate Exam Completed 08/30/2015 16739 Determination Of Refractive State Completed 08/30/2015 81662 Est Patient Intermediate Exam Completed 08/23/2015 70044 Est Patient Intermediate Exam Completed 04/23/2015 67127 Est Patient Comprehensive Exam Completed 04/23/2015 70533 Determination Of Refractive State Completed 04/23/2015 23008 Scanning Computerized Opthalmic Diagnostic Posterior Seg Completed Retina 08/07/2014 81511 Est Patient Intermediate Exam Completed 08/07/2014 602 Nose Pads Completed 04/28/2014 22127 Fundus Photography With Interpretation And Report Completed 04/28/2014 32421 Determination Of Refractive State Completed 04/28/2014 61999 Est Patient Comprehensive Exam Completed 08/04/2013 40461 Scanning Computerized Opthalmic Diagnostic Posterior Seg Completed Retina 08/04/2013 69978 Determination Of Refractive State Completed 08/04/2013 57524 Est Patient Comprehensive Exam Completed 07/30/2012 04553 Est Patient Comprehensive Exam Completed 08/17/2011 38282 Fundus Photography With Interpretation And Report Completed 08/17/2011 00004 Determination Of Refractive State Completed 08/17/2011 92437 New Patient Comprehensive Exam Completed Encounters Type Date Location Provider Dx Diagnosis Office Visit 03/08/2017 Fei Diamond, H53.2 Diplopia 1:30p donta HOWELL M.D. Office Visit 07/04/2016 Fei Diamond, H25.11 Age- related 11:00a donta HOWELL M.D. nuclear cataract, right eye H25.12 Age-related nuclear cataract, left eye H35.3131 Nexdtve age-related mclr degn, bilateral, early dry stage Office Visit 02/29/2016 2:00p Lamin Enamorado L03.213 Periorbital MD Suellen, donta Hernandez M.D. cellulitis H00.11 Chalazion right upper eyelid Office Visit 01/27/2016 12:00p Lamin Enamorado L03.213 Periorbital MD Suellen, donta Hernandez M.D. cellulitis H00.11 Chalazion right upper eyelid Office Visit 01/22/2016 12:45p Lamin Carrasco03.213 Periorbkrzysztof Ken MD, donta Delcid O.D. cellulitis Office Visit 01/20/2016 11:30a Lamin Enamorado L03.213 Periorbital MD Suellen, donta Hernandez M.D. cellulitis H00.11 Chalazion right upper eyelid Office Visit 08/10/2015 Lamin Mcmanus H16.212 Exposure 3:30p MD Suellen, Kranthi Qureshi keratoconjunctivitis, left pc eye H16.223 Keratoconjunct sicca, not specified as Sjogren's, bilateral Office Visit 07/26/2015 9:15a Lamin Qureshi, H00.022 Chencho Ken MD, donta Crisostomo internum right lower eyelid G20 Parkinson's disease Office Visit 07/21/2015 9:15a Lamin Qureshi, H00.022 Chencho Ken MD, donta Crisostomo internum right lower eyelid Plan of Treatment 04/01/2018 - Fei Hernandez M.D.H53.2 DiplopiaComments:Smoking can increase the risk of developing or worsening any eye related disease, as well as affect your overall health. If you are a smoker, we strongly recommend that you quit.If you are not a smoker, we strongly recommend that you do not start. I WILL UPDATE THE LEFT LENS IN THE DISTANCE [id number] Nonexudative age- related macular degeneration, bilateral, eaComments:You have Macular Degeneration. Check your Amsler Grid, with each eye separately, and take the AREDS II formula vitamins. If you notice any changes in your vision, please call the office and schedule anappointment to see any of the doctors here.
--- OUTSIDE RECORDS SUMMARY | 2018-04-23 10:34 | XMS REPORT | Continuity of Care Document ---
:1945 External Reference #:[id number] Author Name Eddie, Amira Care Team Providers Name Role Phone Jose Johnson MD Primary Care Physician Unavailable Payers Date Identification Numbers Payment Provider Subscriber Effective: 2007 Policy Number: [id number] Medicare Torres Bueno PayID: [id number] [address] [place] [address] Policy Number: [id number] [facility] Torres Bueno PayID: [id number] [address] [place] [address] Advance Directives Description No Information Available Problems Date Description Provider Status Onset: 01/07/2014 Parkinson's disease Jose Juan Esquivel M.D. Active Onset: 02/12/2018 Orthostatic hypotension Itz Remy M.D. Active Onset: 02/12/2018 Mild cognitive disorder Itz Remy M.D. Active Family History Description No Information Available Social History Type Date Description Comments Sex Unknown ETOH Use Denies alcohol use Tobacco Use Start: Unknown Patient has never smoked Smoking Status Reviewed: 04/11/18 Patient has never smoked Allergies, Adverse Reactions, Alerts Date Description Reaction Status Severity Comments 10/07/2015 Tape Active 05/28/2012 NKDA Inactive Medications Medication Date Status Form Strength Qnty SIG Indications Ordering Provider Elbow 01/03 Active Misc 2unit wear on Ana Maria Support/Pressure /2016 s Wesley M.D. Pads/Left-Right/ right Small-Medium elbow dx: Bilateral olecranon bursitis Carbidopa-Levodo 11/13 Active Tablets 25-100mg 900ta take 1 02/06 Jose Juan brandt bs tabs at [place], 6am, 2 M.D. tabs at 9:30am, 2 tabs at 12:30, 2 1/2 tabs at 3:30p, 2 tabs at 7pm. Sertraline HCL 10/16 Active Tablets 50mg 30tab one tab by Amanda Mcguire s mouth MD every day-unsure of dose Carbidopa-Levodo 10/01 Active Tablets 50-200mg 90tab take 1 Itz brandt ER s tablet by Bren Remy mouth at 10pm Potassium 09/08 Active Tablets 99mg otc once [...] 2x by Unknown /0000 mouth every day prn Multi For Him Active Capsules 1 by mouth Unknown /0000 every day Savision Active Capsules 1 bid Unknown /0000 Fibercon Active Tablets 625mg 2 tabs Unknown /0000 twice a day or as directed Vitamin E-400 Active Capsules 1000Unit 1 by mouth Unknown /0000 Melatonin Active Capsules 5mg 1 cap at Unknown /0000 bedtime Enalapril Active Tablets 5mg 2 by mouth Unknown Maleate /0000 every day Aspirin 81 Low Active Chewtabs 81mg 1 by mouth Unknown Dose /0000 every day Fludrocortisone 02/12 Hx Tablets 0.1mg 180ta 2 by mouth I95.1 Itz Jolly /2018 bs every day Bren Remy - 04/10 Fludrocortisone 10/17 Hx Tablets 0.1mg 30tab 1 by mouth I95.1 Jose Juan Jolly s every Alvin, - morning M.D. 02/12 Carbidopa-Levodo 01/16 Hx Tablets 50-200mg 10tab take one Jose Juan brandt ER s tablet by Alvin, - mouth at M.D. 02/06 is to cover until supply arrives from [facility] Northera 10/01 Hx Capsules 100mg 60cap 1 po bid Jose Juan Gabbi s for 1 week Alvin, - then 2 bid M.D. 11/01 in Am and at noon Ddavp 09/08 Hx Tablets 0.2mg 30tab 1 po qhs Jose Juan Lu s Alvin, - M.D. 11/01 Fludrocortisone 06/02 Hx Tablets 0.1mg 60tab 2 by mouth G20 Mohini Jolly s every day Latrice, - M.D. 09/26 Quetiapine 10/28 Hx Tablets 25mg 45tab 1/2 by Jose Juan Sands s mouth Alvin, - every M.D. 01/22 [...] 25-100mg 360ta 2 by mouth Mohini brandt /2015 bs every 3 Latrice, - hours from M.D. 10/06 wake till sleep Carbidopa-Levodo 07/22 Hx Tablets 25-250mg 450ta 1 by mouth Jose Juan brandt bs every 4 Alvin, - hours M.D. 06/29 Horizant 05/26 Hx Tablets 600mg 30tab 1 by mouth Jose Juan Seo ER s everyday Alvin, - around M.D. 03/19 dinner time Gabapentin 09/05 Hx Capsules 300mg 30cap 1 by mouth s every Babatunde, PULLING UNIT OPERATOR - night at 09/21 bedtime Trazodone HCL 04/23 Hx Tablets 50mg 90tab 1 tab PO Amy /2012 s QHS Gnadt, PULLING UNIT OPERATOR - 03/18 Carbidopa/Levodo 11/27 Hx Tablets 25-250mg [...] 180ta 1.5 mg po Jose Juan Seo bs 4x and Alvin, - 3mg po [...] mouth four - times a 09/04 day needed Zoloft Hx Tablets 50mg 1 by mouth Unknown /0000 every day - 10/27 Melatonin Hx Capsules 10mg 1 by mouth Unknown /0000 every - night at 01/22 Trazodone HCL 00 Hx Tablets 50mg 1 tablet Unknown /0000 at bedtime - as needed 08/18 Gabapentin Hx Capsules 300mg 180ca 1 tab hs Jose Juan S. / ps Radha Esquivel M.D. 08/08 Triamterene/Hydr 00 Hx Capsules 37.5-25mg 1 by mouth Unknown ochlorothiazide /0000 every day - prn for 10/05 Colace Hx Capsules 100mg 2 by mouth Unknown /0000 every day - 05/09 Savision 00/00 Hx Capsules 1 tabs bid Unknown /0000 - 10/05 Carbidopa-Levodo 00/00 Hx Tablets 25-250mg 2 by mouth Unknown pa /0000 bid as - needed 09/15 Carbidopa-Levodo 00/00 Hx Tablets 25-250mg 1 by Unknown pa /0000 mouth at 6 - am or 7 am 10/28 1 @ 2-3 pm Carbidopa-Levodo 00/00 Hx Tablets 25-200mg three Unknown pa /0000 times a - day 10/05 Carbidopa-Levodo 00/00 Hx Tablets 25-100mg 330ta 2 1 tabs Jose Juan Seo pa /0000 bs 6am and Alvin, - 2pm than 2 M.D. 02/06 tabs 10am, 6pm and 3am... Zinc 00/ Hx Daily Unknown /0000 - 05/10 Unisom /00 Hx Tablets 25mg 1 as Unknown /0000 needed for - sleep 02/06 Sulfamethoxazole Hx Tablets 800-160mg 1 by mouth Unknown /Trimethoprim DS /0000 twice - daily 09/26 Midodrine HCL 00 Hx Tablets 5mg 1 tab po Unknown /0000 bid - 10/01 Clonazepam Hx Tablets 0.5mg 1-2 by Unknown /0000 mouth as - needed for 02/06 500 MG 00 Hx Tablets 1 by mouth Unknown /0000 every day - 02/06 Ginkgo REBA Hx Tablets 120-20mg once a day Unknown /0000 - 06/05 Melatonin Hx Capsules 10mg 1 tablet Unknown /0000 at bed - time 04/11 Levothyroxine 0000 Hx Tablets 25mcg Take 1/2 Unknown Sodium /0000 Tablet By - Mouth 04/10 Every Day For Thyroid Immunizations Description No Information Available Vital Signs Date Vital Result Comment 04/11/2018 3:44pm Height 69 inches 5'9" Weight 195.00 lb Heart Rate 58 /min BP Systolic 120 mmHg BP Diastolic 82 mmHg BMI (Body Mass Index) 28.8 kg/m2 02/12/2018 11:33am Height 69 inches 5'9" Weight [...] H/L Range Note CBC Auto Diff 09/26/2016 [facility] White Blood 5.9 10^3/uL N 3.5-10.[address] [place] [address] [phone] Red Blood Count 4.26 10^6/uL N 4.0-5.4 [...] % 0.1 N Comp Metabolic Panel 09/26/2016 [facility] Sodium 137 mmol/L N 133-[address] [place] [address] [phone] Potassium 4.3 mmol/L N 3.5-5.0 Chloride 102 [...] 61.2 N >60 1 Urinalysis Profile 09/26/2016 [facility] Urine Color Yellow N [address] [place] [address] [phone] Urine Appearance Cloudy N Urine Specific [place] 1.016 N 1.010-1.030 Urine pH 6.0 N 5-9 Urine Urobilinogen Negative N Negative Urine Ketones Trace Abnormal Negative Urine Protein Negative N Negative Urine Leukocytes Negative N Negative Urine Blood Negative N Negative * * Abnormal Negative 2 Urine Nitrite Negative N Negative Urine Bilirubin Negative N Negative Urine Glucose Negative N Negative Laboratory test 09/26/2016 [facility] TSH (Thyroid 0.77 mcIU/mL N 0.34-5.[address] Stim Horm) [place] [address] [phone] Basic Metabolic 02/09/2014 [facility] Sodium 137 mmol/L N 133- 145 Panel [address] [place] [address] [phone] Potassium 4.4 mmol/L N 3.5-5.0 Chloride 101 mmol/L N 101-111 Co2 Carbon Dioxide 31 mmol/L N 22-32 Anion Gap 5 mmol/L N 2-11 Glucose 102 mg/dL High 70-100 Blood Urea Nitrogen 19 mg/dL N 6-24 Creatinine 1.31 mg/dL High 0.67-1.17 BUN/Creatinine Ratio 14.5 N 8-20 Calcium 9.8 mg/dL N 8.6-10.3 Egfr Non- 54.4 N >60 Egfr 70.0 N >60 3 Inr/Protime 02/09/2014 [facility] Inr 0.97 N 0.85-1.06 [address] [place] [address] [phone] Urinalysis Profile 02/09/2014 [facility] Urine Color Yellow N [address] [place] [address] [phone] Urine Appearance Cloudy N Urine Specific [place] 1.016 N 1.010-1.030 Urine pH 6.0 N 5-9 Urine Urobilinogen Negative N Negative Urine Ketones Trace Abnormal Negative Urine Protein Negative N Negative Urine Leukocytes Negative N Negative Urine Blood Negative N Negative * * Abnormal Negative 4 Urine Nitrite Negative N Negative Urine Bilirubin Negative N Negative Urine Glucose Negative N Negative CBC No Diff 02/09/2014 [facility] White Blood 4.7 10^3/uL Low 4.8-10.[address] [place] [address] [phone] Red Blood Count 4.58 10^6/uL N 4.0-5.4 [...] 20.00 ng/mL N >3.99 Laboratory test 04/04/2013 [facility] TSH (Thyroid 1.85 IU/mL 0.34-5.[address] [place] [address] Horm) [phone] Comp Metabolic 04/04/2013 [facility] Sodium 137 mmol/L 133- [address] [place], [place] [id number] [phone] Potassium 4.7 mmol/L 3.7-5.6 Chloride 101 mmol/L [...] 79.7 >60 6 CBC Auto Diff 04/04/2013 [facility] White Blood 6.8 10^3/uL 4.8-10.[address] [place] [address] [phone] Red Blood Count 4.73 10^6/uL 4.0-5.4 Hemoglobin [...] (or dialysis) Procedures Date Code Description Status 02/21/2018 23041 ECHO Transthorasic Realtime 2D W Doppler & Color Flow Completed Hosp 02/12/2018 54289 Neurostimulator Pulse Generator Analysis W/O Completed Reprogramming 08/23/2016 31156 Treadmill Interp/Report Only Completed 08/23/2016 56369 Stress Test Supervsn W/Out I/R Completed 06/19/2016 88336 CLSD TX Distal Fib FX (Lateral Malleolus) w/o Completed manipulation 08/30/2005 [id number] Colonoscopy Completed Encounters Type Date Location Provider Dx Diagnosis Office Visit 04/11/2018 [facility] Itz Remy G2Rohini Parkinson' s 3:45p Services [facility] Correia disease I10 Essential (primary) hypertension I95.1 Orthostatic hypotension Office Visit 02/22/2018 8:24a [facility] Brianna G20 Parkinson's Assoc,donta Harrison NP disease Hospitalists R20.0 Anesthesia of skin I95.1 Orthostatic hypotension R29.6 Repeated falls I10 Essential (primary) hypertension Office Visit 02/20/2018 8:23a [facility] Jadon R20.0 Anesthesia of Assoc,SAMMY Oh skin Hospitalists I10 Essential (primary) hypertension G20 Parkinson's disease Office Visit 02/12/2018 11:15a [facility] Itz Remy G2Rohini Parkinson's [facility] [place] disease I95.1 Orthostatic hypotension G31.84 Mild cognitive impairment, so stated Z96.89 Presence of other specified functional implants Office Visit 01/15/2018 11:30a [facility] Luis Seo G20 Parkinson's [facility] Esquivel M.D. disease I95.1 Orthostatic hypotension G31.84 Mild cognitive impairment, so stated R53.83 Other fatigue Z96.89 Presence of other specified functional implants Office Visit 06/06/2017 3:30p [facility] Luis Seo G20 Parkinson's [facility] Esquivel M.D. disease I95.1 Orthostatic hypotension G47.52 REM sleep behavior disorder R40.0 Somnolence G31.84 Mild cognitive impairment, so stated Office Visit 02/07/2017 2:45p [facility] Luis Seo G2Rohini Parkinson's [facility] Esquivel M.D. disease I95.1 Orthostatic hypotension Office Visit 01/31/2017 1:15p [facility] Fay Hudson M70.21 Olecranon Services Of [facility] bursitis, right C.M.A. elbow M70.22 Olecranon bursitis, left elbow Office Visit 01/03/2017 1:00p [facility] Fay Hudson, M70.21 Olecranon [facility] bursitis, right C.M.A. elbow M70.22 Olecranon bursitis, left elbow Office Visit 11/02/2016 [facility] Jose Juan Seo G20 Parkinson's 10:30a Clinic Bren Esquivel disease I95.1 Orthostatic hypotension R44.2 Other hallucinations Office Visit 10/01/2016 [facility]hospital[facility] Jose Juan Seo G20 Parkinson's 4:24p Clinic Bren Esquivel disease I95.1 Orthostatic hypotension Office Visit 10/01/2016 11:53a [facility] Kathy R41.82 Altered mental Assoc,donta Joseph M.D. 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 status, Hospitalists unspecified H35.30 Unspecified macular degeneration G20 Parkinson's disease Office Visit 09/29/2016 Neurohospitalist Itz G2Rohini Parkinson's 4:24p Frederic Remy M.D. disease R41.82 Altered mental status, unspecified R44.2 Other hallucinations Office Visit 09/29/2016 11:52a [facility] Nidhi Chavez R41.82 Altered mental Assoc,donta Joseph M.D. status, Hospitalists unspecified G20 Parkinson's disease H35.30 Unspecified macular degeneration Office Visit 09/28/2016 11:51a [facility] Nidhi Chaevz R41.82 Altered mental Assoc,donta Joseph M.D. 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 status, Hospitalists unspecified G20 Parkinson's disease H35.30 Unspecified macular degeneration Office Visit 09/27/2016 8:30a [facility] Jose Juan S. G20 Parkinson's [facility] Esquivel M.D. disease I95.1 Orthostatic hypotension G93.40 Encephalopathy, unspecified Office 09/18/2016 [facility] Favio Ma S43.52xD Sprain of left Visit 1:00p Services Of MD Liliana acromioclavicular C.M.A. joint, subsequent encounter S82.61xD Disp fx of lateral malleolus of r fibula, 7thD S43.122D Dislocation of l acromioclav jt, 100%-200% displacmnt, subs Office Visit 08/23/2016 12:05p [facility] Bianca Martin, R07.9 Chest pain , Assoc,pc N.P. unspecified Hospitalists R53.1 Weakness I95.1 Orthostatic hypotension G20 Parkinson's disease Office Visit 08/22/2016 [facility] Fadumofrancy Patel R07.9 Chest pain, 12:04p Assoc,pc Alberto, PULLING UNIT OPERATOR unspecified Hospitalists R53.1 Weakness I95.1 Orthostatic hypotension G20 Parkinson's disease Office Visit 08/09/2016 4:15p [facility] Jose Juan S. G20 Parkinson's [facility] Esquivel M.D. disease I95.1 Orthostatic hypotension R29.6 Repeated falls Office 07/18/2016 [facility]opedic Favio Ma S43.52xD Sprain of left Visit 2:15p Services [...] Z91.81 History of falling Office Visit 04/26/2016 [facility] Miller Parkinson's 3:45p [facility] Esquivel M.D. disease Office Visit 01/24/2016 Neurohospitalist Jose Juan Miller Parkinson's 1:45p Frederic Esquivel M.D. disease R44.1 Visual hallucinations Office Visit 10/29/2015 10:30a [facility] Jose Juan Miller Parkinson's [facility] Esquivel M.D. disease R40.0 Somnolence R44.1 Visual hallucinations Office Visit 10/07/2015 Neurohospitalist Jose Juan Miller Parkinson's 9:00a Fredreic Esquivel M.D. disease R40.0 Somnolence Office Visit 06/30/2015 1:30p [facility] Jose Juan Seo G2Rohini Parkinson's [facility] Esquivel M.D. disease G47.52 REM sleep behavior disorder Office Visit 06/01/2015 3:00p [facility] Manzano SLu G20 Parkinson's [facility] Esquivel M.D. disease Office Visit 03/19/2015 10:45a [facility] Jose Juan Seo G20 Parkinson's Services Of [facility] Eqsuivel M.D. disease Office Visit 09/22/2014 3:45p [facility] Jose Juan Seo 332.0 Paralysis Agitans [facility] Esquivel M.D. Office Visit 05/26/2014 11:00a [facility] Jose Juan Seo 332.0 Paralysis Agitans [facility] Esquivel M.D. 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 at [facility]04/11/2018 - Itz Remy M.D.G20 Parkinson's diseaseFollow up:3 months and as [id number] Essential (primary) [id number] Orthostatic hypotension
[2018-04-23 10:37] VITALS: BP 155/82
--- NOTE | 2018-04-23 10:39 | UC ---
Head Injury HPI - HPI Summary HPI Summary: 73 yo male presents accompanied by s/p head injury. Pt is demented and suffers from parkinson's disease - thus the history is provided by his . She tells me that around 0200 this morning pt rolled out of bed and onto the floor and hit his forehead on a water bottle that he keeps next to the bed. She immediately woke up and helped pt back into bed. He had no LOC. He sustained a small cut to his scalp. says that he has been acting normally since that time. Pt denies pain, headache, dizziness, or vision changes. He takes a daily aspirin. applied a bandaid to his head this morning when she realized the cut on his head was still bleeding a little. - History Of Current Complaint Chief Complaint: UCHeadInjury Stated Complaint: HEAD INJURY Time Seen by Provider: 04/23/18 10:38 Hx Obtained From: Patient Onset/Duration: Sudden Onset Severity Currently: None Pain Intensity: 0 - Allergies/Home Medications Allergies/Adverse Reactions: Allergies Allergy/AdvReac Type Severity Reaction Status Date / Time Adhesive Tape Allergy Severe Rash Verified 04/23/18 10:32 Home Medications: Home Medications Enalapril TAB* [Vasotec TAB*] 5 mg PO BID 04/23/18 [History Confirmed 04/23/18] PMH/Surg Hx/FS Hx/Imm Hx - Additional Past Medical History Additional PMH: Parkinson's Endocrine History: Dyslipidemia Cardiovascular History: Hypertension - Surgical History Surgical History: Yes Surgery Procedure, Year, and Place: TURP, melanoma, deep brain stimulation, BILAT CATARACT SURGERY 07/2016 - Family History Known Family History: Positive: Cardiac Disease, Hypertension - Social History Occupation: Retired Lives: With Family Alcohol Use: None Alcohol Amount: 1/2 glass of wine at dinner Substance Use Type: None Smoking Status (MU): Never Smoked Tobacco - Immunization History Most Recent Influenza Vaccination: Not UTD Most Recent Tetanus Shot: <5 YEARS ( OF 10/27/16) Most Recent Pneumonia Vaccination: unknown Hx Tetanus, Diphtheria Vaccination: Yes - Called PCP - 2012 Review of Systems All Other Systems Reviewed And Are Negative: Yes Constitutional: Positive: Negative Skin: Positive: Other - 1.0cm superficial laceration to parietal scalp Eyes: Positive: Negative ENT: Positive: Negative Respiratory: Positive: Negative Cardiovascular: Positive: Negative Gastrointestinal: Positive: Negative Genitourinary: Positive: Negative Neurovascular: Positive: Negative Musculoskeletal: Positive: Negative Neurological: Positive: Negative Psychological: Positive: Negative Physical Exam - Summary Physical Exam Summary: GENERAL: NAD. WDWN. No pain distress. SKIN: 1cm superficial linear laceration to parietal scalp. Well approximated at rest. Mild active bleeding. HEENT: Head: AT/NC. No raccoon eyes or battles sign. Eyes: PERRLA. EOM intact. Ears: Hearing grossly normal. TMs intact, no bulging, erythema, or edema. No hemotympanum NECK: Supple. Nontender. FROM CHEST: CTAB. No r/r/w. No accessory muscle use. Breathing comfortably and in no distress. CV: RRR. Pulses intact. Brisk cap refill. ABDOMEN: Soft. NTTP. Bowel sounds present MSK: FROM in B/L UEs and LEs with symmetric strength. NEURO: Limited by underlying dementia and parkinson's. Ability to follow 2-step directions and attention intact. CN: II: Peripheral simpson intact. Vision normal. III, IV, : EOMI. No nystagmus. PERRLA. V: Sensations intact and symmetric. Opens mouth and clenches teeth. VII: No facial asymmetry. Forehead wrinkles. Grins, shuts eyes, frowns, puffs cheeks. VIII: Hearing intact to finger rub. IX, X: Swallows and coughs. Uvula midline. XI: Shrugs shoulders. Turns head against resistance. Normal speech. No facial drooping. PSYCH: Age appropriate behavior. Triage Information Reviewed: Yes Vital Signs: Initial Vital Signs Temp 98.1 F 04/23/18 10:29 Pulse 60 04/23/18 10:29 Resp 18 04/23/18 10:29 BP 155/82 04/23/18 10:29 Pulse Ox 97 04/23/18 10:29 Vital Signs Reviewed: Yes Procedures - Laceration/Wound Repair 1 Location: head Description: Linear Laceration/Wound Explored: clean Closure: Skin Adhesive Head Injury Course/Dx - Course Course Of Treatment: I strongly recommended obtaining a CT of the head today, but pt and his declined. I discussed that his neuro exam appears WNL, but is very unreliable given his underlying medical conditions and that I would be most concerned about an intracranial hemorrhage. and pt continued to decline CT as she says pt is acting normal. I made her aware that if pt begins to act differently , LOC, develops vomiting, headache, dizziness, or pain - to call 911 or go to the ED immediately. The wound on his head was cleansed with NS and dermabond was applied. Bandaged with a band-aid. - Differential Dx/Diagnosis Provider Diagnosis: Scalp laceration, Head injury Discharge - Sign-Out/Discharge Documenting (check all that apply): Patient Departure All imaging exams completed and their final reports reviewed: No Studies - Discharge Plan Condition: Stable Disposition: HOME Patient Education Materials: Head Injury (ED), Skin Adhesive Care (ED) Referrals: Jose Johnson MD [Primary Care Provider] - Additional Instructions: If you develop a fever, shortness of breath, chest pain, new or worsening symptoms - please call your PCP or go to the ED. Your blood pressure was high at todays visit. Please see your primary provider within 4 weeks for recheck and re-evaluation. Keep the cut on his head well bandaged until fully healed If Torres begin to act abnormally from his baseline, weakness, vomiting, headache, dizziness, or pain - please call 911 or go directly to the ER - Billing Disposition and Condition Condition: STABLE Disposition: Home
== END 2018-04-23 11:15 | disposition home or self-care (01) ==
LOC: UCEAST 10:27
DX: S09.90XA Unspecified injury of head, initial encounter (principal); S01.01XA Laceration without foreign body of scalp, initial encounter; I10 Essential (primary) hypertension; Z79.899 Other long term (current) drug therapy; W22.8XXA Striking against or struck by other objects, initial encounter; Y92.9 Unspecified place or not applicable
CPT/HCPCS: 12001; 99211; G0463

== ENCOUNTER 2019-03-12 10:12 | Emergency (ER) | payer MEDICARE ==
--- OUTSIDE RECORDS SUMMARY | 2019-03-12 10:21 | XMS REPORT | Continuity of Care Document ---
:1945 External Reference #:[id number] Author Name Fei Hernandez M.D. Address [address] [place] [address] Care Team Providers Name Role Phone Jose Johnson M.D. - Family Medicine Care Team Information Mechanic Assistant [phone] Jose Juan Esquivel M.D. - Neurology Care Team Information Mechanic Assistant [phone] Problems Active Problems Provider Date Parkinson's disease Lamin Ken M.D. Onset: 04/28/2014 Exotropia Lamin Ken M.D. 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 Onset: 08/07/2014 degeneration Secondary parkinsonism Lamin Ken M.D. Onset: 08/07/2014 Tear film insufficiency Lamin Ken M.D. Onset: 08/07/2014 Keratoconjunctivitis sicca, not specified Lamin Ken M.D. Onset: 2015 as Sjogren's Nuclear senile cataract Lamin Ken M.D. Onset: 04/23/2015 Internal hordeolum Haritha Qureshi O.D. Onset: 07/21/2015 Exposure keratoconjunctivitis Haritha Qureshi O.D. Onset: 08/10/2015 Chalazion Lucero Rahman O.D. Onset: 08/23/2015 Diplopia Lucero Rahman O.D. Onset: 08/30/2015 Cellulitis of periorbital region Fei Hernandez M.D. Onset: 01/18/2016 Cellulitis of periorbital region Fei Hernandez M.D. Onset: 02/29/2016 Bilateral age-related nonexudative macular Fei Hernandez M.D. Onset: degeneration Presence of intraocular lens Fei Hernandez M.D. Onset: 07/25/2016 Social History Type Date Description Comments Sex Unknown ETOH Use Consumed 1 glass of wine per day in the past Tobacco Use Start: Unknown Patient has never smoked Recreational Drug Use Denies Drug Use Smoking Status Reviewed: 02/27/19 Patient has never smoked Allergies, Adverse Reactions, Alerts Active Allergies Reaction Severity Comments Date NKDA 04/28/2014 Adhesives 07/04/2016 Medications Active Medications SIG Qnty Indications Ordering Provider Date Natures Tears 1 drop both Fei Hernandez, 07/03/2016 0.1-0.3% eyes four times M.D. Solution a day Preservision Areds 2 1 cap by mouth 90caps Haritha Mcmanus Titus, 07/21/2015 twice a day O.D. Areds 2 Capsules Multi Complete 1 by mouth Unknown Capsules every day Co-Enzyme Q10 every day Unknown 1200mg Capsules Chelated Potassium 1 by mouth Unknown 95mg every day Tablets Carbidopa-Levodopa ER Unknown 50-200mg Tablets ER Fiber Choice Unknown 1.5gm Chewtabs Melatonin ER Unknown 5mg Tablets ER Enalapril Maleate Unknown 5mg Tablets Immunizations Description No Information Available Vital Signs Description No Information Available Results Description No Information Available Procedures Description No Information Available Medical Devices Description No Information Available Encounters Description No Information Available Assessments Date Code Description Provider 02/27/2019 H35.3131 Nonexudative age-related macular Fei Hernandez M.D. degeneration, bilateral, ea 02/27/2019 H53.2 Diplopia Fei Hernandez M.D. Plan of Treatment 02/27/2019 - Fei Hernandez M.D.H35.3131 Nonexudative age-related macular degeneration, bilateral, eaComments:Smoking can increase the risk of developing or worsening any eye related disease, as well as affect your overall health. If you are a smoker, we strongly recommend that you quit.If you are not a smoker , we strongly recommend that you do not start. You have Macular Degeneration. Check your Amsler Grid, with each eye separately, and take the AREDS II formula vitamins. If you notice any changes in your vision, please call the office and schedule an appointment to see any of the doctors here.Follow up:1 Year Follow Up DFE You can expect to have your eyes dilated at your next visit. If Dr. Hernandez orders any additional testing, it may require extra time. We recommend that you bring sunglasses, as dilation drops often make you light sensitive until they wear off. We always recommend you bring someone to drive you home if you are uncomfortable driving with your eyes dilated. If you have any questions before your next visit, feel free to call our office at .h53.2 DiplopiaComments:IF YOUR DOUBLE VISION WORSEN CALL THE OFFICE TO SCHEDULE A SOONER APPOINTMENT. Functional Status Description No Information Available Mental Status Description No Information Available Referrals Description No Information Available
--- OUTSIDE RECORDS SUMMARY | 2019-03-12 10:21 | XMS REPORT | Continuity of Care Document ---
:1945 External Reference #:[id number] Author Name Mely Aguila M.D. (transmitted by agent of provider Lauren Haley) Address [address] [place] [address] Care Team Providers Name Role Phone Jose Johnson MD - Family Medicine Care Team Information International Sales Representative [phone] Family & Childrens Services - Care Team Information International Sales Representative [phone] Counseling Problems Active Problems Provider Date Parkinson's disease Jose Juan Esquivel M.D. Onset: 01/07/2014 Orthostatic hypotension Itz Remy M.D. Onset: 02/12/2018 Mild cognitive disorder Itz Remy M.D. Onset: 02/12/2018 Nervous system symptoms Itz Remy M.D. Onset: 03/03/2019 Essential hypertension Mely Aguila M.D. Onset: 09/17/2018 Social History Type Date Description Comments Sex Unknown Tobacco Use Start: Unknown Never Smoked Cigarettes Smoking Status Reviewed: 03/06/19 Never Smoked Cigarettes ETOH Use Denies alcohol use Tobacco Use Start: Unknown Patient has never smoked Recreational Drug Use Denies Drug Use Exercise Type/Frequency Exercises regularly 3-4 times a week Allergies, Adverse Reactions, Alerts Active Allergies Reaction Severity Comments Date Tape 10/07/2015 Inactive Allergies NKDA 05/28/2012 Medications Active Medications SIG Qnty Indications Ordering Provider Date Amlodipine Besylate 1 by mouth every 90tabs R42 Mely Aguila, 05/13/2018 day (takes in am) M.D. 2.5mg Tablets Elbow wear on left and 2units Ana Maria Winters, 01/03/2017 Support/Pressure right elbow dx: M.D. Pads/Left-Right/Smal Bilateral l-Medium olecranon Misc bursitis Carbidopa-Levodopa take 2 tabs at 945tabs Nicolas Tobin, 11/13/2016 6am, 2 tabs at N.P. 25-100mg Tablets 9:30am, 2 tabs at 12:30, 2 1/2 tabs at 3:30p, 2 tabs at 7pm. Sertraline HCL one tab by mouth 30tabs Amanda Mcguire MD 10/16/2016 50mg daily (am) Tablets Carbidopa-Levodopa take 1 tablet by 90tabs Nicolas Tobin, 10/01/2016 ER mouth at 10 pm N.P. 50-200mg Tablets ER Potassium otc once a day Syed Mensah, 09/09/2015 99mg M.DLu Tablets Melatonin 1 tab by mouth at Unknown 10mg bedtime as needed Capsules for insomnia Vitamin E 1 by mouth every Unknown 400Unit day Capsules Unisom Sleepmelts 1 po q hs Unknown 25mg Tablets Dispers Vitamin C 1 by mouth every Unknown 1000mg day as needed Tablets Fibercon 1 po daily Unknown 625mg Tablets Savision 1 bid Unknown Capsules Multi For Him 1 by mouth every Unknown day Capsules Magnesium Daily Unknown Vitamin D3 1 by mouth as Unknown 400Unit needed Tablets Calcium Citrate one by mouth Unknown 200mg every day as Tablets needed Co Q-10 Maximum 2 caps po qd 90caps Unknown Strength 600mg Capsules Medications Administered in Office Medication SIG Qnty Indications Ordering Provider Date Records Fee Syed Mensah M.D. 10/25/2018 Injection Immunizations Description No Information Available Vital Signs Date Vital Result Comment 03/06/2019 3:23pm Height 69 inches 5'9" Weight 195.00 lb with shoes Heart Rate 56 /min BP Systolic Sitting 128 mmHg Lue reg cuff BP Diastolic Sitting 86 mmHg Lue reg cuff Respiratory Rate 18 /min BMI (Body Mass Index) 28.8 kg/m2 Ejection Fraction 55-60% ECHO 02/21/2018 03/03/2019 2:43pm Height 69 inches 5'9" Weight 195.00 lb Heart Rate 63 /min BP Systolic 102 mmHg BP Diastolic 70 mmHg BMI (Body Mass Index) 28.8 kg/m2 Results Description No Information Available Procedures Date Code Description Status 03/03/2019 16950 Neurostimulator Pulse Generator Analysis W/O Completed Reprogramming 08/30/2005 93723880 Colonoscopy Completed Medical Devices Description No Information Available Encounters Type Date Location Provider Dx Diagnosis Office Visit 11/07/2018 [facility] Itz Remy, G20 Parkinson' s 3:30p [facility] disease Office Visit 09/17/2018 [facility] Mely Aguila M.D. G20 Parkinson 's 11:15a [facility] disease I95.1 Orthostatic hypotension R29.6 Repeated falls I10 Essential (primary) hypertension Assessments Date Code Description Provider 03/06/2019 I95.1 Orthostatic hypotension Mely Aguila M.D. 03/06/2019 R29.6 Repeated falls Mely Aguila M.D. 03/06/2019 G20 Parkinson's disease Mely Aguila M.D. 03/06/2019 R42 Dizziness and giddiness Mely Aguila M.D. 03/03/2019 G20 Parkinson's disease Itz Remy M.D. 03/03/2019 I95.1 Orthostatic hypotension Itz Remy M.D. 03/03/2019 R29.6 Repeated falls Itz Remy M.D. 03/03/2019 Z45.42 Encounter for adjustment and management of Itz Remy M.D. neurostimulator 11/07/2018 G20 Parkinson's disease Itz Remy M.D. 09/17/2018 G20 Parkinson's disease Mely Aguila M.D. 09/17/2018 I95.1 Orthostatic hypotension Mely Aguila M.D. 09/17/2018 R29.6 Repeated falls Mely Aguila M.D. 09/17/2018 I10 Essential (primary) hypertension Mely Aguila M.D. Plan of Treatment Future Appointment(s):07/17/2019 3:45 pm - Itz Remy M.D. at [facility]03/06/2019 - Mely [place], M.D.I95.1 Orthostatic hypotensionComments:Per , symptoms improved on Amplodipine.BP's still high in eves.Sleeps with bed raises at head.Follow up:Check BP and HR lying, sitting , standing now. OV annual/PRNRecommendations:Continue current meds. Continue BP checks as per Dr Remy. This is very common with Parkinsons.R29.6 Repeated fallsComments:Use the walker!G20 Parkinson's [id number] Dizziness and giddiness Functional Status Description No Information Available Mental Status Description No Information Available Referrals Description No Information Available
--- OUTSIDE RECORDS SUMMARY | 2019-03-12 10:21 | XMS REPORT | Continuity of Care Document ---
:1945 External Reference #:[id number] Author Name Miguel Angel Hebert, DO Address [address] [place] [address] Care Team Providers Name Role Phone Miguel Angel Humphrey MD Care Team Information Hot Bread Baker [phone] Jose Johnson MD - Family Medicine Care Team Information Hot Bread Baker Problems Description No Information Available Social History Type Date Description Comments Sex Unknown Tobacco Use Start: Unknown Patient has never smoked Smoking Status Reviewed: 12/16/18 Patient has never smoked Allergies, Adverse Reactions, Alerts Active Allergies Reaction Severity Comments Date Adhesives 04/16/2017 Medications Active Medications SIG Qnty Indications Ordering Provider Date Carbidopa-Levodopa ER 1 Tablet AT hs Ramiro Salgado, 04/16/2017 50-200mg Tablets ER Sertraline HCL hs Unknown 07/09/2015 50mg Tablets Carbidopa-Levodopa as Directed Unknown 25-100mg Tablets Melatonin Once A Day AT Unknown 5mg Capsules Bedtime Amlodipine Besylate Daily Unknown 2.5mg Tablets Immunizations Description No Information Available Vital Signs Date Vital Result Comment 12/16/2018 2:53pm Height 73 inches 6'1" Weight 196.00 lb BP Systolic 111 mmHg BP Diastolic 61 mmHg Heart Rate 75 /min BMI (Body Mass Index) 25.9 kg/m2 05/03/2017 11:37am Height 73 inches 6'1" Weight 193.00 lb BP Systolic 118 mmHg BP Diastolic 62 mmHg Heart Rate 68 /min BMI (Body Mass Index) 25.5 kg/m2 Results Description No Information Available Procedures Description No Information Available Medical Devices Description No Information Available Encounters Description No Information Available Assessments Date Code Description Provider 12/16/2018 K59.09 Other constipation Miguel Angel Hebert DO 12/16/2018 G20 Parkinson's disease Miguel Angel Hebert DO Plan of Treatment No Information Available Functional Status Description No Information Available Mental Status Description No Information Available Referrals Description No Information Available
--- OUTSIDE RECORDS SUMMARY | 2019-03-12 10:21 | XMS REPORT | Continuity of Care Document ---
:1945 External Reference #:[id number] Author Name Itz Remy M.D. (transmitted by agent of provider Apurva Fonseca ) Address [address] [facility], [place] [address] Care Team Providers Name Role Phone Jose Johnson MD - Family Medicine Care Team Information Incinerator Attendant Family & Childrens Services - Care Team Information Incinerator Attendant [phone] Counseling Problems Active Problems Provider Date Parkinson's disease Jose Juan Esquivel M.D. Onset: 01/07/2014 Orthostatic hypotension Itz Remy M.D. Onset: 02/12/2018 Mild cognitive disorder Itz Remy M.D. Onset: 02/12/2018 Nervous system symptoms Itz Remy M.D. Onset: 03/03/2019 Essential hypertension Mely Aguila M.D. Onset: 09/17/2018 Social History Type Date Description Comments Sex Unknown Tobacco Use Start: Unknown Never Smoked Cigarettes Smoking Status Reviewed: 03/03/19 Never Smoked Cigarettes ETOH Use Denies alcohol [...] day Syed Mensah, 09/09/2015 99mg M.DLu Tablets Co Q-10 Maximum 2 caps po qd 90caps Unknown Strength 600mg Capsules Calcium Citrate one by mouth Unknown 200mg every day as Tablets needed Vitamin D3 1 by mouth as Unknown 400Unit needed Tablets Magnesium Daily Unknown Multi For Him 1 by mouth every Unknown day Capsules Savision 1 bid Unknown Capsules Fibercon 1 po daily Unknown 625mg Tablets Vitamin C 1 by mouth every Unknown 1000mg day as needed Tablets Unisom Sleepmelts 1 po q hs Unknown 25mg Tablets Dispers Vitamin E 1 by mouth every Unknown 400Unit day Capsules Medications Administered in Office Medication SIG Qnty Indications Ordering Provider Date Records Fee Syed Mensah M.D. 10/25/2018 Injection Immunizations Description No Information Available Vital Signs Date Vital Result Comment 03/03/2019 2:43pm Height 69 inches 5'9" Weight 195.00 lb Heart Rate 63 /min BP Systolic 102 mmHg BP Diastolic 70 mmHg BMI (Body Mass Index) 28.8 kg/m2 11/07/2018 3:38pm Height 69 inches 5'9" Weight 195.00 lb Heart Rate 56 /min BP Systolic 116 mmHg BP Diastolic 74 mmHg BMI (Body Mass Index) 28.8 kg/m2 Results Description No Information Available Procedures Date Code Description Status 03/03/2019 84791 Neurostimulator Pulse Generator Analysis W/O Completed Reprogramming 08/30/2005 [id number] Colonoscopy Completed Medical Devices Description No Information Available Encounters Type Date Location Provider Dx Diagnosis Office Visit 11/07/2018 [facility] Itz Remy, G20 Parkinson' s 3:30p Services [facility] disease Office Visit 09/17/2018 [facility] Mely Aguila M.D. G20 Parkinson 's 11:15a Of [facility] disease I95.1 Orthostatic hypotension R29.6 Repeated falls I10 Essential (primary) hypertension Assessments Date Code Description Provider 03/03/2019 G20 Parkinson's disease Itz Remy M.D. 03/03/2019 I95.1 Orthostatic hypotension Itz Remy M.D. 03/03/2019 R29.6 Repeated falls Itz Remy M.D. 11/07/2018 G20 Parkinson's disease Itz Remy M.D. 09/17/2018 G20 Parkinson's disease Mely Aguila M.D. 09/17/2018 I95.1 Orthostatic hypotension Mely Aguila M.D. 09/17/2018 R29.6 Repeated falls Mely Aguila M.D. 09/17/2018 I10 Essential (primary) hypertension Mely Aguila M.D. Plan of Treatment Future Appointment(s):07/17/2019 3:45 pm - Itz Remy M.D. at [facility]/03/2019 - Itz Remy M.D.G20 Parkinson's diseaseFollow up:Follow up in 4 monthsRecommendations:Take blood pressure 3 times a day and call in 1 weekI95.1 Orthostatic ljnrenjakqyA62.6 Repeated falls Functional Status Description No Information Available Mental Status Description No Information Available Referrals Description No Information Available
[2019-03-12 11:00] VITALS: BP 142/82
--- NOTE | 2019-03-12 12:35 | UC ---
General HPI - HPI Summary HPI Summary: Patient here with - has a history of parkinson's - states he was at the gym on 03/09/19 when he got dizzy and lost his balance and fell and hurt his left hip/low back area. He had to call his to bring him home. He does fall frequently - has a walker but does not use it often and with his recent falls was not using his walker. Feels a sharp pain in his hip. Has been taking tylenol. Was doing PT for a long time but did not help much and they are not interested. Meds: Reviewed - History of Current Complaint Chief Complaint: UCBackPain Stated Complaint: LEFT SIDE PAIN FROM FALL Time Seen by Provider: 03/12/19 12:19 Pain Intensity: 8 - Allergy/Home Medications Allergies/Adverse Reactions: Allergies Allergy/AdvReac Type Severity Reaction Status Date / Time Adhesive Tape Allergy Severe Rash Verified 03/12/19 10:59 Home Medications: Home Medications Acetaminophen/Diphenhydramine [Tylenol Pm Ex-Strength Caplet] 1 tab PO ONCE PRN 03/12/19 [History Confirmed 03/12/19] Amlodipine Besylate 1 tab PO DAILY 03/12/19 [History Confirmed 03/12/19] Savision 1 tab PO BID 03/12/19 [History Confirmed 03/12/19] PMH/Surg Hx/FS Hx/Imm Hx Previously Healthy: No Neurological History: Other - parkinson's disease - Surgical History Surgical History: Yes Surgery Procedure, Year, and Place: TURP, melanoma, deep brain stimulation, BILAT CATARACT SURGERY 07/2016 - Family History Known Family History: Positive: Cardiac Disease, Hypertension - Social History Alcohol Use: None Alcohol Amount: 1/2 glass of wine at dinner Substance Use Type: None Smoking Status (MU): Never Smoked Tobacco - Immunization History Most Recent Influenza Vaccination: Not UTD Most Recent Tetanus Shot: <5 YEARS ( OF 10/27/16) Most Recent Pneumonia Vaccination: unknown Hx Tetanus, Diphtheria Vaccination: Yes - Called PCP - 2012 Review of Systems All Other Systems Reviewed And Are Negative: Yes Musculoskeletal: Positive: Decreased ROM Neurological: Positive: Weakness Physical Exam Triage Information Reviewed: Yes Appearance: Well-Appearing, Other: - elderly frail Vital Signs: Initial Vital Signs Temp 97.6 F 03/12/19 10:55 Pulse 56 03/12/19 10:55 Resp 18 03/12/19 10:55 BP 142/82 03/12/19 10:55 Pulse Ox 98 03/12/19 10:55 Neck: Positive: Supple Respiratory: Positive: Lungs clear, Normal breath sounds Cardiovascular: Positive: RRR, No Murmur Musculoskeletal: Positive: Other: - left hip pain - strength equal and symmetric b/l Diagnostics - Radiology Pelvic and Lumbar CT Radiology Interpretation Completed By: Radiologist Summary of Radiographic Findings: Lumbar CT: nondisplaced fracture of left transverse process of L1, L2, L3. Chronic right fracture of right transverse process of L3, L4. DJD and OA. Pelvic CT: No acute findings Course/Dx - Course Course Of Treatment: This is a frail 73 yr old with PMhx of Parkinson's who fell while working out at the gym Lumbar CT showed L1,L2, L3 left transverse process nondisplaced fractures Spoke with Dr. Casanova - recommended conservative management Plan Recommend scheduled tylenol for pain as directed Ibuprofen as needed for pain - take with food Stressed the importance of safety and using the walker at all times including when at the gym Sitting and standing slowly and take your time before your start moving Weight bearing as tolerated Follow up with your PCP. - Diagnoses Provider Diagnosis: Fall, Fracture of lumbar spine, Parkinsons disease Discharge ED - Sign-Out/Discharge Documenting (check all that apply): Patient Departure All imaging exams completed and their final reports reviewed: Yes - Discharge Plan Condition: Fair Disposition: HOME Patient Education Materials: Degenerative Disc Disease (ED), Thoracolumbar Fracture (ED) Referrals: Jose Johnson MD [Primary Care Provider] - Additional Instructions: Recommend scheduled tylenol for pain as directed Ibuprofen as needed for pain - take with food Stressed the importance of safety and using the walker at all times including when at the gym Sitting and standing slowly and take your time before your start moving Weight bearing as tolerated Follow up with your PCP.- Consider DEXA scan - Billing Disposition and Condition Condition: FAIR Disposition: Home
== END 2019-03-12 13:35 | disposition home or self-care (01) ==
LOC: UCEAST 10:12
DX: S32.009A Unspecified fracture of unspecified lumbar vertebra, initial encounter for closed fracture (principal); G20 Parkinson's disease; W18.30XA Fall on same level, unspecified, initial encounter; Y92.39 Other specified sports and athletic area as the place of occurrence of the external cause; Z91.09 Other allergy status, other than to drugs and biological substances
CPT/HCPCS: 72131; 72192; 99211; G0463

== ENCOUNTER 2020-10-29 07:21 | Inpatient (IN) ==
[2020-10-29 07:52] LABS: ABS Eosinophils 0.1 10^3/ul (0-0.6); ABS Lymphocytes 1.3 10^3/ul (1.0-4.8); ABS Monocytes 0.6 10^3/ul (0-0.8); Eosinophil % 0.7 %; Hematocrit 37 % (42-52); Hemoglobin 12.6 g/dL (14.0-18.0); Lymphocyte % 14.3 %; Mean Corpuscular HGB Conc 34 g/dL (31-36); Mean Corpuscular Hemoglobin 31 pg (27-31); Mean Corpuscular Volume 92 fL (80-94); Platelet Count 205 10^3/uL (150-450); Red Blood Count 4.03 10^6 /uL (4.18-5.48); Red Cell Distribution Width 14 % (10-15)
[2020-10-29 08:01] LABS: Activated Partial Thrombo Time 36.8 seconds (26.0-38.0); INR 1.12 (0.86-1.15)
[2020-10-29 08:10] LABS: ALT 5 U/L (7-52); AST 26 U/L (13-39); Albumin 4.3 g/dL (3.2-5.2); Albumin/Globulin Ratio 1.6 (1-3); Alkaline Phosphatase 55 U/L (35-149); Anion Gap 7 mmol/L (2-11); Blood Urea Nitrogen 26 mg/dL (6-24); C Reactive Protein < 1.00 mg/L (<8.01); CO2 Carbon Dioxide 26 mmol/L (22-32); Chloride 104 mmol/L (101-111); Creatine Kinase 277 U/L (10-223); EGFR African American 76.5 (>60); EGFR Non-African American 63.3 (>60); Globulin 2.7 g/dL (2-4); Glucose 104 mg/dL (70-100); Potassium 3.9 mmol/L (3.5-5.0); Sodium 137 mmol/L (135-145)
[2020-10-29 08:11] LABS: Troponin I 0.01 ng/mL (<0.03)
[2020-10-29 10:39] LABS: Urine Appearance Cloudy; Urine Bilirubin Negative (Negative); Urine Blood Negative (Negative); Urine Color Yellow; Urine Glucose Negative (Negative); Urine Ketones Trace (Negative); Urine Nitrite Negative (Negative); Urine Protein Negative (Negative); Urine Specific Gravity 1.015 (1.002-1.030); Urine Urobilinogen Negative (Negative)
[2020-10-29 12:25] LABS: Rapid COVID-19 Molecular Undetected (Undetected)
[2020-10-29] MEDS ORDERED: hydrALAZINE 20 mg/ml 1 ML Vial IV IV SLOW PU ONE (13:12)
[2020-10-29] MEDS: Carbidopa/Levodop 25/100 MG TAB PO SCH ×3 (13:46→18:35)
[2020-10-30] MEDS: MINS AREDS2 PO SCH ×3 (00:03→20:56)
[2020-10-30] MEDS: Carbidopa/Levodop CR 50/200 TAB.CR PO SCH ×2 (00:03→20:55)
[2020-10-30] MEDS: MULTIVITAMINS PO SCH ×3 (00:03→20:56)
[2020-10-30] MEDS: Carbidopa/Levodop 25/100 MG TAB PO SCH ×5 (05:51→18:42)
[2020-10-30] MEDS: Multivitamins/Minerals TAB PO SCH (09:28)
[2020-10-30] MEDS: Cholecalciferol (VIT D3) 400 units TAB PO SCH (09:29)
[2020-10-30] MEDS: Calcium Polycarbophil 625mg TB PO SCH (09:31)
[2020-10-30] MEDS: Calcium Citrate 200 mg TAB PO SCH (09:32)
[2020-10-30] MEDS: POTASSIUM GLUCONATE PO SCH (09:49)
[2020-10-30] MEDS: ZINC 50 MG PO SCH (09:49)
[2020-10-31] MEDS: Carbidopa/Levodop 25/100 MG TAB PO SCH ×5 (05:31→18:12)
[2020-10-31] MEDS: Calcium Polycarbophil 625mg TB PO SCH (09:01)
[2020-10-31] MEDS: Multivitamins/Minerals TAB PO SCH (09:01)
[2020-10-31] MEDS: Calcium Citrate 200 mg TAB PO SCH (09:01)
[2020-10-31] MEDS: Cholecalciferol (VIT D3) 400 units TAB PO SCH (09:01)
[2020-10-31] MEDS: POTASSIUM GLUCONATE PO SCH (09:04)
[2020-10-31] MEDS: MINS AREDS2 PO SCH ×2 (09:04→21:51)
[2020-10-31] MEDS: MULTIVITAMINS PO SCH ×2 (09:04→21:51)
[2020-10-31] MEDS: ZINC 50 MG PO SCH (09:04)
[2020-10-31] MEDS ORDERED: POTASSIUM GLUCONATE 99 MG PO SCH ×2 (14:29→21:00)
[2020-10-31] MEDS ORDERED: ZINC 50 MG PO SCH (21:00)
[2020-10-31] MEDS: Carbidopa/Levodop CR 50/200 TAB.CR PO SCH (21:52)
[2020-11-01] MEDS: Carbidopa/Levodop 25/100 MG TAB PO SCH ×2 (05:33→08:43)
[2020-11-01 08:33] VITALS: BP 141/83
[2020-11-01] MEDS: Calcium Citrate 200 mg TAB PO SCH (08:41)
[2020-11-01] MEDS: Calcium Polycarbophil 625mg TB PO SCH (08:42)
[2020-11-01] MEDS: Cholecalciferol (VIT D3) 400 units TAB PO SCH (08:44)
[2020-11-01] MEDS: Multivitamins/Minerals TAB PO SCH (08:44)
[2020-11-01] MEDS: MINS AREDS2 PO SCH (10:06)
[2020-11-01] MEDS: MULTIVITAMINS PO SCH (10:06)
== END 2020-11-01 11:22 | DRG 57 ==
LOC: MEDTELE 07:21 → ED 07:21 → SUATTDRO 20:00 → MEDTELE 20:15
PROVIDERS: ADMIT Physician Assistant Medical; ATTEND Internal Medicine

== ENCOUNTER 2020-11-01 08:02 | Inpatient (IN) ==
[2020-11-01] MEDS ORDERED: Calcium Citrate 200 mg TAB PO SCH (09:00)
[2020-11-01] MEDS ORDERED: Cholecalciferol (VIT D3) 400 units TAB PO SCH (09:00)
[2020-11-01] MEDS ORDERED: Multivitamins/Minerals TAB PO SCH (09:00)
[2020-11-01] MEDS ORDERED: PTO: Multivitamins/Mins AREDS2 (NF) CAP PO SCH (09:00)
[2020-11-01] MEDS ORDERED: Calcium Polycarbophil 625mg TB PO SCH (09:00)
[2020-11-01] MEDS: Carbidopa/Levodop 25/100 MG TAB PO SCH ×5 (12:42→18:22)
[2020-11-01] MEDS ORDERED: Enoxaparin 40 MG/0.4 ML SYR SUBCUT SCH (13:00)
[2020-11-01] MEDS: PTO: Multivitamins/Mins AREDS2 (NF) CAP PO SCH (20:33)
[2020-11-01] MEDS: Senna TAB 8.6 mg TAB PO PRN (20:33)
[2020-11-01] MEDS: POTASSIUM GLUCONATE 99 MG PO SCH (20:33)
[2020-11-01] MEDS: Carbidopa/Levodop CR 50/200 TAB.CR PO SCH (20:33)
[2020-11-01] MEDS: ZINC GLUCONATE 50 MG PO SCH (20:35)
[2020-11-02] MEDS: Carbidopa/Levodop 25/100 MG TAB PO SCH ×5 (05:01→18:48)
[2020-11-02] MEDS: Calcium Citrate 200 mg TAB PO SCH (10:23)
[2020-11-02] MEDS: Cholecalciferol (VIT D3) 400 units TAB PO SCH (10:23)
[2020-11-02] MEDS: Calcium Polycarbophil 625mg TB PO SCH (10:23)
[2020-11-02] MEDS: Enoxaparin 40 MG/0.4 ML SYR SUBCUT SCH (10:23)
[2020-11-02] MEDS: Multivitamins/Minerals TAB PO SCH (10:24)
[2020-11-02] MEDS: PTO: Multivitamins/Mins AREDS2 (NF) CAP PO SCH ×2 (10:24→21:06)
[2020-11-02] MEDS: ZINC GLUCONATE 50 MG PO SCH (21:06)
[2020-11-02] MEDS: POTASSIUM GLUCONATE 99 MG PO SCH (21:06)
[2020-11-02] MEDS: PTO: Mirabegron 50 mg ER TAB (NF) PO SCH (21:06)
[2020-11-02] MEDS: Carbidopa/Levodop CR 50/200 TAB.CR PO SCH (21:07)
[2020-11-03] MEDS: Carbidopa/Levodop 25/100 MG TAB PO SCH ×5 (05:30→18:36)
[2020-11-03 07:11] LABS: ABS Eosinophils 0.3 10^3/ul (0-0.6); ABS Lymphocytes 1.9 10^3/ul (1.0-4.8); ABS Monocytes 0.4 10^3/ul (0-0.8); ABS Neutrophils 2.7 10^3/ul (1.5-7.7); Hematocrit 37 % (42-52); Hemoglobin 12.7 g/dL (14.0-18.0); Lymphocyte % 36.2 %; Mean Corpuscular HGB Conc 34 g/dL (31-36); Mean Corpuscular Hemoglobin 32 pg (27-31); Mean Corpuscular Volume 91 fL (80-94); Platelet Count 206 10^3/uL (150-450); Red Blood Count 4.04 10^6 /uL (4.18-5.48); Red Cell Distribution Width 14 % (10-15); White Blood Count 5.4 10^3/uL (3.5-10.8)
[2020-11-03 07:33] LABS: Albumin 4.2 g/dL (3.2-5.2); Albumin/Globulin Ratio 1.6 (1-3); Calcium 9.7 mg/dL (8.6-10.3); EGFR African American 84.2 (>60); EGFR Non-African American 69.6 (>60); Globulin 2.7 g/dL (2-4); Potassium 3.9 mmol/L (3.5-5.0); Total Bilirubin 0.6 mg/dL (0.2-1.0); Total Protein 6.9 g/dL (6.4-8.9)
[2020-11-03] MEDS ORDERED: Pneumococcal Vac 23-Polyvalent IM ONE (09:00)
[2020-11-03] MEDS: Calcium Citrate 200 mg TAB PO SCH (09:21)
[2020-11-03] MEDS: Calcium Polycarbophil 625mg TB PO SCH (09:21)
[2020-11-03] MEDS: Enoxaparin 40 MG/0.4 ML SYR SUBCUT SCH (09:22)
[2020-11-03] MEDS: Multivitamins/Minerals TAB PO SCH (09:22)
[2020-11-03] MEDS: Cholecalciferol (VIT D3) 400 units TAB PO SCH (09:22)
[2020-11-03] MEDS: PTO: Multivitamins/Mins AREDS2 (NF) CAP PO SCH ×2 (09:26→21:27)
[2020-11-03] MEDS: POTASSIUM GLUCONATE 99 MG PO SCH (21:26)
[2020-11-03] MEDS: Carbidopa/Levodop CR 50/200 TAB.CR PO SCH (21:27)
[2020-11-03] MEDS: ZINC GLUCONATE 50 MG PO SCH (21:27)
[2020-11-03] MEDS: PTO: Mirabegron 50 mg ER TAB (NF) PO SCH (21:27)
[2020-11-04] MEDS: Carbidopa/Levodop 25/100 MG TAB PO SCH ×5 (06:08→18:40)
[2020-11-04] MEDS: Calcium Citrate 200 mg TAB PO SCH (09:29)
[2020-11-04] MEDS: Cholecalciferol (VIT D3) 400 units TAB PO SCH (09:30)
[2020-11-04] MEDS: Calcium Polycarbophil 625mg TB PO SCH (09:30)
[2020-11-04] MEDS: Enoxaparin 40 MG/0.4 ML SYR SUBCUT SCH (09:31)
[2020-11-04] MEDS: Multivitamins/Minerals TAB PO SCH (09:31)
[2020-11-04] MEDS: PTO: Multivitamins/Mins AREDS2 (NF) CAP PO SCH ×3 (09:31→23:41)
[2020-11-04] MEDS: Carbidopa/Levodop CR 50/200 TAB.CR PO SCH (21:43)
[2020-11-04] MEDS: PTO: Mirabegron 50 mg ER TAB (NF) PO SCH (21:45)
[2020-11-04] MEDS: POTASSIUM GLUCONATE 99 MG PO SCH ×2 (22:51→23:45)
[2020-11-04] MEDS: ZINC GLUCONATE 50 MG PO SCH ×2 (22:51→23:44)
[2020-11-05] MEDS: Carbidopa/Levodop 25/100 MG TAB PO SCH ×5 (05:22→18:35)
[2020-11-05] MEDS: Enoxaparin 40 MG/0.4 ML SYR SUBCUT SCH (09:42)
[2020-11-05] MEDS: Multivitamins/Minerals TAB PO SCH (09:43)
[2020-11-05] MEDS: Cholecalciferol (VIT D3) 400 units TAB PO SCH (09:43)
[2020-11-05] MEDS: Calcium Citrate 200 mg TAB PO SCH (09:47)
[2020-11-05] MEDS: Calcium Polycarbophil 625mg TB PO SCH (09:47)
[2020-11-05] MEDS: PTO: Multivitamins/Mins AREDS2 (NF) CAP PO SCH ×2 (09:48→21:32)
[2020-11-05] MEDS: POTASSIUM GLUCONATE 99 MG PO SCH (21:32)
[2020-11-05] MEDS: PTO: Mirabegron 50 mg ER TAB (NF) PO SCH (21:32)
[2020-11-05] MEDS: ZINC GLUCONATE 50 MG PO SCH (21:32)
[2020-11-05] MEDS: Carbidopa/Levodop CR 50/200 TAB.CR PO SCH (21:32)
[2020-11-06] MEDS: Carbidopa/Levodop 25/100 MG TAB PO SCH ×5 (05:19→18:51)
[2020-11-06] MEDS: Enoxaparin 40 MG/0.4 ML SYR SUBCUT SCH (08:47)
[2020-11-06] MEDS: Calcium Citrate 200 mg TAB PO SCH (08:47)
[2020-11-06] MEDS: Cholecalciferol (VIT D3) 400 units TAB PO SCH (08:47)
[2020-11-06] MEDS: Multivitamins/Minerals TAB PO SCH (08:48)
[2020-11-06] MEDS: Calcium Polycarbophil 625mg TB PO SCH (08:48)
[2020-11-06] MEDS: PTO: Multivitamins/Mins AREDS2 (NF) CAP PO SCH ×2 (09:42→20:07)
[2020-11-06] MEDS: PTO: Mirabegron 50 mg ER TAB (NF) PO SCH (20:07)
[2020-11-06] MEDS: POTASSIUM GLUCONATE 99 MG PO SCH (20:07)
[2020-11-06] MEDS: ZINC GLUCONATE 50 MG PO SCH (20:07)
[2020-11-06] MEDS: Carbidopa/Levodop CR 50/200 TAB.CR PO SCH (22:10)
[2020-11-07] MEDS: Carbidopa/Levodop 25/100 MG TAB PO SCH ×5 (05:27→18:29)
[2020-11-07] MEDS: Calcium Citrate 200 mg TAB PO SCH (08:27)
[2020-11-07] MEDS: Cholecalciferol (VIT D3) 400 units TAB PO SCH (08:27)
[2020-11-07] MEDS: Multivitamins/Minerals TAB PO SCH (08:27)
[2020-11-07] MEDS: Calcium Polycarbophil 625mg TB PO SCH (08:28)
[2020-11-07] MEDS: Enoxaparin 40 MG/0.4 ML SYR SUBCUT SCH (08:28)
[2020-11-07] MEDS: PTO: Multivitamins/Mins AREDS2 (NF) CAP PO SCH ×2 (08:29→21:29)
[2020-11-07] MEDS: PTO: Mirabegron 50 mg ER TAB (NF) PO SCH (21:27)
[2020-11-07] MEDS: POTASSIUM GLUCONATE 99 MG PO SCH (21:28)
[2020-11-07] MEDS: ZINC GLUCONATE 50 MG PO SCH (21:29)
[2020-11-07] MEDS: Carbidopa/Levodop CR 50/200 TAB.CR PO SCH (21:31)
[2020-11-08] MEDS: Carbidopa/Levodop 25/100 MG TAB PO SCH ×5 (05:54→18:29)
[2020-11-08] MEDS: Cholecalciferol (VIT D3) 400 units TAB PO SCH (07:38)
[2020-11-08] MEDS: Calcium Polycarbophil 625mg TB PO SCH (07:38)
[2020-11-08] MEDS: Multivitamins/Minerals TAB PO SCH (07:38)
[2020-11-08] MEDS: Calcium Citrate 200 mg TAB PO SCH (07:38)
[2020-11-08] MEDS: PTO: Multivitamins/Mins AREDS2 (NF) CAP PO SCH ×2 (07:38→21:26)
[2020-11-08] MEDS: Enoxaparin 40 MG/0.4 ML SYR SUBCUT SCH (07:38)
[2020-11-08] MEDS: Carbidopa/Levodop CR 50/200 TAB.CR PO SCH (21:23)
[2020-11-08] MEDS: PTO: Mirabegron 50 mg ER TAB (NF) PO SCH (21:25)
[2020-11-08] MEDS: POTASSIUM GLUCONATE 99 MG PO SCH (21:26)
[2020-11-08] MEDS: ZINC GLUCONATE 50 MG PO SCH (21:27)
[2020-11-08 22:10] LABS: Urine Appearance Clear; Urine Bilirubin Negative (Negative); Urine Blood Negative (Negative); Urine Color Yellow; Urine Glucose Negative (Negative); Urine Ketones Trace (Negative); Urine Nitrite Negative (Negative); Urine Protein Negative (Negative); Urine Specific Gravity 1.026 (1.002-1.030); Urine Urobilinogen Negative (Negative)
[2020-11-09] MEDS: Carbidopa/Levodop 25/100 MG TAB PO SCH ×5 (05:32→18:47)
[2020-11-09] MEDS: PTO: Multivitamins/Mins AREDS2 (NF) CAP PO SCH ×2 (09:50→19:46)
[2020-11-09] MEDS: Multivitamins/Minerals TAB PO SCH (09:50)
[2020-11-09] MEDS: Cholecalciferol (VIT D3) 400 units TAB PO SCH (09:50)
[2020-11-09] MEDS: Calcium Citrate 200 mg TAB PO SCH (09:50)
[2020-11-09] MEDS: Calcium Polycarbophil 625mg TB PO SCH (09:50)
[2020-11-09] MEDS: Enoxaparin 40 MG/0.4 ML SYR SUBCUT SCH (09:51)
[2020-11-09] MEDS: PTO: Mirabegron 50 mg ER TAB (NF) PO SCH (19:45)
[2020-11-09] MEDS: ZINC GLUCONATE 50 MG PO SCH (19:46)
[2020-11-09] MEDS: POTASSIUM GLUCONATE 99 MG PO SCH (19:46)
[2020-11-09] MEDS: Carbidopa/Levodop CR 50/200 TAB.CR PO SCH (21:39)
[2020-11-10] MEDS: Carbidopa/Levodop 25/100 MG TAB PO SCH ×5 (05:38→18:30)
[2020-11-10 07:36] LABS: ABS Eosinophils 0.3 10^3/ul (0-0.6); ABS Lymphocytes 1.6 10^3/ul (1.0-4.8); ABS Monocytes 0.4 10^3/ul (0-0.8); ABS Neutrophils 2.8 10^3/ul (1.5-7.7); Eosinophil % 5.7 %; Hematocrit 35 % (42-52); Hemoglobin 11.9 g/dL (14.0-18.0); Lymphocyte % 31.3 %; Mean Corpuscular HGB Conc 34 g/dL (31-36); Mean Corpuscular Hemoglobin 31 pg (27-31); Mean Corpuscular Volume 92 fL (80-94); Mean Platelet Volume 7.5 fL (7.4-10.4); Platelet Count 202 10^3/uL (150-450); Red Blood Count 3.82 10^6 /uL (4.18-5.48); Red Cell Distribution Width 15 % (10-15); White Blood Count 5.1 10^3/uL (3.5-10.8)
[2020-11-10 08:00] LABS: Albumin 3.9 g/dL (3.2-5.2); Albumin/Globulin Ratio 1.6 (1-3); Calcium 9.5 mg/dL (8.6-10.3); Globulin 2.4 g/dL (2-4); Potassium 3.8 mmol/L (3.5-5.0); Total Bilirubin 0.7 mg/dL (0.2-1.0); Total Protein 6.3 g/dL (6.4-8.9)
[2020-11-10] MEDS: Calcium Citrate 200 mg TAB PO SCH (09:42)
[2020-11-10] MEDS: PTO: Multivitamins/Mins AREDS2 (NF) CAP PO SCH ×2 (09:43→21:43)
[2020-11-10] MEDS: Multivitamins/Minerals TAB PO SCH (09:43)
[2020-11-10] MEDS: Cholecalciferol (VIT D3) 400 units TAB PO SCH (09:43)
[2020-11-10] MEDS: Enoxaparin 40 MG/0.4 ML SYR SUBCUT SCH (09:43)
[2020-11-10] MEDS: Calcium Polycarbophil 625mg TB PO SCH (09:43)
[2020-11-10] MEDS: Carbidopa/Levodop CR 50/200 TAB.CR PO SCH (21:39)
[2020-11-10] MEDS: Senna TAB 8.6 mg TAB PO PRN (21:41)
[2020-11-10] MEDS: ZINC GLUCONATE 50 MG PO SCH (21:42)
[2020-11-10] MEDS: POTASSIUM GLUCONATE 99 MG PO SCH (21:43)
[2020-11-10] MEDS: PTO: Mirabegron 50 mg ER TAB (NF) PO SCH (21:54)
[2020-11-11] MEDS: Carbidopa/Levodop 25/100 MG TAB PO SCH ×5 (05:41→18:23)
[2020-11-11] MEDS: Multivitamins/Minerals TAB PO SCH (09:31)
[2020-11-11] MEDS: Calcium Citrate 200 mg TAB PO SCH (09:32)
[2020-11-11] MEDS: Cholecalciferol (VIT D3) 400 units TAB PO SCH (09:32)
[2020-11-11] MEDS: Calcium Polycarbophil 625mg TB PO SCH (09:32)
[2020-11-11] MEDS: Enoxaparin 40 MG/0.4 ML SYR SUBCUT SCH (09:33)
[2020-11-11] MEDS: PTO: Multivitamins/Mins AREDS2 (NF) CAP PO SCH ×2 (09:34→19:56)
[2020-11-11] MEDS: ZINC GLUCONATE 50 MG PO SCH (19:56)
[2020-11-11] MEDS: POTASSIUM GLUCONATE 99 MG PO SCH (19:56)
[2020-11-11] MEDS: Senna TAB 8.6 mg TAB PO PRN (19:57)
[2020-11-11] MEDS: PTO: Mirabegron 50 mg ER TAB (NF) PO SCH (19:59)
[2020-11-11] MEDS: Carbidopa/Levodop CR 50/200 TAB.CR PO SCH (21:32)
[2020-11-12] MEDS: Carbidopa/Levodop 25/100 MG TAB PO SCH ×5 (05:50→18:32)
[2020-11-12] MEDS: Cholecalciferol (VIT D3) 400 units TAB PO SCH (09:15)
[2020-11-12] MEDS: Multivitamins/Minerals TAB PO SCH (09:15)
[2020-11-12] MEDS: PTO: Multivitamins/Mins AREDS2 (NF) CAP PO SCH ×2 (09:16→21:43)
[2020-11-12] MEDS: Enoxaparin 40 MG/0.4 ML SYR SUBCUT SCH (09:16)
[2020-11-12] MEDS: Calcium Polycarbophil 625mg TB PO SCH (09:17)
[2020-11-12] MEDS: Calcium Citrate 200 mg TAB PO SCH (09:17)
[2020-11-12] MEDS: Carbidopa/Levodop CR 50/200 TAB.CR PO SCH (21:39)
[2020-11-12] MEDS: PTO: Mirabegron 50 mg ER TAB (NF) PO SCH (21:42)
[2020-11-12] MEDS: POTASSIUM GLUCONATE 99 MG PO SCH (21:43)
[2020-11-12] MEDS: ZINC GLUCONATE 50 MG PO SCH (21:45)
[2020-11-13] MEDS: Carbidopa/Levodop 25/100 MG TAB PO SCH ×6 (06:36→18:37)
[2020-11-13] MEDS: Enoxaparin 40 MG/0.4 ML SYR SUBCUT SCH (10:13)
[2020-11-13] MEDS: Calcium Polycarbophil 625mg TB PO SCH (10:14)
[2020-11-13] MEDS: Cholecalciferol (VIT D3) 400 units TAB PO SCH (10:14)
[2020-11-13] MEDS: PTO: Multivitamins/Mins AREDS2 (NF) CAP PO SCH ×2 (10:14→21:11)
[2020-11-13] MEDS: Multivitamins/Minerals TAB PO SCH (10:15)
[2020-11-13] MEDS: Calcium Citrate 200 mg TAB PO SCH (10:15)
[2020-11-13] MEDS: POTASSIUM GLUCONATE 99 MG PO SCH (21:11)
[2020-11-13] MEDS: ZINC GLUCONATE 50 MG PO SCH (21:12)
[2020-11-13] MEDS: PTO: Mirabegron 50 mg ER TAB (NF) PO SCH (21:14)
[2020-11-13] MEDS: Carbidopa/Levodop CR 50/200 TAB.CR PO SCH (21:16)
[2020-11-14] MEDS: Carbidopa/Levodop 25/100 MG TAB PO SCH ×5 (05:36→18:48)
[2020-11-14] MEDS: Calcium Citrate 200 mg TAB PO SCH (09:26)
[2020-11-14] MEDS: Calcium Polycarbophil 625mg TB PO SCH (09:26)
[2020-11-14] MEDS: Cholecalciferol (VIT D3) 400 units TAB PO SCH (09:26)
[2020-11-14] MEDS: Multivitamins/Minerals TAB PO SCH (09:26)
[2020-11-14] MEDS: Enoxaparin 40 MG/0.4 ML SYR SUBCUT SCH (09:27)
[2020-11-14] MEDS: PTO: Multivitamins/Mins AREDS2 (NF) CAP PO SCH ×2 (09:27→21:33)
[2020-11-14] MEDS: ZINC GLUCONATE 50 MG PO SCH (21:33)
[2020-11-14] MEDS: POTASSIUM GLUCONATE 99 MG PO SCH (21:33)
[2020-11-14] MEDS: Carbidopa/Levodop CR 50/200 TAB.CR PO SCH (21:35)
[2020-11-14] MEDS: PTO: Mirabegron 50 mg ER TAB (NF) PO SCH (21:35)
[2020-11-15] MEDS: Carbidopa/Levodop 25/100 MG TAB PO SCH ×5 (05:39→18:27)
[2020-11-15] MEDS: Cholecalciferol (VIT D3) 400 units TAB PO SCH (09:26)
[2020-11-15] MEDS: Multivitamins/Minerals TAB PO SCH (09:26)
[2020-11-15] MEDS: Calcium Citrate 200 mg TAB PO SCH (09:28)
[2020-11-15] MEDS: Calcium Polycarbophil 625mg TB PO SCH (09:28)
[2020-11-15] MEDS: Enoxaparin 40 MG/0.4 ML SYR SUBCUT SCH (09:29)
[2020-11-15] MEDS: PTO: Multivitamins/Mins AREDS2 (NF) CAP PO SCH ×2 (09:29→21:44)
[2020-11-15] MEDS: ZINC GLUCONATE 50 MG PO SCH (21:44)
[2020-11-15] MEDS: POTASSIUM GLUCONATE 99 MG PO SCH (21:44)
[2020-11-15] MEDS: PTO: Mirabegron 50 mg ER TAB (NF) PO SCH (21:45)
[2020-11-15] MEDS: Carbidopa/Levodop CR 50/200 TAB.CR PO SCH (21:45)
[2020-11-16] MEDS: Carbidopa/Levodop 25/100 MG TAB PO SCH ×5 (05:19→18:20)
[2020-11-16] MEDS: Enoxaparin 40 MG/0.4 ML SYR SUBCUT SCH (09:34)
[2020-11-16] MEDS: Calcium Polycarbophil 625mg TB PO SCH (09:35)
[2020-11-16] MEDS: PTO: Multivitamins/Mins AREDS2 (NF) CAP PO SCH ×2 (09:35→20:37)
[2020-11-16] MEDS: Multivitamins/Minerals TAB PO SCH (09:36)
[2020-11-16] MEDS: Cholecalciferol (VIT D3) 400 units TAB PO SCH (09:36)
[2020-11-16] MEDS: Calcium Citrate 200 mg TAB PO SCH (09:36)
[2020-11-16] MEDS: Carbidopa/Levodop CR 50/200 TAB.CR PO SCH (20:35)
[2020-11-16] MEDS: ZINC GLUCONATE 50 MG PO SCH (20:37)
[2020-11-16] MEDS: POTASSIUM GLUCONATE 99 MG PO SCH (20:37)
[2020-11-16] MEDS: PTO: Mirabegron 50 mg ER TAB (NF) PO SCH (20:38)
[2020-11-17] MEDS: Carbidopa/Levodop 25/100 MG TAB PO SCH ×5 (04:56→19:07)
[2020-11-17 07:15] LABS: ABS Eosinophils 0.3 10^3/ul (0-0.6); ABS Lymphocytes 1.5 10^3/ul (1.0-4.8); ABS Monocytes 0.4 10^3/ul (0-0.8); ABS Neutrophils 2.5 10^3/ul (1.5-7.7); Eosinophil % 5.8 %; Hematocrit 36 % (42-52); Hemoglobin 12.4 g/dL (14.0-18.0); Lymphocyte % 32.2 %; Mean Corpuscular HGB Conc 34 g/dL (31-36); Mean Corpuscular Hemoglobin 31 pg (27-31); Mean Corpuscular Volume 92 fL (80-94); Mean Platelet Volume 7.7 fL (7.4-10.4); Platelet Count 204 10^3/uL (150-450); Red Blood Count 3.98 10^6 /uL (4.18-5.48); Red Cell Distribution Width 15 % (10-15); White Blood Count 4.7 10^3/uL (3.5-10.8)
[2020-11-17 07:33] LABS: Albumin/Globulin Ratio 1.5 (1-3); Calcium 9.5 mg/dL (8.6-10.3); Globulin 2.6 g/dL (2-4); Potassium 3.8 mmol/L (3.5-5.0); Total Bilirubin 0.7 mg/dL (0.2-1.0); Total Protein 6.6 g/dL (6.4-8.9)
[2020-11-17] MEDS: PTO: Multivitamins/Mins AREDS2 (NF) CAP PO SCH ×2 (09:25→20:36)
[2020-11-17] MEDS: Calcium Polycarbophil 625mg TB PO SCH (09:26)
[2020-11-17] MEDS: Multivitamins/Minerals TAB PO SCH (09:27)
[2020-11-17] MEDS: Calcium Citrate 200 mg TAB PO SCH (09:27)
[2020-11-17] MEDS: Cholecalciferol (VIT D3) 400 units TAB PO SCH (09:27)
[2020-11-17] MEDS: Enoxaparin 40 MG/0.4 ML SYR SUBCUT SCH (09:29)
[2020-11-17] MEDS: ZINC GLUCONATE 50 MG PO SCH (20:37)
[2020-11-17] MEDS: POTASSIUM GLUCONATE 99 MG PO SCH (20:38)
[2020-11-17] MEDS: PTO: Mirabegron 50 mg ER TAB (NF) PO SCH (20:39)
[2020-11-17] MEDS: Carbidopa/Levodop CR 50/200 TAB.CR PO SCH (21:24)
[2020-11-18] MEDS: Carbidopa/Levodop 25/100 MG TAB PO SCH ×5 (05:15→19:03)
[2020-11-18] MEDS: Enoxaparin 40 MG/0.4 ML SYR SUBCUT SCH (08:07)
[2020-11-18] MEDS: Calcium Polycarbophil 625mg TB PO SCH (08:07)
[2020-11-18] MEDS: Cholecalciferol (VIT D3) 400 units TAB PO SCH (08:07)
[2020-11-18] MEDS: Calcium Citrate 200 mg TAB PO SCH (08:07)
[2020-11-18] MEDS: PTO: Multivitamins/Mins AREDS2 (NF) CAP PO SCH ×2 (08:07→20:36)
[2020-11-18] MEDS: Multivitamins/Minerals TAB PO SCH (08:07)
[2020-11-18] MEDS: PTO: Mirabegron 50 mg ER TAB (NF) PO SCH (20:37)
[2020-11-18] MEDS: ZINC GLUCONATE 50 MG PO SCH (20:37)
[2020-11-18] MEDS: POTASSIUM GLUCONATE 99 MG PO SCH (20:37)
[2020-11-18] MEDS: Carbidopa/Levodop CR 50/200 TAB.CR PO SCH (21:32)
[2020-11-19] MEDS: Carbidopa/Levodop 25/100 MG TAB PO SCH ×5 (05:59→18:35)
[2020-11-19] MEDS: Multivitamins/Minerals TAB PO SCH (09:56)
[2020-11-19] MEDS: Calcium Polycarbophil 625mg TB PO SCH (09:56)
[2020-11-19] MEDS: Cholecalciferol (VIT D3) 400 units TAB PO SCH (09:56)
[2020-11-19] MEDS: Enoxaparin 40 MG/0.4 ML SYR SUBCUT SCH (09:56)
[2020-11-19] MEDS: Calcium Citrate 200 mg TAB PO SCH (09:56)
[2020-11-19] MEDS: PTO: Multivitamins/Mins AREDS2 (NF) CAP PO SCH ×2 (09:57→20:57)
[2020-11-19] MEDS: Senna TAB 8.6 mg TAB PO PRN (20:56)
[2020-11-19] MEDS: Carbidopa/Levodop CR 50/200 TAB.CR PO SCH (20:56)
[2020-11-19] MEDS: PTO: Mirabegron 50 mg ER TAB (NF) PO SCH (20:57)
[2020-11-19] MEDS: ZINC GLUCONATE 50 MG PO SCH (20:57)
[2020-11-19] MEDS: POTASSIUM GLUCONATE 99 MG PO SCH (20:57)
[2020-11-19] MEDS: Polyethylene Glycol 3350 17 GM PACKET PO PRN (21:00)
[2020-11-20] MEDS: Carbidopa/Levodop 25/100 MG TAB PO SCH ×5 (05:35→18:25)
[2020-11-20] MEDS: Cholecalciferol (VIT D3) 400 units TAB PO SCH (09:16)
[2020-11-20] MEDS: Multivitamins/Minerals TAB PO SCH (09:17)
[2020-11-20] MEDS: Calcium Polycarbophil 625mg TB PO SCH (09:18)
[2020-11-20] MEDS: Calcium Citrate 200 mg TAB PO SCH (09:18)
[2020-11-20] MEDS: PTO: Multivitamins/Mins AREDS2 (NF) CAP PO SCH ×2 (09:20→21:54)
[2020-11-20] MEDS: Enoxaparin 40 MG/0.4 ML SYR SUBCUT SCH (09:22)
[2020-11-20] MEDS: Polyethylene Glycol 3350 17 GM PACKET PO PRN (09:27)
[2020-11-20] MEDS: Magnesium Hydroxide LIQ 30 ML UDC PO PRN (15:18)
[2020-11-20] MEDS: POTASSIUM GLUCONATE 99 MG PO SCH (21:54)
[2020-11-20] MEDS: ZINC GLUCONATE 50 MG PO SCH (21:54)
[2020-11-20] MEDS: Carbidopa/Levodop CR 50/200 TAB.CR PO SCH (21:56)
[2020-11-20] MEDS: PTO: Mirabegron 50 mg ER TAB (NF) PO SCH (21:59)
[2020-11-20] MEDS: Senna TAB 8.6 mg TAB PO PRN (21:59)
[2020-11-21] MEDS: Carbidopa/Levodop 25/100 MG TAB PO SCH ×5 (05:29→19:06)
[2020-11-21] MEDS: Enoxaparin 40 MG/0.4 ML SYR SUBCUT SCH (09:25)
[2020-11-21] MEDS: Calcium Polycarbophil 625mg TB PO SCH (09:26)
[2020-11-21] MEDS: Cholecalciferol (VIT D3) 400 units TAB PO SCH (09:27)
[2020-11-21] MEDS: Multivitamins/Minerals TAB PO SCH (09:27)
[2020-11-21] MEDS: Calcium Citrate 200 mg TAB PO SCH (09:27)
[2020-11-21] MEDS: PTO: Multivitamins/Mins AREDS2 (NF) CAP PO SCH ×3 (09:37→20:30)
[2020-11-21] MEDS: Magnesium Hydroxide LIQ 30 ML UDC PO PRN (11:51)
[2020-11-21] MEDS: PTO: Mirabegron 50 mg ER TAB (NF) PO SCH (20:29)
[2020-11-21] MEDS: POTASSIUM GLUCONATE 99 MG PO SCH (20:30)
[2020-11-21] MEDS: ZINC GLUCONATE 50 MG PO SCH (20:30)
[2020-11-21] MEDS: Carbidopa/Levodop CR 50/200 TAB.CR PO SCH (21:15)
[2020-11-22] MEDS: Carbidopa/Levodop 25/100 MG TAB PO SCH ×5 (05:42→18:26)
[2020-11-22] MEDS: Calcium Citrate 200 mg TAB PO SCH (09:16)
[2020-11-22] MEDS: Calcium Polycarbophil 625mg TB PO SCH (09:16)
[2020-11-22] MEDS: Cholecalciferol (VIT D3) 400 units TAB PO SCH (09:16)
[2020-11-22] MEDS: PTO: Multivitamins/Mins AREDS2 (NF) CAP PO SCH ×2 (09:17→20:53)
[2020-11-22] MEDS: Enoxaparin 40 MG/0.4 ML SYR SUBCUT SCH (09:17)
[2020-11-22] MEDS: Multivitamins/Minerals TAB PO SCH (09:17)
[2020-11-22] MEDS: POTASSIUM GLUCONATE 99 MG PO SCH (20:53)
[2020-11-22] MEDS: ZINC GLUCONATE 50 MG PO SCH (20:53)
[2020-11-22] MEDS: Senna TAB 8.6 mg TAB PO PRN (20:54)
[2020-11-22] MEDS: Carbidopa/Levodop CR 50/200 TAB.CR PO SCH (20:54)
[2020-11-22] MEDS: PTO: Mirabegron 50 mg ER TAB (NF) PO SCH (20:54)
[2020-11-23] MEDS: Carbidopa/Levodop 25/100 MG TAB PO SCH ×5 (05:32→18:23)
[2020-11-23] MEDS: Calcium Citrate 200 mg TAB PO SCH (09:37)
[2020-11-23] MEDS: Calcium Polycarbophil 625mg TB PO SCH (09:37)
[2020-11-23] MEDS: Enoxaparin 40 MG/0.4 ML SYR SUBCUT SCH (09:38)
[2020-11-23] MEDS: Multivitamins/Minerals TAB PO SCH (09:38)
[2020-11-23] MEDS: PTO: Multivitamins/Mins AREDS2 (NF) CAP PO SCH ×2 (09:38→21:49)
[2020-11-23] MEDS: Cholecalciferol (VIT D3) 400 units TAB PO SCH (09:38)
[2020-11-23] MEDS: PTO: Mirabegron 50 mg ER TAB (NF) PO SCH (21:48)
[2020-11-23] MEDS: Carbidopa/Levodop CR 50/200 TAB.CR PO SCH (21:48)
[2020-11-23] MEDS: POTASSIUM GLUCONATE 99 MG PO SCH (21:49)
[2020-11-23] MEDS: ZINC GLUCONATE 50 MG PO SCH (21:50)
[2020-11-24] MEDS: Carbidopa/Levodop 25/100 MG TAB PO SCH ×5 (05:46→20:20)
[2020-11-24 07:26] LABS: ABS Eosinophils 0.2 10^3/ul (0-0.6); ABS Lymphocytes 1.7 10^3/ul (1.0-4.8); ABS Monocytes 0.4 10^3/ul (0-0.8); Eosinophil % 3.2 %; Hematocrit 38 % (42-52); Hemoglobin 12.7 g/dL (14.0-18.0); Lymphocyte % 31.7 %; Mean Corpuscular HGB Conc 34 g/dL (31-36); Mean Corpuscular Hemoglobin 31 pg (27-31); Mean Corpuscular Volume 92 fL (80-94); Mean Platelet Volume 7.5 fL (7.4-10.4); Platelet Count 225 10^3/uL (150-450); Red Blood Count 4.08 10^6 /uL (4.18-5.48); Red Cell Distribution Width 14 % (10-15); White Blood Count 5.3 10^3/uL (3.5-10.8)
[2020-11-24 07:48] LABS: Albumin 4.5 g/dL (3.2-5.2); Albumin/Globulin Ratio 1.8 (1-3); Globulin 2.5 g/dL (2-4); Potassium 4.1 mmol/L (3.5-5.0); Total Bilirubin 0.6 mg/dL (0.2-1.0)
[2020-11-24] MEDS: Calcium Citrate 200 mg TAB PO SCH (11:08)
[2020-11-24] MEDS: Cholecalciferol (VIT D3) 400 units TAB PO SCH (11:08)
[2020-11-24] MEDS: Calcium Polycarbophil 625mg TB PO SCH (11:08)
[2020-11-24] MEDS: PTO: Multivitamins/Mins AREDS2 (NF) CAP PO SCH ×2 (11:09→20:22)
[2020-11-24] MEDS: Enoxaparin 40 MG/0.4 ML SYR SUBCUT SCH (11:09)
[2020-11-24] MEDS: Multivitamins/Minerals TAB PO SCH (11:09)
[2020-11-24] MEDS: PTO: Mirabegron 50 mg ER TAB (NF) PO SCH (20:21)
[2020-11-24] MEDS: POTASSIUM GLUCONATE 99 MG PO SCH (20:22)
[2020-11-24] MEDS: ZINC GLUCONATE 50 MG PO SCH (20:22)
[2020-11-24] MEDS: Carbidopa/Levodop CR 50/200 TAB.CR PO SCH (21:20)
[2020-11-25] MEDS: Carbidopa/Levodop 25/100 MG TAB PO SCH ×5 (05:44→19:36)
[2020-11-25] MEDS: Calcium Citrate 200 mg TAB PO SCH (07:38)
[2020-11-25] MEDS: Calcium Polycarbophil 625mg TB PO SCH (07:38)
[2020-11-25] MEDS: Cholecalciferol (VIT D3) 400 units TAB PO SCH (07:38)
[2020-11-25] MEDS: Multivitamins/Minerals TAB PO SCH (07:38)
[2020-11-25] MEDS: Enoxaparin 40 MG/0.4 ML SYR SUBCUT SCH (07:42)
[2020-11-25] MEDS: PTO: Multivitamins/Mins AREDS2 (NF) CAP PO SCH ×2 (07:42→20:18)
[2020-11-25] MEDS: POTASSIUM GLUCONATE 99 MG PO SCH (20:18)
[2020-11-25] MEDS: ZINC GLUCONATE 50 MG PO SCH (20:18)
[2020-11-25] MEDS: PTO: Mirabegron 50 mg ER TAB (NF) PO SCH (20:20)
[2020-11-25] MEDS: Carbidopa/Levodop CR 50/200 TAB.CR PO SCH (21:34)
[2020-11-26] MEDS: Carbidopa/Levodop 25/100 MG TAB PO SCH ×3 (05:52→12:36)
[2020-11-26 06:01] VITALS: BP 164/88
[2020-11-26] MEDS: PTO: Multivitamins/Mins AREDS2 (NF) CAP PO SCH (09:31)
[2020-11-26] MEDS: Multivitamins/Minerals TAB PO SCH (09:32)
[2020-11-26] MEDS: Enoxaparin 40 MG/0.4 ML SYR SUBCUT SCH ×2 (09:32→09:45)
[2020-11-26] MEDS: Cholecalciferol (VIT D3) 400 units TAB PO SCH (09:33)
[2020-11-26] MEDS: Calcium Citrate 200 mg TAB PO SCH (09:35)
[2020-11-26] MEDS: Calcium Polycarbophil 625mg TB PO SCH (09:35)
== END 2020-11-26 14:45 | disposition home health service (06) | DRG 57 ==
LOC: PMRU 11:42
PROVIDERS: ADMIT Physical Medicine & Rehabilitation; ATTEND Physical Medicine & Rehabilitation

== ENCOUNTER 2021-06-24 14:05 | Inpatient (IN) ==
[2021-06-24] MEDS ORDERED: NS 0.9% 1000 ml BAG 1,000 ML IV ONE (14:10)
[2021-06-24 14:31] LABS: ABS Eosinophils 0.2 10^3/ul (0-0.6); ABS Lymphocytes 1.5 10^3/ul (1.0-4.8); ABS Monocytes 0.6 10^3/ul (0-0.8); ABS Neutrophils 4.9 10^3/ul (1.5-7.7); Eosinophil % 2.8 %; Hematocrit 38 % (42-52); Hemoglobin 12.4 g/dL (14.0-18.0); Lymphocyte % 20.3 %; Mean Corpuscular HGB Conc 33 g/dL (31-36); Mean Corpuscular Hemoglobin 30 pg (27-31); Mean Corpuscular Volume 91 fL (80-94); Mean Platelet Volume 7.7 fL (7.4-10.4); Nucleated Red Blood Cells % 0.1; Platelet Count 197 10^3/uL (150-450); Red Blood Count 4.18 10^6 /uL (4.18-5.48); Red Cell Distribution Width 15 % (10-15); White Blood Count 7.2 10^3/uL (3.5-10.8)
[2021-06-24 14:43] LABS: Activated Partial Thrombo Time 33.7 seconds (26.0-38.0); INR 1.09 (0.86-1.15)
[2021-06-24 15:10] LABS: Albumin 4.2 g/dL (3.2-5.2); Albumin/Globulin Ratio 1.9 (1-3); Calcium 9.7 mg/dL (8.6-10.3); Globulin 2.2 g/dL (2-4); HDL Cholesterol 49.1 mg/dL; Potassium 4.2 mmol/L (3.5-5.0); Total Bilirubin 0.8 mg/dL (0.2-1.0); Total Protein 6.4 g/dL (6.4-8.9); eGFR CKD-EPI 63.3 (>60)
[2021-06-24] MEDS ORDERED: Aspirin EC 81 mg TAB.EC (enteric coated) PO ONE (15:13)
[2021-06-24 16:11] LABS: High Sensitivity Troponin 1 Hr 7 pg/mL (<20)
[2021-06-24] MEDS ORDERED: Acetaminophen IV 1 GM/100ML 100 ML IV PRN (18:24)
[2021-06-24 20:38] LABS: Vitamin D Total 25(OH) 46.5 ng/mL (20-50)
[2021-06-24] MEDS: Carbidopa/Levodop 25/100 MG TAB PO SCH ×2 (21:21→21:37)
[2021-06-24] MEDS: HYDROcodone/ACETAMIN 5/325 mg TAB PO PRN (21:26)
[2021-06-24] MEDS ORDERED: Carbidopa/Levodop CR 50/200 TAB.CR PO SCH (22:00)
[2021-06-25] MEDS: Carbidopa/Levodop 25/100 MG TAB PO SCH ×3 (06:01→12:47)
[2021-06-25 06:15] LABS: ABS Eosinophils 0.1 10^3/ul (0-0.6); ABS Lymphocytes 1.5 10^3/ul (1.0-4.8); ABS Monocytes 0.7 10^3/ul (0-0.8); ABS Neutrophils 5.2 10^3/ul (1.5-7.7); Eosinophil % 1.5 %; Hematocrit 35 % (42-52); Hemoglobin 11.7 g/dL (14.0-18.0); Lymphocyte % 19.7 %; Mean Corpuscular HGB Conc 34 g/dL (31-36); Mean Corpuscular Hemoglobin 31 pg (27-31); Mean Corpuscular Volume 92 fL (80-94); Mean Platelet Volume 7.9 fL (7.4-10.4); Platelet Count 177 10^3/uL (150-450); Red Blood Count 3.83 10^6 /uL (4.18-5.48); Red Cell Distribution Width 15 % (10-15); White Blood Count 7.5 10^3/uL (3.5-10.8)
[2021-06-25 06:26] LABS: Calcium 9.3 mg/dL (8.6-10.3); eGFR CKD-EPI 70.3 (>60)
[2021-06-25] MEDS ORDERED: NS 0.9% 1000 ml BAG 1,000 ML IV SCH (08:00)
[2021-06-25] MEDS: Multivitamins/Minerals TAB PO SCH (08:12)
[2021-06-25] MEDS ORDERED: ceFAZolin 2 GM PREMIX 2 GM/50 ML BAG IVPB ONE (13:48)
[2021-06-25] MEDS ORDERED: Dexamethasone IV 4 MG/ML VIAL 1 ml VIAL ONE (15:56)
[2021-06-25] MEDS ORDERED: Propofol 10 MG/ML 20 ML BTL ONE (15:56)
[2021-06-25] MEDS ORDERED: Bupivacaine 0.25% w/EPI 10 ML SDV ONE (16:28)
[2021-06-25] MEDS ORDERED: ceFAZolin 2 GM in NS PREMIX 2 GM/100 ML BAG IVPB ONE (16:36)
[2021-06-25] MEDS ORDERED: Bupivacaine 0.25% SDV PF 10 ML VIAL INJ ONE (17:09)
[2021-06-25] MEDS ORDERED: Naloxone 0.4 mg VIAL 0.4 mg/ml 1 ml VIAL IV PRN (19:29)
[2021-06-25] MEDS ORDERED: Ondansetron 4 mg VIAL 2 MG/ML 2 ml VIAL IV PRN (19:29)
[2021-06-25] MEDS ORDERED: HYDROmorphone 1 MG/1 ML SYRINGE ONE (20:10)
[2021-06-25] MEDS: HYDROmorphone 1 MG/1 ML SYRINGE IV PRN ×2 (20:11→20:33)
[2021-06-25] MEDS ORDERED: Carbidopa/Levodop 25/100 MG TAB PO SCH (21:00)
[2021-06-25] MEDS ORDERED: LORazepam 2 mg VIAL 1 ml IV PUSH ONE (23:10)
[2021-06-25] MEDS ORDERED: Lorazepam PYXIS KEY PRN (23:10)
[2021-06-26] MEDS ORDERED: hydrOXYzine IM 50 MG/ML VIAL IM ONE (00:17)
[2021-06-26] MEDS: Carbidopa/Levodop 25/100 MG TAB PO SCH ×8 (00:26→21:41)
[2021-06-26] MEDS: Multivitamins/Minerals TAB PO SCH (09:14)
[2021-06-26 10:44] LABS: ABS Lymphocytes 0.9 10^3/ul (1.0-4.8); ABS Monocytes 0.8 10^3/ul (0-0.8); ABS Neutrophils 7.3 10^3/ul (1.5-7.7); Eosinophil % 0.1 %; Hematocrit 29 % (42-52); Hemoglobin 9.5 g/dL (14.0-18.0); Lymphocyte % 10.1 %; Mean Corpuscular HGB Conc 33 g/dL (31-36); Mean Corpuscular Hemoglobin 30 pg (27-31); Mean Corpuscular Volume 92 fL (80-94); Mean Platelet Volume 8.4 fL (7.4-10.4); Platelet Count 148 10^3/uL (150-450); Red Blood Count 3.13 10^6 /uL (4.18-5.48); Red Cell Distribution Width 15 % (10-15); White Blood Count 9.1 10^3/uL (3.5-10.8)
[2021-06-26 10:50] LABS: CO2 Carbon Dioxide 23 mmol/L (22-32); Calcium 8.7 mg/dL (8.6-10.3); Chloride 106 mmol/L (101-111); Sodium 137 mmol/L (135-145)
[2021-06-26 10:55] LABS: Blood Urea Nitrogen 30 mg/dL (6-24); Glucose 106 mg/dL (70-100); eGFR CKD-EPI 67.4 (>60)
[2021-06-26 11:01] LABS: Anion Gap 8 mmol/L (2-11)
[2021-06-26] MEDS: Carbidopa/Levodop CR 50/200 TAB.CR PO SCH (21:40)
[2021-06-27] MEDS: Carbidopa/Levodop 25/100 MG TAB PO SCH ×6 (05:43→20:47)
[2021-06-27 06:41] LABS: Blood Urea Nitrogen 31 mg/dL (6-24); CO2 Carbon Dioxide 24 mmol/L (22-32); Calcium 9.2 mg/dL (8.6-10.3); Chloride 103 mmol/L (101-111); Glucose 92 mg/dL (70-100); Sodium 135 mmol/L (135-145); eGFR CKD-EPI 68.1 (>60)
[2021-06-27 06:50] LABS: Anion Gap 8 mmol/L (2-11)
[2021-06-27] MEDS: Multivitamins/Minerals TAB PO SCH (09:02)
[2021-06-27 09:25] LABS: ABS Eosinophils 0.1 10^3/ul (0-0.6); ABS Lymphocytes 1.1 10^3/ul (1.0-4.8); ABS Monocytes 0.8 10^3/ul (0-0.8); ABS Neutrophils 7.8 10^3/ul (1.5-7.7); Eosinophil % 0.7 %; Hematocrit 27 % (42-52); Hemoglobin 9.2 g/dL (14.0-18.0); Lymphocyte % 11.2 %; Mean Corpuscular HGB Conc 34 g/dL (31-36); Mean Corpuscular Hemoglobin 31 pg (27-31); Mean Corpuscular Volume 91 fL (80-94); Mean Platelet Volume 7.8 fL (7.4-10.4); Platelet Count 143 10^3/uL (150-450); Red Blood Count 2.99 10^6 /uL (4.18-5.48); Red Cell Distribution Width 15 % (10-15); White Blood Count 9.8 10^3/uL (3.5-10.8)
[2021-06-27 15:14] LABS: Total Iron Binding Capacity 253 mcg/dL (250-450); Transferrin 181 mg/dL (203-362)
[2021-06-27 15:17] LABS: % Iron Saturation 8 % (15-55); Iron < 20 ug/dL (50-212); Unsaturated Iron Binding 233 ug/dL
[2021-06-27] MEDS: Carbidopa/Levodop CR 50/200 TAB.CR PO SCH (20:46)
[2021-06-28] MEDS: HYDROcodone/ACETAMIN 5/325 mg TAB PO PRN ×2 (03:28→17:37)
[2021-06-28] MEDS: Carbidopa/Levodop 25/100 MG TAB PO SCH ×6 (05:30→21:01)
[2021-06-28 06:43] LABS: ABS Eosinophils 0.2 10^3/ul (0-0.6); ABS Lymphocytes 1.2 10^3/ul (1.0-4.8); ABS Monocytes 0.6 10^3/ul (0-0.8); ABS Neutrophils 6.4 10^3/ul (1.5-7.7); Hematocrit 27 % (42-52); Hemoglobin 9.3 g/dL (14.0-18.0); Lymphocyte % 14.4 %; Mean Corpuscular HGB Conc 35 g/dL (31-36); Mean Corpuscular Hemoglobin 31 pg (27-31); Mean Corpuscular Volume 90 fL (80-94); Mean Platelet Volume 8.4 fL (7.4-10.4); Platelet Count 157 10^3/uL (150-450); Red Blood Count 2.98 10^6 /uL (4.18-5.48); Red Cell Distribution Width 14 % (10-15); White Blood Count 8.4 10^3/uL (3.5-10.8)
[2021-06-28] MEDS: Multivitamins/Minerals TAB PO SCH (09:45)
[2021-06-28] MEDS: Carbidopa/Levodop CR 50/200 TAB.CR PO SCH (21:01)
[2021-06-29] MEDS: Carbidopa/Levodop 25/100 MG TAB PO SCH ×6 (06:04→20:55)
[2021-06-29] MEDS: Multivitamins/Minerals TAB PO SCH (11:35)
[2021-06-29] MEDS: Carbidopa/Levodop CR 50/200 TAB.CR PO SCH (20:54)
[2021-06-30] MEDS: Carbidopa/Levodop 25/100 MG TAB PO SCH ×6 (05:59→20:05)
[2021-06-30] MEDS: HYDROcodone/ACETAMIN 5/325 mg TAB PO PRN ×2 (06:42→14:00)
[2021-06-30] MEDS: Multivitamins/Minerals TAB PO SCH (11:24)
[2021-06-30] MEDS: Carbidopa/Levodop CR 50/200 TAB.CR PO SCH (20:05)
[2021-07-01 03:13] VITALS: BP 142/79
[2021-07-01] MEDS: HYDROcodone/ACETAMIN 5/325 mg TAB PO PRN (06:02)
[2021-07-01] MEDS: Carbidopa/Levodop 25/100 MG TAB PO SCH (06:22)
[2021-07-01 09:05] LABS: Rapid COVID-19 Molecular Undetected (Undetected)
== END 2021-07-01 10:43 | DRG 494 ==
LOC: ED 14:05 → EDHOLD 18:25 → SUATTDRO 18:25 → MEDTELE 23:29
PROVIDERS: ADMIT Nurse Practitioner Family; ATTEND Internal Medicine